=== PATIENT | female | born 1980 | race Caucasian/White ===

== ENCOUNTER 2020-06-21 09:58 | Outpatient (RCR) | payer BC, SELFPAY ==
--- NOTE | 2020-06-21 11:28 | HMH.PTOPEV ---
PT Outpatient Evaluation Rehab PT Outpatient Evaluation Start: 06/21/20 10:42 Freq: Status: Active Protocol: Document 06/21/20 10:42 [email or web address] (Rec: 06/21/20 11:28 [email or web address] [id number]) Electronically Signed By Fabian Wise, PT 06/21/20 10:42 Outpatient Therapy Subjective History Subjective History Pt. is a 40 year old female who presents to Outpatient PT clinic w/ complaints of constant and acute on chronic exacerbation of LB/LLE P! onset 1 wk. ago after lifting and moving pumpkins at work. Pt. reports first having symptoms in LB last year w/ symptoms progressively getting worse in the last month and a half. Pt . 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 Pt. denies having recent diagnostic imaging nor injections for current pathology, but reports some symptom relief w/ prescribed medications. Pt. reports symptoms into LLE( denies RLE) inferior to knee. Current medications include a muscle relaxer, Ibuprofen 800mg, Aspirin, and Propanolol . PMH includes Thrombophilia, migraines, Endometriosis, Ovarian Cysts, and TMJ implants x 2. Pt. denies bowel /bladder incontinencies, cancer, pacemaker, but reports an adhesive tape allergy. Chief Complaint Pain,Paresthesia Symptom Type Sharp,Numbness,Tingling, Shooting Symptoms Relieved By Prescription Meds Symptoms Aggravated By Supine,Sitting,Bending/ Stooping,Twisting,Lifting Prior Functional Limitations None Current Functional Limitations Lifting,Housework,Driving, Sleeping,Sitting,Bending/ Stooping Symptom Description Constant but Variable Level of pain today (0-10) 3 Pain scale - at its best (0-10) 3 Pain scale - at its worst (0-10) 10 Lumbopelvic Eval Posture
== END 2020-07-06 13:00 | disposition home or self-care (01) ==
LOC: PT.CARL 09:58
PROVIDERS: PCP Emergency Medicine; Visit Provider Family Medicine
DX: S39.012A Strain of muscle, fascia and tendon of lower back, initial encounter (principal)
CPT/HCPCS: 97110; 97140; 97163

== ENCOUNTER 2021-05-01 10:00 | Outpatient (RCR) | payer BC, SELFPAY | END 2021-06-14 14:00 | disposition home or self-care (01) | LOC: PT.CARL 10:00 | PROVIDERS: PCP Emergency Medicine; Visit Provider Obstetrics & Gynecology | DX: M54.9 Dorsalgia, unspecified (principal); Z34.90 Encounter for supervision of normal pregnancy, unspecified, unspecified trimester | CPT/HCPCS: 97110; 97140; 97163 ==

== ENCOUNTER 2021-10-21 11:35 | Emergency (ER) | payer BC, SELFPAY ==
[2021-10-21 11:45] VITALS: BP 138/91; PULSE 102; RESP 18; TEMP 36.9; O2SAT 98; BMI 31.9
[2021-10-21 12:13] LABS: UTC Influenza A Antigen Negative (Negative); UTC Influenza B Antigen Negative (Negative)
--- NOTE | 2021-10-21 12:14 | HMH.EDUTC ---
[facility] [place] Dis[place] Clinical Impression: Strep sore throat, COVID-19 virus test result unknown Acute bronchitis Qualifiers: Bronchitis organism: unspecified organism Qualified Code(s): J20.9 - Acute bronchitis, unspecified Disposition: Home, Self-Care Condition on Discharge: Good Instructions: DI for Strep Throat, DI for Acute Bronchitis Additional Instructions: covid swab was sent to lab, call tomorrow for results. self isolate until test results are known to be negative Start antibiotic today. Be sure to complete entire prescription even if feeling better Tylenol and ibuprofen as needed for pain or fever Humidifier/vaporizer/hot steamy shower Follow-up with primary care saturday. Follow-up immediately in the ER of the [facility] for new or worsening symptoms or no noticeable improvement over the next 48-72 hours. Stop smoking Inhaler every 4-6 hours as needed. Should help open airways improved cough, wheezing, shortness of breath Start steroids today. Helps with inflammation therefore coughing and wheezing. Follow directions on package. Start antibiotics today be sure to take it as ordered with the full length of time although you should start feeling better in 24-48 hours. Change toothbrush and toothpaste 24-48 hours after starting antibiotics Tylenol or Motrin as needed for fever or pain Encourage fluids, water, Gatorade, Powerade, try cold fluids, popsicles, ice cream will make it feel better You are contagious for 24 hours. Avoid kissing anyone, no eating or drinking after anyone. You are contagious. Follow-up the ER for new or worsening symptoms or no noticeable improvement over the next 24-48 hours. Follow-up with PCP this week. Prescriptions: predniSONE [Prednisone 20mg Tab] 20 mg PO BID #10 tab Transmission Status: Pending to [facility] Albuterol Sulfate [Proventil-HFA 90mcg/puff Inh] 1 - 2 puffs IH Q6HP PRN 14 Days #1 each PRN Reason: Wheezing Transmission Status: Pending to [facility] Azithromycin [Zithromax 250mg tab] 250 mg PO DIRECTED #6 tab Transmission Status: Pending to [facility] Referrals: Rahul Nava MD [Primary Care Provider] - Medical Decision Making - Ovidio Inquiry Pt receiving controlled substance: No Vital Signs: 02/05/22 11:45 Temperature 98.4 F Temperature Source Oral Pulse Rate [Right Brachial] 102 H Respiratory Rate 18 Blood Pressure [Right Arm] 138/91 H Blood Pressure Mean [Right Arm] 106 Blood Pressure Source [Right Arm] Automatic Cuff Blood Pressure Position [Right Arm] Sitting 02 Sat by Pulse Oximetry 98 Oxygen Delivery Method Room Air - Lab Data Lab Results 10/21/21 11:51: Influenza Type A Ag Negative, Influenza Type B Ag Negative Orders (Tests/Meds): ORDERS Category Date Time Status Covid-19 Nasal PCR ([facility]) Routine Lab 10/21/21 11:51 Ordered Rapid Strep Scrn Group A [Strep Scrn Group A (Rapid)] Lab 10/21/21 11:59 Received Stat [facility] HPI - General Chief complaint: Urgent Treatment Center Stated complaint: covid symptoms Time Seen by Provider: 10/21/21 12:15 Mode of Arrival: Ambulatory Source of Information: Patient Limitations: No Limitations Description of Symptoms (Recalled from Triage Doc. by RN): PATIENT C/O FEVER, CHILLS, FATIGUE, COUGH, BODY ACHES, SORE THROAT, CONGESTION, AND VOMITING/DIARRHEA SINCE SATURDAY HEENT Symptoms (Recalled from RN notes): Yes Resp Symptoms (Recalled from RN notes): Yes Skin Symptoms (Recalled from RN notes): No MS Symptoms (Recalled from RN notes): No Functional Status (Recalled from RN notes): WNL - History of Present Illness Provider Complaint: 41 yr old female presents for fever,chills,fatigue, cough,body aches,sore throat, congestion, and v/d since . Pt states it feels the same it did when she had strep throat in dec - Related Data Previous Rx's Medication Instructions Recorded Albuterol Sulfate [Proventil-HFA 1 - 2 puffs IH Q6HP PRN 14 Da
[2021-10-21 12:18] LABS: Strep Scrn Group A (Rapid) Negative (Negative)
[2021-10-21 12:27] VITALS: BP 138/91; PULSE 102; RESP 18; TEMP 36.9; O2SAT 98
== END 2021-10-21 12:30 | disposition home or self-care (01) ==
PROVIDERS: Emergency Provider Nurse Practitioner Family; PCP Family Medicine
DX: J02.0 Streptococcal pharyngitis (principal); U07.1 COVID-19; J20.9 Acute bronchitis, unspecified
CPT/HCPCS: 87430; 87804; 99203; C9803; G0463; U0003; U0005

== ENCOUNTER 2022-02-15 16:51 | Emergency (ER) | payer BC, SELFPAY ==
[2022-02-15 17:35] VITALS: BP 147/99; PULSE 103; RESP 19; TEMP 36.9; O2SAT 97; BMI 33.3
--- NOTE | 2022-02-15 17:49 | HMH.EDUTC ---
[facility] Clinical Impression: Acute bronchitis Qualifiers: Bronchitis organism: unspecified organism Qualified Code(s): J20.9 - Acute bronchitis, unspecified URI (upper respiratory infection) Qualifiers: URI type: unspecified URI Qualified Code(s): J06.9 - Acute upper respiratory infection, unspecified Disposition: Home, Self-Care Condition on Discharge: Good Instructions: Albuterol Oral Inhalation, DI for COVID-19 (Suspected or Confirmed ), Preventing the Spread of Coronavirus Discharge Instructions Additional Instructions: Hold dose of Amoxicillin tonight and resume prescribed medication tomorrow FOllow up with your Family Doctor if no improvement or any worsening of symptoms *Monitor Temp, Over the counter Motrin or Tylenol as directed/as needed Tylenol every 4 hours and Motrin every 6 hours (as long as your family doctor has told you that you can take it) for fever or pain. and straight to ER if unable to lower temp less than 101.0 after medication given *Warm salt water gargles may help to soothe the throat *Throat Lozenges *Warm fluids like tea with honey may help to soothe the throat *Sleep elevated *Humidifier/Vaporizer Follow up IMMEDIATELY for new or worsening symptoms or no Noticeable improvement over the next 48-72 hours. 911 for difficulty breathing or swallowing You were tested for today for Upper Respiratory Panel with COVID19 your test result should be back in the next 24-48 hours, you results should be available on the [facility] My Health Portal you can view them there Prescriptions: Albuterol Sulfate [Proventil-HFA 90mcg/puff Inh] 1 - 2 puffs IH Q6HP PRN #1 each PRN Reason: Shortness Of Breath Transmission Status: Received by [facility] Benzonatate [Benzonatate 100mg cap] 100 mg PO Q8HP PRN #15 cap PRN Reason: Cough Transmission Status: Received by [facility] Referrals: Rahul Nava MD [Primary Care Provider] - As needed Time of Disposition: 18:05 Medical Decision Making - Ovidio Inquiry Pt receiving controlled substance: No Ovidio was queried for this patient: No Vital Signs: 02/15/22 17:35 02/15/22 18:14 Temperature 98.4 F 98.4 F Temperature Source Oral Pulse Rate 103 H Pulse Rate [Right Brachial] 103 H Respiratory Rate 19 19 Blood Pressure 147/99 H Blood Pressure [Right Arm] 147/99 H Blood Pressure Mean [Right Arm] 115 Blood Pressure Source [Right Arm] Automatic Cuff Blood Pressure Position [Right Arm] Sitting 02 Sat by Pulse Oximetry 97 Oxygen Delivery Method Room Air Orders (Tests/Meds): ED MEDICATIONS Discontinued Medications Generic Name Dose Route Start Last Admin Trade Name Natalya PRN Reason Stop Dose Admin Ceftriaxone Sodium 1 gm 02/15/22 18:01 02/15/22 18:13 Ceftriaxone 1gm Vial IM 02/15/22 18:02 1 gm ONCE ONE Administration Lidocaine HCl 0 ml 02/15/22 18:01 02/15/22 18:13 Lidocaine 1% 5ml Pf Vial IM 02/15/22 18:02 2 ml ONCE ONE Administration Medical Decision Narrative: Discussed with pharmacy will have patient hold dose of Amoxicillin tonight and will give Rocephin injection in the [facility] and have her start back the Amoxicillin tomorrow [facility] [place] - General Stated complaint: URI sORE THROAT,cOUGH,CONGESTION Time Seen by Provider: 02/15/22 17:49 Mode of Arrival: Ambulatory Source of Information: Patient Limitations: No Limitations Description of Symptoms (Recalled from Triage Doc. by RN): PATIENT C/O COUGH, CONGESTION, SOA, AND EAR PAIN. WAS TREATED FOR STREP LAST WEEK HEENT Symptoms (Recalled from RN notes): Yes Resp Symptoms (Recalled from RN notes): Yes Skin Symptoms (Recalled from RN notes): No MS Symptoms (Recalled from RN notes): No Functional Status (Recalled from RN notes): WNL - History of Present Illness Provider Complaint: Patient state that she was seen in [facility] in [place] and was place on Amoxicillin for strep throat, 40mg of prednisone and ear drops States that she
[2022-02-15 18:14] VITALS: BP 147/99; PULSE 103; RESP 19; TEMP 36.9; O2SAT 97
== END 2022-02-15 18:25 | disposition home or self-care (01) ==
PROVIDERS: Emergency Provider Nurse Practitioner; PCP Family Medicine
DX: J20.9 Acute bronchitis, unspecified (principal)
CPT/HCPCS: 96372; 99212; G0463; J0696

== ENCOUNTER 2023-12-01 13:30 | Outpatient (CLI) | payer BC, SELFPAY ==
[2023-12-01 13:40] LABS: Adenovirus F 40/41, stool Not Detected (NotDetected); Astrovirus Not Detected (NotDetected); Campylobacter Not Detected (NotDetected); Clostridium Difficile A/B, PCR Not Detected (NotDetected); Cryptosporidium Not Detected (NotDetected); Cyclospora Cayetanesis Not Detected (NotDetected); Entamoeba histolytica Not Detected (NotDetected); Enteroaggregative E coli Not Detected (NotDetected); Enteropathogenic E coli Not Detected (NotDetected); Enterotoxigenic E coli Not Detected (NotDetected); Giardia lamblia Not Detected (NotDetected); Plesimonas Shigalloides, PCR Not Detected (NotDetected); Rotavirus A Not Detected (NotDetected); Salmonella, PCR Not Detected (NotDetected); Sapovirus Not Detected (NotDetected); Shiga-like toxin E coli Not Detected (NotDetected); Shigella Enterovasive E coli Not Detected (NotDetected); Vibrio Cholerae Not Detected (NotDetected); Vibrio, PCR Not Detected (NotDetected); Yersinia Entercolitica, PCR Not Detected (NotDetected)
[2023-12-03 17:36] LABS: C difficile Toxins AB, EIA Negative (Negative)
[2023-12-04 09:20] LABS: Norovirus Detected (NotDetected)
== END 2023-12-01 23:59 ==
LOC: LAB.DROPOF 13:31
PROVIDERS: PCP Family Medicine; Visit Provider Internal Medicine Gastroenterology
DX: R19.7 Diarrhea, unspecified (principal); R10.84 Generalized abdominal pain; R15.2 Fecal urgency; Z86.19 Personal history of other infectious and parasitic diseases
CPT/HCPCS: 87324; 87507

== ENCOUNTER 2024-09-29 16:01 | Outpatient (CLI) | payer BC, SELFPAY | END 2024-09-29 23:59 | disposition home or self-care (01) | LOC: LAB.DROPOF 16:01 | PROVIDERS: PCP Nurse Practitioner Family; Visit Provider Nurse Practitioner Family | DX: Z02.9 Encounter for administrative examinations, unspecified (principal) ==

== ENCOUNTER 2024-10-09 15:33 | Outpatient (CLI) | payer BC, SELFPAY ==
--- NOTE | 2024-10-09 15:37 | US_ITS ---
FINAL REPORT CLINICAL HISTORY: Goiter COMPARISON: None FINDINGS: THYROID ULTRASOUND: The right lobe of the thyroid gland measures 5.2 x 1.2 x 2.1 cm in size. There are several nodules in the right lobe of the thyroid gland, the largest nodule measuring 1 cm in size, ovoid, solid, hypoechoic, a TI-RADS category 4 nodule. The left lobe of the thyroid gland measures 4.7 x 1.3 x 2 cm in size. There are several nodules as well in the left lobe of the thyroid gland, the largest nodule measuring 1.3 cm in diameter, isoechoic with small calcifications, a TI-RADS category 4 nodule. The isthmus measures 2 mm in thickness. IMPRESSION: Multiple nodules in the thyroid gland, the largest on the right a 1 cm TI-RADS category 4 nodule, the largest on the left a 1.3 cm TI-RADS category 4 nodule. 12-month thyroid ultrasound follow-up exam is suggested for further evaluation. Reviewed, Interpreted and Dictated by Rc Slade MD Transcribed by Lani Oleary Authenticated and [facility]
== END 2024-10-09 23:59 | disposition home or self-care (01) ==
LOC: RAD 15:35
PROVIDERS: PCP Nurse Practitioner Family; Visit Provider Nurse Practitioner Family
DX: E04.1 Nontoxic single thyroid nodule (principal)
CPT/HCPCS: 76536

== ENCOUNTER 2024-10-15 10:00 | Outpatient (RCR) | payer BC, SELFPAY ==
[2024-09-29 14:38] LABS: Basophils # 0.1 K/mm3 (0-0.2); Eosinophils # 0.1 K/mm3 (0.0-0.4); Eosinophils % 1.8 % (0.1-12.0); Hematocrit 38.6 % (37.0-47.0); Hemoglobin 12.7 g/dL (12.2-16.2); Lymphocytes # 2.2 K/mm3 (0.7-4.5); Mean Corpuscular HGB Conc 32.9 g/dL (31.8-35.4); Mean Corpuscular Hemoglobin 29.9 pg (27.0-31.2); Mean Corpuscular Volume 90.8 fl (81-99); Mean Platelet Volume 10.7 fl (7.4-10.4); Monocytes # 0.3 K/mm3 (0.1-1.0); Monocytes % 5.4 % (1.7-9.3); Neutrophils # 3.3 K/mm3 (1.8-7.8); Neutrophils % 54.8 % (37.0-80.0); Platelet Count 320 K/mm3 (142-424); Red Blood Count 4.25 M/mm3 (4.20-5.40); Red Cell Distribution Width 12.6 % (11.5-17.5)
[2024-09-29 15:12] LABS: Alanine Aminotransferase 14 U/L (12-78); Albumin Level 4.9 g/dl (3.5-5.0); Albumin/Globulin Ratio 2.1 (1.1-1.8); Alkaline Phosphatase 46 U/L (38-126); Aspartate Amino Transferase 25 U/L (14-36); Bilirubin,Total 0.3 mg/dl (0.2-1.3); Blood Urea Nitrogen 16 mg/dl (7-17); Calcium 9.3 mg/dl (8.4-10.2); Carbon Dioxide 29 mmol/L (22.0-30.0); Chloride 102 mmol/L (98-107); Estimated Glomerular Filt Rate 91 ml/min (>60); GFR (African American) 110 ML/MIN (>60); Globulin 2.3 g/dL (1.3-3.2); Glucose 66 mg/dl (74-100); Sodium 141 mmol/L (136-145); Total Protein,Serum 7.2 g/dl (6.3-8.2)
[2024-09-29 18:39] LABS: T4 (Thyroxine) 9.6 ug/dl (5.53-11.0)
[2024-09-29 18:53] LABS: Thyroid Stimulating Hormone 0.47 uIU/mL (0.465-4.68)
[2024-09-29 18:54] LABS: Ferritin 30.1 ng/ml (6.24-137)
[2024-09-29 20:04] LABS: Hemoglobin A1C 4.8 % (4.0-6.0)
[2024-09-29 20:09] LABS: Vitamin B12 707 pg/mL (239-931)
[2024-09-30 03:36] LABS: Triiodothyronine (T3) Free 2.5 pg/mL (2.0-4.4)
[2024-09-30 04:31] LABS: Thyroid Peroxidase Antibodies 14 IU/mL (0-34)
[2024-09-30 15:09] LABS: Thyroglobulin Level <1.0 IU/mL (0.0-0.9)
== END 2024-10-15 23:59 | disposition home or self-care (01) ==
LOC: OT 10:00
PROVIDERS: Nurse Practitioner Family; Visit Provider Orthopaedic Surgery
DX: M25.811 Other specified joint disorders, right shoulder (principal)
CPT/HCPCS: 80053; 82607; 82728; 83036; 83735; 84436; 84439; 84443; 84481; 85025; 86376; 86800; 97014; 97035; 97110; 97140; 97166; 97530; G0283

== ENCOUNTER 2024-10-19 16:21 | Outpatient (CLI) | payer BC, SELFPAY ==
[2024-10-19 16:48] LABS: Coronavirus 19, PCR Not Detected (NotDetected); Human Rhinovirus Not Detected (NotDetected); Influenza A, PCR Not Detected (NotDetected); Influenza B, PCR Not Detected (NotDetected); Respiratory Syncytial Virus Not Detected (NotDetected)
== END 2024-10-19 23:59 | disposition home or self-care (01) ==
LOC: LAB.DROPOF 10-21 16:22
PROVIDERS: PCP Nurse Practitioner Family; Visit Provider Nurse Practitioner Family
DX: R53.83 Other fatigue (principal); R50.9 Fever, unspecified
CPT/HCPCS: 87631

== ENCOUNTER 2024-10-28 15:20 | Outpatient (CLI) | payer BC, SELFPAY ==
--- NOTE | 2024-10-28 15:26 | XR_ITS ---
FINAL REPORT CLINICAL HISTORY: shortness of breath FINDINGS: No acute pulmonary density is evident. There is no evidence of effusion or other pleural disease. The mediastinum has a normal appearance. The cardiac silhouette is unremarkable. IMPRESSION: Unremarkable chest exam. Reviewed, Interpreted and Dictated by Arsh Randhawa MD Transcribed by Aliyah Maldonado Authenticated and [facility]
== END 2024-10-28 23:59 | disposition home or self-care (01) ==
LOC: RAD 15:21
PROVIDERS: PCP Nurse Practitioner Family; Visit Provider Nurse Practitioner Family
DX: R06.02 Shortness of breath (principal)
CPT/HCPCS: 71046

== ENCOUNTER 2024-12-15 16:20 | Outpatient (CLI) | payer BC, SELFPAY ==
[2024-12-15 16:00] LABS: Chol/HDL Ratio 2.9 (1-3.5); Cholesterol 175 mg/dl (140-200); HDL Cholesterol 60 mg/dl (40-60); Magnesium 1.9 mg/dl (1.6-2.3); Triglycerides 76 mg/dl (30-150); VLDL Cholesterol 15 mg/dL (0-40)
[2024-12-15 16:13] LABS: Direct LDL Cholesterol 85.08 mg/dL (100-129)
[2024-12-15 16:17] LABS: Free T4 (Free Thyroxine) 1.18 ng/dl (0.78-2.19)
[2024-12-15 16:19] LABS: T4 (Thyroxine) 7.6 ug/dl (5.53-11.0)
[2024-12-15 16:32] LABS: Thyroid Stimulating Hormone 0.67 uIU/mL (0.465-4.68)
[2024-12-16 08:13] LABS: Estradiol 30.1 pg/mL (.); FSH 10.9 mIU/mL (.); LH 6.8 mIU/mL (.); Progesterone 0.1 ng/mL (.); Triiodothyronine (T3) Free 2.4 pg/mL (2.0-4.4)
== END 2024-12-15 23:59 | disposition home or self-care (01) ==
LOC: LAB.DROPOF 16:20
PROVIDERS: PCP Nurse Practitioner Family; Visit Provider Nurse Practitioner Family
DX: R23.2 Flushing (principal); E04.1 Nontoxic single thyroid nodule
CPT/HCPCS: 80061; 82670; 83001; 83002; 83735; 84144; 84436; 84439; 84443; 84481

== ENCOUNTER 2025-02-05 11:09 | Outpatient (CLI) | payer BC, SELFPAY ==
[2025-02-05 13:12] LABS: Basophils % 0.8 % (0.1-2.0); Eosinophils # 0.1 Kmm3 (0.0-0.4); Eosinophils % 1.9 % (0.1-12.0); Hematocrit 38.6 % (37.0-47.0); Hemoglobin 12.7 g/dL (12.2-16.2); Immature Granulocytes # 0 10^3uL; Immature Granulocytes % 0 %; Lymphocytes # 1.7 K/mm3 (0.7-4.5); Lymphocytes % 35.6 % (10-50); Mean Corpuscular HGB Conc 32.9 g/dL (31.8-35.4); Mean Corpuscular Hemoglobin 30.2 pg (27.0-31.2); Mean Corpuscular Volume 91.9 fl (81-99); Mean Platelet Volume 9.7 fl (7.4-10.4); Monocytes # 0.3 K/mm3 (0.1-1.0); Neutrophils # 2.7 K/mm3 (1.8-7.8); Neutrophils % 55.7 % (37.0-80.0); Nucleated Red Blood Cells # 0 10^3/uL; Nucleated Red Blood Cells % 0 %; Platelet Count 311 K/mm3 (142-424); Red Cell Distribution Width 12.1 % (11.5-17.5); Red Cell Distribution Width-SD 40.7 fL; White Blood Count 4.9 K/mm3 (4.8-10.8)
[2025-02-05 13:22] LABS: Alanine Aminotransferase 13 U/L (12-78); Albumin Level 4.8 g/dl (3.5-5.0); Albumin/Globulin Ratio 1.9 (1.1-1.8); Alkaline Phosphatase 46 U/L (38-126); Anion Gap 11.1 mEq/L (5-15); Aspartate Amino Transferase 21 U/L (14-36); Bilirubin,Total 0.5 mg/dl (0.2-1.3); Blood Urea Nitrogen 17 mg/dl (7-17); Calcium 9.3 mg/dl (8.4-10.2); Carbon Dioxide 30 mmol/L (22.0-30.0); Chloride 103 mmol/L (98-107); Estimated Glomerular Filt Rate 91 ml/min (>60); GFR (African American) 110 ML/MIN (>60); Globulin 2.5 g/dL (1.3-3.2); Glucose 65 mg/dl (74-100); Potassium 4.1 mmoL/L (3.5-5.1); Sodium 140 mmol/L (136-145); Total Protein,Serum 7.3 g/dl (6.3-8.2)
[2025-02-05 13:40] LABS: 25-OH Vitamin D, Total 28.6 ng/mL (30-100)
[2025-02-05 13:54] LABS: Thyroid Stimulating Hormone 0.55 uIU/mL (0.465-4.68)
[2025-02-05 13:55] LABS: Hemoglobin A1C 4.7 % (4.0-6.0)
[2025-02-05 14:56] LABS: Ferritin 9.22 ng/ml (6.24-137)
[2025-02-05 15:02] LABS: Vitamin B12 662 pg/mL (239-931)
== END 2025-02-05 23:59 | disposition home or self-care (01) ==
LOC: LAB.DROPOF 02-09 11:11
PROVIDERS: PCP Nurse Practitioner Family; Visit Provider Nurse Practitioner Family
DX: I95.9 Hypotension, unspecified (principal); R53.83 Other fatigue; L65.9 Nonscarring hair loss, unspecified; R23.2 Flushing; R63.4 Abnormal weight loss
CPT/HCPCS: 80053; 82306; 82607; 82728; 83036; 84443; 85025

== ENCOUNTER 2025-02-11 07:07 | Outpatient (CLI) | payer BC, SELFPAY ==
--- NOTE | 2025-02-11 08:00 | CA_ITS ---
FINAL REPORT TECHNIQUE: Martins scale, color and spectral doppler images of the bilateral carotid arteries were obtained. CLINICAL HISTORY: SCREENING FOR JOSE,HX OF HTN COMPARISON: None FINDINGS: Peak systolic velocity in the right internal carotid artery is 76 cm/sec. The internal carotid to common carotid artery ratio is 1.0. There is no significant carotid artery stenosis and no significant plaque formation. The right vertebral artery is normal in direction. Peak systolic velocity in the left internal carotid artery is 89 cm/sec. The internal carotid to common carotid artery ratio is 1.5. There is no significant carotid artery stenosis and no significant plaque formation. The left vertebral artery is normal in direction. IMPRESSION: No ultrasound evidence of hemodynamically significant carotid artery stenosis. Normal peak systolic velocities and normal internal to common carotid artery ratios bilaterally. Reviewed, Interpreted and Dictated by Rc Slade MD Transcribed by Lani Oleary Authenticated and [facility]
--- NOTE | 2025-02-11 08:45 | US_ITS ---
FINAL REPORT CLINICAL HISTORY: family hx of early CAD/aneurysm COMPARISON: None FINDINGS: Sonographic images were obtained of the abdominal aorta. The abdominal aorta measures up to 21 mm in greatest dimensions. The common iliac arteries are within normal limits. IMPRESSION: No evidence of aortic aneurysm. Reviewed, Interpreted and Dictated by Rc Slade MD Transcribed by Lani Oleary Authenticated and [facility]
== END 2025-02-11 23:59 | disposition home or self-care (01) ==
LOC: RT 07:08
PROVIDERS: PCP Nurse Practitioner Family; Visit Provider Nurse Practitioner Family
DX: Z13.6 Encounter for screening for cardiovascular disorders (principal); Z82.49 Family history of ischemic heart disease and other diseases of the circulatory system
CPT/HCPCS: 76706; 93880

== ENCOUNTER 2025-02-11 07:10 | Outpatient (CLI) | payer SELFPAY ==
--- NOTE | 2025-02-11 07:00 | CT_ITS ---
APPROVED REPORT Coating Inspector: CLINICAL INDICATION Coronary risk evaluation and stratification TECHNIQUE Image Acquisition: A 128 slice MDCT scanner ([employer] View) was used for data acquisition. A noncontrast coronary calcium scan was performed. A CT attenuation threshold of 130 Hounsfield units (HU) was used for the detection of calcium in contiguous voxels of 1 sq mm in area to be counted as individual lesions. A tube voltage of 120 KVp was used. The patient received no medications prior to the coronary calcium CT. Image Reconstruction Transaxial images were reconstructed at 0.67 mm slide thickness. Data was reviewed interactively on an advanced workstation capable of 2 and 3-dimensional displays in all conventional reconstruction formats, including multiplanar reformations, maximum intensity projections, curved multiplanar reformations, and volume rendered reconstructions. When applicable, selected routine images describing the relevant coronary anatomy and pathology were saved and sent to PACS. Complications None Technical Quality Overall image quality was good. Total DLP (Dose-Length Product) is 161.9 mGy-cm. The reported value represents the total of one or more individual components during the CT acquisition of this date and at this time, and as such, the same value may appear in more than one CT report depending on the interpreting/reporting physicians. COMPARISON None FINDINGS CT Coronary Calcium Scoring LMA (Left Main Artery) = 0 LAD (Left Anterior Descending) = 0 LCX (Left Coronary Circumflex) = 0 RCA (Right Coronary Artery) = 0 Total Calcium Score = 0 using the AJ-130 method. There is no identifiable calcification in the aortic valve, mitral annulus or mitral valve, pericardium, or myocardium. IMPRESSION -Coronary artery calcification is absent. -Total Calcium Score (Agatston Score) = 0 using the AJ-130 method. The interpretation of the calcium heart score is based on the following continuum*: 0 = no calcified plaque detected (risk of coronary artery disease is very low ??? less than 5%) 1-10 = calcium detected in extremely minimal levels (risk of coronary diseases is still low ??? less than 10%) 11-100 = mild levels of plaque detected with certainty (mild or minimal narrowing of heart arteries is likely) 101-400 = definite,at least moderate levels of plaque detected (relatively high risk of a heart attack within 3-5 years) >401-999 = extensive levels of plaque detected (high risk of heart attack, high levels of vascular disease are present, high likelihood of at least one significant coronary narrowing) *The calcium heart score quantifies the burden of coronary calcification/plaque in the coronary arteries. The calcium heart score does not evaluate the presence or the burden of non-calcified (i.e. soft) plaque. The coronary and cardiac findings of this Coronary Calcium CT were reviewed, reported, and signed by Fabio Oreilly MD (Vat Overhauler). Conclusion Electronically signed by : Shanda Oreilly MD 02/13/2025 21:07:02
== END 2025-02-11 23:59 | disposition home or self-care (01) ==
LOC: RAD 07:11
PROVIDERS: PCP Nurse Practitioner Family; Visit Provider Nurse Practitioner Family
DX: Z82.49 Family history of ischemic heart disease and other diseases of the circulatory system (principal); Z13.6 Encounter for screening for cardiovascular disorders
CPT/HCPCS: 75571

== ENCOUNTER 2025-02-17 07:01 | Outpatient (CLI) | payer BC, SELFPAY ==
--- NOTE | 2025-02-17 07:06 | CT_ITS ---
FINAL REPORT TECHNIQUE: Multiple axial CT sections were performed through the face without IV contrast. Coronal reconstruction images were performed. This study was performed with techniques to keep radiation doses as low as reasonably achievable (ALARA). Individualized dose reduction techniques using automated exposure control or adjustment of mA and/or kV according to the patient's size were employed. CLINICAL HISTORY: ARTHRALGIA OF RT TEMPROMANDIBULAR JOINT FINDINGS: Paranasal sinuses and mastoid air cells are clear. There are postoperative changes from bilateral TMJ replacement. There is no dislocation. On the right, the surgical plate is not flush with the mandibular ramus toward the TMJ. This is asymmetric from the contralateral side. Chronicity is unknown. There is a small, triangular calcific density medial to the artificial mandibular condyle. Small bilateral soft tissue nodules are seen within the parotid glands which could represent intraparotid lymph nodes. Remaining soft tissues are without acute abnormality. IMPRESSION: 1. Postoperative changes from bilateral TMJ replacement. 2. Surgical plate not flush with mandibular ramus on the right. Chronicity unknown. Hardware complication not excluded. 3. Small calcific density medial to the right mandibular condyle component. Loose body not excluded. Reviewed, Interpreted and Dictated by Elba Dickens MD Transcribed by Talia Weathers Authenticated and . [facility]
== END 2025-02-17 23:59 | disposition home or self-care (01) ==
LOC: RAD 07:02
PROVIDERS: PCP Nurse Practitioner Family; Visit Provider Oral & Maxillofacial Surgery
DX: R93.0 Abnormal findings on diagnostic imaging of skull and head, not elsewhere classified (principal); M26.621 Arthralgia of right temporomandibular joint; Z96.698 Presence of other orthopedic joint implants
CPT/HCPCS: 70486

== ENCOUNTER 2025-04-19 15:30 | Outpatient (CLI) | payer BC, SELFPAY ==
--- OUTSIDE RECORDS SUMMARY | 2025-02-24 15:30 | XMS_ITS | Encounter Summary ---
Author Organization [facility] Address [address] [place] [address] Care Team Providers Care Comparison Shopper Name Role Phone Dustin Chuyitagagandeep Allen APRN Primary Care Provider [phone]- [phone] Reason for Visit * Reason Comments Follow-up F/u mtrue Encounter Details Date Type Department Care Team (Late st Contact Info) Description 02/24/2025 3:30 PM EDT Office Visit [facility] nitrogen operator [facility] [address] [place] [address] Merrick Cowan DMD, MD [address] [place] [address] Hardware complicating wound infection, initial encounter (CMS/[facility]) Social History Tobacco Use Types Packs/Day Years Used Date Smoking Tobacco: Never Smokeless Tobacco: Never Alcohol Use Standard Drinks/Week Comments No 0 (1 standard drink = 0.6 oz pur e alcohol) Humiliation, Afraid, Rape, and Kick questionnair e Answer Date Recorded Within the last year, have y ou been afraid of your partner or ex-partner? No 02/09/2025 Within the last year, have y ou been humiliated or emotionally abused in other ways by your partner or ex-partner? No Within the last year, have y ou been kicked, hit, slapped, or otherwise physically hurt by your partner or ex-partner? No 02/09/2025 Within the last year, have y ou been raped or forced to have any kind of sexual activity by your partner or ex-partner? No 02/09/2025 Social Connection and Isolation Panel Answer Date Recorded In a typical week, how many times do you talk on the phone with family, friends, or neighbors? More than three times a week 02/09/2025 How often do you get togethe r with friends or relatives? Three times a week 02/09/2025 How often do you attend [facility] or uatsdin services? More than 4 times per year 02/09/2025 Do you belong to any clubs o r organizations such as restoration groups, unions, fraternal or athletic groups, or school groups? No 02/09/2025 How often do you attend meet ings of the clubs or organizations you belong to? Never 02/09/2025 Are you , , di vorced, , never , or living with a partner? 02/09/2025 AUDIT-C Answer Date Recorded Q1: How often do you have a drink containing alcohol? Never 02/09/2025 Q2: How many drinks containi ng alcohol do you have on a typical day when you are drinking? Patient does not drink Q3: How often do you have si x or more drinks on one occasion? Never 02/09/2025 Overall Financial Resource Strain (CARDIA) Answe r Date Recorded How hard is it for you to pa y for the very basics like food, housing, medical care, and heating? Not hard at all 02/09/2025 PHQ-2 Answer Date Recorded Patient Health Questionnaire-2 Score 0 02/09/2025 [facility] - Occupational Stress Questionnaire Answer Date Recorded Do you feel stress - tense, restless, nervous, or anxious, or unable to sleep at night because your mind is troubled all the time - these days? Very much 02/09/2025 Exercise Vital Sign Answer Date Recorde d On average, how many days pe r week do you engage in moderate to strenuous exercise (like a brisk walk)? 0 days 02/09/2025 On average, how many minutes do you engage in exercise at this level? 0 min 02/09/2025 Hunger Vital Sign Answer Date Recorded Within the past 12 months, y ou worried that your food would run out before you got the money to buy more. Never true 02/10/20 25 Within the past 12 months, t he food you bought just didn't last and you didn't have money to get more. Never true 02/09/2025 PRAPARE - Transportation Answer Date Re corded In the past 12 months, has l ack of transportation kept you from medical appointments or from getting medications? No 01/15 In the past 12 months, has l ack of transportation kept you from meetings, work, or from getting things needed for daily living? No 02/09/2025 Housing Stability Vital Sign Answer Surya e Recorded In the last 12 months, was t here a time when you were not able to pay the mortgage or rent on time? No 02/09/2025 In the past 12 months, how m any times have you moved where you were living? 0 02/09/2025 At any time in the past 12 m [facility], were you homeless or living in a nursing home (including now)? No 02/09/2025 Utilities Answer Date Recorded In the past 12 months has th e [employer], gas, oil, or water company threatened to shut off services in your home? No 02/09/2025 Comments No Sex and Gender Information Value Date Recorded Sex Assigned at Not on file Legal Sex Female 7:29 PM EDT Gender Identity Not on file Sexual Orientation Not on file documented as of this encounter Last Filed Vital Signs Vital Sign Reading Time Taken Comments Blood Pressure 115/86 02/24/2025 3:32 PM EDT Pulse 85 02/24/2025 3:32 PM EDT Temperature - - Respiratory Rate - - Oxygen Saturation 100% 02/24/2025 3:32 PM EDT Inhaled Oxygen Concentration - - Weight 63.5 kg (140 lb) 02/24/2025 3:32 PM EDT Height 165.1 cm (5' 5 ) 02/24/2025 3:32 PM EDT Body Mass Index 23.3 02/24/2025 3:32 PM EDT documented in this encounter Miscellaneous Notes * Progress Notes - Merrick Cowan DMD, MD - 02/24/2025 3:30 PM EDT OMS Follow-Up Appointment Subjective: Swati Limon is a 44 y.o. female who presents for follow-up s/p heterotropic bone removalsurrounding R TMJ prosthesis on 06/25/[address] Cowan. Patient was seen about 2 weeks ago for drainage from the right external auditory canal. Reports that the drainage has decreased with the antibiotics and reports that the pain has decreased. Recently had CT scan performed to evaluate the underlying hardware. No changes to occlusion. Denies f/c/n/v. Objective: Vitals: 02/24/25 1532 BP: 115/86 Pulse: 85 SpO2: 100% Physical Exam General: Well nourished, in no acute distress.? HEENT: Normocephalic, atraumatic. No facial swelling, asymmetry, or lesions. Neck is soft, supple, nontender to palpation. Decreased erythema around Right preauricular region, minimal drainage from Router ear canal Intra-Oral: MARTIN 40 mm. Occlusion stable and reproducible. Oral mucosa moist, intact. No intraoral lesions. No pharyngeal edema. FOM soft/nontender/non-elevated. CT face without contrast: Postoperative changes from bilateral TMJ replacement. Surgical Plate not flush with mandibular ramus on the right with chronicity unknown. Small clacific density medial to the right mandibular condyle component. Right EAC culture: mixed skin juju Assessment: Swati Limon is a 44 y.o. female who presents for follow-up s/p heterotropic bone removalsurrounding R TMJ prosthesis on 06/25/24 with drainage from right EAC region. Continue antibiotics Plan: - Rx: Bactrim documented in this encounter Plan of Treatment Upcoming Encounters Date Type Department Care Team (Late st Contact Info) Description 05/12/2025 2:00 PM EDT Office Visit [facility] nitrogen operator Faculty [facility] [address] [place] [address] Merrick Cowan DMD, MD [address] [place] [id number] 10/20/2025 1:30 PM EST Office Visit [facility] nitrogen operator [facility] [address] [place] [address] Merrick Cowan DMD, MD [address] [place] [address] 02/08/2026 9:00 AM EDT Office Visit [facility] [address], [address] [place] [address] Aramis Santana MD [address] [place] [address] documented as of this encounter Visit Diagnoses Diagnosis Hardware complicating wound infection, initial encounter (CMS/[facility]) documented in this encounter Additional Health Concerns Assessment Noted Time A fall risk assessment has been complete d for the patient 05/27/2023 10:33 AM EDT A Body Mass Index follow-up plan has been documented for the patient 03/04/2025 12:46 PM EDT documented as of this encounter Care Teams Comparison Shopper Relationship Specialty Start Date End Date Chuyita Chan APRN [address] [place] [address] PCP - General 02/09/25 documented as of this encounter
--- NOTE | 2025-04-19 15:30 | US_ITS ---
PROCEDURE: US TRANSVAGINAL CLINICAL INDICATION: abnormal uterine bleeding, pain COMPARISON: No exams were available for comparison FINDINGS: Transvaginal sonographic images of the pelvis were obtained. UTERUS: 7.7 cm x 6.3cmx 4.3cm retroverted with a combined endometrial thickness of 10.3mm. There is a small nabothian cyst within the cervix. LEFT OVARY: 1.9 cmx0.7 cmx0.8cm with a volume of 0.5ml. RIGHT OVARY: 1.8 cmx 1.1cmx1.0cm with a volume of 1.1ml. Both ovaries are seen and appear normal. Doppler flow to both ovaries are seen. There is no fluid in the cul-de-sac. IMPRESSION: 1. Retroverted uterus normal in shape and size. The endometrium appears normal and measures 10.3 mm. 2. Both ovaries are difficult to visualize but appear normal. 3. No fluid in the cul-de-sac. Dictated by: Luis Peralta MD 04/20/2025 09:58 Luis Peralta MD in OV 04/20/2025 09:58
--- OUTSIDE RECORDS SUMMARY | 2025-04-19 15:34 | XMS_ITS | Encounter Summary ---
Author Organization [employer] ([place], [place], [place], [place]) Address [address] [place] [address] Care Team Providers Care Instructor Creeler Name Role Phone Unavailable Primary Care Provider Unavailabl e Encounter Details Date Type Department Care Team (Late st Contact Info) Description 01/11/2019 Transcribed Document [facility] [place] [facility] [address] [place] [address] ProviderCliff MD [address] [place] [id number] Social History Tobacco Use Types Packs/Day Years Used Date Smoking Tobacco: Never Assessed Comments Unknown Sex and Gender Information Value Date Recorded Sex Assigned at Not on file Legal Sex Female 1:20 PM CDT Gender Identity Not on file Sexual Orientation Not on file documented as of this encounter Miscellaneous Notes * Cerner Conversion Note - Historical ProviderMD - 01/11/2019 9:09 AM CDT CR Chest 2 Vws Ordered: 01/11/2019 Auth (Verified) Reason for Exam: chest pain, dysphagia 01/11/2019 08:34 01/11/2019 09:09 (Madelaine Cottrell, Technical Administrator) No further action required documented in this encounter Plan of Treatment Not on file documented as of this encounter Visit Diagnoses Not on filedocumented in this encounter
--- OUTSIDE RECORDS SUMMARY | 2025-04-19 15:34 | XMS_ITS | Encounter Summary ---
Author Organization [employer] ([place], [place], [place], [place]) Address [address] [place] [address] Care Team Providers Care Inspector Firearms Name Role Phone Unavailable Primary Care Provider Unavailabl e Encounter Details Date Type Department Care Team (Late st Contact Info) Description 09/25/2018 Transcribed Document [facility] [place] [facility] [place] [address] ProviderCliff MD [address] [place] [id number] Social History Tobacco Use Types Packs/Day Years Used Date Smoking Tobacco: Never Assessed Comments Unknown Sex and Gender Information Value Date Recorded Sex Assigned at Not on file Legal Sex Female 1:20 PM CDT Gender Identity Not on file Sexual Orientation Not on file documented as of this encounter Miscellaneous Notes * Cerner Conversion Note - Cliff Velazquez MD - 09/25/2018 6:39 AM INTERNATIONAL MARKETING EXECUTIVE DATE OF PROCEDURE: 09/24/2018 PREOPERATIVE DIAGNOSIS(ES): 1. Pelvic pain. 2. Dysmenorrhea. 3. Dyspareunia. 4. Pelvic adhesions. POSTOPERATIVE DIAGNOSIS(ES): 1. Pelvic pain. 2. Dysmenorrhea. 3. Dyspareunia. 4. Pelvic adhesions. 5. Endometriosis. PROCEDURE: 1. Diagnostic laparoscopy with CO2 laser of endometriosis. 2. Lysis of adhesions. 3. Drainage of right ovarian cyst. 4. Chromopertubation. SURGEON: Mara Nunez M.D. SIGNALING DESIGN ENGINEER: Celeste Vela PA-C. ANESTHESIA: General endotracheal anesthesia. FINDINGS: 1. Pelvic adhesions in the left lower quadrant and in the right lower quadrant. The right lower quadrant adhesions were close to the appendix, but the appendix itself was entirely normal. 2. There were also adhesions in the anterior cul-de-sac from the bladder to the lower uterine segment. 3. There was endometriosis which was between stage II and III. Very superficial small implants on the anterior cul-de-sac, right psoas muscle, but there were a lot more broad-spread lesions in each ovarian fossa and in the cul-de-sac region. 4. There were adhesions on the posterior wall of the uterus, pulling the uterus to the right ovarian fossa. 5. Two small ovarian cysts on the right ovary. 6. Tubal patency was demonstrated on the right. The left fallopian tube was absent. 7. The upper abdomen appeared normal. 8. Liver was normal. 9. Gallbladder previously removed. 10. The diaphragmatic surfaces were normal. SPECIMEN: None. ESTIMATED BLOOD LOSS: Minimal. Please see anesthesia record. INTAKES AND OUTPUTS: Please see anesthesia record. COMPLICATIONS: None. INDICATION FOR PROCEDURE: Ms. Swati Limon is a 38-year-old, who has had a very long complicated gynecologic history. She has undergone many laparoscopies in the past for pelvic pain and also including treatment of an ectopic . The patient is a 6, para 1, AB 4, and ectopic 1. At this time, she has been dealing with significant abdominal and pelvic pain. She has pain with her periods and she has pain with intercourse. Recently, she was seen by her primary care, Dr. Robert Gallegos, who has performed an MRI and the results of the MRI reveals abdominal pelvic adhesions. The patient, her primary care, and I have considered a diagnostic laparoscopy as a good first step to evaluate and treat the pelvic adhesions. The patient is aware of the risks and benefits of the surgery. She has already had several laparoscopies in the past. She understands the mode of anesthesia, the need for preop antibiotics, and the- for DVT prophylaxis. She has signed a consent. She has also signed a hospital-one form and a [facility] report has been run and is up-to-date. DESCRIPTION OF PROCEDURE: The patient was taken to the operating room in the dorsal supine position. She was placed on the operating room table. She was then given general endotracheal anesthesia. She was placed in a modified lithotomy position and she had both a vaginal and an abdominal prep in the usual routine fashion. Once she was draped, then a Sam catheter was placed into her bladder to allow continuous urinary drainage. A speculum was placed inside the vagina. A single-tooth tenaculum was placed on the anterior lip of the cervix. The cervix was dilated and then an uterine manipulator was inserted. Then, with the insufflation of the bulb, the bulb blew and so a new uterine manipulator had to be obtained. Once the new uterine manipulator was placed, the single-tooth tenaculum was removed and the speculum was removed. We then turned our attention to the patient's abdomen. There was a marked amount of scarring at the presence of the umbilicus due to the previous laparoscopy. A small incision was made and a Veress needle was introduced. The abdomen was then insufflated to approximately 3.5 L of gas. Once the abdomen was insufflated and the Veress needle was removed, then an Optiview trocar was placed under direct visualization for each layer of the abdomen. With the trocar in place, the patient was put into the Trendelenburg position. The camera was inserted. Then, we visualized the abdominopelvic viscera. At this time, we decided to transilluminate the lower abdomen. We made a 5-mm incision in the left lower quadrant and placed a trocar. We also did one on the right side as well. This was to aid in visualization, traction, countertraction, suction, and irrigation. Still photos were taken of the pelvis, the appendix, the uterine surface, the left ovary, the cul-de-sac, the right tube and ovary. We waited till the end of the surgery to visualize the upper abdomen. We then obtained our laser and with the uterus in a good position we began in the anterior cul-de-sac, taking the adhesions down from the previous surgery. We then elevated an adhesion and removed the adhesion. We lifted the uterus up and then inspected the cul-de-sac. The surface of the uterus had many blebs on it consistent with endometriosis and so my concern was that the patient may have adenomyosis. I did use the laser and lasered all the blebs on the surface of the uterus. We then inspected the left ovary, inspected the left lower quadrant, and took down the adhesions in the left lower quadrant. The ovary itself was normal. There were no adhesions on the left ovary. The left tube was absent. Then by elevating the uterus, we inspected the cul-de-sac and we began taking down the endometriosis in the cul-de-sac. The tissue was somewhat edematous. With the lasering the tissue, a clear fluid or exudate would be noted. There was old eschar noted from previous surgeries. Once we felt that we had lasered the endometriosis, we then performed a chromopertubation demonstrating flow of dye on the right tube. We elevated the ovary and drilled the couple of cysts on that ovary which demonstrated clear fluid. These cysts were most consistent with physiologic ovulation. The appendix appeared normal, but we took down some adhesions close to the appendix and then we irrigated copiously, suctioned out the irrigant fluid, visualized the upper abdomen, took the patient out of the Trendelenburg to visualize the diaphragmatic surfaces which were totally clear. We could visualize the liver edge and the stomach as well. There was no evidence of any fatty liver and no abnormalities in the upper abdomen. At this time, we irrigated copiously, suctioned out the irrigant fluid, removed our instruments from each trocar, removed each trocar. No bleeding was noted internally. We did use a local anesthetic in our incision sites. Then we allowed the gas to escape from the umbilical trocar. As we were letting the gas escape, then, we turned our attention to closing the other incisions and then we removed the umbilical trocar. The fascial edge was reapproximated at the umbilicus and then we did place one deep suture and then the skin was closed in a subcuticular fashion. Local anesthetic was placed in the umbilical incision as well as the accessory trocar sites. Since the patient has a severe ADHESIVE allergy, no dressings were applied. The Sam catheter was removed. The uterine manipulator was removed. A sponge on a stick was used to evaluate bleeding. Minimal bleeding was noted from the vagina. The patient was returned to the dorsal supine position and taken to the recovery room in stable condition. Mara Nunez M.D. Dict: 09/25/2018 06:39:58 Trans: 09/25/2018 07:36:27 CC1: Mara Nunez M.D. documented in this encounter Plan of Treatment Not on file documented as of this encounter Visit Diagnoses Not on filedocumented in this encounter
--- OUTSIDE RECORDS SUMMARY | 2025-04-19 15:34 | XMS_ITS | Encounter Summary ---
Author Organization [employer] ([place], [place], [place], [place]) Address [address] [place] [address] Care Team Providers Care Wheel Braider Name Role Phone Unavailable Primary Care Provider Unavailabl e Encounter Details Date Type Department Care Team (Late st Contact Info) Description 01/11/2019 Transcribed Document [facility] [place] Family Medicine [facility] [place] [address] ProviderCliff MD [address] [place] [id number] Social History Tobacco Use Types Packs/Day Years Used Date Smoking Tobacco: Never Assessed Comments Unknown Sex and Gender Information Value Date Recorded Sex Assigned at Not on file Legal Sex Female 1:20 PM CDT Gender Identity Not on file Sexual Orientation Not on file documented as of this encounter Miscellaneous Notes * Cerner Conversion Note - Cliff Velazquez MD - 01/11/2019 11:42 AM CDT [address] [address] SWATI MARQUEZ :1980 Visit Time:01/11/2019 Your Visit Summary Your Care Team Admitting Physician - NATHALIA LAWS MD-IRAIS Attending Physician - NATHALIA LAWS MD-IRAIS Primary Care Physician - SRINI HERNANDEZ (REF), BOB Referring Physician - SELF, REFERRED (REF), -UNK Your Diagnosis Chest pain Chest pain Esophagitis Patient Portal Reminder: Be sure to sign up for the [employer] patient portal, which gives you 08/04 access to your medical information ??? including these discharge instructions ??? using your computer, smartphone, or tablet. Just go to [email or web address] to get started. Questions? Call . You may also obtain a copy of your Emergency Department visit from Medical Records by calling the hospital phone number listed above and asking to be directed to the Medical Records Department. If you had special tests, such as EKG???s or X-rays, the interpretation of your tests given to you by the Emergency Department Physician is a preliminary report. Some fractures and illnesses fail to show up on preliminary tests. These will be reviewed again and we will call you if there are any new suggestions. If your symptoms continue notify your physician. After you leave, you should follow the instructions provided. What to do next Follow-Up Appointments Follow Up with SRINI HERNANDEZ When Within 2 to 3 days Where: [id number] [facility] Emergency Services [address] [place] [id number] Business (1) Allergies Adhesive Bandage (Blisters) Contrast Dye (anaphylaxis) antihistamines Immunizations This Visit No Immunizations Found Medications What How Much When Instructions Next Dose New Al hydroxide/ Mg hydroxide/ simethicone (Maalox Advanced Regular Strength oral suspension) 10 Milliliter(s) Oral Four times a day (after meals and at bedtime) Can Mix 3 medications, for a GI cocktail Printed Prescription New atropine/ hyoscyamine/ PB/ scopolamine ( oral elixir) 5 Milliliter(s) Oral Four times a day (before meals and at bedtime) Can Mix 3 medications, for a GI cocktail Printed Prescription New lidocaine topical (Lidocaine Viscous 2% mucous membrane solution) 5 Milliliter(s) Topical Four times a day (before meals and at bedtime) as needed for as needed esophageal pain Can Mix 3 medications, for a GI cocktail Printed Prescription Unchanged acetaminophen-diphenhydramine (Tylenol PM) 30 Milliliter(s) Oral At Bedtime Unchanged aspirin 81 Milligram(s) Oral Every Day Unchanged cholecalciferol (Vitamin D3) 50,000 International Units Oral Every 4 Weeks Unchanged metFORMIN (metFORMIN 500 mg oral tablet) 1 Tablet(s) Oral Two Times A Day Unchanged multivitamin, ( Multivitamins oral tablet) 1 Tablet(s) Oral Every Day Unchanged Non Formulary (Non Formulary med) essential oils Topical Every Day Unchanged nortriptyline (nortriptyline 10 mg oral capsule) 1 Capsule(s) Oral At Bedtime Unchanged promethazine (promethazine 25 mg oral tablet) 1 Tablet(s) Oral Every 6 Hours as needed for for nausea/vomiting Duration: 5 Day(s) The home medications listed are only as accurate as the information you provided. Please continue taking all of your medications prescribed by your Primary Care Provider unless specifically told to change or discontinue the medication. Please direct any questions regarding your home medications to your Primary Care Provider. Take your medications faithfully. Do NOT skip medication. Do NOT stop taking medications without the direction of a physician. Carry a list of your medications with you at all times, and take this medication list with you to your first follow up visit. Report any side effects. Avoid herbal remedies unless discussed with your physician. As part of your treatment plan, your physician may have prescribed a limited course of a controlled substance. This medication may be given to help people with moderate or severe pain or for other medical conditions, but there are risks involved with treatment. Common side effects may include nausea, constipation, drowsiness, sweating, itching, dry mouth, and rash. More serious side effects may include cognitive and motor impairment, like problems with thinking, concentrating, alertness, and movement (e.g. slowed reflexes), and driving and operating heavy machinery can be dangerous. It is important for you to talk to your physician if you have these side effects or questions. These controlled substances can produce physical dependence and be habit-forming if taken for an extended period of time, which means that the body has gotten used to them and may experience withdrawal symptoms if they are abruptly stopped. Withdrawal symptoms can include runny nose, sweating, goose bumps, diarrhea, abdominal cramping, rapid heartbeat, difficulty sleeping, and nervousness. Please dispose of unused and medications per pharmacy guidance. Test Results Laboratory or Other Results This Visit (last charted value for your 01/11/2019 visit) Hematology 01/11/19 07:17:00 WBC: 13.2 K/uL -- Normal range between ( 3.9 and 10.0 ) RBC: 4.63 Million/uL -- Normal range between ( 3.93 and 5.22 ) Hct: 40.2 % -- Normal range between ( 34.1 and 44.9 ) Hgb: 13.7 Gram/dL -- Normal range between ( 11.2 and 15.7 ) Platelet Count: 333 K/uL -- Normal range between ( 163 and 369 ) MCH: 29.6 pg -- Normal range between ( 25.6 and 32.2 ) MCHC: 34.1 Gram/dL -- Normal range between ( 32.3 and 36.5 ) MCV: 86.8 fL -- Normal range between ( 79.0 and 94.8 ) Slide Review: No Eos %: 0.8 % -- Normal range between ( 1.0 and 7.0 ) Garrard #: 0.58 K/uL -- Normal range between ( 0.24 and 0.82 ) Eos #: 0.10 K/uL -- Normal range between ( 0.04 and 0.54 ) Garrard %: 4.4 % -- Normal range between ( 4.7 and 12.5 ) Baso %: 0.4 % -- Normal range between ( 0.0 and 1.0 ) Baso #: 0.05 K/uL -- Normal range between ( 0.01 and 0.08 ) RDW: 12.5 % -- Normal range between ( 11.6 and 14.4 ) Neut %: 80.7 % -- Normal range between ( 34.0 and 71.0 ) Neut #: 10.68 K/uL -- Normal range between ( 1.56 and 6.13 ) Lymph %: 13.5 % -- Normal range between ( 19.3 and 53.0 ) Lymph #: 1.79 K/uL -- Normal range between ( 1.18 and 3.74 ) MPV: 9.3 fL -- Normal range between ( 9.4 and 12.4 ) IG#: 0 x10(3)/uL IG%: 0 % -- Normal range between ( 0 and 1 ) General Chemistry 01/11/19 07:17:00 Creatinine Level: 0.67 mg/dL -- Normal range between ( 0.55 and 1.02 ) Sodium Level: 137 mmol/L -- Normal range between ( 136 and 146 ) Potassium Level: 3.5 mmol/L -- Normal range between ( 3.5 and 5.1 ) Chloride Level: 105 mmol/L -- Normal range between ( 102 and 112 ) Carbon Dioxide Level: 24 mmol/L -- Normal range between ( 21 and 32 ) Anion Gap: 12 -- Normal range between ( 9 and 20 ) Bilirubin Total: 0.4 mg/dL -- Normal range between ( 0.2 and 1.3 ) A/G Ratio: 1.1 -- Normal range between ( 1.1 and 2.5 ) ALT: 91 Units/Liter -- Normal range between ( 12 and 78 ) AST: 53 Units/Liter -- Normal range between ( 5 and 37 ) Globulin: 3.9 Gram/dL -- Normal range between ( 1.5 and 4.5 ) Alk Phos: 74 Units/Liter -- Normal range between ( 27 and 136 ) Bun/Creatinine: 22.4 -- Normal range between ( 8.0 and 20.0 ) Calcium Level: 9.5 mg/dL -- Normal range between ( 8.5 and 10.1 ) CRP: 0.5 mg/dL -- Normal range between ( 0.0 and 0.9 ) eGFR : >60 mL/min/1.73m2 eGFR NonAfrican: >60 mL/min/1.73m2 Glucose Level: 93 mg/dL -- Normal range between ( 74 and 106 ) Blood Urea Nitrogen: 15 mg/dL -- Normal range between ( 7 and 22 ) Protein Total: 8.2 Gram/dL -- Normal range between ( 6.4 and 8.2 ) Albumin Level: 4.3 Gram/dL -- Normal range between ( 3.4 and 5.0 ) Lipase Level: 107 Units/Liter -- Normal range between ( 73 and 393 ) Cardiac Specific Markers 01/11/19 07:17:00 Troponin I Ultra: <0.015 ng/mL -- Normal range between ( 0.015 and 0.045 ) Computed Tomography 01/11/19 09:50:27 CT Abdomen Pelvis WO: CT Abdomen Pelvis WO 01/11/19 09:50:10 CT Chest WO: CT Chest WO Diagnostic Radiology 01/11/19 07:37:54 CR Chest 2 Vws: CR Chest 2 Vws Education Materials Esophagitis Introduction Esophagitis is inflammation of the esophagus. The esophagus is the tube that carries food and liquids from your mouth to your stomach. Esophagitis can cause soreness or pain in the esophagus. This condition can make it difficult and painful to swallow. What are the causes? Most causes of esophagitis are not serious. Common causes of this condition include: ??? Gastroesophageal reflux disease (GERD). This is when stomach contents move back up into the esophagus (reflux). ??? Repeated vomiting. ??? An allergic-type reaction, especially caused by food allergies (eosinophilic esophagitis). ??? Injury to the esophagus by swallowing large pills with or without water, or swallowing certain types of medicines. ??? Swallowing (ingesting) harmful chemicals, such as household cleaning products. ??? Heavy alcohol use. ??? An infection of the esophagus. This most often occurs in people who have a weakened immune system. ??? Radiation or chemotherapy treatment for cancer. ??? Certain diseases such as sarcoidosis, Crohn disease, and scleroderma. What are the signs or symptoms? Symptoms of this condition include: ??? Difficult or painful swallowing. ??? Pain with swallowing acidic liquids, such as citrus juices. ??? Pain with burping. ??? Chest pain. ??? Difficulty breathing. ??? Nausea. ??? Vomiting. ??? Pain in the abdomen. ??? Weight loss. ??? Ulcers in the mouth. ??? Patches of white material in the mouth (candidiasis). ??? Fever. ??? Coughing up blood or vomiting blood. ??? Stool that is black, tarry, or bright red. How is this diagnosed? Your health care provider will take a medical history and perform a physical exam. You may also have other tests, including: ??? An endoscopy to examine your stomach and esophagus with a small camera. ??? A test that measures the acidity level in your esophagus. ??? A test that measures how much pressure is on your esophagus. ??? A barium swallow or modified barium swallow to show the shape, size, and functioning of your esophagus. ??? Allergy tests. How is this treated? Treatment for this condition depends on the cause of your esophagitis. In some cases, steroids or other medicines may be given to help relieve your symptoms or to treat the underlying cause of your condition. You may have to make some lifestyle changes, such as:??? Avoiding alcohol. ??? Quitting smoking. ??? Changing your diet. ??? Exercising. ??? Changing your sleep habits and your sleep environment. Follow these instructions at home: Take these actions to decrease your discomfort and to help avoid complications. Diet ??? Follow a diet as recommended by your health care provider. This may involve avoiding foods and drinks such as:? Coffee and tea (with or without caffeine). ? Drinks that contain alcohol. ? Energy drinks and sports drinks. ? Carbonated drinks or sodas. ? Chocolate and cocoa. ? Peppermint and mint flavorings. ? Garlic and onions. ? Horseradish. ? Spicy and acidic foods, including peppers, chili powder, ocasio powder, vinegar, hot sauces, and barbecue sauce. ? [place] fruit juices and citrus fruits, such as oranges, yann, and limes. ? Tomato-based foods, such as red sauce, chili, salsa, and pizza with red sauce. ? Fried and fatty foods, such as donuts, bengali fries, potato chips, and high-fat dressings. ? High-fat meats, such as hot dogs and fatty cuts of red and white meats, such as rib eye steak, sausage, ham, and woo. ? High-fat dairy items, such as whole milk, butter, and cream cheese. ??? Eat small, frequent meals instead of large meals. ??? Avoid drinking large amounts of liquid with your meals. ??? Avoid eating meals during the 2???3 hours before bedtime. ??? Avoid lying down right after you eat. ??? Do notexercise right after you eat. ??? Avoid foods and drinks that seem to make your symptoms worse. General instructions ??? Pay attention to any changes in your symptoms. ??? Take [id number] and prescription medicines only as told by your health care provider. Do not take aspirin, ibuprofen, or other NSAIDs unless your health care provider told you to do so. ??? If you have trouble taking pills, use a pill splitter to decrease the size of the pill. This will decrease the chance of the pill getting stuck or injuring your esophagus on the way down. Also, drink water after you take a pill. ??? Do notuse any tobacco products, including cigarettes, chewing tobacco, and e-cigarettes. If you need help quitting, ask your health care provider. ??? Wear loose-fitting clothing. Do not wear anything tight around your waist that causes pressure on your abdomen. ??? Raise (elevate) the head of your bed about 6 inches (15 cm). ??? Try to reduce your stress, such as with yoga or meditation. If you need help reducing stress, ask your health care provider. ??? If you are overweight, reduce your weight to an amount that is healthy for you. Ask your health care provider for guidance about a safe weight loss goal. ??? Keep all follow-up visits as told by your health care provider. This is important. Contact a health care provider if: ??? You have new symptoms. ??? You have unexplained weight loss. ??? You have difficulty swallowing, or it hurts to swallow. ??? You have wheezing or a persistent cough. ??? Your symptoms do not improve with treatment. ??? You have frequent heartburn for more than two weeks. Get help right away if: ??? You have severe pain in your arms, neck, jaw, teeth, or back. ??? You feel sweaty, dizzy, or light-headed. ??? You have chest pain or shortness of breath. ??? You vomit and your vomit looks like blood or coffee grounds. ??? Your stool is bloody or black. ??? You have a fever. ??? You cannot swallow, drink, or eat. This information is not intended to replace advice given to you by your health care provider. Make sure you discuss any questions you have with your health care provider. Document Released: 10/10/2005 Document Revised: 02/07/2017 Document Reviewed: 12/28/2015 ?? 2017 Elsevier Emergency Awareness and Preventative Care STROKE is an EMERGENCY Every Minute Counts Act FAST and Check for these signs: FACE Does the face look uneven? ARM Does one arm drift down? SPEECH Does their speech sound strange? TIME Call at any sign of stroke Stroke Risk Factors Atrial Fibrillation (irregular heartbeat) Diabetes Family history of stroke Heart Disease Heavy alcohol use High Blood Pressure High Cholesterol Physical inactivity and obesity Smoking Cigarette Smoking The facts are clear, cigarette smoking will shorten your life. Smoking can cause many illnesses along the way. As a healthcare provider, we recommend that you stop smoking. Assistance with quitting is available by contacting 3-219-CTJX-NOW. This is a free resource providing counseling, support, and referral. Or you may contact your personal physician. National Suicide Prevention Lifeline: The National Suicide Prevention Lifeline is a national network of local crisis centers that provides free and confidential emotional support to people in suicidal crisis or emotional distress 24 hours a day, 7 days a week. Don't Wait! Stop a Heart Attack Before it Starts What is a heart attack? A heart attack is damage or to a part of the heart from severely decreased or lack of blood flow to the heart. Over time, arteries can become narrow from the buildup of fat and cholesterol, which is called plaque. The plaque can rupture causing a blood clot to form. When the blood clot forms, the artery can become severely narrowed or completely blocked, causing a heart attack. Heart attack is the leading cause of in the [place]. 85% of muscle damage occurs within the first 2 hours. Delay in the recognition of heart attack symptoms increases the chances of . Know the early symptoms of a heart attack: Nausea Feeling of fullness in chest Jaw Pain Pain that travels down one or both arms Fatigue/being tired Anxiety Back Pain Chest pressure, squeezing, or discomfort Shortness of breath Sweating, or a cold sweat Feeling of impending doom There are unusual signs of a heart attack, too! Women, the elderly, and diabetics may present with atypical symptoms: Fainting/dizziness Weakness Confusion Risk Factors for a Heart Attack Some heart disease risk factors, such as age and family history, cannot be changed. Others, like smoking and lack of exercise, can be changed. Smoking High Cholesterol High Blood Pressure Family History Obesity Age Gender (Males are at higher risk) Lack of Exercise Diabetes Diet Stress Excessive Alcohol Intake If you or someone you know is experiencing the signs and symptoms of a heart attack, DON???T DELAY. Call immediately and seek help. If someone collapses, perform CPR! Do not attempt to drive if you are having symptoms of heart attack. Hands-Only CPR Why Hands-Only CPR? Hands-Only CPR has been shown to be as effective as conventional CPR for cardiac arrests that occur outside of a hospital. Survival depends on immediately receiving CPR from someone nearby. How do you perform Hands-Only CPR? There are two easy steps: Call if you see a teen or adult collapse Push hard and fast in the center of the chest at a beat of 100 beats per minute. Save a life! 4 WAYS TO GET AHEAD OF SEPSIS SEPSIS is a MEDICAL EMERGENCY. Time matters! Infections put you and your family at risk for a life-threatening condition called sepsis. Sepsis is the body's extreme response to an infection. It is life-threatening, and without timely treatment, sepsis can rapidly lead to tissue damage, organ failure, and . Sepsis happens when an infection you already have-in your skin, lungs, urinary tract or somewhere else-triggers a chain reaction throughout your body. 1 PREVENT INFECTIONS Take good care of chronic conditions. Talk to your doctor about getting the recommended vaccines. 2 PRACTICE GOOD HYGIENE Wash your hands frequently. Keep cuts or open sores clean and covered until they are healed. 3 KNOW THE SYMPTOMS Confusion or disorientation Shortness of breath High heart rate Fever, shivering, or feeling very cold Extreme pain or discomfort Clammy or sweaty skin 4 ACT FAST Get medical care IMMEDIATELY if you suspect sepsis or if you have an infection that is not getting better or is getting worse. To learn more about sepsis and how to prevent infections, visit www.cdc.gov/sepsis. The examination and treatment you have received in the Emergency Department has been done to provide an appropriate evaluation and stabilizing treatment on an emergency basis only. Given the limited resources, it is not meant to be a substitute for complete medical care. The follow-up doctor you named will receive a copy of your records and all test reports. IT IS IMPORTANT THAT YOU SCHEDULE A FOLLOW-UP APPOINTMENT AND ARE RE-EVALUATED. You should report any new complaints, symptoms, or remaining problems at that time. IT IS IMPOSSIBLE FOR THE EMERGENCY DEPARTMENT TO RECOGNIZE AND TREAT ALL ELEMENTS OF INJURY OR ILLNESS IN A SINGLE VISIT. If you have been referred to a specialist physician, it means that we believe you may have a condition that requires the expertise of a specialist. These physicians work in partnership with the hospital and have agreed to see referred patients in their office for further evaluation. KEEP IN MIND THAT THE SPECIALIST HAS HIS/HER OWN OFFICE POLICIES WHICH MAY REQUIRE PROPER INSURANCE OR PAYMENT UP FRONT BEFORE THE SPECIALIST WILL SEE YOU. It is your responsibility to call the specialist physician to make an appointment. We do not have the ability to refer patients to specialists/physicians that work with specific insurance companies. Please be advised that all financial charges or billing practices are determined by that practice, not the hospital. If your insurance company requires that you see a specialist from their approved list, it is your responsibility to contact your insurance company to make those arrangements. It is also your responsibility to follow any other requirements of your insurance company necessary to obtain coverage for claims submitted. We will bill your insurance; however, you are responsible today for any co-pay amounts. You will receive a separate bill for any services you may have received including: emergency, radiology, or pathology physicians. Patient Name:MARQUEZGWENDOLYNNATASHA EDWARDS I have received this information and was given the opportunity to ask questions. Patient/Photographer Apprentice Lithographic Name: Patient/Photographer Apprentice Lithographic Signature: Relationship to Patient: Clinician/Hospital Photographer Apprentice Lithographic Signature: Please Provide a Telephone Number Where You Can Be Reached: Is it Permissible To Leave a Message? Date: documented in this encounter Plan of Treatment Not on file documented as of this encounter Visit Diagnoses Not on filedocumented in this encounter
--- OUTSIDE RECORDS SUMMARY | 2025-04-19 15:34 | XMS_ITS | Encounter Summary ---
Author Organization [employer] ([place], [place], [place], [place]) Address [address] [place] [address] Care Team Providers Care Pipeline Operator Name Role Phone Unavailable Primary Care Provider Unavailabl e Encounter Details Date Type Department Care Team (Late st Contact Info) Description 01/11/2019 Transcribed Document [facility] [place] Family Medicine [address] [place] [address] ProviderCliff MD [address] [place] [id number] Social History Tobacco Use Types Packs/Day Years Used Date Smoking Tobacco: Never Assessed Comments Unknown Sex and Gender Information Value Date Recorded Sex Assigned at Not on file Legal Sex Female 1:20 PM CDT Gender Identity Not on file Sexual Orientation Not on file documented as of this encounter Miscellaneous Notes * Cerner Conversion Note - Historical ProviderMD - 01/11/2019 7:16 AM CDT Pain Assessment Entered On: 01/11/2019 10:53 EDT Performed On: 01/11/2019 10:53 EDT by Geraldine Carroll RN Intervention Information: lidocaine topical Performed by Geraldine Carroll RN on 01/11/2019 07:46:00 EDT lidocaine topical,15mL Oral Pain Assessment Pain Assessment : Follow-up assessment Pain Scale Used : 0-10 Scale Geraldine Carroll RN - 01/11/2019 10:53 EDT Pain Scale Intensity : 5 Geraldine Carroll RN - 01/11/2019 10:53 EDT Image 4 - Images currently included in the form version of this document have not been included in the text rendition version of the form. Electronically signed by Interface, Sjh Conversion Dermatology Physician Assistant Cerner at 01/04/2023 1:46 PM CDT documented in this encounter Plan of Treatment Not on file documented as of this encounter Visit Diagnoses Not on filedocumented in this encounter
--- OUTSIDE RECORDS SUMMARY | 2025-04-19 15:34 | XMS_ITS | Encounter Summary ---
Author Organization [employer] ([place], [place], [place], [place]) Address [address] [place] [address] Care Team Providers Care Pharmacy Technician Name Role Phone Unavailable Primary Care Provider Unavailabl e Encounter Details Date Type Department Care Team (Late st Contact Info) Description 01/11/2019 Transcribed Document [facility] [place] [address] [place] [address] ProviderCliff MD [address] [place] [id number] Social History Tobacco Use Types Packs/Day Years Used Date Smoking Tobacco: Never Assessed Comments Unknown Sex and Gender Information Value Date Recorded Sex Assigned at Not on file Legal Sex Female 1:20 PM CDT Gender Identity Not on file Sexual Orientation Not on file documented as of this encounter Miscellaneous Notes * Cerner Conversion Note - Historical ProviderMD - 01/11/2019 7:17 AM CDT Pain Assessment Entered On: 01/11/2019 10:53 EDT Performed On: 01/11/2019 10:53 EDT by Geraldine Carroll RN Intervention Information: HYDROmorphone Performed by Geraldine Carroll RN on 01/11/2019 08:13:00 EDT HYDROmorphone,1mg IV Push,Left Antecubital [place] Pain Assessment Pain Assessment : Follow-up assessment Pain Scale Used : 0-10 Scale Geraldine Carroll RN - 01/11/2019 10:53 EDT Pain Scale Intensity : 0 Geraldine Carroll RN - 01/11/2019 10:53 EDT Image 4 - Images currently included in the form version of this document have not been included in the text rendition version of the form. Electronically signed by Jonathan, [place] Conversion Construction Equipment Mechanic Helper Cerner at 01/04/2023 1:44 PM CDT documented in this encounter Plan of Treatment Not on file documented as of this encounter Visit Diagnoses Not on filedocumented in this encounter
--- OUTSIDE RECORDS SUMMARY | 2025-04-19 15:34 | XMS_ITS | Encounter Summary ---
Author Organization [employer] ([place], [place], [place], [place]) Address [address] [place] [address] Care Team Providers Care Gas Or Petroleum Operator Name Role Phone Unavailable Primary Care Provider Unavailabl e Encounter Details Date Type Department Care Team (Late st Contact Info) Description 01/11/2019 Transcribed Document [facility] [place] Family Medicine [facility] [place] [address] ProviderCliff MD [address] [place] [id number] Social History Tobacco Use Types Packs/Day Years Used Date Smoking Tobacco: Never Assessed Comments Unknown Sex and Gender Information Value Date Recorded Sex Assigned at Not on file Legal Sex Female 1:20 PM CDT Gender Identity Not on file Sexual Orientation Not on file documented as of this encounter Miscellaneous Notes * Cerner Conversion Note - Cliff ProviderMD - 01/11/2019 8:09 AM CDT Rapid Response Team Documentation Entered On: 01/11/2019 8:10 EDT Performed On: 01/11/2019 8:09 EDT by ISRAEL ARVIZU, ANNIE Rapid Response Event Time Rapid Response Team Called : 01/11/2019 7:30 EDT Rapid Response Team Arrival Time : 01/11/2019 7:40 EDT Rapid Response Team Event End Time : 01/11/2019 7:55 EDT Rapid Response Event Intiated By : Hospital Staff Rapid Response Team Initiation Reason : Peripheral IV start Rapid Response Event Location Type : Emergency department Rapid Response Admission Diagnosis : Chest pain Chest pain, unspecified Rapid Response Medical Background : Abdominal pain (Medical) Constipation (Medical) Ectopic (Medical) Endometriosis (Medical) Frequent UTI (Medical) Gallstones (Medical) Genetic clotting disorder (Medical) Goiter (Medical) 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) Ovarian Cyst (Medical) Palpataions (Medical) Pancreatitis (Medical) TMJ (Medical) diarrhea (Medical) frequent UTI (Medical) Rapid Response Allergies : Substance Category Reactions Severity Adhesive Bandage Other Blisters antihistamines Drug Contrast Dye Drug Rapid Response Recent Vital Signs : 01/11/2019 06:40 Systolic Blood Pressure 153 01/11/2019 06:40 Diastolic Blood Pressure 98 01/11/2019 06:40 Respiratory Rate 18 01/11/2019 06:40 Temperature, Fahrenheit 97.7 01/11/2019 06:40 Oxygen Saturation 99 Rapid Response Recent Lab Results : 01/11/2019 07:17 Hgb 13.7 (11.2-15.7) 01/11/2019 07:17 Hct 40.2 (34.1-44.9) 01/11/2019 07:17 RBC 4.63 (3.93-5.22) 01/11/2019 07:17 WBC HI 13.2 (3.9-10.0) 01/11/2019 07:17 Platelet Count 333 (163-369) Weight/BMI : Clinical Weight/BMI CLINICALWEIGHT: 77.73 kg (01/11/19 06:40:00) Body Mass Index: 28.5 kg/m2 High (01/11/19 06:40:00) ISRAEL ARVIZU, ANNIE - 01/11/2019 8:09 EDT Electronically signed by Jonathan [facility] Conversion Roller Structural Mill Cerner at 01/04/2023 1:35 PM CDT documented in this encounter Plan of Treatment Not on file documented as of this encounter Visit Diagnoses Not on filedocumented in this encounter
--- OUTSIDE RECORDS SUMMARY | 2025-04-19 15:34 | XMS_ITS | Encounter Summary ---
Author Organization [employer] ([place], [place], [place], [place]) Address [address] [place] [address] Care Team Providers Care Application Coordinator Name Role Phone Unavailable Primary Care Provider Unavailabl e Encounter Details Date Type Department Care Team (Late st Contact Info) Description 05/23/2021 Transcribed Document [facility] [place] [facility] [place] [address] ProviderCliff MD [address] [place] [address] Social History Tobacco Use Types Packs/Day Years Used Date Smoking Tobacco: Never Assessed Comments Unknown Sex and Gender Information Value Date Recorded Sex Assigned at Not on file Legal Sex Female 1:20 PM CDT Gender Identity Not on file Sexual Orientation Not on file documented as of this encounter Miscellaneous Notes * Cerner Conversion Note - Historical ProviderMD - 05/23/2021 1:05 PM CDT Spiritual Care Assessment Entered On: 05/23/2021 13:23 EDT Performed On: 05/23/2021 12:45 EDT by OG FORRESTER Chaplain General Information Initial Visit : Yes Referred by : Nurse Referral Reason Comment : pre-surgery support Ministry Provided to : Patient, Family/Significant other Spiritual/Emotional Acuity : Low Active in a Baptism/Violet Group : Yes Holiness Preference : Taoist (Disciples of [employer]) OG FORRESTER Chaplain - 05/23/2021 13:19 EDT Spiritual Assessment Patient's Community/Relationship : Strength in patient's life Supportive/Healthy Relationships : Yes Patient's Concept of God/the Sacred : Strength in patient's life Spiritual Assessment Comment/Summary Points : Visited patient and prior to her procedure. 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 Patient was sad, wondered what could be wrong that they have so many miscarriages. They are hoping that genetic testing will reveal the reason. Discussed disposition options with patient and . They are leaning toward family pick up worker but are not yet sure. A follow up call will be made when remains come back from lab. Spirital Assessment Comment/Summary Report : SPIRITUAL ASSESSMENT COMMENT/SUMMARY No qualifying data available. OG FORRESTER Chaplain - 05/23/2021 13:19 EDT Interventions Emotional Support : Empathic/Engaged listening, Established trust, Family/Significant other supported, Feelings expressed, Information provided, Meaning strengths identified, Relationship strengths identified Spiritual and Holiness : Prayer shared Change, Adjustment and Loss : Provided support for current loss/grief OG FORRESTER Chaplain - 05/23/2021 13:19 EDT documented in this encounter Plan of Treatment Not on file documented as of this encounter Visit Diagnoses Not on filedocumented in this encounter
--- OUTSIDE RECORDS SUMMARY | 2025-04-19 15:34 | XMS_ITS | Encounter Summary ---
Author Organization [email or web address] ([place], [place], [place], [place]) Address [address] [place] [address] Care Team Providers Care Transformer Assembly Supervisor Name Role Phone Unavailable Primary Care Provider Unavailabl e Encounter Details Date Type Department Care Team (Late st Contact Info) Description 01/11/2019 Transcribed Document [facility] [place] [facility] [place] [address] ProviderCliff MD [address] [place] [phone] Social History Tobacco Use Types Packs/Day Years Used Date Smoking Tobacco: Never Assessed Comments Unknown Sex and Gender Information Value Date Recorded Sex Assigned at Not on file Legal Sex Female 1:20 PM CDT Gender Identity Not on file Sexual Orientation Not on file documented as of this encounter Miscellaneous Notes * Cerner Conversion Note - Historical ProviderMD - 01/11/2019 12:14 PM CDT ED Event Note Entered On: 01/11/2019 12:16 EDT Performed On: 01/11/2019 12:14 EDT by Enrique Cam Rn ED Event Note ED Event Date/Time : 01/11/2019 12:14 EDT ED Description of Event : GI cocktail and Morphine given prior to discharge. Patient and family verbalizes positive understanding of DC instructions. IV DC'ed without complications and cath intact. Patient left with family at side via ambulation. Enrique Cam Rn - 01/11/2019 12:14 EDT documented in this encounter Plan of Treatment Not on file documented as of this encounter Visit Diagnoses Not on filedocumented in this encounter
--- OUTSIDE RECORDS SUMMARY | 2025-04-19 15:34 | XMS_ITS | Encounter Summary ---
Author Organization [email or web address] ([place], [place], [place], [place]) Address [address] [place] [address] Care Team Providers Care Collections Clerk Name Role Phone Unavailable Primary Care Provider Unavailabl e Encounter Details Date Type Department Care Team (Late st Contact Info) Description 01/11/2019 Transcribed Document [facility] Family Medicine [facility] [place] [address] ProviderCliff MD [address] [place] [id number] Social History Tobacco Use Types Packs/Day Years Used Date Smoking Tobacco: Never Assessed Comments Unknown Sex and Gender Information Value Date Recorded Sex Assigned at Not on file Legal Sex Female 1:20 PM CDT Gender Identity Not on file Sexual Orientation Not on file documented as of this encounter Miscellaneous Notes * Cerner Conversion Note - Historical ProviderMD - 01/11/2019 6:32 AM CDT ED Triage Entered On: 01/11/2019 6:43 EDT Performed On: 01/11/2019 6:40 EDT by Nori Myers RN ED Triage Across the Room Triage Date/Time : 01/11/2019 6:40 EDT Chief Complaint : pt c/o midsternal chest pain that radiates around her right ribcage. Pt states it started last PM. Pt states it feels like pancreatitis. Nori Myers RN - 01/11/2019 6:40 EDT DCP GENERIC CODE Tracking Acuity : 3 - Urgent Tracking Group : [facility] Nori Myers RN - 01/11/2019 6:40 EDT Mode of Arrival : Ambulatory Transported to ED by : Walk in To Room Via : Ambulate Accompanied By : Spouse ED Vital Signs : Document Height & Weight : Document ED Allergies : Document ED Reason for Visit : Document Tetanus Immunization : Less than 5 years Nori Myers RN - 01/11/2019 6:40 EDT Infectious Disease History Infectious Disease History : Chicken pox/Shingles, Influenza Isolation Needed : Standard Fever/Chills Last 48 Hours : No Travel To Regions with Travel Advisories : No Travel Outside [place] Within Last 30 Days : No Contact With Traveler to Advisory Region : No Tuberculosis Symptoms : None Nori Myers RN - 01/11/2019 6:40 EDT Vital Signs ED Temperature Source : Oral Temperature Mode : Fahrenheit Temperature, Fahrenheit : 97.7 Deg F ED Pain : Yes Clinical Temperature, C : 36.5 Deg C Oxygen Therapy Mode : Room air Peripheral Pulse Rate : 82 bpm Respiratory Rate : 18 Breaths/Min Systolic Blood Pressure : 153 mmHg (HI) Diastolic Blood Pressure : 98 mmHg (HI) Oxygen Saturation : 99 % Nori Myers RN - 01/11/2019 6:40 EDT Allergy (As Of: 01/11/2019 06:43:29 EDT) Allergies (Active) Adhesive Bandage Estimated Onset Date: Unspecified ; Reactions: Blisters ; Comments: Comment 1: Replaced free text allergy ; Created By: DARA RODRIGUEZ RPh; Reaction Status: Active ; Category: Other ; Substance: Adhesive Bandage ; Type: Allergy ; Updated By: DARA RODRIGUEZ RPh; Reviewed Date: 07/18/2015 14:09 EST antihistamines Estimated Onset Date: Unspecified ; Created By: TIM EDWARDS RN; Reaction Status: Active ; Category: Drug ; Substance: antihistamines ; Type: Allergy ; Updated By: TIM EDWARDS RN; Reviewed Date: 07/18/2015 14:09 EST Contrast Dye Estimated Onset Date: Unspecified ; Reactions: anaphylaxis ; Created By: Alla Poeples RN; Reaction Status: Active ; Category: Drug ; Substance: Contrast Dye ; Type: Allergy ; Updated By: Alla Peoples RN; Reviewed Date: 09/24/2018 8:17 EST Diagnosis Control ED (As Of: 01/11/2019 06:43:29 EDT) Problems(Active) Abdominal pain (SNOMED CT :47512222 ) Name of Problem: Abdominal pain ; Recorder: Alla Peoples RN; Confirmation: Confirmed ; Classification: Medical ; Code: [id number] ; Contributor System: PowerChart ; Last Updated: 09/24/2018 8:31 EST ; Life Cycle Date: 09/24/2018 ; Life Cycle Status: Active ; Vocabulary: SNOMED CT Constipation (SNOMED CT :23543432 ) Name of Problem: Constipation ; Recorder: Snehal Corea RN; Confirmation: Confirmed ; Classification: Medical ; Code: 68599452 ; Contributor System: PowerChart ; Last Updated: 03/01/2014 14:23 EDT ; Life Cycle Date: 05/20/2013 ; Life Cycle Status: Active ; Vocabulary: SNOMED CT diarrhea (SNOMED CT :582584084 ) Name of Problem: diarrhea ; Recorder: Zoe Bianchi RN; Confirmation: Confirmed ; Classification: Medical ; Code: [id number] ; Contributor System: PowerChart ; Last Updated: 06/06/2017 11:32 EDT ; Life Cycle Date: 05/25/2015 ; Life Cycle Status: Active ; Vocabulary: SNOMED CT Ectopic (SNOMED CT :58497954 ) Name of Problem: Ectopic ; Recorder: Snehal Corea RN; Confirmation: Confirmed ; Classification: Medical ; Code: [id number] ; Contributor System: PowerChart ; Last Updated: 02/25/2014 19:26 EDT ; Life Cycle Date: 05/20/2013 ; Life Cycle Status: Active ; Vocabulary: SNOMED CT Endometriosis (SNOMED CT :9827001431 ) Name of Problem: Endometriosis ; Recorder: PEPPER ASTUDILLO PA; Confirmation: Confirmed ; Classification: Medical ; Code: [id number] ; Contributor System: PowerChart ; Last Updated: 10/20/2014 15:19 EST ; Life Cycle Date: 10/20/2014 ; Life Cycle Status: Active ; Vocabulary: SNOMED CT frequent UTI (SNOMED CT :140070121 ) Name of Problem: frequent UTI ; Recorder: Snehal Corea RN; Confirmation: Confirmed ; Classification: Medical ; Code: 980686851 ; Contributor System: PowerChart ; Last Updated: 03/01/2014 14:38 EDT ; Life Cycle Date: 05/20/2013 ; Life Cycle Status: Active ; Vocabulary: SNOMED CT Frequent UTI (SNOMED CT :569918059 ) Name of Problem: Frequent UTI ; Recorder: PEPPER ASTUDILLO PA; Confirmation: Confirmed ; Classification: Medical ; Code: [id number] ; Contributor System: PowerChart ; Last Updated: 06/07/2017 11:20 EDT ; Life Cycle Date: 10/20/2014 ; Life Cycle Status: Active ; Vocabulary: SNOMED CT Gallstones (SNOMED CT :672055937 ) Name of Problem: Gallstones ; Recorder: TIM EDWARDS RN; Confirmation: Confirmed ; Classification: Medical ; Code: [id number] ; Contributor System: PowerChart ; Last Updated: 02/23/2015 14:21 EDT ; Life Cycle Date: 02/23/2015 ; Life Cycle Status: Active ; Vocabulary: SNOMED CT Genetic clotting disorder ( : ) Name of Problem: Genetic clotting disorder ; Recorder: PEPPER ASTUDILLO PA; Confirmation: Confirmed ; Classification: Medical ; Contributor System: PowerChart ; Last Updated: 10/20/2014 15:03 EST ; Life Cycle Date: 10/20/2014 ; Life Cycle Status: Active Goiter (SNOMED CT :5137390 ) Name of Problem: Goiter ; Recorder: Snehal Corea RN; Confirmation: Confirmed ; Classification: Medical ; Code: [id number] ; Contributor System: VendRxChart ; Last Updated: 03/01/2014 15:32 EDT ; Life Cycle Date: 05/20/2013 ; Life Cycle Status: Active ; Vocabulary: SNOMED CT Methylenetetrahydrofolate reductase (MTHFR) gene mutation (SNOMED CT :940390014 ) Name of Problem: Methylenetetrahydrofolate reductase (MTHFR) gene mutation ; Recorder: BALDEMAR VITAL LPN; Confirmation: Confirmed ; Classification: Patient Stated ; Code: [id number] ; Contributor System: PowerChart ; Last Updated: 10/20/2014 14:41 EST ; Life Cycle Date: 10/20/2014 ; Life Cycle Status: Active ; Vocabulary: SNOMED CT Ovarian Cyst (SNOMED CT :162419004 ) Name of Problem: Ovarian Cyst ; Recorder: Snehal Corea RN; Confirmation: Confirmed ; Classification: Medical ; Code: [id number] ; Contributor System: PowerChart ; Last Updated: 03/01/2014 15:18 EDT ; Life Cycle Date: 05/20/2013 ; Life Cycle Status: Active ; Vocabulary: SNOMED CT Palpataions ( : ) Name of Problem: Palpataions ; Recorder: Snehal Corea RN; Confirmation: Confirmed ; Classification: Medical ; Contributor System: PowerChart ; Last Updated: 05/20/2013 6:50 EDT ; Life Cycle Date: 05/20/2013 ; Life Cycle Status: Active Pancreatitis (SNOMED CT :667207263 ) Name of Problem: Pancreatitis ; Recorder: TIM EDWARDS RN; Confirmation: Confirmed ; Classification: Medical ; Code: [id number] ; Contributor System: PowerChart ; Last Updated: 02/23/2015 14:21 EDT ; Life Cycle Date: 02/23/2015 ; Life Cycle Status: Active ; Vocabulary: SNOMED CT TMJ (SNOMED CT :94544317 ) Name of Problem: TMJ ; Recorder: Snehal Corea RN; Confirmation: Confirmed ; Classification: Medical ; Code: 23410748 ; Contributor System: PowerChart ; Last Updated: 03/02/2014 13:51 EDT ; Life Cycle Date: 05/20/2013 ; Life Cycle Status: Active ; Vocabulary: SNOMED CT Diagnoses(Active) Chest pain Date: 01/11/2019 ; Diagnosis Type: Reason For Visit ; Confirmation: Complaint of ; Clinical Dx: Chest pain ; Classification: Medical ; Clinical Service: Emergency medicine ; Code: PNED ; Probability: 0 ; Diagnosis Code: [id number] ED Height and Weight Height Source : Stated Height Entry Format : [place] Height, Feet : 5 ft(Converted to: 152 cm, 60 Inch) Height, Inches : 5 Inch(Converted to: 0 ft 5 Inch, 12.70 cm) Clinical Height : 165.1 cm Weight Source, ED : Critical estimated dosing weight Weight Entry Format : [place] Weight, Pounds : 171 lb Clinical Dosing Weight : 77.73 kg Body Surface Area (BSA) : 1.85 m2 Body Mass Index : 28.5 kg/m2 (HI) [place] Body Weight (IBW) : 56.59 kg Nori Myers RN - 01/11/2019 6:40 EDT Pain Assessment Pain Assessment : Initial assessment Pain Scale Used : 0-10 Scale Location : Chest, midsternal Nori Myers RN - 01/11/2019 6:40 EDT Pain Scale Intensity : 8 Nori Myers RN - 01/11/2019 6:40 EDT Image 4 - Images currently included in the form version of this document have not been included in the text rendition version of the form. ED Influenza/Pneumoccocal Vaccine Previous Vaccines from Immunization Schedule : No qualifying data available. Nori Myers RN - 01/11/2019 6:40 EDT documented in this encounter Plan of Treatment Not on file documented as of this encounter Visit Diagnoses Not on filedocumented in this encounter
--- OUTSIDE RECORDS SUMMARY | 2025-04-19 15:34 | XMS_ITS | Encounter Summary ---
Author Organization [employer] ([place], [place], [place], [place]) Address [address] [place] [address] Care Team Providers Care Early Childhood Assistant Name Role Phone Unavailable Primary Care Provider Unavailabl e Encounter Details Date Type Department Care Team (Late st Contact Info) Description 01/11/2019 Transcribed Document [facility] Radiology [address] [place] [address] Devon Miller MD [address] [place] [address] Dept. [place] [address] Social History Tobacco Use Types Packs/Day Years Used Date Smoking Tobacco: Never Assessed Comments Unknown Sex and Gender Information Value Date Recorded Sex Assigned at Not on file Legal Sex Female 1:20 PM CDT Gender Identity Not on file Sexual Orientation Not on file documented as of this encounter Miscellaneous Notes * [employer]ner Conversion Note - Devon Miller MD - 01/11/2019 12:32 PM EDT Electronically signed by [facility] Conversion Diamond Die Polisher Cerner at 01/04/2023 1:48 PM CDT documented in this encounter Plan of Treatment Not on file documented as of this encounter Visit Diagnoses Not on filedocumented in this encounter
--- OUTSIDE RECORDS SUMMARY | 2025-04-19 15:34 | XMS_ITS | Encounter Summary ---
Author Organization [employer] ([place], [place], [place], [place]) Address [address] [place] [address] Care Team Providers Care Blending Tank Tender Helper Name Role Phone Unavailable Primary Care Provider Unavailabl e Encounter Details Date Type Department Care Team (Late st Contact Info) Description 01/11/2019 Transcribed Document [facility] Radiology [address] [place] [address] Devon Collier MD [address] [place] [address] Dept. of Emergency Medicine [place] [phone] Social History Tobacco Use Types Packs/Day Years Used Date Smoking Tobacco: Never Assessed Comments Unknown Sex and Gender Information Value Date Recorded Sex Assigned at Not on file Legal Sex Female 1:20 PM CDT Gender Identity Not on file Sexual Orientation Not on file documented as of this encounter Miscellaneous Notes * Cerner Conversion Note - Devon Collier MD - 01/11/2019 8:17 AM EDT Patient: SWATI MARQUEZ Age: 38 years Sex: Female : 1980 Associated Diagnoses: Chest pain; Chest pain; Esophagitis Author: DEVON COLLIER MD-EMR Basic Information Additional information: Chief Complaint from Nursing Triage Note : Chief Complaint 01/11/2019 6:40 EDT Chief Complaint pt c/o midsternal chest pain that radiates around her right ribcage. Pt states it started last PM. Pt states it feels like pancreatitis. . History of Present Illness The patient presents with chest pain, indigestion and pain epigastric area, with radiation to the right, pain with swallowing.. The onset was 24 hours ago. The course/duration of symptoms is constant. Location: Right chest. The character of symptoms is heaviness and tightness. The degree at onset was severe. The degree at maximum was severe. The degree at present is severe. The exacerbating factor is swallowing. The relieving factor is none. Risk factors consist of none. Prior episodes: none. Review of Systems Additional review of systems information: All other systems reviewed and otherwise negative. Health Status Allergies: Allergic Reactions (Selected) Severity Not Documented Adhesive Bandage- Blisters. Antihistamines- No reactions were documented. Contrast Dye- Anaphylaxis.. Medications: (Selected) Inpatient Medications Ordered Dilaudid: 1 mg, IV Push, 1-Time : 5 mL, Oral, 1-Time Lidocaine Viscous 2% mucous membrane solution: 15 mL, Oral, 1-Time Maalox Antacid with Anti-Gas: 30 mL, Oral, 1-Time NaCl 0.9% bolus: 1,000 mL, 1,000 mL/Hr, IV Piggyback, 1-Time Prescriptions Prescribed promethazine 25 mg oral tablet: 1 Tab, Oral, Q6H, for 5 Day(s), PRN: for nausea/vomiting, 20 Tab, 1 Refill(s) Documented Medications Documented Non Formulary med: essential oils, Topical, Daily, 0 Refill(s) Multivitamins oral tablet: 1 Tab, Oral, Daily, 0 Refill(s) Tylenol PM: 30 mL, Oral, At Bedtime, 0 Refill(s) Vitamin D3: 50,000 Int Units, Oral, V3Bdvoe, 0 Refill(s) aspirin: 81 mg, Oral, Daily, 0 Refill(s) metFORMIN 500 mg oral tablet: 1 Tab, Oral, BID, 60 Tab, 0 Refill(s) nortriptyline 10 mg oral capsule: 1 Cap, Oral, At Bedtime, 90 Cap, 0 Refill(s). Past Medical/ Family/ Social History Medical history Reviewed as documented in chart. Surgical history: Jaw surgery x 30. Dx Lap. Etopic . [facility] Teeth. . Pilonidal cyst. gallbladder. jaw joint replacement x2. 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 dx lap with ovarian cyst removed multiple times.. Family history: No family history items have been selected or recorded.. Social history: Social & Psychosocial Habits Alcohol 02/23/2015 Alcohol Use History, Social Habits No Nutrition/Health 02/23/2015 Caffeine intake amount: 1/2 cup a day Substance Abuse 05/25/2015 Recreational Drug Use History No Recreational Drug Use Last 12 Months No Tobacco 02/23/2015 Smoking Status Never smoker , Reviewed as documented in chart. Problem list: Active Problems (15) Abdominal pain Constipation diarrhea Ectopic Endometriosis frequent UTI Frequent UTI Gallstones Genetic clotting disorder Goiter Methylenetetrahydrofolate reductase (MTHFR) gene mutation Ovarian Cyst Palpataions Pancreatitis TMJ , per nurse's notes. Physical Examination Vital Signs Vital Signs/Vital Measures 01/11/2019 6:40 EDT Temperature Source Oral Temperature Mode Fahrenheit Temperature, Fahrenheit 97.7 Deg F Clinical Temperature, C 36.5 Deg C Peripheral Pulse Rate 82 bpm Respiratory Rate 18 Breaths/Min Systolic Blood Pressure 153 mmHg HI Diastolic Blood Pressure 98 mmHg HI Oxygen Saturation 99 % Oxygen Therapy Mode Room air . Oxygen Saturation 01/11/2019 6:40 EDT Oxygen Saturation 99 % . General: Alert, no acute distress. Skin: Warm, dry, pink. Head: Atraumatic. Neck: Trachea midline. Eye: Normal conjunctiva. Ears, nose, mouth and throat: Oral mucosa moist. Cardiovascular: Regular rate and rhythm, No murmur. Respiratory: Respirations are non-labored. Chest wall: No tenderness. Back: Nontender. Musculoskeletal: Normal ROM. Gastrointestinal: Soft, Nontender. Genitourinary: No tenderness. Neurological: Alert and oriented to person, place, time, and situation, No focal neurological deficit observed. Medical Decision Making Rationale: The patient's presentation is consistent with right-sided chest pain from esophagitis, her pain is relieved with GI cocktail, she also has some right upper quadrant pain associated with a rub, Herdber by her primary care physician, she specifically requested I call her primary care physician Dr. Gallegos twice a day , Saturday, and I did. He has informed me the patient has a long history of pain and painful conditions, and has been seen by GI before, I discussed with him I did not find any emergent findings in the emergency room today, with laboratory clinical evaluation, and CT scans after a chest x-ray, he says he is going to refer her to a GI workup in [place] with a specialist there, later this week.. Documents reviewed: Emergency department nurses' notes, emergency department records. schedule supervisor: Normal sinus rhythm. Results review: Lab results : Lab Results 01/11/2019 7:17 EDT Sodium Level 137 mmol/L Potassium Level 3.5 mmol/L Chloride Level 105 mmol/L Carbon Dioxide Level 24 mmol/L Anion Gap 12 Glucose Level 93 mg/dL Blood Urea Nitrogen 15 mg/dL Creatinine Level 0.67 mg/dL eGFR >60 mL/min/1.73m2 eGFR NonAfrican >60 mL/min/1.73m2 Bun/Creatinine 22.4 HI Calcium Level 9.5 mg/dL Protein Total 8.2 Gram/dL Albumin Level 4.3 Gram/dL Globulin 3.9 Gram/dL A/G Ratio 1.1 Bilirubin Total 0.4 mg/dL Alk Phos 74 Units/Liter AST 53 Units/Liter HI ALT 91 Units/Liter HI Lipase Level 107 Units/Liter CRP 0.5 mg/dL Troponin I Ultra <0.015 ng/mL WBC 13.2 K/uL HI RBC 4.63 Million/uL Hgb 13.7 Gram/dL Hct 40.2 % MCV 86.8 fL MCH 29.6 pg MCHC 34.1 Gram/dL Platelet Count 333 K/uL MPV 9.3 fL LOW RDW 12.5 % Neut % 80.7 % HI Neut # 10.68 K/uL HI Lymph % 13.5 % LOW Lymph # 1.79 K/uL Montgomery % 4.4 % LOW Montgomery # 0.58 K/uL Eos % 0.8 % LOW Eos # 0.10 K/uL Baso % 0.4 % Baso # 0.05 K/uL Slide Review No IG# 0 x10(3)/uL IG% 0 % . Radiology results: Radiology Results (Last 48 hours) [id number] -- 01/11/2019 06:32 CR Chest 2 Vws (01/11/2019 07:37) Result: TWO-VIEW CHEST 01/11/2019 7:16 AMHISTORY: Midsternal chest pain radiating to the right sideCOMPARISON: NoneFINDINGS: The cardiac silhouette is Normal in size. The aorticcontours are normal. The mediastinal and hilar structures areunremarkable. The lungs are clear. There is no pneumothorax. Thevisualized osseous structures demonstrate no acute abnormalities.IMPRESSION: No acute cardiopulmonary process. Images reviewed, interpreted, and dictated by Dr. Susan Talbot.Transcribed by Gio Brand.I have personally viewed, interpreted and dictated the examination. Ihave read and agree with the above final transcribed report. CT Chest WO (01/11/2019 09:50) Result: CT SCAN OF THE CHEST 01/11/2019 9:07 AM HISTORY: Right pleuritic chest pain.COMPARISON: None.PROCEDURE: Axial images were obtained from the lung apex to the midabdomen by computed tomography. This study was performed with techniquesto keep radiation doses as low as reasonably achievable, (ALARA).Individualized dose reduction techniques using automated exposurecontrol or adjustment of mA and/or kV according to the patient size wereemployed.FINDINGS: CHEST: There is no suspicious axillary adenopathy. There is nosuspicious hilar or mediastinal adenopathy. There is evidence of oldcalcified granulomatous disease. The heart is proper size. There is nopericardial or pleural effusion. No suspicious infiltrate or noduleidentified. 3 mm noncalcified nodule identified laterally in the leftlower lobe. Limited images of the upper abdomen demonstrate surgicalclips from prior cholecystectomy. No pneumothorax identified. No ribfracture identified. No bony destructive lesion seen.IMPRESSION: No acute cardiopulmonary process. CT SCAN OF THE ABDOMEN AND PELVIS WITHOUT CONTRAST 01/11/2019 9:07 AMHISTORY: Right lower quadrant pain.COMPARISON: June 30, 2015.PROCEDURE: Axial images were obtained from the lung bases to the pubicsymphysis by computed tomography. This study was performed withtechniques to keep radiation doses as low as reasonably achievable,(ALARA). Individualized dose reduction techniques using automatedexposure control or adjustment of mA and/or kV according to the patientsize were employed.FINDINGS: ABDOMEN: The lung bases are clear. The heart is proper size. The limitednon-contrast images of the liver are unremarkable. There are multipleright upper quadrant surgical clips consistent with cholecystectomy. Thespleen is unremarkable. No adrenal masses are seen. The aorta is normalin caliber. There is no significant free fluid or adenopathy. There isno nephrolithiasis. There is no hydronephrosis. Tiny umbilical herniacontaining fat noted.PELVIS: The GI tract demonstrate no obstruction. The appendix isidentified and appears normal. The urinary bladder is unremarkable.There is no fluid or adenopathy. Uterus is midline. Fecal materialpresent throughout the colon.IMPRESSION: Normal appendix.Fecal material throughout the colon, consider constipation. CT Abdomen Pelvis WO (01/11/2019 09:50) Result: CT SCAN OF THE CHEST 01/11/2019 9:07 AM HISTORY: Right pleuritic chest pain.COMPARISON: None.PROCEDURE: Axial images were obtained from the lung apex to the midabdomen by computed tomography. This study was performed with techniquesto keep radiation doses as low as reasonably achievable, (ALARA).Individualized dose reduction techniques using automated exposurecontrol or adjustment of mA and/or kV according to the patient size wereemployed.FINDINGS: CHEST: There is no suspicious axillary adenopathy. There is nosuspicious hilar or mediastinal adenopathy. There is evidence of oldcalcified granulomatous disease. The heart is proper size. There is nopericardial or pleural effusion. No suspicious infiltrate or noduleidentified. 3 mm noncalcified nodule identified laterally in the leftlower lobe. Limited images of the upper abdomen demonstrate surgicalclips from prior cholecystectomy. No pneumothorax identified. No ribfracture identified. No bony destructive lesion seen.IMPRESSION: No acute cardiopulmonary process. CT SCAN OF THE ABDOMEN AND PELVIS WITHOUT CONTRAST 01/11/2019 9:07 AMHISTORY: Right lower quadrant pain.COMPARISON: June 30, 2015.PROCEDURE: Axial images were obtained from the lung bases to the pubicsymphysis by computed tomography. This study was performed withtechniques to keep radiation doses as low as reasonably achievable,(ALARA). Individualized dose reduction techniques using automatedexposure control or adjustment of mA and/or kV according to the patientsize were employed.FINDINGS: ABDOMEN: The lung bases are clear. The heart is proper size. The limitednon-contrast images of the liver are unremarkable. There are multipleright upper quadrant surgical clips consistent with cholecystectomy. Thespleen is unremarkable. No adrenal masses are seen. The aorta is normalin caliber. There is no significant free fluid or adenopathy. There isno nephrolithiasis. There is no hydronephrosis. Tiny umbilical herniacontaining fat noted.PELVIS: The GI tract demonstrate no obstruction. The appendix isidentified and appears normal. The urinary bladder is unremarkable.There is no fluid or adenopathy. Uterus is midline. Fecal materialpresent throughout the colon.IMPRESSION: Normal appendix.Fecal material throughout the colon, consider constipation. . Impression and Plan Diagnosis Chest pain - Discharge, Emergency medicine, Medical Complaint of Chest pain - Reason For Visit, Emergency medicine, Medical Chest pain - Discharge, Emergency medicine, Medical Esophagitis - Discharge, Emergency medicine, Medical Plan Condition: Stable. Disposition: Discharged Pharmacy: oral elixir (Prescribe): 5 mL, Oral, QIDACHS, Can Mix 3 medications, for a GI cocktail, 50 mL, 0 Refill(s) Lidocaine Viscous 2% mucous membrane solution (Prescribe): 5 mL, Topical, QIDACHS, Can Mix 3 medications, for a GI cocktail, PRN: as needed esophageal pain, 60 mL, 0 Refill(s) Maalox Advanced Regular Strength oral suspension (Prescribe): 10 mL, Oral, QIDPCHS, Can Mix 3 medications, for a GI cocktail, 360 mL, 0 Refill(s). Patient was given the following educational materials: Esophagitis. Follow up with: SRINI GALLEGOS Within 2 to 3 days. documented in this encounter Plan of Treatment Not on file documented as of this encounter Visit Diagnoses Not on filedocumented in this encounter
--- OUTSIDE RECORDS SUMMARY | 2025-04-19 15:34 | XMS_ITS | Encounter Summary ---
Author Organization [employer] ([place], [place], [place], [place]) Address [address] [place] [address] Care Team Providers Care Microsoft Exchange Architect Name Role Phone Unavailable Primary Care Provider Unavailabl e Encounter Details Date Type Department Care Team (Late st Contact Info) Description 05/23/2021 Transcribed Document [facility] [place] [facility] [place] [address] ProviderCliff MD [address] [place] [id number] Social History Tobacco Use Types Packs/Day Years Used Date Smoking Tobacco: Never Assessed Comments Unknown Sex and Gender Information Value Date Recorded Sex Assigned at Not on file Legal Sex Female 1:20 PM CDT Gender Identity Not on file Sexual Orientation Not on file documented as of this encounter Miscellaneous Notes * Cerner Conversion Note - Historical ProviderMD - 05/23/2021 2:40 PM CDT [facility] PACU Summary Primary Physician: JAJA MONTANO DO Finalized Date/Time: 05/23/21 16:43:26 Pt. Name: SWATI MARQUEZ/Sex: 1980 Female Med Rec #: [id number] Physician: JAJA MONTANO DO Financial #: [id number] Pt. Type: O Room/Bed: Admit/Disch: 05/23/21 11:12:00 - Institution: [facility] [place] Case Times Entry 1 In PACU I 05/23/21 15:32:00 Ready for PACU 05/23/21 16:43:00 Discharge Discharge from PACU 05/23/21 16:43:00 I Last Modified By: GILMA GUADALUPE 05/23/21 16:43:13 [facility] OR PACU Case Times Audit 05/23/21 16:43:13 Breast Puller: [id number] Modifier: KARLIMAM <+> 1 Ready for PACU Discharge <+> 1 Discharge from PACU I Finalized By: GILMA GUADALUPE Document Signatures Signed By: GILMA GUADALUPE 05/23/21 16:43 documented in this encounter Plan of Treatment Not on file documented as of this encounter Visit Diagnoses Not on filedocumented in this encounter
--- OUTSIDE RECORDS SUMMARY | 2025-04-19 15:35 | XMS_ITS | Encounter Summary ---
Author Organization Healthcare Address [address] [place] [address] Care Team Providers Care Director Of Maintenance Name Role Phone Chan Chuiytagagandeep Allen APRN Primary Care Provider [phone] Encounter Details Date Type Department Care Team (Latest Contact Info) Description 02/24/2025 Travel Social History Tobacco Use Types Packs/Day Years [...] week 02/09/2025 How often do you attend [facility] or [facility] services? More than 4 times per year 02/09/2025 Do you belong to any clubs o r organizations such as cheondoism groups, unions, fraternal or athletic groups, or [...] Recorded Patient Health Questionnaire-2 Score 0 02/09/2025 [facility] - Occupational Stress [...] any time in the past 12 m [facility], were you homeless or living in a fpc (including now)? No 02/09/2025 Utilities Answer Date Recorded In the past 12 months has th e [employer] gas, oil, or water [employer] threatened to shut off services in your home? No 02/09/2025 Comments No Sex and Gender Information Value Date Recorded Sex Assigned at Not on file Legal Sex Female 7:29 PM EDT Gender Identity Not on file Sexual Orientation Not on file documented as of this encounter Plan of Treatment Upcoming Encounters Date Type Department Care Team (Late st Contact Info) Description 05/12/2025 2:00 PM EDT Office Visit [facility] [address] [place] [address] [address] [place] [phone] Merrick Cowan DMD, MD [address] [place] [address] [address] [place] [address] 10/20/2025 1:30 PM EST Office Visit [facility] veneer manufacturer Faculty [address] [place] [address] Merrick Cowan DMD, MD [address] [place] [address] [address] [place] [address] 02/08/2026 9:00 AM EDT Office Visit Medical Office [facility] [address] [facility], [address] [place] [address] Aramis Santana MD [address] [facility] [address] [place] [address] documented as of this encounter Visit Diagnoses Not on filedocumented in this encounter Additional Health Concerns Assessment Noted Time A fall risk assessment has been complete d for the patient 05/27/2023 10:33 AM EDT A Body Mass Index follow-up plan has been documented for the patient 03/04/2025 12:46 PM EDT documented as of this encounter Care Teams Director Of Maintenance Relationship Specialty Start Date End Date Chuyita Chan APRN [address] [place] [address] PCP - General 02/09/25 documented as of this encounter
--- OUTSIDE RECORDS SUMMARY | 2025-04-19 15:35 | XMS_ITS | Encounter Summary ---
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 Phone Unavailable Primary Care Provider Unavailabl e Encounter Details Date Type Department Care Team (Late st Contact Info) Description 05/23/2021 Transcribed Document [facility] [place] [facility] [place] [facility] [place] [address] ProviderCliff MD [address] [place] [id number] Social History Tobacco Use Types Packs/Day Years Used Date Smoking Tobacco: Never Assessed Comments Unknown Sex and Gender Information Value Date Recorded Sex Assigned at Not on file Legal Sex Female 1:20 PM CDT Gender Identity Not on file Sexual Orientation Not on file documented as of this encounter Miscellaneous Notes * Cerner Conversion Note - Cliff Velazquez MD - 05/23/2021 3:59 PM CDT Patient Education Materials Follows:and Gynecology Dilation and Curettage or Vacuum Curettage, Care After These instructions give you information about caring for yourself after your procedure. Your doctor may also give you more specific instructions. Call your doctor if you have any problems or questions after your procedure. Follow these instructions at home: Activity ??? Do not drive or use heavy machinery while taking prescription pain medicine. ??? For 24 hours after your procedure, avoid driving. ??? Take short walks often, followed by rest periods. Ask your doctor what activities are safe for you. After one or two days, you may be able to return to your normal activities. ??? Do not lift anything that is heavier than 10 lb (4.5 kg) until your doctor approves. ??? For at least 2 weeks, or as long as told by your doctor: ? Do not douche. ? Do not use tampons. ? Do not have sex. General instructions ??? Take ulup-gvr-gpqbego and prescription medicines only as told by your doctor. This is very important if you take blood thinning medicine. ??? Do not take baths, swim, or use a hot tub until your doctor approves. Take showers instead of baths. ??? Wear compression stockings as told by your doctor. ??? It is up to you to get the results of your procedure. Ask your doctor when your results will be ready. ??? Keep all follow-up visits as told by your doctor. This is important. Contact a doctor if: ??? You have very bad cramps that get worse or do not get better with medicine. ??? You have very bad pain in your belly (abdomen). ??? You cannot drink fluids without throwing up (vomiting). ??? You get pain in a different part of the area between your belly and thighs (pelvis). ??? You have bad-smelling discharge from your vagina. ??? You have a rash. Get help right away if: ??? You are bleeding a lot from your vagina. A lot of bleeding means soaking more than one sanitary pad in an hour, for 2 hours in a row. ??? You have clumps of blood (blood clots) coming from your vagina. ??? You have a fever or chills. ??? Your belly feels very tender or hard. ??? You have chest pain. ??? You have trouble breathing. ??? You cough up blood. ??? You feel dizzy. ??? You feel light-headed. ??? You pass out (faint). ??? You have pain in your neck or shoulder area. Summary ??? Take short walks often, followed by rest periods. Ask your doctor what activities are safe for you. After one or two days, you may be able to return to your normal activities. ??? Do not lift anything that is heavier than 10 lb (4.5 kg) until your doctor approves. ??? Do not take baths, swim, or use a hot tub until your doctor approves. Take showers instead of baths. ??? Contact your doctor if you have any symptoms of infection, like bad-smelling discharge from your vagina. This information is not intended to replace advice given to you by your health care provider. Make sure you discuss any questions you have with your health care provider. Document Revised: 08/15/2018 Document Reviewed: 05/20/2017 [employer] Patient Education ? 2020 [employer] Diagnostic Laparoscopy, Care After This sheet gives you information about how to care for yourself after your procedure. Your health care provider may also give you more specific instructions. If you have problems or questions, contact your health care provider. What can I expect after the procedure? After the procedure, it is common to have: ??? Mild discomfort in the abdomen. ??? Sore throat. Women who have laparoscopy with pelvic examination may have mild cramping and fluid coming from the vagina for a few days after the procedure. Follow these instructions at home: Medicines ??? Take xgbb-pnr-rtomalo and prescription medicines only as told by your health care provider. ??? If you were prescribed an antibiotic medicine, take it as told by your health care provider. Do not stop taking the antibiotic even if you start to feel better. Driving ??? Do not drive for 24 hours if you were given a medicine to help you relax (sedative) during your procedure. ??? Do not drive or use heavy machinery while taking prescription pain medicine. Bathing ??? Do not take baths, swim, or use a hot tub until your health care provider approves. You may take showers. Incision care ??? Follow instructions from your health care provider about how to take care of your incisions. Make sure you: ? Wash your hands with soap and water before you change your bandage (dressing). If soap and water are not available, use hand location manager. ? Change your dressing as told by your health care provider. ? Leave stitches (sutures), skin glue, or adhesive strips in place. These skin closures may need to stay in place for 2 weeks or longer. If adhesive strip edges start to loosen and curl up, you may trim the loose edges. Do not remove adhesive strips completely unless your health care provider tells you to do that. ??? Check your incision areas every day for signs of infection. Check for: ? Redness, swelling, or pain. ? Fluid or blood. ? Warmth. ? Pus or a bad smell. Activity ??? Return to your normal activities as told by your health care provider. Ask your health care provider what activities are safe for you. ??? Do not lift anything that is heavier than 10 lb (4.5 kg), or the limit that you are told, until your health care provider says that it is safe. General instructions ??? To prevent or treat constipation while you are taking prescription pain medicine, your health care provider may recommend that you: ? Drink enough fluid to keep your urine pale yellow. ? Take ubug-dgr-ueguidr or prescription medicines. ? Eat foods that are high in fiber, such as fresh fruits and vegetables, whole grains, and beans. ? Limit foods that are high in fat and processed sugars, such as fried and sweet foods. ??? Do not use any products that contain nicotine or tobacco, such as cigarettes and e-cigarettes. If you need help quitting, ask your health care provider. ??? Keep all follow-up visits as told by your health care provider. This is important. Contact a health care provider if: ??? You develop shoulder pain. ??? You feel lightheaded or faint. ??? You are unable to pass gas or have a bowel movement. ??? You feel nauseous or you vomit. ??? You develop a rash. ??? You have redness, swelling, or pain around any incision. ??? You have fluid or blood coming from any incision. ??? Any incision feels warm to the touch. ??? You have pus or a bad smell coming from any incision. ??? You have a fever or chills. Get help right away if: ??? You have severe pain. ??? You have vomiting that does not go away. ??? You have heavy bleeding from the vagina. ??? Any incision opens. ??? You have trouble breathing. ??? You have chest pain. Summary ??? After the procedure, it is common to have mild discomfort in the abdomen and a sore throat. ??? Check your incision areas every day for signs of infection. ??? Return to your normal activities as told by your health care provider. Ask your health care provider what activities are safe for you. This information is not intended to replace advice given to you by your health care provider. Make sure you discuss any questions you have with your health care provider. Document Revised: 08/15/2018 Document Reviewed: 02/26/2018 [employer] Patient Education ? 2020 [employer]. Pharmacology General Anesthesia, Adult, Care After This sheet gives you information about how to care for yourself after your procedure. Your health care provider may also give you more specific instructions. If you have problems or questions, contact your health care provider. What can I expect after the procedure? After the procedure, the following side effects are common: ??? Pain or discomfort at the IV site. ??? Nausea. ??? Vomiting. ??? Sore throat. ??? Trouble concentrating. ??? Feeling cold or chills. ??? Weak or tired. ??? Sleepiness and fatigue. ??? Soreness and body aches. These side effects can affect parts of the body that were not involved in surgery. Follow these instructions at home: For at least 24 hours after the procedure: ??? Have a responsible adult stay with you. It is important to have someone help care for you until you are awake and alert. ??? Rest as needed. ??? Do not: ? Participate in activities in which you could fall or become injured. ? Drive. ? Use heavy machinery. ? Drink alcohol. ? Take sleeping pills or medicines that cause drowsiness. ? Make important decisions or sign legal documents. ? Take care of children on your own. Eating and drinking ??? Follow any instructions from your health care provider about eating or drinking restrictions. ??? When you feel hungry, start by eating small amounts of foods that are soft and easy to digest (bland), such as toast. Gradually return to your regular diet. ??? Drink enough fluid to keep your urine pale yellow. ??? If you vomit, rehydrate by drinking water, juice, or clear broth. General instructions ??? If you have sleep apnea, surgery and certain medicines can increase your risk for breathing problems. Follow instructions from your health care provider about wearing your sleep device: ? Anytime you are sleeping, including during daytime naps. ? While taking prescription pain medicines, sleeping medicines, or medicines that make you drowsy. ??? Return to your normal activities as told by your health care provider. Ask your health care provider what activities are safe for you. ??? Take oxju-xjt-worelfk and prescription medicines only as told by your health care provider. ??? If you smoke, do not smoke without supervision. ??? Keep all follow-up visits as told by your health care provider. This is important. Contact a health care provider if: ??? You have nausea or vomiting that does not get better with medicine. ??? You cannot eat or drink without vomiting. ??? You have pain that does not get better with medicine. ??? You are unable to pass urine. ??? You develop a skin rash. ??? You have a fever. ??? You have redness around your IV site that gets worse. Get help right away if: ??? You have difficulty breathing. ??? You have chest pain. ??? You have blood in your urine or stool, or you vomit blood. Summary ??? After the procedure, it is common to have a sore throat or nausea. It is also common to feel tired. ??? Have a responsible adult stay with you for the first 24 hours after general anesthesia. It is important to have someone help care for you until you are awake and alert. ??? When you feel hungry, start by eating small amounts of foods that are soft and easy to digest (bland), such as toast. Gradually return to your regular diet. ??? Drink enough fluid to keep your urine pale yellow. ??? Return to your normal activities as told by your health care provider. Ask your health care provider what activities are safe for you. This information is not intended to replace advice given to you by your health care provider. Make sure you discuss any questions you have with your health care provider. Document Revised: 09/05/2018 Document Reviewed: 04/18/2018 [employer] Patient Education ? 2020 [employer] documented in this encounter Plan of Treatment Not on file documented as of this encounter Visit Diagnoses Not on filedocumented in this encounter
--- OUTSIDE RECORDS SUMMARY | 2025-04-19 15:35 | XMS_ITS | Encounter Summary ---
Author Organization [employer] ([place], [place], [place], [place]) Address [address] [place] [address] Care Team Providers Care Magazine Grinder Loader Name Role Phone Unavailable Primary Care Provider Unavailabl e Encounter Details Date Type Department Care Team (Late st Contact Info) Description 05/23/2021 Transcribed Document [facility] [place] [address] ProviderCliff MD [address] [place] [address] [id number] Social History Tobacco Use Types Packs/Day Years Used Date Smoking Tobacco: Never Assessed Comments Unknown Sex and Gender Information Value Date Recorded Sex Assigned at Not on file Legal Sex Female 1:20 PM CDT Gender Identity Not on file Sexual Orientation Not on file documented as of this encounter Miscellaneous Notes * Cerner Conversion Note - Historical ProviderMD - 05/23/2021 12:42 PM CDT Pre Procedure Adult Entered On: 05/23/2021 12:42 EDT Performed On: 05/23/2021 12:42 EDT by Treva Paniagua Rn Height and Weight, Clinical Dosing Height Source : Stated Height Entry Format : [place] Height, Feet : 5 ft(Converted to: 152 cm, 60 Inch) Height, Inches : 5 Inch(Converted to: 0 ft 5 Inch, 12.70 cm) Clinical Height : 165.1 cm Weight Source : Sling Scale Weight Entry Format : [place] Clinical Dosing Weight : 92.73 kg Weight, Pounds : 204 lb Body Surface Area (BSA) : 2 m2 Body Mass Index : 34 kg/m2 (HI) Ernest Body Weight : 57 kg Treva Paniagua Rn - 05/23/2021 12:42 EDT Health Histories Smoking Status : Never (less than 100 in lifetime; none in last 30 days) Smokeless Tobacco Status : Never Treva Paniagua Rn - 05/23/2021 13:00 EDT Social History (As Of: 05/23/2021 13:37:53 EDT) Tobacco: Smoking Status Never smoker. (Last Updated: 02/23/2015 14:25:20 EDT by TIM EDWARDS RN) Alcohol: Alcohol Use History No. (Last Updated: 02/23/2015 14:25:54 EDT by TIM EDWARDS RN) Substance Abuse: Drug Use Hx: No. Use in Last 12 Months: No. (Last Updated: 05/25/2015 14:57:21 EDT by Zoe Bianchi RN) Nutrition/Health: Caffeine intake amount: 1/2 cup a day. (Last Updated: 02/23/2015 14:25:47 EDT by TIM EDWARDS RN) Infectious Disease History Does patient have symptoms of COVID-19? : No Has the Patient Been Tested for COVID-19 in the last 14 days? : Yes, Patient stated results Negative Does the Patient state known exposure to a COVID-19 positive case in the last 14 days? : No Patient Vaccinated for COVID-19 : Not vaccinated Does Patient want a COVID-19 Vaccine? : No Treva Paniagua Rn - 05/23/2021 13:00 EDT Infectious Disease Risk Screening Grid Cough < 2 wks of unknown origin : NO Cough > 2 weeks : NO Blood in Sputum : NO Fever or self-reported Fever : NO Rash of unknown origin : NO Headache : NO Stiff neck : NO Night Sweats : NO Unexplained Weight Loss : NO Diarrhea (3 episode per day) : NO Treva Paniagua Rn - 05/23/2021 13:00 EDT Physical contact outside [place] in the last 30 days : No Hospitalized in Foreign Country : No Infectious Disease History : Chicken pox/Shingles, Influenza INF Disease TB Screening Calc : 0 INF Disease Recent Travel Calc : 0 Treva Paniagua Rn - 05/23/2021 13:00 EDT COVID19 PreProcedure Screening Is this an Emergent or Add on Procedure? : No Date PreProcedure COVID-19 test known? : Yes Treva Paniagua Rn - 05/23/2021 13:00 EDT Date of PreProcedure COVID-19 : 05/21/2021 EDT Treva Paniagua Rn - 05/23/2021 13:36 EDT Has patient been isolated since the test : Yes Exposed to COVID19 symptoms since test? : No Treva Paniagua Rn - 05/23/2021 13:00 EDT Anesthesia/Transfusion History Family History of Anesthesia Reaction : No prior transfusion(s) Blood Transfusion Acceptable to Patient : Yes Transfusion History : Prior anesthesia reaction Type of Anesthesia Reaction : Excessive nausea/vomiting Family History of Anesthesia Reaction : None Treva Paniagua Rn - 05/23/2021 13:00 EDT Functional Assessment Living Situation : Home Patient Lives With : Spouse DIANE Purcell Immediate/Within 3 Months : No Current Home Treatments : None Treva Paniagua Rn - 05/23/2021 13:00 EDT [place] Suicide Severity Rating Scale (C-SSRS) CSSRS Past Month Wish to be : No CSSRS Past Month Suicidal Thoughts : No CSSRS Lifetime Suicide Behavior : No Suicide Severity Rating Score : 0 Suicide Severity Rating : No Additional Care Required at this time Treva Paniagua Rn - 05/23/2021 13:00 EDT Psychosocial History Currently in Unsafe Situation : No Treva Paniagua Rn - 05/23/2021 13:00 EDT Advance Directive Patient has Advance Directive *Q : No, patient refuses Advance Directive information Treva Paniagua Rn - 05/23/2021 13:00 EDT Spiritual/Cultural Needs Any Spiritual/Cultural Needs or Requests : Yes Treva Paniagua Rn - 05/23/2021 13:00 EDT Teaching/Learning Assessment Barriers To Learning : None evident Individuals Taught : Patient Readiness to Learn : Cooperative Readiness to Learn : Explanation Learning Style Preferences Patient : Printed materials, Verbal explanation Learning Style Preferences Family : Verbal explanation Treva Paniagua Rn - 05/23/2021 13:00 EDT Education Topics, Periop Preadmission Perioperative Education Grid Arrival Time/Place : Verbalizes understanding CAUTI : Verbalizes understanding Central Lines : Verbalizes understanding CHG Preoperative Bathing/Cloths : Verbalizes understanding Falls : Verbalizes understanding Incentive Spirometry : Verbalizes understanding Infection Control : Verbalizes understanding IV's : Verbalizes understanding NPO Status/Directions : Verbalizes understanding Pain Management : Verbalizes understanding Postoperative Care Preparations : Verbalizes understanding Preprocedure Preparations : Verbalizes understanding Preprocedure Tests/Labs : Verbalizes understanding Remove Body Piercings : Verbalizes understanding Responsible Adult : Verbalizes understanding SNE's : Verbalizes understanding Take/Hold Medications Pre-Procedure : Verbalizes understanding Other : Verbalizes understanding Treva Paniagua Rn - 05/23/2021 13:00 EDT General Info Arrived From : Home Mode of Arrival on Unit : Ambulatory Patient Arrival Date/Time : 05/23/2021 11:25 EDT Support Person/Patient Enrobing Machine Operator : Yes Support Person/Pt Rep Name : Valdemar Braxton Support Person/Pt Rep Contact Information : [phone] Want Family/Rep/Phys Notified of Admit : Treva Perez Rn - 05/23/2021 13:00 EDT Emergency Contact #1 : Treva Craig Rn - 05/23/2021 13:36 EDT Emergency Contact #1 Emergency Contact #1 Relationship : spouse Emergency Contact #2 : . Emergency Contact #2 Phone Number : . Emergency Contact #2 Relationship : . Information Obtained From : Patient Primary Language : [place] Preferred Communication Mode : Verbal Communication Barrier : None Janitorial Tech Needed : Treva Perez Rn - 05/23/2021 13:00 EDT Vital Measurements Temperature Source : Temporal artery scanning Temperature, Fahrenheit : 97.1 Deg F Clinical Temperature, C : 36.2 Deg C Peripheral Pulse Rate : 70 bpm Respiratory Rate : 18 Breaths/Min Systolic Blood Pressure : 116 mmHg Diastolic Blood Pressure : 84 mmHg Oxygen Saturation : 99 % Oxygen Therapy Mode : Room air Treva Paniagua Rn - 05/23/2021 13:00 EDT Sleep Apnea Risk Assmt Hx of Obstructive Sleep Apnea Diagnosis : No Snore Loudly : No Tired, Fatigued, or Sleepy During Day : No Observed Stopping Breathing During Sleep : No Have/Are Being Treated for Hypertension : No BMI Greater Than 35 kg/m2 : No Age over 50 Years Old : No Neck Circumference Greater Than 40 cm : No Gender Male : No STOP-BANG Sleep Apnea Risk Level Score : 0 Treva Paniagua Rn - 05/23/2021 13:00 EDT Brent Scale Brent Sensory Perception : No impairment Brent Moisture : Rarely moist Brent Activity : Walks frequently Brent Mobility : No limitation Brent Nutrition : Excellent Brent Friction and Shear : No apparent problem Brent Score : 23 Treva Paniagua Rn - 05/23/2021 13:00 EDT Oxygen Therapy Oxygen Therapy Mode : Room air Treva Paniagua Rn - 05/23/2021 13:00 EDT Pain Assessment Pain Assessment : Initial assessment Pain Scale Used : 0-10 Scale Pain Radiation : No Treva Paniagua Rn - 05/23/2021 13:00 EDT Fall Risk Scales ABCs Fall Injury Risk Identification : None CONTRERAS Hx Falls Immediate/Within 3 Months : No Contreras Secondary Diagnosis : Yes CONTRERAS Use of Ambulatory Aid : None CONTRERAS IV Therapy or IV Access : Yes Contreras Gait/Transferring : Normal, bedrest, immobile Contreras Mental Status : Oriented to own ability Contreras Fall Risk Score : 35 CONTRERAS Fall Scale Risk Level : 25-45 Medium Risk [place] Fall Interventions : Adequate lighting, Assistive devices within reach, Bed in low position, Call device within reach, Fall prevention handout/education per facility policy, Frequent orientation to call device, Frequent orientation to surroundings, Hourly comfort/safety rounds, Non-slip footwear, Personal items within reach, Reinforced to call for assistance before getting out of bed, Room free of clutter/spills, Upper side-rails up, Wheels locked, Wires/Cords secured Fall Moderate to High Risk Interventions : Transport methods appropriate to patient Treva Paniagua Rn - 05/23/2021 13:00 EDT Fall Risk Education Grid Alarms : Verbalizes understanding Assistive Equipment Use : Verbalizes understanding Bed Height/Stabilization : Verbalizes understanding Call light use : Verbalizes understanding Door Open : Verbalizes understanding Environmental Management : Verbalizes understanding Eyeglasses Use : Verbalizes understanding Fall Community Resources : Verbalizes understanding Fall Contract/Letter : Verbalizes understanding Fall Prevention in the Home : Verbalizes understanding Fall Prevention Protocol : Verbalizes understanding Hearing Aid Use : Verbalizes understanding Home Risk Assessment : Verbalizes understanding Need Constant Observation : Verbalizes understanding Night Light Use : Verbalizes understanding Nonskid Footwear Use : Verbalizes understanding Notification of Staff When Leaving : Verbalizes understanding Orthostatic Hypotension Precautions : Verbalizes understanding Personal Article Availability : Verbalizes understanding Prevention Responsibility Family : Verbalizes understanding Prevention Responsibility Patient : Verbalizes understanding Risk Alert Methods : Verbalizes understanding Risk Factors : Verbalizes understanding Safety Aids : Verbalizes understanding Siderails use/risks : Verbalizes understanding Special Assistive Devices : Verbalizes understanding Staff Responsiveness : Verbalizes understanding Symptom Identification & Action Plan *Q : Verbalizes understanding Symptom Reporting : Verbalizes understanding Toileting Schedule : Verbalizes understanding Transfer/Mobility Techniques : Verbalizes understanding Urinal/Bedpan Availability : Verbalizes understanding Wait for Assistance : Verbalizes understanding Wheelchair Safety : Verbalizes understanding Terva Paniagua Rn - 05/23/2021 13:00 EDT Barriers to Learning : None evident Individuals Taught : Patient Readiness to Learn : Cooperative Baseline Knowledge of Topic : Good Teaching Method : Explanation Learning Style Preferences Patient : Printed materials, Verbal explanation Teaching Evaluation : Verbalizes understanding Fall Risk Scale Calc Temp : 0 Treva Paniagua Rn - 05/23/2021 13:00 EDT Education Topics, Day of Surgery DayofSurgery Education Grid Anesthesia/Sedation : Verbalizes understanding CAUTI : Verbalizes understanding Central Lines : Verbalizes understanding CHG Preoperative Bathing/Cloths : Verbalizes understanding Fall Risks : Verbalizes understanding Family Instructions : Verbalizes understanding Incentive Spirometry : Verbalizes understanding Infection Control : Verbalizes understanding Infection Risks : Verbalizes understanding IV's : Verbalizes understanding Medication Instructions : Verbalizes understanding Pain Management : Verbalizes understanding Plan of Care : Verbalizes understanding Respiratory Care : Verbalizes understanding Responsible Adult : Verbalizes understanding SNE's : Verbalizes understanding Tubes/Drains : Verbalizes understanding Other : Verbalizes understanding Treva Paniagua Rn - 05/23/2021 13:00 EDT Valuables and Belongings Valuables and Belongings : Clothing Clothing : Common streetwear Clothing Disposition : With family Treva Paniagua Rn - 05/23/2021 13:00 EDT Pain Scale Intensity : 0 Treva Paniagua Rn - 05/23/2021 13:00 EDT Image 4 - Images currently included in the form version of this document have not been included in the text rendition version of the form. Shola Coma Shola Best Motor Response : Obey commands [place] Best Verbal Response : Oriented [place] Eye Opening Response : Spontaneous Shola Coma Score : 15 Treva Paniagua Rn - 05/23/2021 13:00 EDT Electronically signed by [facility] Conversion Digital Advertising Specialist Cerner at 01/04/2023 1:51 PM CDT documented in this encounter Plan of Treatment Not on file documented as of this encounter Visit Diagnoses Not on filedocumented in this encounter
--- OUTSIDE RECORDS SUMMARY | 2025-04-19 15:35 | XMS_ITS | Encounter Summary ---
Author Organization [employer] ([place], [place], [place], [place]) Address [address] [place] [address] Care Team Providers Care Retail Analyst Name Role Phone Unavailable Primary Care Provider Unavailabl e Encounter Details Date Type Department Care Team (Late st Contact Info) Description 09/24/2018 Transcribed Document [facility] [place] [facility] [place] [address] ProviderCliff MD [address] [place] [id number] Social History Tobacco Use Types Packs/Day Years Used Date Smoking Tobacco: Never Assessed Comments Unknown Sex and Gender Information Value Date Recorded Sex Assigned at Not on file Legal Sex Female 1:20 PM CDT Gender Identity Not on file Sexual Orientation Not on file documented as of this encounter Miscellaneous Notes * Cerner Conversion Note - Historical ProviderMD - 09/24/2018 8:18 AM BEER MAKER Pre Procedure Adult Entered On: 09/24/2018 8:19 EST Performed On: 09/24/2018 8:18 EST by Alla Peoples RN Height and Weight, Clinical Dosing Height Source : Stated Height Entry Format : [place] Height, Feet : 5 ft(Converted to: 152 cm, 60 Inch) Height, Inches : 5 Inch(Converted to: 0 ft 5 Inch, 12.70 cm) Clinical Height : 165.1 cm Weight Source : Standing scale Weight Entry Format : [place] Clinical Dosing Weight : 82.05 kg Weight, Pounds : 180 lb Weight, Ounces : 8 oz Body Surface Area (BSA) : 1.9 m2 Body Mass Index : 30.1 kg/m2 (HI) [place] Body Weight : 57 kg Alla Peoples RN - 09/24/2018 8:18 EST Health Histories Smoking Status : Never (less than 100 in lifetime; none in last 30 days) Smokeless Tobacco Status : Never Alla Peoples RN - 09/24/2018 8:32 EST Social History (As Of: 09/24/2018 08:42:00 EST) Tobacco: Smoking Status Never smoker. (Last Updated: 02/23/2015 14:25:20 EDT by TIM EDWARDS, ANNIE) Alcohol: Alcohol Use History No. (Last Updated: 02/23/2015 14:25:54 EDT by TIM EDWARDS, RN) Substance Abuse: Drug Use Hx: No. Use in Last 12 Months: No. (Last Updated: 05/25/2015 14:57:21 EDT by Zoe Bianchi RN) Nutrition/Health: Caffeine intake amount: 1/2 cup a day. (Last Updated: 02/23/2015 14:25:47 EDT by TIM EDWARDS, RN) Infectious Disease History Infectious Disease History : Chicken pox/Shingles, Influenza Isolation Needed : Standard Fever/Chills Last 48 Hours : No Travel To Regions with Travel Advisories : No Travel Outside [place] Within Last 30 Days : No Contact With Traveler to Advisory Region : No Tuberculosis Symptoms : Fatigue, Weight Loss Alla Peoples RN - 09/24/2018 8:32 EST Anesthesia/Transfusion History Family History of Anesthesia Reaction : No prior transfusion(s) Transfusion History : Prior anesthesia reaction Type of Anesthesia Reaction : Excessive nausea/vomiting Family History of Anesthesia Reaction : None Alla Peoples RN - 09/24/2018 8:32 EST Functional Assessment Living Situation : Home Patient Lives With : Child/Children, Spouse Persons Assisting Patient at Home : Spouse Current Daily Living Assistance : None Sensory Deficits : None Mobility Assistance Prior to Admission : Independent Current Home Treatments : None Home Equipment : None Professional Skilled Services : None Special Services and Community Resources : None Alla Peoples RN - 09/24/2018 8:32 EST Psychosocial History Currently in Unsafe Situation : No Tried to Harm Yourself in the Past? : No Thoughts of Harming/Killing Yourself : No Alla Peoples RN - 09/24/2018 8:32 EST Advance Directive Patient has Advance Directive *Q : No, patient refuses Advance Directive information Alla Peoples RN - 09/24/2018 8:32 EST Spiritual/Cultural Needs Any Spiritual/Cultural Needs or Requests : No Alla Peoples RN - 09/24/2018 8:32 EST General Info Arrived From : Home Mode of Arrival on Unit : Ambulatory Patient Arrival Date/Time : 09/24/2018 7:45 EST Support Person/Patient Can Marker : Yes Support Person/Pt Rep Name : Valdemar Limon Support Person/Pt Rep Contact Information : [phone] Want Family/Rep/Phys Notified of Admit : No Emergency Contact #1 : . Emergency Contact #1 Phone Number : . Emergency Contact #1 Relationship : . Emergency Contact #2 : . Emergency Contact #2 Phone Number : . Emergency Contact #2 Relationship : . Information Obtained From : Patient Primary Language : Belgian Preferred Communication Mode : Verbal Communication Barrier : None Status : Patient denies Alla Peoples RN - 09/24/2018 8:32 EST Vital Measurements Temperature Source : Temporal artery scanning Temperature Mode : Fahrenheit Temperature, Fahrenheit : 98.1 Deg F Clinical Temperature, C : 36.7 Deg C Peripheral Pulse Rate : 94 bpm Respiratory Rate : 18 Breaths/Min Systolic Blood Pressure : 131 mmHg Diastolic Blood Pressure : 87 mmHg Oxygen Saturation : 99 % Oxygen Therapy Mode : Room air Alla Peoples RN - 09/24/2018 8:18 EST Sleep Apnea Risk Assmt Hx of Obstructive Sleep Apnea Diagnosis : No Snore Loudly : No Tired, Fatigued, or Sleepy During Day : No Observed Stopping Breathing During Sleep : No Have/Are Being Treated for Hypertension : No STOP Sleep Apnea Risk Level Score : 0 Alla Peoples RN - 09/24/2018 8:32 EST Brent Scale Brent Sensory Perception : No impairment Brent Moisture : Rarely moist Brent Activity : Walks frequently Brent Mobility : No limitation Brent Nutrition : Adequate Brent Friction and Shear : No apparent problem Brent Score : 22 Alla Peoples RN - 09/24/2018 8:18 EST Oxygen Therapy Oxygen Therapy Mode : Room air Alla Peoples RN - 09/24/2018 8:18 EST Pain Assessment Pain Assessment : Initial assessment Pain Scale Used : 0-10 Scale Location : Abdominal Alla Peoples RN - 09/24/2018 8:32 EST Fall Risk Scales ABCs Fall Injury Risk Identification : None CONTRERAS Hx Falls Immediate/Within 3 Months : No Contreras Secondary Diagnosis : Yes CONTREARS Use of Ambulatory Aid : None CONTRERAS IV Therapy or IV Access : Yes [place] Gait/Transferring : Normal, bedrest, immobile Contreras Mental Status : Oriented to own ability [place]re[place] Fall Risk Score : 35 CONTRERAS Fall Scale Risk Level : 25-45 Medium Risk [place] Fall Interventions : Adequate lighting, Bed in low position, Call device within reach, Hourly comfort/safety rounds, Non-slip footwear, Personal items within reach, Reinforced to call for assistance before getting out of bed, Room free of clutter/spills, Upper side-rails up, Wheels locked, Wires/Cords secured Alla Peoples RN - 09/24/2018 8:32 EST Fall Risk Education Grid Call light use : Verbalizes understanding Fall Prevention Protocol : Verbalizes understanding Nonskid Footwear Use : Verbalizes understanding Prevention Responsibility Patient : Verbalizes understanding Alla Peoples RN - 09/24/2018 8:32 EST Barriers to Learning : None evident Individuals Taught : Patient Readiness to Learn : Cooperative Teaching Method : Explanation Learning Style Preferences Patient : Verbal explanation Teaching Evaluation : Verbalizes understanding Alla Peoples RN - 09/24/2018 8:32 EST Education Topics, Day of Surgery DayofSurgery Education Grid IV's : Verbalizes understanding Medication Instructions : Verbalizes understanding Plan of Care : Verbalizes understanding Alla Peoples RN - 09/24/2018 8:18 EST Valuables and Belongings Valuables and Belongings : Clothing Clothing : Common streetwear Clothing Disposition : With family Alla Peoples RN - 09/24/2018 8:32 EST Pain Scale Intensity : 7 Alla Peoples RN - 09/24/2018 8:32 EST Image 4 - Images currently included in the form version of this document have not been included in the text rendition version of the form. Marion Coma Marion Best Motor Response : Obey commands Shola Best Verbal Response : Oriented Shola Eye Opening Response : Spontaneous [place] Coma Score : 15 Alla Peoples RN - 09/24/2018 8:18 EST documented in this encounter Plan of Treatment Not on file documented as of this encounter Visit Diagnoses Not on filedocumented in this encounter
--- OUTSIDE RECORDS SUMMARY | 2025-04-19 15:35 | XMS_ITS | Encounter Summary ---
Author Organization Healthcare Address [address] [place] [address] Care Team Providers Care Prison Psychiatrist Name Role Phone ChanChuyita Alejandro MOLINA Primary Care Provider [phone] Encounter Details Date Type Department Care Team ([facility] Contact Info) Description 02/19/2025 Telephone Medical Office Building Surgical Specialties [address], [address] [place] [address] Dipti Livingston RN [facility] Social History Tobacco Use Types Packs/Day Years [...] week 02/09/2025 How often do you attend chur or mu-ism services? More than 4 times per year 02/09/2025 Do you belong to any clubs o r organizations such as anglican groups, unions, fraternal or athletic groups, or [...] Recorded Patient Health Questionnaire-2 Score 0 02/09/2025 [facility] - Occup[facility] Stress [...] any time in the past 12 m [facility], were you homeless or living in a correction (including now)? No 02/09/2025 Utilities Answer Date Recorded In the past 12 months has th e electric, gas, oil, or water company threatened to shut off services in your home? No 02/09/2025 Comments No Sex and Gender Information Value Date Recorded Sex Assigned at Not on file Legal Sex Female 7:29 PM EDT Gender Identity Not on file Sexual Orientation Not on file documented as of this encounter Miscellaneous Notes * Telephone Encounter - Dipti Livingston, RN - 02/19/2025 2:38 PM EDT Patient was informed of benign Thyroid FNA results from her visit with Dr. Santana on 02/09/25. documented in this encounter Plan of Treatment Upcoming Encounters Date Type Department Care Team (Late st Contact Info) Description 05/12/2025 2:00 PM EDT Office Visit [facility] resistor coater [facility] [address] [place], [place] [address] [place] [phone] Merrick Cowan DMD, MD [address] [place] [address] [address] [place] [phone] 10/20/2025 1:30 PM EST Office Visit [facility] resistor coater Faculty [address] [place] [phone] Merrick Cowan DMD, MD [address] [place] [address] 02/08/2026 9:00 AM EDT Office Visit Medical Office Building Surgical Specialties [address], [address] [place] [address] Aramis Santana MD [address] [facility] [address] [place] [address] documented as of this encounter Visit Diagnoses Not on filedocumented in this encounter Additional Health Concerns Assessment Noted Time A fall risk assessment has been complete d for the patient 05/27/2023 10:33 AM EDT A Body Mass Index follow-up plan has been documented for the patient 02/17/2025 8:41 AM EDT documented as of this encounter Care Teams Prison Psychiatrist Relationship Specialty Start Date End Date Chuyita Chan APRN [address] [place] [address] PCP - General 02/09/25 documented as of this encounter
--- OUTSIDE RECORDS SUMMARY | 2025-04-19 15:35 | XMS_ITS | Encounter Summary ---
Author Organization [employer] ([place], [place], [place], [place]) Address [address] [place] [address] Care Team Providers Care Dinkey Driver Name Role Phone Unavailable Primary Care Provider Unavailabl e Encounter Details Date Type Department Care Team (Late st Contact Info) Description 09/24/2018 Transcribed Document [facility] Family Medicine [address] [place] [address] ProviderCliff MD [address] [place] [address] Social History Tobacco Use Types Packs/Day Years Used Date Smoking Tobacco: Never Assessed Comments Unknown Sex and Gender Information Value Date Recorded Sex Assigned at Not on file Legal Sex Female 1:20 PM CDT Gender Identity Not on file Sexual Orientation Not on file documented as of this encounter Miscellaneous Notes * Cerner Conversion Note - Cliff ProviderMD - 09/24/2018 8:54 AM ACCOUNTS MANAGER RAH Entered On: 09/24/2018 8:54 EST Performed On: 09/24/2018 8:54 EST by ZABRINA HORNER MD-OBG RAH Indication of use for OOCS : Acute Injury OOCS Misuse Suspected : No Was RAH queried : Yes Patient Advised to seek OOCS Treatment : No Treatment to Include Limited Supply of OOCS : Yes RAH Result : Report Reviewed Patient cancelled on OOCS : Yes RAH : . ZABRINA HORNER MD-OBG - 09/24/2018 8:54 EST Electronically signed by [facility] Conversion Senior Financial Accountant Cerner at 01/04/2023 2:02 PM CDT documented in this encounter Plan of Treatment Not on file documented as of this encounter Visit Diagnoses Not on filedocumented in this encounter
--- OUTSIDE RECORDS SUMMARY | 2025-04-19 15:35 | XMS_ITS | Encounter Summary ---
Author Organization [employer] ([place], [place]) Address [address] [place] [address] Care Team Providers Care Jazz Musician Name Role Phone Unavailable Primary Care Provider Unavailabl e Encounter Details Date Type Department Care Team (Late st Contact Info) Description 09/24/2018 Transcribed Document [facility] [place] [facility] [place] [address] ProviderCliff MD [address] [place] [address] Social History Tobacco Use Types Packs/Day Years Used Date Smoking Tobacco: Never Assessed Comments Unknown Sex and Gender Information Value Date Recorded Sex Assigned at Not on file Legal Sex Female 1:20 PM CDT Gender Identity Not on file Sexual Orientation Not on file documented as of this encounter Miscellaneous Notes * Cerner Conversion Note - Cliff ProviderMD - 09/24/2018 10:37 AM GROUNDING ENGINEER Patient: SWATI MARQUEZ Age: 38 years Sex: Female : 1980 Associated Diagnoses: Chronic female pelvic pain; Dysmenorrhea; Dyspareunia in female; Pelvic peritoneal adhesions, female Author: ZABRINA HORNER MD-OBG Postoperative Information Date/ Time: 09/24/2018 10:37:00 Preoperative Diagnosis: Chronic female pelvic pain - Discharge, Medical, Dysmenorrhea - Discharge, Medical, Dyspareunia in female - Discharge, Medical, Pelvic peritoneal adhesions, female - Discharge, Medical. Postoperative Diagnosis: same as pre-op; and endometriosis. Performed by: ZABRINA HORNER MD-OBG. Social Studies Teacher: ABI RAYA PA-C. Findings: pelvic adhesions LLQ; ant cul de sac- JEROD; endomtriosis stage 2-3; normal right ovary and tube- patency demonstrated; small ovarian cuyst x 2 on right- appendix normal - liver normal and diaphragms normal. Specimens Removed: none. Estimated Blood Loss: Minimal see- anes record. Intake and Output: see anes record. Complications: None. Notes: Diag Lap with co 2 laser of endo and TRAVIS; drainage of right cyst; chromopertubation. documented in this encounter Plan of Treatment Not on file documented as of this encounter Visit Diagnoses Not on filedocumented in this encounter
--- OUTSIDE RECORDS SUMMARY | 2025-04-19 15:35 | XMS_ITS | Referral Summary ---
Author Organization [employer] ([place], [place], [place], [place]) Address [address] [place] [address] Care Team Providers Care Corrosion Technician Name Role Phone Unavailable Primary Care Provider Unavailabl e Social History Tobacco Use Types Packs/Day Years Used Date Smoking Tobacco: Never Assessed Comments Unknown Sex and Gender Information Value Date Recorded Sex Assigned at Not on file Legal Sex Female 1:20 PM CDT Gender Identity Not on file Sexual Orientation Not on file Plan of Treatment Not on file
--- OUTSIDE RECORDS SUMMARY | 2025-04-19 15:35 | XMS_ITS | Clinical Summary ---
Author Organization [employer] ([place], [place]) Address [address] [place] [address] Care Team Providers Care Hvac Residential Service Technician Name Role Phone Unavailable Primary Care [...]
--- OUTSIDE RECORDS SUMMARY | 2025-04-19 15:35 | XMS_ITS | Encounter Summary ---
Author Organization [facility] Address [address] [place] [address] Care Team Providers Care Collar Closer Lockstitch Name Role Phone Suzette Guthrie APRN Primary Care Provider [phone] Mook Klein MD Primary Care Provider [phone] Chuyita Chan APRN Primary Care Provider [phone] Encounter Details Date Type Department Care Team (Late st Contact Info) Description 09/12/2022 Orders Only [facility] @ [facility] [address] [place], [place] [phone] Reese Diego MD [address] [place] [address] Social History Tobacco Use Types Packs/Day Years Used Date Smoking Tobacco: Never Alcohol Use Standard Drinks/Week Comments No 0 (1 standard drink = 0.6 oz pur e alcohol) Comments Unknown Sex and Gender Information Value Date Recorded Sex Assigned at Not on file Legal Sex Female 7:29 PM EDT Gender Identity Not on file Sexual Orientation Not on file documented as of this encounter Plan of Treatment Upcoming Encounters Date Type Department Care Team (Late st Contact Info) Description 05/12/2025 2:00 PM EDT Office Visit [facility] concrete stone fabricating supervisor [facility] [address] [facility] [address] [place] [phone] Merrick Cowan DMD, MD [address] [facility] [address] [place] [address] 10/20/2025 1:30 PM EST Office Visit [facility] concrete stone fabricating supervisor [facility] [address] [place] [phone] Merrick Cowan DMD, MD [address] [place] [address] 02/08/2026 9:00 AM EDT Office Visit Medical Office Building [facility]ties [address] [facility] [place] [address] Aramis Santana MD [address] [facility] [address] [place] [address] documented as of this encounter Procedures Procedure Name Priority Date/Time Associated Diagnosis Comments HEMOGLOBIN A1C Routine 09/12/2022 11:06 AM EST documented in this encounter Results * Hemoglobin A1c (09/12/2022 11:06 AM EST) External Glycosylated Hemoglobin (Hgb A1C) 5.3 0.0 - 5.6 % [facility] External Estimated Average Glucose 105 mg/dl (calc) [facility] Comment: A1c values between 5.7% to 6.4% indicate prediabetes. Results 6.5% or greater is diagnostic of diabetes. [employer] (diabetes.org) 09/12/2022 11:0 6 AM EST 09/12/2022 11:16 AM EST us Reese Diego MD LAB BLOOD ORDERABLES Final R esult [facility] [address] [place] [address], documented in this encounter Visit Diagnoses Not on filedocumented in this encounter Care Teams Collar Closer Lockstitch Relationship Specialty Start Date End Date Suzette Guthrie, LOOM STOP CHECKER [address] [place] [address] PCP - General 01/27/21 04/10/23 Mook Klein MD [address] [place] [address] PCP - General 04/11/23 02/08/25 Chuyita Chan APRN [address] [place] [address] PCP - General 02/09/25 documented as of this encounter
--- OUTSIDE RECORDS SUMMARY | 2025-04-19 15:35 | XMS_ITS | Encounter Summary ---
Author Organization [facility] Address [address] [place] [address] Care Team Providers Care Commercial Relief Driver Name Role Phone Suzette Guthrie APRN Primary Care Provider [phone] Mook Klein MD Primary Care Provider [phone] Chuyita Chan APRN Primary Care Provider [phone] Encounter Details Date Type Department Care Team (Late st Contact Info) Description 09/12/2022 Orders Only [facility] @ [facility] [address] [place], [place] [phone] Reese Diego MD [address] [place] [address] Social History Tobacco Use Types Packs/Day Years [...] Description 05/12/2025 2:00 PM EDT Office Visit [facility] job hand Faculty Clinic [address] [facility] [address] [place] [phone] Merrick Cowan DMD, MD [address] [facility] [address] [place] [address] 10/20/2025 1:30 PM EST Office Visit [facility] job hand [facility] [address] [place] [address] Merrick Cowan DMD, MD [address] [place] [address] 02/08/2026 9:00 AM EDT Office Visit Medical Office Building Surgical Specialties [address] [facility] [place] [address] Aramis Santana MD [address] [facility] [address] [place] [address] documented as of this encounter Procedures Procedure Name Priority Date/Time Associated Diagnosis Comments COMPREHENSIVE METABOLIC PANEL, PLASMA Routine 09/12/2022 11:06 AM EST documented in this encounter Results * (ABNORMAL) Comprehensive Metabolic Panel, Plasma (09/12/2022 11:06 AM EST) External Glucose 99 74 - 100 mg/dL [facility] External BUN 15 6 - 20 mg/dL [facility] External Creatinine Blood 0.68 0.50 - 0.95 mg/dL [facility] External BUN/Creat Ratio 22(H) 10 - 20 (calc) [facility] External Sodium 139 136 - 145 mmol/L [facility] External Potassium 3.5 3.4 - 5.0 mmol/L [facility] External Chloride 100 98 - 107 mmol/L [facility] External Carbon Dioxide 26 22 - 31 mmol/L [facility] External Anion Gap (AG) 13 7 - 25 (calc) [facility] External Calcium 10.1 8.6 - 10.2 mg/dL [facility] External Total Protein 7.9 6.4 - 8.3 g/dL [facility] External Albumin 4.9 3.5 - 5.2 g/dL [facility] External Globulin 3.0 1.5 - 4.5 g/dL (calc) [facility] External Albumin/Globulin Ratio 1.6 1.1 - 2.5 (calc) [facility] External Bilirubin Total 0.3 0.1 - 1.2 mg/dL [facility] External Alkaline Phosphatase 90 30 - 121 U/L [facility] External AST (SGOT) 25 0 - 32 U/L [facility] External ALT (SGPT) 28 0 - 33 U/L [facility] External Estimated GFR 111 >=60 [facility] Comment: NOTE New calculation for GFR (CKD-EPI 2020) is formulated without race adjustment factors at the recommendation of the National Kidney Foundation and [place] [employer]ph[employer]. This calculation has not been validated in women. For pediatric patients refer to https://www.kidney.org/professionals/KDOQI/gfr_calculatorPed 09/12/2022 11:0 6 AM EST 09/12/2022 11:30 AM EST us Reese Diego MD LAB BLOOD ORDERABLES Final R esult [facility] [address] [place] [address], documented in this encounter Visit Diagnoses Not on filedocumented in this encounter Care Teams Commercial Relief Driver Relationship Specialty Start Date End Date Suzette Guthrie APRN [address] [place] [address] PCP - General 01/27/21 04/10/23 Mook Klein MD [address] [place] [address] PCP - General 04/11/23 02/08/25 Chuyita Chan APRN [address] [place] [address] PCP - General 02/09/25 documented as of this encounter
--- OUTSIDE RECORDS SUMMARY | 2025-04-19 15:35 | XMS_ITS | Encounter Summary ---
Author Organization [employer] ([place], [place], [place], [place]) Address [address] [place] [address] Care Team Providers Care Automated Logistics Specialist Name Role Phone Unavailable Primary Care Provider Unavailabl e Encounter Details Date Type Department Care Team (Late st Contact Info) Description 09/24/2018 Transcribed Document [facility] Family Medicine [facility] [place] [address] ProviderCliff MD [address] [place] [address] Social History Tobacco Use Types Packs/Day Years Used Date Smoking Tobacco: Never Assessed Comments Unknown Sex and Gender Information Value Date Recorded Sex Assigned at Not on file Legal Sex Female 1:20 PM CDT Gender Identity Not on file Sexual Orientation Not on file documented as of this encounter Miscellaneous Notes * Cerner Conversion Note - Cliff ProviderMD - 09/24/2018 9:59 AM ALGOLOGY TEACHER [facility] Main OR PACU Summary Primary Physician: ZABRINA HORNER MD-OBG Finalized Date/Time: 09/24/18 11:43:28 Pt. Name: SWATI MARQUEZ/Sex: 1980 Female Med Rec #: [id number] Physician: ZABRINA HORNER MD-OBG Financial #: [id number] Pt. Type: O Room/Bed: Admit/Disch: 09/24/18 07:39:00 - Institution: [facility] Main OR PACU Case Times Entry 1 In PACU I 09/24/18 10:48:00 Ready for PACU 09/24/18 11:42:00 Discharge Discharge from PACU 09/24/18 11:42:00 I Last Modified By: Jennifer Guerin Rn 09/24/18 11:42:53 Finalized By: Jennifer Guerin, Rn Document Signatures Signed By: Jennifer Guerin Rn 09/24/18 11:43 Electronically signed by [facility] Conversion Guard Driver Cerner at 01/04/2023 1:46 PM CDT documented in this encounter Plan of Treatment Not on file documented as of this encounter Visit Diagnoses Not on filedocumented in this encounter
--- OUTSIDE RECORDS SUMMARY | 2025-04-19 15:35 | XMS_ITS | Encounter Summary ---
Author Organization [employer] ([place], [place], [place]) Address [address] [place] [address] Care Team Providers Care Medical Superintendent Name Role Phone Unavailable Primary Care Provider Unavailabl e Encounter Details Date Type Department Care Team (Late st Contact Info) Description 05/23/2021 Transcribed Document [facility] Family Medicine [facility] [place] [address] ProviderCliff MD [address] [place] [id number] Social History Tobacco Use Types Packs/Day Years Used Date Smoking Tobacco: Never Assessed Comments Unknown Sex and Gender Information Value Date Recorded Sex Assigned at Not on file Legal Sex Female 1:20 PM CDT Gender Identity Not on file Sexual Orientation Not on file documented as of this encounter Miscellaneous Notes * Cerner Conversion Note - Historical ProviderMD - 05/23/2021 2:40 PM CDT [facility] Main OR PostOp Summary Primary Physician: JAJA MONTANO DO Finalized Date/Time: 05/23/21 17:48:32 Pt. Name: SWATI MARQUEZ/Sex: 1980 Female Med Rec #: [id number] Physician: JAJA MONTANO DO Financial #: [id number] Pt. Type: O Room/Bed: Admit/Disch: 05/23/21 11:12:00 - Institution: [facility] Main OR PostOp Case Times Entry 1 In PACU II 05/23/21 16:45:00 Ready for PACU II 05/23/21 17:48:00 Discharge Discharge from PACU 05/23/21 17:48:00 II Last Modified By: Doris Boykin RN 05/23/21 17:48:29 Finalized By: Doris Boykin, RN Document Signatures Signed By: Doris Boykin RN 05/23/21 17:48 Electronically signed by [facility] Conversion Keyseater Operator Cerner at 01/04/2023 1:52 PM CDT documented in this encounter Plan of Treatment Not on file documented as of this encounter Visit Diagnoses Not on filedocumented in this encounter
--- OUTSIDE RECORDS SUMMARY | 2025-04-19 15:35 | XMS_ITS | Encounter Summary ---
Author Organization [email or web address] ([place], [place], [place], [place]) Address [address] [place] [address] Care Team Providers Care Director Content Marketing Name Role Phone Unavailable Primary Care Provider Unavailabl e Encounter Details Date Type Department Care Team (Late st Contact Info) Description 05/23/2021 Transcribed Document [facility] [place] [facility] [address] ProviderCliff MD [address] [place] [address] [id number] Social History Tobacco Use Types Packs/Day Years [...] 05/23/2021 2:40 PM CDT [facility] Main OR IntraOp Summary Primary Physician: JAJA MONTANO DO Finalized Date/Time: 05/23/21 15:39:14 Pt. Name: JIMMY GWENDOLYNNATASHA Read/Sex: 1980 Female Med Rec #: [id number] Physician: JAJA MONTANO DO Financial #: [id number] Pt. Type: O Room/Bed: Admit/Disch: 05/23/21 11:12:00 - [place] [facility] [place] Attendance Entry 1 Entry 2 Entry 3 Case Attendee JAJA MONTANO DO SKEENS, STEPHEN J, CRNA BOOKER, P CRAIG, MD-ANS Role Performed Surgeon/Proceduralist, MANAGER OPERATIONS RESEARCH/Nurse Bench Assembler Operator Anesthesiologist First Time In 05/23/21 14:08:00 05/23/21 14:08:00 05/23/21 14:15:00 Time Out 05/23/21 15:30:00 05/23/21 15:30:00 05/23/21 14:37:00 Procedure Laparoscopy Diagnostic, Laparoscopy Diagnostic, Laparoscopy Diagnostic, Uterine Dilatation Uterine Dilatation Uterine Dilatation Curettage w Suction Curettage w Suction Curettage w Suction Other Attendee Superficial Wound Closed By: Last Modified By: Meek Kumar Shaffer, Andrea L, Meek Kumar, Rn-Traveler 05/23/21 Rn-Traveler 05/23/21 Rn-Traveler 05/23/21 15:30:15 15:30:15 15:30:15 Entry 4 Entry 5 Entry 6 Case Attendee Rahul Klein, Tabitha Sanders REP - Marimar Parker, Railroad Firer/Fireman Role Performed CRANBERRY BOG SUPERVISOR Staff - Other Scrub, First Time In 05/23/21 14:08:00 05/23/21 14:08:00 05/23/21 14:08:00 Time Out 05/23/21 15:30:00 05/23/21 15:30:00 05/23/21 15:30:00 Procedure Laparoscopy Diagnostic, Laparoscopy Diagnostic, Laparoscopy Diagnostic, Uterine Dilatation Uterine Dilatation Uterine Dilatation Curettage w Suction Curettage w Suction Curettage w Suction Other Attendee Superficial Wound Closed By: Last Modified By: Meek Kumar Shaffer, Andrea L, Meek Kumar, Rn-Traveler 05/23/21 Rn-Traveler 05/23/21 Rn-Traveler 05/23/21 15:30:27 15:30:15 15:30:15 Entry 7 Case Attendee Meek Kumar Rn-Traveler Role Performed Lasting Room Supervisor, First Time In 05/23/21 14:08:00 Time Out 05/23/21 15:30:00 Procedure Laparoscopy Diagnostic, Uterine Dilatation Curettage w Suction Other Attendee Superficial Wound Closed By: Last Modified By: Meek Kumar Rn-Traveler 05/23/21 15:30:15 [facility] IntraOp Case Attendance Audit 05/23/21 15:30:27 Shoveler: [id number] Modifier: [id number] <+> 4 Procedure 05/23/21 15:30:15 Shoveler: [id number] Modifier: [id number] <+> Time In 1 <+> Time Out 1 <*> Procedure Laparoscopy Diagnostic, Uterine Dilatation Curettage w Suction 2 <+> Time In 2 <+> Time Out 2 <*> Procedure Laparoscopy Diagnostic, Uterine Dilatation Curettage w Suction 3 <*> Procedure Laparoscopy Diagnostic, Uterine Dilatation Curettage w Suction <+> 4 Time In <+> 4 Time Out 5 <+> Time In 5 <+> Time Out 5 <*> Procedure Laparoscopy Diagnostic, Uterine Dilatation Curettage w Suction 6 <+> Time In 6 <+> Time Out 6 <*> Procedure Laparoscopy Diagnostic, Uterine Dilatation Curettage w Suction 7 <+> Time In 7 <+> Time Out 7 <*> Procedure Laparoscopy Diagnostic, Uterine Dilatation Curettage w Suction 05/23/21 14:42:03 Shoveler: [id number] Modifier: [id number] <*> Procedure Laparoscopy Diagnostic, Uterine Dilatation Curettage w Suction <+> 2 Case Attendee <+> 2 Role Performed <+> 2 Procedure <+> 3 Case Attendee <+> 3 Role Performed <+> 3 Time In <+> 3 Time Out <+> 3 Procedure <+> 4 Case Attendee <+> 4 Role Performed <+> 5 Case Attendee <+> 5 Role Performed <+> 5 Procedure <+> 6 Case Attendee <+> 6 Role Performed <+> 6 Procedure <+> 7 Case Attendee <+> 7 Role Performed <+> 7 Procedure [facility] IntraOp Case Times Entry 1 Patient In Room Time 05/23/21 14:08:00 Out Room Time 05/23/21 15:30:00 Anesthesia Start Time 05/23/21 14:08:00 Stop Time 05/23/21 15:30:00 Anesthesia Ready 05/23/21 14:08:00 Surgery / Procedure Times Start Time 05/23/21 14:40:00 Stop Time 05/23/21 15:23:00 Last Modified By: Meek Kumar Rn-Traveler 05/23/21 15:30:15 [facility] IntraOp Case Times Audit 05/23/21 15:30:15 Shoveler: [id number] Modifier: [id number] <+> 1 Out Room Time <+> 1 Stop Time 05/23/21 15:26:36 Shoveler: [id number] Modifier: [id number] <+> 1 Stop Time [facility] IntraOp Cautery Entry 1 ESU Identification Cautery Type Monopolar ESU ID Number OR [id number] TOWER ID Type Hospital Number Cautery Settings Cut Setting 0 Coag Setting 30 ESU Grounding Pad Ground Pad Type Adult Grounding Pad Site Right Flank Grounding Pad Meek Kumar, Applied By Rn-Traveler Grounding Pad Site Intact Skin Condition Before Cautery Grounding Pad Site Intact Skin Condition After Cautery Last Modified By: Meek Kumar Rn-Traveler 05/23/21 14:45:20 [facility] IntraOp Communication Entry 1 Communication To Family/Significant other Comment START Communication By Meek Kumar Rn-Traveler Date and Time 05/23/21 14:45:00 Last Modified By: Meek Kumar Rn-Traveler 05/23/21 14:46:03 [facility] IntraOp Counts Verification Entry 1 Procedure Laparoscopy Diagnostic, Uterine Dilatation Curettage w Suction Count Info Count Type Sponge, Sharps, Instrument, Miscellaneous Counts Verification Before wound closure Sequence Count Results Waived Counts Performed By Count Performed By Marimar Flowers (Scrub) Railroad Firer/Fireman Count Performed By Meek Kumar (RN) Rn-Traveler Last Modified By: Meek Kumar Rn-Traveler 05/23/21 14:46:53 [facility] IntraOp Counts Final Entry 1 Procedure Laparoscopy Diagnostic, Uterine Dilatation Curettage w Suction Final Count Info Count Type Sponge, Sharps, Miscellaneous Counts Verification Skin Closure/end of Sequence procedure Count Results Correct, surgeon notified Counts Performed By Count Performed By Marimar Flowers (Scrub) Railroad Firer/Fireman Count Performed By Tabitha Gannon REP - [facility]SI (RN) Last Modified By: Meek Kumar Rn-Traveler 05/23/21 14:47:10 [facility] IntraOp Cultures and Spec Summary Entry 1 Cultrures and Specimens Specimen Ordered: Yes Test(s) Routine/Path-Lab Requested/Final Disposition Last Modified By: Meek Kumar Rn-Traveler 05/23/21 14:47:17 [facility] IntraOp Departure from OR Entry 1 Integumentary Assessment Integumentary WDL Assessment WDL Transfer/Handoff Transfer to PACU Phase I Handoff Method Bedside/Face to face Post-op Transport Stretcher/Gurney Via Patient Transport Meek Kumar, Accompanied by Rn-TravelJESSI martinez STEPHEN J, CRNA Transfer/Handoff PATIENT IS EXTREMELY Comments ALLERGIC TO ADHESIVES. SHE INFORMED Annika KUMAR RN THAT SHE COULD USE ABD PADS, COBAN AND AN ABDOMINAL BINDER FOR DRESSINGS. Last Modified By: Meek Kumar Rn-Traveler 05/23/21 14:59:00 [facility] IntraOp Departure from OR Audit 05/23/21 14:59:00 Shoveler: [id number] Modifier: [id number] <+> 1 Transfer/Handoff Comments [facility] IntraOp Dressing and Packing Entry 1 Type Dressing Location ABDOMEN Wound Dressing Item 4x4's, Abdominal binder, Coban, ABD dressing pad Applied By JAJA MONTANO DO Other Comments PATIENT AND HER APPROVED THE DRESSINGS PRIOR TO BEING TAKEN TO THE OPERATING ROOM. Last Modified By: Meek Kumar Rn-Traveler 05/23/21 15:01:46 [facility] IntraOp Dressing and Packing Audit 05/23/21 15:01:46 Shoveler: [id number] Modifier: [id number] <+> 1 Other Comments [facility] IntraOp Fire Risk Assessment Entry 1 Fire Info Surgical Site or 0- No Incision Above the Xyphoid Open O2 Source 0- No (Mask or Cannula) Available Ignition 0- No (ESU, Laser, Light Source) Fire Risk 1 Assessment Score Fire Score Fire Risk Yes Assessment Complete Fire Risk Meek Kumar, Assessment Verified Rn-Traveler By Fire Risk 05/23/21 14:39:00 Assessment Verified Date/Time Fire Risk Standard Fire Yes Safety Precautions Followed Last Modified By: Meek Kumar Rn-Traveler 05/23/21 14:48:55 [facility] IntraOp General Case Hand Braille Transcriber 1 Case Information OR OR 04 [facility] Case Level 1 Room Verified Yes Wound Class II - Clean-Contaminated Specialty Gynecology Anesthesia Type General ASA Class 3 Diagnosis Preop Diagnosis LEFT ADENEXAL CYST, HISTORY OF PRIOR ECTOPIC Postop Same As Preop No Postop Diagnosis SEE SURGEON'S OPERATIVE NOTE Last Modified By: Meek Kumar Rn-Traveler 05/23/21 14:51:31 [facility] IntraOp Intraoperative Assessment Entry 1 Handoff Method Bedside/Face to face Valid History / Yes Physical in Chart Preoperative Yes Checklist Reviewed/Evaluated Allergies Reviewed Yes Patient is Latex No Sensitive Isolation Not applicable Precautions Noted Level of WDL Consciousness (WDL = Alert, Oriented to Person, Place, and Time) Skin Assessment Yes Verified Present Upon IVs Arrival to OR Intraoperative MINIMAL POSITIONING WAS Assessment Comment 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 MODIFIED EKG PADS, NO BOVIE Last Modified By: Meek Kumar Rn-Traveler 05/23/21 15:04:43 [facility] IntraOp Intraoperative Assessment Audit 05/23/21 15:04:43 Shoveler: [id number] Modifier: [id number] 1 <*> Intraoperative Assessment Comment PATIENT AND HER APPROVED THE DRESSINGS PRIOR TO GOING TO OPERATING ROOM. MINIMAL POSITIO 05/23/21 15:01:10 Shoveler: [id number] Modifier: [id number] <+> 1 Intraoperative Assessment Comment [facility] IntraOp Intraoperative Equipment Entry 1 Type Monitoring Equipment Intraop Monitoring Electrocardiogram Three lead placement (ECG) Electrode Placement Blood Pressure Non-Invasive BP Device Source Blood Pressure Arm, left upper Location Pulse Oximeter Hand, right Probe Site Antiembolic Devices Antiembolic Devices Sequential compression device, knee high Antiembolic Device Bilateral Location Scopes Photo/Video Documentation Photo No Video No Last Modified By: Meek Kumar Rn-Traveler 05/23/21 14:52:22 [facility] IntraOp Medication Admin Entry 1 Entry 2 Medication/Irrigant Marcaine 0.5% 30ml vial Methergine Maleate - [id number] 0.2mg 1ml - [id number] Combo Med List Time Administered 05/23/21 14:52:00 05/23/21 15:18:00 Route of INJECTION IV Administration Dose Dose Unit of Measure ml ml Volume 10 1 Administered By JAJA MONTANO DO SKEENS, STEPHEN J, JARVIS Procedure Irrigation Irrigant Volume In Irrigant Volume Out Last Modified By: Meek Kumar, Meek Kumar Rn-Traveler 05/23/21 Rn-Traveler 05/23/21 14:53:02 15:28:13 [facility] IntraOp Medication Admin Audit 05/23/21 15:28:13 Shoveler: [id number] Modifier: [id number] <+> 2 Medication/Irrigant <+> 2 Route of Administration <+> 2 Volume <+> 2 Administered By <+> 2 Time Administered <+> 2 Unit of Measure [facility] IntraOp Patient Positioning Entry 1 Procedure Laparoscopy Diagnostic, Uterine Dilatation Curettage w Suction Body Position Lithotomy Left Arm Position Tucked and padded at side Right Arm Position Tucked and padded at side Left Leg Position Secured in Leg Doll Right Leg Position Secured in Leg Doll Feet Uncrossed Yes Pressure Points Yes Checked Positioning Devices Stirrups/Leg Doll, Boot, Arm Board, Safety Strap, Arm(s), Safety Strap, Chest Device Position PATIENT WAS POSITIONED TO HER COMFORT PRIOR TO ADMINISTRATION OF ANESTHESIA. NO TAPE OR ADHESIVE WAS USED ON HER BODY FACE OR EYES Positioned By Meek Kumar Rn-Traveljuan, RAHUL BOWEN, DUSTY CONLEY AMY, DO, Davis, Stephen J, CRANBERRY BOG SUPERVISOR Position Verified Positioning Yes Verified by Anesthesia Positioning Yes Verified by Surgeon Last Modified By: Meek Kumar Rn-Traveler 05/23/21 14:57:05 [facility] IntraOp Patient Positioning Audit 05/23/21 14:57:05 Shoveler: [id number] Modifier: [id number] <*> Procedure Laparoscopy Diagnostic, Uterine Dilatation Curettage w Suction 1 <+> Device Position [facility] IntraOp Sign In Entry 1 Patient, Site, Yes Procedure Identified Surgical Consent Yes Confirmed Relevant Surgical Yes Documents Available Surgical Site N/A Marked by person performing procedure Anesthesia Machine Yes Check Completed Medication Checks Yes Completed Airway Difficult No Airway/Aspiration Risk Difficult Yes Airway/Aspiration Intervention Equipment Available Blood Loss Risk Yes Blood Loss Yes Intervention Equipment Prepared and Ready Hypothermia Risk Yes Warming Measures Yes Taken Last Modified By: Meek Kumar Rn-Traveler 05/23/21 14:53:58 [facility] Intra Op Sign Out Entry 1 RN Confirmation Surgical Yes Procedure(s) Identified Instrument, Sponge Yes and Sharps Counts Correct/Documented Equipment Problems N/A Documented Specimen Labeled Yes Correctly Urinary Catheter Yes Documented in [facility] 100 mL Urine Output Choi Patient Yes Recovery Concerns Reviewed with Anesthesia Provider, Surgeon and RN Choi Patient Yes Management Concerns Reviewed with Anesthesia Provider, Surgeon and RN Safety Checklist Yes Elements Complete? Sign Out Comment PATIENT SHOWED NO SIGNS OF SKIN IRRITATION. BETADINE WAS CLEANED FROM SKIN. RN Sign Out Meek Kumar, Signature Rn-Traveler RN Sign Out 05/23/21 15:30:00 Signature Date/Time Plan of Care Outcome - Fire Risk OUTCOME STATEMENT: Goal met Patient is free from injury related to surgical fire Plan of Care Outcome - Pt Positioning OUTCOME STATEMENT: Goal met Absence of signs and symptoms of positioning injury. Plan of Care Outcome - Skin Prep OUTCOME STATEMENT: Goal met Intraoperative care is consistent with measures to prevent infection Plan of Care Outcome - Xray/Images OUTCOME STATEMENT: Goal met Absence of observable signs or symptoms of radiation injury Plan of Care Outcome - Counts OUTCOME STATEMENT: Goal met Absence of signs and symptoms of injury related to extraneous objects Last Modified By: Meek Kumar Rn-Traveler 05/23/21 15:39:13 [facility] Intra Op Sign Out Audit 05/23/21 15:39:13 Shoveler: [id number] Modifier: [id number] <+> 1 Urinary Catheter Documented in [employer] 05/23/21 15:30:11 Shoveler: [id number] Modifier: [id number] <+> 1 RN Sign Out Signature Date/Time 05/23/21 15:30:08 Shoveler: [id number] Modifier: [id number] <+> 1 Sign Out Comment [facility] IntraOp Skin Prep Entry 1 Procedure Laparoscopy Diagnostic, Uterine Dilatation Curettage w Suction Prescribed Yes Pre-Surgical Prep Completed Prep Area ABDOMEN, VAGINA Intraop Prep Integumentary WDL Assessment WDL Prep Agents Chloraprep, Betadine solution Prep by Meek Kumar Rn-Traveler Hair Removal Last Modified By: Meek Kumar Rn-Traveler 05/23/21 14:57:48 [facility] IntraOp Surgical Procedures Entry 1 Entry 2 Procedure Laparoscopy Diagnostic Uterine Dilatation Curettage w Suction Modifiers Additional DIAGNOSTIC LAPAROSCOPY Procedure , SUCTION DILATATION Description AND CURETTAGE Primary Procedure Yes No Primary Surgeon JAJA MONTANO DO CARRILLO, AMY, DO Start 05/23/21 14:40:00 05/23/21 14:40:00 Stop 05/23/21 15:23:00 05/23/21 15:23:00 Physician States Cecum Reached Anesthesia Type General General Specialty Gynecology Gynecology Wound Class I - Clean II - Clean-Contaminated Last Modified By: Meek Kumar Shaffer, Andrea L, Rn-Traveler 05/23/21 Rn-Traveler 05/23/21 15:26:51 15:27:09 [facility] IntraOp Surgical Procedures Audit 05/23/21 15:27:09 Shoveler: [id number] Modifier: [id number] <*> Procedure Uterine Dilatation Curettage w Suction 2 <+> Specialty 05/23/21 15:26:51 Shoveler: [id number] Modifier: [id number] 1 <*> Procedure Laparoscopy Diagnostic 1 <+> Specialty 05/23/21 15:26:41 Shoveler: [id number] Modifier: [id number] <+> 1 Stop 2 <*> Procedure Uterine Dilatation Curettage w Suction 2 <+> Stop 05/23/21 15:09:18 Shoveler: [id number] Modifier: [id number] <+> 1 Start <+> 2 Start [facility] IntraOp Time Out Entry 1 Procedure to be Laparoscopy Diagnostic, Performed Uterine Dilatation Curettage w Suction Time Out Time Out Pause Time 05/23/21 14:39:00 All activity Yes suspended (unless life threatening emergency) Team Verbally Correct patient Confirms Information identity, Correct side and site are marked, Consent form is present and accurate, Agreement on the procedure to be done, Correct patient position, Relevant images/results properly labeled/appropriately displayed, Confirm antibiotics have been administered, Confirm the skin prep has dried, Performed in location of procedure after prepped/draped Time Out Comment CEFOXITIN 2GM Antibiotic Yes Prophylaxis Administered Or In Progress Within the Last 60 Minutes Beta Carina Yes Administered Venous Yes Thromboembolism Prophylaxis Required Anticipated Critical Events Surgeon None expected Anesthesia Provider None expected Essential Imaging Yes Labeled and Displayed Last Modified By: Meek Kumar Rn-Traveler 05/23/21 14:50:25 Case Comments <None> Finalized By: Meek Kumar Rn-Traveler Document Signatures Signed By: Meek Kumar Rn-Traveler 05/23/21 15:39 Electronically signed by Fariba Castillo Conversion [employer] Mail Processor Cerner at 01/04/2023 1:38 PM CDT documented in this encounter Plan of Treatment Not on file documented as of this encounter Visit Diagnoses Not on filedocumented in this encounter
--- OUTSIDE RECORDS SUMMARY | 2025-04-19 15:35 | XMS_ITS | Clinical Summary ---
Author Organization [facility] Address [address] [place] [address] Care Team Providers Care Machine Maintenance Supervisor Name Role Phone Chan, Chuyita Allen APRN Primary Care Provider [phone] Allergies Active Allergy Reactions Criticality Noted Date Comments Antihistamines, Chlorpheniramine-Type Hives Medium 05/27/2023 Only in high doses (has tolerated intermittent doses of Benadryl previously) Iodinated Contrast Media Rash Low 05/27/2023 Latex Rash Medium 05/27/2023 Tape/Bandaid Adhesive Rash Medium 06/23/2024 Medications escitalopram (Lexapro) 10 MG tablet Take 1 tablet (10 mg) by mouth 1 (one) time each day. 05/12/20 23 Active Tirzepatide-Weig ht Management (Zepbound) 15 MG/0.5ML solution auto-injector Inject 15 mg under the skin 1 (one) time per week. Takes on Saturday Active pantoprazole (Protonix) 40 MG EC tablet Take 1 tablet (40 mg) by mouth 1 (one) time each day before breakfast. Do not crush, chew, or split. Active spironolactone (Aldactone) 100 MG tablet Take 1 tablet (100 mg) by mouth 1 (one) time each day. Active busPIRone (Buspar) 10 MG tablet Take 1 tablet (10 mg) by mouth 1 (one) time each day. Active NON FORMULARY THC/ CBD gummies daily for pain Active ibuprofen 600 MG tablet Take 1 tablet (600 mg) by mouth every 6 (six) hours if needed for mild pain. 30 tablet 10/10/20 24 Active Additional Information Patient not taking.Reported on 02/09/2025 HYDROcodone-acet aminophen ([place]) 5-325 MG tablet Take 1 tablet (5 mg of hydrocodone) by mouth every 6 (six) hours if needed for severe pain. 20 tablet 06/25/20 Active Additional Information Patient not taking.Reported on 02/09/2025 methylPREDNISolo ne (Medrol Dospak) 4 MG tablets Follow schedule on package instructions 21 tablet 06/28/20 Active Additional Information Patient not taking.Reported on 02/09/2025 diphenhydrAMINE (Benadryl) 50 MG tablet Take 1 tablet (50 mg) by mouth at night if needed for itching. 30 tablet 06/28/20 Active Additional Information Patient not taking.Reported on 02/09/2025 cetirizine (ZyrTEC) 10 MG tabletIndication s:Allergic reaction, sequela Take 1 tablet (10 mg) by mouth 1 (one) time each day. 30 tablet 07/01/20 Active Additional Information Patient not taking.Reported on 02/09/2025 omeprazole (PriLOSEC) [address] capsuleIndicatio ns:Allergic reaction, sequela Take 1 capsule (40 mg) by mouth 1 (one) time each day. Do not crush or chew. 30 capsule 07/01/20 Active Additional Information Patient not taking.Reported on 02/09/2025 tretinoin (Retin-A) 0.025 % cream Apply topically nightly. Active spironolactone (Aldactone) 50 MG tablet Take 1 tablet by mouth daily. 02/06/20 25 Active ibuprofen 800 MG tablet Take 1 tablet by mouth every 6 hours as needed for mild pain. 28 tablet 02/11/20 25 Active sulfamethoxazole -trimethoprim (Bactrim DS) 800-160 MG tabletIndication s:Hardware complicating wound infection, initial encounter ([facility]) Take 1 tablet by mouth 2 times a day for 28 days. 28 tablet 1 02/25/20 25 025 Active Problems Problem Noted Date Diagnosed Date Acute bronchitis 02/04/2025 COVID-19 virus test result unknown 02/04/2025 Polycystic ovary syndrome 02/04/2025 Dysfunction of sphincter of Oddi 02/04/2025 Strep sore throat 02/04/2025 URI (upper respiratory infection) 02/04/2025 GERD (gastroesophageal reflux disease) HTN (hypertension) 06/23/2024 Overview (06/23/2024): off medication following weight loss PONV (postoperative nausea and vomiting) 024 TMJ arthralgia 06/23/2024 Arthralgia of right temporomandibular joint 05/17 Acute right otitis media 03/09/2024 Nausea 03/09/2024 Anxiety disorder 09/12/2022 Goiter 09/12/2022 Migraine 09/12/2022 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 Obesity with body mass index 30 or greater 08/14 Overview (02/04/2025): Problem Code: Z68.30; Problem Code Type: ICD-10; Acute pharyngitis 08/11/2019 Pneumonia due to organism 03/18/2017 Abdominal pain 06/22/2015 Exposure keratoconjunctivitis of right eye 06/22 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 Diarrhea 05/16/2015 Overview (02/04/2025): From Automated Load;Provider: Jesse Herrera;Status: Active Epigastric pain 05/16/2015 Overview (02/04/2025): From Automated Load;Provider: Jesse Herrera;Status: Active Right upper quadrant pain 05/16/2015 Overview (02/04/2025): From Automated Load;Provider: Jesse Herrera;Status: Active Dysarthria 03/25/2015 Abscess of face 01/16/2015 Overview (02/04/2025): Abscess of face 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) 02/24/2025 Travel 02/19/2025 Telephone Medical Office Building Surgical Specialties [address], [address] [place] [address] Dipti Livingston RN 02/17/2025 Orders Only External Location [address] [place] [address] Provider, External 02/10/2025 1:30 PM EDT Office Visit [facility] optical effects layout person Faculty Clinic [address] [place] [address] [address] [place] [address] Merrick Cowan DMD, MD Arthralgia of right temporomandibular joint (Primary Dx); Hardware complicating wound infection, initial encounter ([facility]) 02/10/2025 Travel 02/09/2025 8:00 AM EDT Consult Medical Office Building Surgical Specialties [address], [address] [place] [address] Aramis Santana MD Thyroid nodule (Primary Dx); Multinodular goiter; History of blood clotting disorder 02/09/2025 Telephone [facility] optical effects layout person Faculty Clinic [address] [place] [address] [address] [place] [address] Dental, Surgeon, 02/09/2025 Orders Only External Location [address] [place] [address] Provider, External 02/09/2025 Travel 02/04/2025 Abstract Medical Office Building Surgical Specialties [address], [address] [place] [address] Benjamin Landry from Last 3 Months Immunizations Immunization Administration Dates Next Due Influenza, Unspecified 07/07/2014 Influenza, injectable, quadrivalent 07/17/2020 PPD Skin Test (TB Skin Test) 02/26/2014 Family History Medical History Relation Name Comments Aortic aneurysm Father Cardiac disorder Father Heart disease Father Hypertension Father Prostate cancer Father Thyroid disease Mother Anesthesia problems Neg Hx Malig Hyperthermia Neg Hx Relation Name Status Comments Father Mother Social History Tobacco Use Types Packs/Day Years Used Date Smoking Tobacco: Never Smokeless Tobacco: Never Tobacco Cessation:Counseling Given: Not Answered Alcohol Use Standard Drinks/Week Comments No 0 [...] week 02/09/2025 How often do you attend [facility] or moravian services? More than 4 times per year 02/09/2025 Do you belong to any clubs o r organizations such as yarsanism groups, unions, fraternal or athletic groups, or [...] Recorded Patient Health Questionnaire-2 Score 0 02/09/2025 [facility] of Occupat ional Health - Occupational Stress [...] any time in the past 12 [facility], were you homeless or living in a penitentiary (including now)? No 02/09/2025 Utilities Answer Date Recorded In the past 12 months has th e electric, gas, oil, or water company threatened to shut off services in your home? No 02/09/2025 Comments No Sex and Gender Information Value Date Recorded Sex Assigned at Not on file Legal Sex Female 7:29 PM EDT Gender Identity Not on file Sexual Orientation Not on file Last Filed Vital Signs Vital Sign Reading Time Taken Comments Blood Pressure 115/86 02/24/2025 3:32 PM EDT Pulse 85 02/24/2025 3:32 PM EDT Temperature 36.8 C (98.2 F) 02/09/2025 8:29 AM EDT Respiratory Rate 18 02/09/2025 8:29 AM EDT Oxygen Saturation 100% 02/24/2025 3:32 PM EDT Inhaled Oxygen Concentration - - Weight 63.5 kg (140 lb) 02/24/2025 3:32 PM EDT Height 165.1 cm (5' 5 ) 02/24/2025 3:32 PM EDT Body Mass Index 23.3 02/24/2025 3:32 PM EDT Plan of Treatment Upcoming Encounters Date Type Department Care Team ([facility] st Contact Info) Description 05/12/2025 2:00 PM EDT Office Visit [facility] optical effects layout person Faculty [address] [place] [phone] Merrick Cowan DMD, MD [address] [facility] [address] [place] [phone] 10/20/2025 1:30 PM EST Office Visit [facility] optical effects layout person [facility] [address] [place] [address] [address] [place] [address] Merrick Cowan DMD, MD [address] [place] [address] [address] [place] [phone] 02/08/2026 9:00 AM EDT Office Visit Medical Office Building Surgical Specialties [address], [address] [place] [address] Aramis Santana MD [address] [facility] [address] [place] [address] Health Maintenance Due Date Last Done Comments Dental Oral Exam 1980 Dental Prophylaxis 1980 Dental X-Ray: Bitewings 1980 Dental X-Ray: Full Mouth 1980 [facility]-HIV Screening 1980 [facility]-Hepatitis C Screening 1980 [facility]-Infant/Child/Adol SDOH Screenings 1980 [id number] Vaccine (#1) 1985 [facility]-Varicella Vaccines (1 of 2 - 13+ 2-dose series) 1993 HPV Vaccines (1 - 3-dose series) 1995 [facility]-DTaP,Tdap,and Td Vaccines (1 - Tdap) 1999 [facility]-Hepatitis B Vaccines (1 of 3 - 19+ 3-dose series) 1999 [facility]-Pneumococcal Vaccine: Pediatrics (0 to 5 Years) and At-Risk Patients (6 to 49 Years) (1 of 2 - PCV) 1999 [facility]-HPV/Cotest 2010 [facility]-Influenza Vaccine (#1) 05/17/202507/17, 07/07/2014 [facility]- SDOH Screenings 08/12/2025 [facility]-Adult SDOH Screenings 08/12/2025 02/09/2025 [facility]-Depression Screening 02/09/2026 02/09/2025 [facility]-Cervical Cancer Screening 11/06/2027 [facility]-Pap Smear 11/06/2027 11/06/2024 [facility]-Zoster Vaccines (1 of 2) 2030 [facility]-HIB Vaccines Aged Out No longer e ligible based on patient's age to complete this topic [facility]-Hepatitis A Vaccines Aged Out No longer eligible based on patient's age to complete this topic [facility]-IPV Vaccines Aged Out No longer e ligible based on patient's age to complete this topic [facility]-Rotavirus Vaccines Aged Out No lo nger eligible based on patient's age to complete this topic Procedures Procedure Name Priority Date/Time Associated Diagnosis Comments CT OUTSIDE IMAGES 02/17/2025 7:1 2 AM EDT ABSCESS CULTURE AND GRAM STAIN Routine 02/10/2025 3:13 PM EDT Hardware complicating wound infection, initial encounter (CMS/HCC) FINE NEEDLE ASPIRATION - CYTOLOGY Routine 02/09/2025 9:19 AM EDT Thyroid nodule POC ULTRASOUND 02/09/2025 from Last 3 Months Results * CT OUTSIDE IMAGES (02/17/2025 7:12 AM EDT) Anatomical Region Laterality Modality Computed Tomogra phy 02/17/2025 7:12 AM EDT us External Provider IMG CT PROCEDURES Final Result * (ABNORMAL) Abscess Culture and Gram Stain (02/10/2025 3:13 PM EDT) Culture Light Growth 02/12/2025 12:46 PM EDT [facility] Culture Mixed skin juju(A) 02/12 12:46 PM EDT [facility] Comment: The organism value for this result has been updated. These results have been appended to the previously preliminary verified report. This is a corrected result. Previous organism was Staphylococcus species on 02/11/2025 at 1729 EDT. Gram Stain Result Rare Polymorphonuclear leukocytes 02/12/2025 12:46 PM EDT [facility] Gram Stain Result No organisms seen 02/12/2025 12:46 PM EDT [facility] Abscess Topography unknown / Unknown 02/10/2025 3:13 PM EDT 02/10/2025 3:13 PM EDT us Merrick Cowan DMD, MD LAB MICROBIOLOGY - GENERA L ORDERABLES Final Result [facility] [address] [place] [address] * Fine needle aspiration (02/09/2025 9:19 AM EDT) Case Report Cytology Case: [id number] Authorizing Provider: Aramis Santana MD Collected: 02/09/2025 0919 Ordering Location: Medical Office Building Received: 02/09/2025 0919 Surgical Specialties Pathologist: Tosha Samuel MD Specimen: Thyroid, Left, Fine Needle Aspiration, 1.4 cm left mid thyroid nodule 02/10/2025 9:57 AM EDT [facility] Final Diagnosis A. THYROID, LEFT LOBE (MID), ULTRASOUND-BEULAH DED FNA: - BENIGN, CONSISTENT WITH FOLLICULAR NODULAR DISEASE (BETHESDA CATEGORY II). 02/10/2025 9:57 AM EDT [facility] at 0957 EDT Immediate Evaluation FNA performed by: Dr Santana Number of sticks: 3 Immediate evaluation performed by: Dr Samuel Evaluation episode # [id number]: adequate 02/10/2025 9:57 AM EDT [facility] Clinical History thyroid nodules 02/10/2025 9:57 AM EDT [facility] Procedure Type US 02/10/2025 9:57 AM EDT [facility] Size/Descripti on of Lesion 1.4 cm left mid thyroid nodule 02/10/2025 9:57 AM EDT [facility] Cancer History No 02/10/2025 9:57 AM EDT [facility] Gross Description A. 1.4 CM LEFT MID THYROID NODULE 15 milliliters bloody needle rinse fluid processed as Thinprep for complete evaluation of sample. Received 3 diff quick slides and 3 pap slides. 02/10/2025 9:57 AM EDT [facility] Clinical Information E04.1 - Thyroid nodule [ICD-10-CM] 02/10/2025 9:57 AM EDT [facility] Fine Needle Aspirate Thyroid structure / Unknown 02/09/2025 9:19 AM EDT 02/09/2025 9:19 AM EDT us Aramis Santana MD LAB CYTOLOGY ORDERABLES Final R esult [facility] [address] [place] [address] * POC Imaging (02/09/2025) Anatomical Region Laterality Modality Pelvis Other 02/09/2025 us External Provider IMG POINT OF CARE ULTRASOUND F inal Result from Last 3 Months Insurance [address] [place] [id number] ANTHEM Care Teams Machine Maintenance Supervisor Relationship Specialty Start Date End Date Chuyita Chan APRN [address] [place] [address] [place] [address] PCP - General 02/09/25
--- OUTSIDE RECORDS SUMMARY | 2025-04-19 15:35 | XMS_ITS | Encounter Summary ---
Author Organization [employer] ([place], [place], [place], [place]) Address [address] [place] [address] Care Team Providers Care Neurology Teacher Name Role Phone Unavailable Primary Care Provider Unavailabl e Encounter Details Date Type Department Care Team (Late st Contact Info) Description 09/24/2018 Transcribed Document [facility] Family Medicine [facility] [place] [address] ProviderCliff MD [address] [place] [id number] Social History Tobacco Use Types Packs/Day Years Used Date Smoking Tobacco: Never Assessed Comments Unknown Sex and Gender Information Value Date Recorded Sex Assigned at Not on file Legal Sex Female 1:20 PM CDT Gender Identity Not on file Sexual Orientation Not on file documented as of this encounter Miscellaneous Notes * Cerner Conversion Note - Cliff ProviderMD - 09/24/2018 9:59 AM [facility] [facility] [facility] Main OR PostOp Summary Primary Physician: ZABRINA HORNER MD-OBG Finalized Date/Time: 09/24/18 12:44:40 Pt. Name: SWATI MARQUEZ/Sex: 1980 Female Med Rec #: [id number] Physician: ZABRINA HORNER MD-OBG Financial #: [id number] Pt. Type: O Room/Bed: Admit/Disch: 09/24/18 07:39:00 - Institution: [facility] Main OR PostOp Case Times Entry 1 In PACU II 09/24/18 11:45:00 Ready for PACU II 09/24/18 12:35:00 Discharge Discharge from PACU 09/24/18 12:35:00 II Last Modified By: TRENT OSBORN RN 09/24/18 12:44:24 Finalized By: TRENT OSBORN RN Document Signatures Signed By: TRENT OSBORN RN 09/24/18 12:44 Electronically signed by Jonathan [facility] Conversion Chemistry Technician Cerner at 01/04/2023 1:49 PM CDT documented in this encounter Plan of Treatment Not on file documented as of this encounter Visit Diagnoses Not on filedocumented in this encounter
--- OUTSIDE RECORDS SUMMARY | 2025-04-19 15:35 | XMS_ITS | Encounter Summary ---
Author Organization [employer] ([place], [place], [place], [place]) Address [address] [place] [address] Care Team Providers Care Ham Passer Name Role Phone Unavailable Primary Care Provider Unavailabl e Encounter Details Date Type Department Care Team (Late st Contact Info) Description 05/23/2021 Transcribed Document [facility] [place] [facility] [place] [address] ProviderCliff MD [address] [place] [id number] Social History Tobacco Use Types Packs/Day Years Used Date Smoking Tobacco: Never Assessed Comments Unknown Sex and Gender Information Value Date Recorded Sex Assigned at Not on file Legal Sex Female 1:20 PM CDT Gender Identity Not on file Sexual Orientation Not on file documented as of this encounter Miscellaneous Notes * Cerner Conversion Note - Historical ProviderMD - 05/23/2021 3:37 PM CDT Patient: SWATI MARQUEZ Age: 40 Years Sex: Female : 1980 Admit Date 05/23/2021 11:12 PREOPERATIVE DIAGNOSIS(ES): 40yo with failed intrauterine , left ovarian cyst POSTOPERATIVE DIAGNOSIS(ES): Same PROCEDURE: Laparoscopy with drainage of left ovarian cyst, dilation and curettage with suction. SURGEON: Melba Humphrey Assist: Ziggy Klein ANESTHESIA: General COMPLICATIONS: None apparent. ESTIMATED BLOOD LOSS: 50cc INTRAVENOUS FLUIDS: 1000 mL crystalloid. URINE OUTPUT: 100 at the completion of the procedure. SPECIMENS: Products of conception to Pathology. INDICATIONS: Failed intrauterine with left ovarian cyst, prior ectopic DESCRIPTION OF PROCEDURE: The patient was taken to the operating room suite where general anesthesia was initiated. She was prepped and draped in the dorsal lithotomy position using Orestes stirrups. A double sponge stick was placed in the vagina for uterine manipulation and a astorga catheter was placed. An exam of the pelvis revealed a small left ovarian cyst and evidence of prior left salpingectomy. The cyst was drained with a needle revealing minimal clear fluid. The liver and appendix were visualized. The pelvis was irrigated. Abdomen was released of CO2 gas and the skin incisions were closed with 4-0 monocryl. A bivalve speculum was placed into the vagina and the anterior lip of the cervix was grasped with a single-tooth tenaculum. The cervix was serially dilated to accompany an 7 curved suction curette tip. Uterine contents were then removed with suction. A gentle curette was done at the completion of the procedure to ensure no remaining products. Suction was introduced one additional time revealing no additional products of conception. Tenaculum was removed from the anterior cervix. All instruments were removed from the vagina. Counts were correct. Anesthesia was reversed and the patient went to recovery room in stable condition. Of note, the patient reports a severe adhesive allergy and none was used during this case. EKG leads were cut and placed prior to anesthesia to ensure no issues. Her incisions were dressed per her instructions preoperatively. documented in this encounter Plan of Treatment Not on file documented as of this encounter Visit Diagnoses Not on filedocumented in this encounter
--- OUTSIDE RECORDS SUMMARY | 2025-04-19 15:35 | XMS_ITS | Encounter Summary ---
Author Organization Healthcare Address [address] [place] [address] Care Team Providers Care Bow Rehairer Name Role Phone Chuyita Chan APRN Primary Care Provider [phone]- [phone] Encounter Details Date Type Department Care Team ([facility] st Contact Info) Description 02/17/2025 Orders Only External Location [address] [place] [address] Provider, External Social History Tobacco Use Types Packs/Day Years [...] 02/09/2025 How often do you attend chur ch or jew services? More than 4 times per year 02/09/2025 Do you belong to any clubs o r organizations such as taoist groups, unions, fraternal or athletic groups, or [...] Recorded Patient Health Questionnaire-2 Score 0 02/09/2025 [facility] Occupat ional Health - [...] any time in the past 12 m [facility], were you homeless or living in a half-way (including now)? No 02/09/2025 Utilities Answer Date [...] Description 05/12/2025 2:00 PM EDT Office Visit [facility] human relations professor Faculty Clinic [address] [place] [address] [address] [place] [phone] Merrick Cowan DMD, MD [address] [place] [address] [address] [place] [address] 10/20/2025 1:30 PM EST Office Visit [facility] human relations professor Faculty Clinic [address] [place] [address] [address] [place] [address] Merrick Cowan DMD, MD [address] [place] [address] [address] [place] [address] 02/08/2026 9:00 AM EDT Office Visit Medical Office Building Surgical Specialties [address] [facility] [place] [address] Aramis Santana MD [address] [facility] [address] [place] [address] documented as of this encounter Procedures Procedure Name Priority Date/Time Associated Diagnosis Comments CT OUTSIDE IMAGES 02/17/2025 7:12 AM EDT documented in this encounter Results * CT OUTSIDE IMAGES (02/17/2025 7:12 AM EDT) Anatomical Region Laterality Modality Computed Tomogra phy 02/17/2025 7:12 AM EDT us External Provider IMG CT PROCEDURES Final Result documented in this encounter Visit Diagnoses Not on filedocumented in this encounter Additional Health Concerns Assessment Noted Time A fall risk assessment has been complete d for the patient 05/27/2023 10:33 AM EDT A Body Mass Index follow-up plan has been documented for the patient 02/17/2025 8:41 AM EDT documented as of this encounter Care Teams Bow Rehairer Relationship Specialty Start Date End Date Chuyita Chan APRN [address] [place] [address] PCP - General 02/09/25 documented as of this encounter
--- OUTSIDE RECORDS SUMMARY | 2025-04-19 15:35 | XMS_ITS | Encounter Summary ---
Author Organization [employer] ([place], [place], [place], [place]) Address [address] [place] [address] Care Team Providers Care Ship'S Surveyor Name Role Phone Unavailable Primary Care Provider Unavailabl e Encounter Details Date Type Department Care Team (Late st Contact Info) Description 05/23/2021 Transcribed Document [facility] [place] [address] ProviderCliff MD [address] [place] [id number] Social History Tobacco Use Types Packs/Day Years Used Date Smoking Tobacco: Never Assessed Comments Unknown Sex and Gender Information Value Date Recorded Sex Assigned at Not on file Legal Sex Female 1:20 PM CDT Gender Identity Not on file Sexual Orientation Not on file documented as of this encounter Miscellaneous Notes * Cerner Conversion Note - Historical ProviderMD - 05/23/2021 4:54 PM CDT [place] [id number] SWATI MARQUEZ :1980 Visit Time:05/23/2021 What to do next Your Diagnosis Pelvic and perineal pain, Pelvic and perineal pain Instructions From Your Care Team nothing in the vagina til follow up appointment. may shower, no tub baths after dressings removed remove dressings in 24 hours. pain medication was escribed to your preferred pharmacy Discharge Follow Up Instructions: Follow up with Kam in 2 weeks as scheduled. Pelvic rest until follow up. May shower, no tub baths. Remove dressings 24 hours post operative. Follow-Up Appointments Follow Up with JAJA MONTANO DO When Comments follow up as previously instructed. Where: [address] [facility] [address] [place] [address]- Medications What How Much When Instructions Next Dose HYDROmorphone (Dilaudid 2 mg oral tablet) 1 Tablet(s) Oral Every 4 Hours as needed for as needed for pain Pickup at [place] [id number] promethazine (promethazine 25 mg oral tablet) 1 Tablet(s) Oral Every 6 Hours Pickup at [facility] 493 aspirin 81 Milligram(s) Oral Every Day cholecalciferol (Vitamin D3) 50,000 International Units Oral Every 4 Weeks metFORMIN (metFORMIN 500 mg oral tablet) 1 Tablet(s) Oral Two Times A Day nortriptyline (nortriptyline 10 mg oral capsule) 1 Capsule(s) Oral At Bedtime propranolol (propranolol 120 mg oral capsule, extended release) Oral Every Day Pharmacy Information [facility] 493: [address] [place] [phone] Take your medications faithfully. Do NOT skip [...] of unused and medications per pharmacy guidance. Education Materials General Anesthesia, Adult, Care After This sheet [...] activities are safe for you. ??? Take tzzf-nma-fjvrqcn and prescription medicines only as told by [...] provider. Document Revised: 09/05/2018 Document Reviewed: 04/18/2018 [employer] Patient Education ?? 2020 [employer] Dilation and Curettage or Vacuum Curettage, Care [...] not have sex. General instructions ??? Take splc-oly-fwazfic and prescription medicines only as told by [...] provider. Document Revised: 08/15/2018 Document Reviewed: 05/20/2017 [employer] Patient Education ?? 2020 [employer]. Diagnostic Laparoscopy, Care After This sheet gives [...] these instructions at home: Medicines ??? Take chuw-glo-mpcjrla and prescription medicines only as told by [...] and water are not available, use hand multi sensor operator. ? Change your dressing as told by [...] keep your urine pale yellow. ? Take iycn-ubr-fkhdohn or prescription medicines. ? Eat foods that [...] provider. Document Revised: 08/15/2018 Document Reviewed: 02/26/2018 [employer] Patient Education ?? 2020 [employer]. hydromorphone (oral) (THOR droe SAMUEL fongagandeep) Dilaudid, Exalgo What is the most important information I should know about hydromorphone? MISUSE OF OPIOID MEDICINE CAN CAUSE ADDICTION, OVERDOSE, OR . Keep the medication in a place where others cannot get to it. Taking opioid medicine during may cause life-threatening withdrawal symptoms in the . Fatal side effects can occur if you use opioid medicine with alcohol, or with other drugs that cause drowsiness or slow your breathing. What is hydromorphone? Hydromorphone is an opioid medication used to treat moderate to severe pain. The extended-release form of this medicine is for voseut-xue-amntm treatment of moderate to severe pain, not for use on an as-needed basis for pain. Hydromorphone may also be used for purposes not listed in this medication guide. What should I discuss with my healthcare provider before using hydromorphone? You should not take this medicine if you have ever had an allergic reaction to hydromorphone or other narcotic medicines, or if you have: ?? severe asthma or breathing problems; ?? a blockage in your stomach or intestines; or ?? a bowel obstruction called paralytic ileus. Do not use hydromorphone if you have used an MAO inhibitor in the past 14 days. A dangerous drug interaction could occur. MAO inhibitors include isocarboxazid, linezolid, methylene blue injection, phenelzine, rasagiline, selegiline, tranylcypromine, and others. Tell your doctor if you have ever had: ?? a head injury, brain tumor, or seizures; ?? breathing problems, sleep apnea; ?? alcoholism, drug addiction, or mental illness; ?? urination problems; ?? liver or kidney disease; ?? a sulfite allergy; or ?? problems with your gallbladder, pancreas, or thyroid. If you use opioid medicine while you are , your baby could become dependent on the drug. This can cause life-threatening withdrawal symptoms in the baby after it is born. Babies born dependent on opioids may need medical treatment for several weeks. Do not breast-feed. Hydromorphone can pass into breast milk and may cause drowsiness or breathing problems in a nursing baby. How should I use hydromorphone? Follow the directions on your prescription label and read all medication guides. Never use hydromorphone in larger amounts, or for longer than prescribed. Tell your doctor if you feel an increased urge to take more of this medicine. Never share opioid medicine with another person, especially someone with a history of drug abuse or addiction. MISUSE CAN CAUSE ADDICTION, OVERDOSE, OR . Keep the medication in a place where others cannot get to it. Selling or giving away opioid medicine is against the law. Stop taking all other wzjaft-dyw-ahgkx narcotic pain medications when you start taking hydromorphone. Swallow the capsule or tablet whole to avoid exposure to a potentially fatal overdose. Do not crush, chew, break, open, or dissolve. Measure liquid medicine carefully. Use the dosing syringe provided, or use a medicine dose-measuring device (not a kitchen spoon). Do not stop using hydromorphone suddenly, or you could have unpleasant withdrawal symptoms. Ask your doctor how to safely stop using hydromorphone. Never crush or break a hydromorphone pill to inhale the powder or mix it into a liquid to inject the drug into your vein. This can cause in . Store at room temperature away from moisture, heat, and light. Throw away any unused liquid after 90 days. Keep track of your medicine. You should be aware if anyone is using it improperly or without a prescription. Do not keep leftover opioid medication. Just one dose can cause in someone using this medicine accidentally or improperly. Ask your pharmacist where to locate a drug take-back disposal program. If there is no take-back program, flush the unused medicine down the toilet. What happens if I miss a dose? Since hydromorphone is used for pain, you are not likely to miss a dose. Skip any missed dose if it is almost time for your next dose. Do not use two doses at one time. What happens if I overdose? Seek emergency medical attention or call the Poison Help line at . A hydromorphone overdose can be fatal, especially in a child or other person using the medicine without a prescription. Overdose symptoms may include slow heart rate, severe drowsiness, muscle weakness, cold and clammy skin, pinpoint pupils, very slow breathing, or coma. What should I avoid while using hydromorphone? Do not drink alcohol. Dangerous side effects or could occur. Avoid driving or hazardous activity until you know how this medicine will affect you. Dizziness or drowsiness can cause falls, accidents, or severe injuries. What are the possible side effects of hydromorphone? Get emergency medical help if you have signs of an allergic reaction: hives; difficulty breathing; swelling of your face, lips, tongue, or throat. Opioid medicine can slow or stop your breathing, and may occur. A person caring for you should seek emergency medical attention if you have slow breathing with long pauses, blue colored lips, or if you are hard to wake up. Call your doctor at once if you have: ?? noisy breathing, sighing, shallow breathing, breathing that stops during sleep; ?? a slow heart rate or weak pulse; ?? confusion, feelings of extreme happiness or sadness; ?? severe weakness or drowsiness; ?? a light-headed feeling, like you might pass out; ?? low cortisol levels--nausea, vomiting, loss of appetite, dizziness, worsening tiredness or weakness. Seek medical attention right away if you have symptoms of serotonin syndrome, such as: agitation, hallucinations, fever, sweating, shivering, fast heart rate, muscle stiffness, twitching, loss of coordination, nausea, vomiting, or diarrhea. Serious side effects may be more likely in older adults and those who are malnourished or debilitated. Long-term use of opioid medication may affect fertility (ability to have children) in men or women. It is not known whether opioid effects on fertility are permanent. Common side effects may include: ?? drowsiness, tiredness; ?? dizziness; ?? headache; or ?? constipation, nausea, vomiting, stomach pain. This is not a complete list of side effects and others may occur. Call your doctor for medical advice about side effects. You may report side effects to FDA at 1-502-DDQ-2627. What other drugs will affect hydromorphone? Opioid medication can interact with many other drugs and cause dangerous side effects or . Be sure your doctor knows if you also use: ?? other narcotic medications--opioid pain medicine or prescription cough medicine; ?? a sedative like Valium--diazepam, alprazolam, lorazepam, Xanax, Klonopin, Versed, and others; ?? drugs that make you sleepy or slow your breathing--a sleeping pill, muscle relaxer, medicine to treat mood disorders or mental illness; or ?? drugs that affect serotonin levels in your body--a stimulant, or medicine for depression, Parkinson's disease, migraine headaches, serious infections, or nausea and vomiting. This list is not complete. Other drugs may affect hydromorphone, including prescription and vegi-xnt-jgnmhqh medicines, vitamins, and herbal products. Not all possible interactions are listed here. Where can I get more information? Your doctor or pharmacist can provide more information about hydromorphone. Remember, keep this and all other medicines out of the reach of children, never share your medicines with others, and use this medication only for the indication prescribed. Every effort has been made to ensure that the information provided by [employer] ('[employer]') is accurate, up-to-date, and complete, but no guarantee is made to that effect. Drug information contained herein may be time sensitive. [employer] information has been compiled for use by healthcare practitioners and consumers in the [place] and therefore [employer] does not warrant that uses outside of the [place] are appropriate, unless specifically indicated otherwise. [employer] drug information does not endorse drugs, diagnose patients or recommend therapy. [employer] drug information is an informational resource designed to assist licensed healthcare practitioners in caring for their patients and/or to serve consumers viewing this service as a supplement to, and not a substitute for, the expertise, skill, knowledge and judgment of healthcare practitioners. The absence of a warning for a given drug or drug combination in no way should be construed to indicate that the drug or drug combination is safe, effective or appropriate for any given patient. [employer] does not assume any responsibility for any aspect of healthcare administered with the aid of information [employer] provides. The information contained herein is not intended to cover all possible uses, directions, precautions, warnings, drug interactions, allergic reactions, or adverse effects. If you have questions about the drugs you are taking, check with your doctor, nurse or pharmacist. Copyright 8461-4058 [employer]. Version: 9.03. Revision Date: 07/02/2019. promethazine (oral) (pro METH a zeen) Phenergan What is the most important information I should know about promethazine? Promethazine should not be given to a child younger than 2 years old. Promethazine can cause severe breathing problems or in very young children. What is promethazine? Promethazine is in a group of drugs called phenothiazines (EOKH-hb-IQLA-a-zeens). It works by changing the actions of chemicals in your brain. Promethazine also acts as an antihistamine. It blocks the effects of the naturally occurring chemical histamine in your body. Promethazine is used to treat allergy symptoms such as itching, runny nose, sneezing, itchy or watery eyes, hives, and itchy skin rashes. Promethazine also prevents motion sickness, and treats nausea and vomiting or pain after surgery. It is also used as a sedative or sleep aid. Promethazine is not for use in treating symptoms of asthma, pneumonia, or other lower respiratory tract infections. Promethazine may also be used for purposes not listed in this medication guide. What should I discuss with my healthcare provider before taking promethazine? Promethazine should not be given to a child younger than 2 years old. Promethazine can cause severe breathing problems or in very young children. Carefully follow your doctor's instructions when giving this medicine to a child of any age. You should not take this medicine if you are allergic to promethazine or to similar medicines such as chlorpromazine, fluphenazine, mesoridazine, perphenazine, prochlorperazine, thioridazine, or trifluperazine. To make sure promethazine is safe for you, tell your doctor if you have: ?? asthma, chronic obstructive pulmonary disease (COPD), sleep apnea, or other breathing disorder; ?? a sulfite allergy; ?? a history of seizures; ?? a weak immune system (bone marrow depression); ?? glaucoma; ?? enlarged prostate or problems with urination; ?? stomach ulcer or obstruction; ?? heart disease or high blood pressure; ?? liver disease; ?? adrenal gland tumor (pheochromocytoma); ?? low levels of calcium in your blood (hypocalcemia); or ?? if you have ever had a serious side effect while using promethazine or any other phenothiazine. It is not known whether promethazine will harm an unborn baby. Tell your doctor if you are or plan to become while using this medicine. It is not known whether promethazine passes into breast milk or if it could harm a nursing baby. You should not breast-feed while using this medicine. How should I take promethazine? Follow all directions on your prescription label. Your doctor may occasionally change your dose to make sure you get the best results. Do not take this medicine in larger or smaller amounts or for longer than recommended. Promethazine is often taken at bedtime or before meals. For motion sickness, promethazine is usually started within 1 hour before traveling. When used for surgery, promethazine is usually taken the night before the surgery. How often you take this medicine and the timing of your dose will depend on the condition being treated. Measure liquid medicine with the dosing syringe provided, or with a special dose-measuring spoon or medicine cup. If you do not have a dose-measuring device, ask your pharmacist for one. If a child is using this medicine, tell your doctor if the child has any changes in weight. Promethazine doses are based on weight in children, and any changes may affect your child's dose. Call your doctor if your symptoms do not improve, or if they get worse while using promethazine. This medicine can cause unusual results with certain medical tests. Tell any doctor who treats you that you are using promethazine. Store at room temperature away from moisture, heat, and light. What happens if I miss a dose? Take the missed dose as soon as you remember. Skip the missed dose if it is almost time for your next scheduled dose. Do not take extra medicine to make up the missed dose. What happens if I overdose? Seek emergency medical attention or call the Poison Help line at . Overdose symptoms may include overactive reflexes, loss of coordination, severe drowsiness or weakness, fainting, dilated pupils, weak or shallow breathing, or seizure (convulsions). What should I avoid while taking promethazine? This medicine may impair your thinking or reactions. Be careful if you drive or do anything that requires you to be alert. Avoid getting up too fast from a sitting or lying position, or you may feel dizzy. Get up slowly and steady yourself to prevent a fall. Drinking alcohol can increase certain side effects of promethazine. Avoid exposure to sunlight or tanning beds. Promethazine can make you sunburn more easily. Wear protective clothing and use sunscreen (SPF 30 or higher) when you are outdoors. What are the possible side effects of promethazine? Get emergency medical help if you have signs of an allergic reaction: hives; difficult breathing; swelling of your face, lips, tongue, or throat. Stop using promethazine and call your doctor at once if you have: ?? severe drowsiness, weak or shallow breathing; ?? a light-headed feeling, like you might pass out; ?? confusion, agitation, hallucinations, nightmares; ?? seizure (convulsions); ?? fast or slow heartbeats; ?? jaundice (yellowing of the skin or eyes); ?? uncontrolled muscle movements in your face (chewing, lip smacking, frowning, tongue movement, blinking or eye movement); ?? easy bruising or bleeding (nosebleeds, bleeding gums); ?? sudden weakness or ill feeling, fever, chills, sore throat, mouth sores, red or swollen gums, trouble swallowing; or ?? severe nervous system reaction--very stiff (rigid) muscles, high fever, sweating, confusion, fast or uneven heartbeats, tremors, feeling like you might pass out. Side effects such as confusion and severe drowsiness may be more likely in older adults. Common side effects may include: ?? drowsiness, dizziness; ?? ringing in your ears; ?? double vision; ?? feeling nervous; ?? dry mouth; or ?? tired feeling, sleep problems (insomnia). This is not a complete list of side effects and others may occur. Call your doctor for medical advice about side effects. You may report side effects to FDA at 3-987-MCU-5751. What other drugs will affect promethazine? Using this medicine with other drugs that make you sleepy or slow your breathing can cause dangerous or life-threatening side effects. Ask your doctor before taking promethazine with a sleeping pill, narcotic pain medicine, muscle relaxer, or medicine for anxiety, depression, or seizures. Other drugs may interact with promethazine, including prescription and wesf-dzz-gtmtopr medicines, vitamins, and herbal products. Tell each of your health care providers about all medicines you use now and any medicine you start or stop using. Where can I get more information? Your pharmacist can provide more information about promethazine. Remember, keep this and all other medicines out of the reach of children, never share your medicines with others, and use this medication only for the indication prescribed. Every effort has been made to ensure that the information provided by [employer]') is accurate, up-to-date, and complete, but no guarantee is made to that effect. Drug information contained herein may be time sensitive. [employer] information has been compiled for use by healthcare practitioners and consumers in the [place] and therefore [employer] does not warrant that uses outside of the [place] are appropriate, unless specifically indicated otherwise. [employer] drug information does not endorse drugs, diagnose patients or recommend therapy. [employer] drug information is an informational resource designed to assist licensed healthcare practitioners in caring for their patients and/or to serve consumers viewing this service as a supplement to, and not a substitute for, the expertise, skill, knowledge and judgment of healthcare practitioners. The absence of a warning for a given drug or drug combination in no way should be construed to indicate that the drug or drug combination is safe, effective or appropriate for any given patient. [employer] does not assume any responsibility for any aspect of healthcare administered with the aid of information [employer] provides. The information contained herein is not intended to cover all possible uses, directions, precautions, warnings, drug interactions, allergic reactions, or adverse effects. If you have questions about the drugs you are taking, check with your doctor, nurse or pharmacist. Copyright 7917-0768 [employer]. Version: 6.02. Revision Date: 06/30/2015. Emergency Awareness and Preventative Care STROKE is [...] Assistance with quitting is available by contacting 7-735-ULVA-NOW. This is a free resource providing counseling, support, and referral. Or you may contact your personal physician. [employer] Suicide Prevention Lifeline: The National Suicide Prevention [...] CPR? There are two easy steps: Call 9-1-1 if you see a teen or adult [...] and how to prevent infections, visit www.cdc.gov/sepsis. Test Results Laboratory or Other Results This Visit (last charted value for your 05/23/2021 visit) Hematology 05/23/2021 1:32 PM WBC: 9.3 K/uL -- Normal range between ( 3.9 and 10.0 ) RBC: 4.49 Million/uL -- Normal range between ( 3.93 and 5.22 ) Hct: 39.4 % -- Normal range between ( 34.1 and 44.9 ) Hgb: 13.2 Gram/dL -- Normal range between ( 11.2 and 15.7 ) Platelet Count: 349 K/uL -- Normal range between ( 163 and 369 ) MCH: 29.4 pg -- Normal range between ( 25.6 and 32.2 ) MCHC: 33.5 Gram/dL -- Normal range between ( 32.3 and 36.5 ) MCV: 87.8 fL -- Normal range between ( 79.0 and 94.8 ) Slide Review: No Eos %: 2.4 % -- Normal range between ( 1.0 and 7.0 ) [place] #: 0.51 K/uL -- Normal range between ( 0.24 and 0.82 ) Eos #: 0.22 K/uL -- Normal range between ( 0.04 and 0.54 ) [place] %: 5.5 % -- Normal range between ( 4.7 and 12.5 ) Baso %: 0.5 % -- Normal range between ( 0.0 and 1.0 ) Baso #: 0.05 K/uL -- Normal range between ( 0.01 and 0.08 ) RDW: 13.4 % -- Normal range between ( 11.6 and 14.4 ) Neut %: 68.2 % -- Normal range between ( 34.0 and 71.0 ) Neut #: 6.32 K/uL -- Normal range between ( 1.56 and 6.13 ) Lymph %: 23.1 % -- Normal range between ( 19.3 and 53.0 ) Lymph #: 2.14 K/uL -- Normal range between ( 1.18 and 3.74 ) MPV: 9.3 fL -- Normal range between ( 9.4 and 12.4 ) IG#: 0 x10(3)/uL IG%: 0 % -- Normal range between ( 0 and 1 ) Patient Name:SWATI MARQUEZ I have received this information and was given the opportunity to ask questions. Patient/Building Components Designer Name: Patient/Building Components Designer Signature: Relationship to Patient: Clinician/Hospital Building Components Designer Signature: Date: Electronically signed by Interface, [facility] Conversion Beer Cooler Guy at 01/04/2023 1:55 PM CDT documented in this encounter Plan of Treatment Not on file documented as of this encounter Visit Diagnoses Not on filedocumented in this encounter
--- OUTSIDE RECORDS SUMMARY | 2025-04-19 15:35 | XMS_ITS | Encounter Summary ---
Author Organization [employer] ([place], [place], [place], [place]) Address [address] [place] [address] Care Team Providers Care Child Adolescent Care Name Role Phone Unavailable Primary Care Provider Unavailabl e Encounter Details Date Type Department Care Team (Late st Contact Info) Description 05/23/2021 Transcribed Document [facility] [place] [address] ProviderCliff MD [address] [place] [address] [id number] Social History Tobacco Use Types Packs/Day Years [...] 05/23/2021 2:40 PM CDT [facility] Main OR PreOp Summary Primary Physician: JAJA MONTANO DO Finalized Date/Time: 05/23/21 14:50:05 Pt. Name: SWATI MARQUEZ/Sex: 1980 Female Med Rec #: [id number] Physician: JAJA MONTANO DO Financial #: [id number] Pt. Type: O Room/Bed: Admit/Disch: 05/23/21 11:12:00 - Institution: [facility] [place] PreOp Case Times Entry 1 In Preop 05/23/21 11:25:00 Ready for Holding n/a Room Patient Ready for 05/23/21 12:15:00 Surgery Patient Out of Preop 05/23/21 14:00:00 Patient Out of n/a Holding Room Last Modified By: Derick Paniagua Rn 05/23/21 14:50:00 SJMisael PreOp Case Times Audit 05/23/21 14:50:00 Customer Counter Representative: DERICKCALVINMARGUERITE Modifier: DERICKSHORT <+> 1 Patient Out of Preop Finalized By: Derick Paniagua, Rn Document Signatures Signed By: Derick Paniagua Rn 05/23/21 14:50 documented in this encounter Plan of Treatment Not on file documented as of this encounter Visit Diagnoses Not on filedocumented in this encounter
--- OUTSIDE RECORDS SUMMARY | 2025-04-19 15:35 | XMS_ITS | Encounter Summary ---
Author Organization [employer] ([place], [place], [place], [place]) Address [address] [place] [address] Care Team Providers Care Education And Training Coordinator Name Role Phone Unavailable Primary Care Provider Unavailabl e Encounter Details Date Type Department Care Team (Late st Contact Info) Description 01/11/2019 Transcribed Document [facility] [place] [facility] [place] [address] ProviderCliff MD [address] [place] [id number] Social History Tobacco Use Types Packs/Day Years Used Date Smoking Tobacco: Never Assessed Comments Unknown Sex and Gender Information Value Date Recorded Sex Assigned at Not on file Legal Sex Female 1:20 PM CDT Gender Identity Not on file Sexual Orientation Not on file documented as of this encounter Miscellaneous Notes * Cerner Conversion Note - Cliff ProviderMD - 01/11/2019 6:32 AM CDT ED Assessment Entered On: 01/11/2019 7:25 EDT Performed On: 01/11/2019 7:24 EDT by Geraldine Carroll RN ED Quick Look Assessment Level of Consciousness : Alert, Awake Affect/Behavior : Appropriate, Calm, Cooperative Orientation : Oriented x 4 Skin Temperature : Warm Geraldine Carroll RN - 01/11/2019 7:24 EDT ED General-Functional Assess Information Obtained From : Patient Preferred Communication Mode : Verbal Communication Barrier : None Primary Language : Uzbek Any Spiritual/Cultural Needs or Requests : No Currently in Unsafe Situation : No Geraldine Carroll RN - 01/11/2019 7:24 EDT Social Habits Smoking Status : Never (less than 100 in lifetime; none in last 30 days) Smokeless Tobacco Status : Never Desires Tobacco Cessation Calc : 0 Geraldine Carroll RN - 01/11/2019 7:24 EDT Social History (As Of: 01/11/2019 07:25:28 EDT) Tobacco: Smoking Status Never smoker. (Last Updated: 02/23/2015 14:25:20 EDT by TIM EDWARDS, RN) Alcohol: Alcohol Use History No. (Last Updated: 02/23/2015 14:25:54 EDT by TIM EDWRADS, ANNIE) Substance Abuse: Drug Use Hx: No. Use in Last 12 Months: No. (Last Updated: 05/25/2015 14:57:21 EDT by Zoe Bianchi RN) Nutrition/Health: Caffeine intake amount: 1/2 cup a day. (Last Updated: 02/23/2015 14:25:47 EDT by TIM EDWARDS, ANNIE) Gastrointestinal ED Gastrointestinal Assessment WDL : WDL with exceptions Gastrointestinal Symptoms : Abdominal pain, Nausea Geraldine Carroll RN - 01/11/2019 7:24 EDT documented in this encounter Plan of Treatment Not on file documented as of this encounter Visit Diagnoses Not on filedocumented in this encounter
--- OUTSIDE RECORDS SUMMARY | 2025-04-19 15:35 | XMS_ITS | Encounter Summary ---
Author Organization [employer] ([place], [place], [place], [place]) Address [address] [place] [address] Care Team Providers Care Preschool Paraprofessional Name Role Phone Unavailable Primary Care Provider Unavailabl e Encounter Details Date Type Department Care Team (Late st Contact Info) Description 09/24/2018 Transcribed Document [facility] [place] Family Medicine [facility] [address] ProviderCliff MD [address] [place] [id number] Social History Tobacco Use Types Packs/Day Years Used Date Smoking Tobacco: Never Assessed Comments Unknown Sex and Gender Information Value Date Recorded Sex Assigned at Not on file Legal Sex Female 1:20 PM CDT Gender Identity Not on file Sexual Orientation Not on file documented as of this encounter Miscellaneous Notes * Cerner Conversion Note - Historical ProviderMD - 09/24/2018 8:55 AM COAGULATOR Patient Education Materials Follows: documented in this encounter Plan of Treatment Not on file documented as of this encounter Visit Diagnoses Not on filedocumented in this encounter
--- OUTSIDE RECORDS SUMMARY | 2025-04-19 15:35 | XMS_ITS | Encounter Summary ---
Author Organization [employer] ([place], [place], [place], [place]) Address [address] [place] [address] Care Team Providers Care Medical Collections Name Role Phone Unavailable Primary Care Provider Unavailabl e Encounter Details Date Type Department Care Team (Late st Contact Info) Description 09/24/2018 Transcribed Document [facility] [place] [facility] [place] [address] ProviderCliff MD [address] [place] [address] [id number] Social History Tobacco Use Types Packs/Day Years Used Date Smoking Tobacco: Never Assessed Comments Unknown Sex and Gender Information Value Date Recorded Sex Assigned at Not on file Legal Sex Female 1:20 PM CDT Gender Identity Not on file Sexual Orientation Not on file documented as of this encounter Miscellaneous Notes * Cerner Conversion Note - Cliff ProviderMD - 09/24/2018 9:59 AM MANAGER PERSONAL [facility] Main OR IntraOp Summary Primary Physician: ZABRINA HORNER MD-OBG Finalized Date/Time: 09/24/18 10:52:16 Pt. Name: MARQUEZ SIMA JERRY Read/Sex: 1980 Female Med Rec #: [id number] Physician: ZABRINA HORNER MD-OBG Financial #: [id number] Pt. Type: O Room/Bed: Admit/Disch: 09/24/18 07:39:00 - Institution: [facility] [place] IntraOp Case Attendance Entry 1 Entry 2 Entry 3 Case Attendee ZABRINA HORNER MD-OBG TIM SABA, ABI ROSA PA-C Role Performed Surgeon/Proceduralist, DIAGNOSTIC CARDIAC SONOGRAPHER/Nurse Insurance Account Executive Physician senior underwriting assistant First Time In 09/24/18 09:34:00 09/24/18 09:34:00 09/24/18 09:34:00 Time Out 09/24/18 10:37:00 09/24/18 10:50:00 09/24/18 10:50:00 Procedure Laparoscopy Operative w Laparoscopy Operative w Laparoscopy Operative w Laser, Lysis Adhesions, Laser, Lysis Adhesions, Laser, Lysis Adhesions, Chromotubation Chromotubation Chromotubation Laparoscopic Laparoscopic Laparoscopic Other Attendee Superficial Wound Closed By: Last Modified By: Kellie Gallardo, Kellie Gallardo, Kellie Gallardo, RN 09/24/18 10:42:11 RN 09/24/18 10:51:49 RN 09/24/18 10:51:49 Entry 4 Entry 5 Entry 6 Case Attendee Kellie Gallardo Smith, Kayla R., Scrub Fabian Hope RN Tech Role Performed Welder Helper, First Scrub, First Steam Bone Press Tender, Ancillary Time In 09/24/18 09:34:00 09/24/18 09:34:00 09/24/18 09:34:00 Time Out 09/24/18 10:50:00 09/24/18 10:50:00 09/24/18 10:50:00 Procedure Laparoscopy Operative w Laparoscopy Operative w Laparoscopy Operative w Laser, Lysis Adhesions, Laser, Lysis Adhesions, Laser, Lysis Adhesions, Chromotubation Chromotubation Chromotubation Laparoscopic Laparoscopic Laparoscopic Other Attendee Superficial Wound Closed By: Last Modified By: Kellie Gallardo Gillenwater, Cheryl B, Kellie Gallardo, RN 09/24/18 10:51:49 RN 09/24/18 10:51:49 RN 09/24/18 10:51:49 Entry 7 Case Attendee Marimar Flowers Role Performed Laser Credit And Collections Analyst Time In 09/24/18 09:34:00 Time Out 09/24/18 10:50:00 Procedure Laparoscopy Operative w Laser, Lysis Adhesions, Chromotubation Laparoscopic Other Attendee Superficial Wound Closed By: Last Modified By: Kellie Gallardo RN 09/24/18 10:51:49 [facility] IntraOp Case Attendance Audit 09/24/18 10:51:49 Manpower Development Manager: FRANNIEECB Modifier: GILLECB 1 <*> Procedure Laparoscopy Operative w Laser, Lysis Adhesions, Chromotubation Laparoscopic 2 <+> Time Out 2 <*> Procedure Laparoscopy Operative w Laser, Lysis Adhesions, Chromotubation Laparoscopic 3 <+> Time Out 3 <*> Procedure Laparoscopy Operative w Laser, Lysis Adhesions, Chromotubation Laparoscopic 4 <+> Time Out 4 <*> Procedure Laparoscopy Operative w Laser, Lysis Adhesions, Chromotubation Laparoscopic 5 <+> Time Out 5 <*> Procedure Laparoscopy Operative w Laser, Lysis Adhesions, Chromotubation Laparoscopic 6 <+> Time Out 6 <*> Procedure Laparoscopy Operative w Laser, Lysis Adhesions, Chromotubation Laparoscopic 7 <+> Time In 7 <+> Time Out 7 <*> Procedure Laparoscopy Operative w Laser, Lysis Adhesions, Chromotubation Laparoscopic 09/24/18 10:51:26 Manpower Development Manager: FRANNIEECB Modifier: GILLECB <+> 7 Case Attendee <+> 7 Role Performed <+> 7 Procedure 09/24/18 10:42:11 Manpower Development Manager: FRANNIEECB Modifier: GILLECB 1 <+> Time Out 1 <*> Procedure Laparoscopy Operative w Laser, Lysis Adhesions, Chromotubation Laparoscopic 09/24/18 10:15:46 Manpower Development Manager: FRANNIEECB Modifier: GILLECB 1 <*> Procedure Laparoscopy Operative w Laser 2 <*> Procedure Laparoscopy Operative w Laser 3 <*> Procedure Laparoscopy Operative w Laser 4 <*> Procedure Laparoscopy Operative w Laser 5 <*> Procedure Laparoscopy Operative w Laser 6 <*> Procedure Laparoscopy Operative w Laser 09/24/18 10:08:09 Manpower Development Manager: FRANNIEECB Modifier: GILLECB <+> 1 Procedure 2 <+> Time In 2 <*> Procedure Laparoscopy Operative w Laser 3 <+> Time In 3 <*> Procedure Laparoscopy Operative w Laser 4 <+> Time In 4 <*> Procedure Laparoscopy Operative w Laser 5 <+> Time In 5 <*> Procedure Laparoscopy Operative w Laser 6 <+> Time In 6 <*> Procedure Laparoscopy Operative w Laser [facility] IntraOp Case Times Entry 1 Patient In Room Time 09/24/18 09:34:00 Out Room Time 09/24/18 10:50:00 Anesthesia Start Time 09/24/18 09:34:00 Stop Time 09/24/18 10:50:00 Anesthesia Ready 09/24/18 09:34:00 Surgery / Procedure Times Start Time 09/24/18 09:59:00 Stop Time 09/24/18 10:38:00 Last Modified By: Kellie Gallardo RN 09/24/18 09:34:31 [facility] IntraOp Case Times Audit 09/24/18 10:51:47 Manpower Development Manager: GILLECB Modifier: GILLECB <+> 1 Out Room Time <+> 1 Stop Time 09/24/18 10:41:57 Manpower Development Manager: GILLECB Modifier: GILLECB <+> 1 Stop Time 09/24/18 10:11:08 Manpower Development Manager: GILLECB Modifier: GILLECB <+> 1 Start Time [facility] IntraOp Cautery Entry 1 ESU Identification Cautery Type Monopolar ESU ID Number [id number] ID Type Hospital Number Cautery Settings Cut Setting 0 Coag Setting 30 Blend Setting pure ESU Grounding Pad Ground Pad Type Adult Grounding Pad Site Left thigh Grounding Pad Kellie Gallardo, Applied By RN Grounding Pad Site Warm, dry and intact Skin Condition Before Cautery Grounding Pad Site Warm, dry and intact, Skin Condition Unchanged After Cautery Last Modified By: Kellie Gallardo RN 09/24/18 10:08:44 [facility] IntraOp Communication Entry 1 Communication To Family/Significant other Comment family notified of start of procedure via waitng room attendee Communication By Kellie Gallardo RN Date and Time 09/24/18 10:08:00 Last Modified By: Kellie Gallardo RN 09/24/18 10:09:18 [facility] IntraOp Counts Verification Entry 1 Procedure Laparoscopy Operative w Laser, Lysis Adhesions, Chromotubation Laparoscopic Count Info Count Type Sponge, Sharps, Instrument, Miscellaneous Counts Verification Baseline/pre-procedure Sequence Count Results Not Applicable Counts Performed By Count Performed By Marie Byers, Scrub (Scrub) Tech Count Performed By Kellie Gallardo, (RN) RN Last Modified By: Kellie Gallardo RN 09/24/18 10:10:30 [facility] IntraOp Counts Verification Audit 09/24/18 10:15:47 Manpower Development Manager: GILLNIRB Modifier: GILLECB 1 <*> Procedure Laparoscopy Operative w Laser [facility] IntraOp Counts Final Entry 1 Procedure Laparoscopy Operative w Laser, Lysis Adhesions, Chromotubation Laparoscopic Final Count Info Count Type Sponge, Sharps, Miscellaneous Counts Verification Skin Closure/end of Sequence procedure Count Results Correct, surgeon notified Counts Performed By Count Performed By Marie Byers, Scrub (Scrub) Tech Count Performed By Kellie Gallardo, (RN) RN Last Modified By: Kellie Gallardo RN 09/24/18 10:33:04 [facility] IntraOp Counts Final Audit 09/24/18 10:33:04 Manpower Development Manager: JESSEB Modifier: GILLECB 1 <*> Procedure Laparoscopy Operative w Laser, Lysis Adhesions, Chromotubation Laparoscopic 1 <+> Counts Verification Sequence 09/24/18 10:15:48 Manpower Development Manager: JESSEB Modifier: FRANNIEECB 1 <*> Procedure Laparoscopy Operative w Laser [facility] IntraOp Departure from OR Entry 1 Integumentary Assessment Integumentary WDL Assessment WDL Transfer/Handoff Transfer to PACU Phase I Handoff Method Bedside/Face to face Post-op Transport Stretcher/Gurney Via Patient Transport Kellie Gallardo, Accompanied by RN, TIM SABA, DIAGNOSTIC CARDIAC SONOGRAPHER Last Modified By: Kellie Gallardo RN 09/24/18 10:11:22 [facility] IntraOp Dressing and Packing Entry 1 Type Dressing Location abdomen Other Comments due to patient severity to adhesive no dressings applied per dr. horner Last Modified By: Kellie Gallardo RN 09/24/18 10:12:19 [facility] IntraOp Fire Risk Assessment Entry 1 Fire Info Surgical Site or 0- No Incision Above the Xyphoid Open O2 Source 0- No (Mask or Cannula) Available Ignition 1- Yes (ESU, Laser, Light Source) Fire Risk 1 Assessment Score Fire Score Fire Risk Yes Assessment Complete Fire Risk Kellie Gallardo, Assessment Verified RN By Fire Risk 09/24/18 09:34:00 Assessment Verified Date/Time Fire Risk High Risk Protocol Yes Implemented Standard Fire Yes Safety Precautions Followed Last Modified By: Kellie Gallardo RN 09/24/18 10:16:02 [facility] IntraOp Fire Risk Assessment Audit 09/24/18 10:16:16 Manpower Development Manager: MARTHA Modifier: GILLECB 1 <*> Fire Risk Assessment Verified 09/24/18 10:15:00 Date/Time [facility] IntraOp General Case Extrusion Die Corrector 1 Case Information OR OR 03 [facility] Case Level 1 Room Verified Yes Wound Class II - Clean-Contaminated Specialty SN Gynecology Anesthesia Type General ASA Class 2 Diagnosis Preop Diagnosis pelvic pain, dysmennorhea , dyspaurenia, hx of adhesions Postop Diagnosis as dictated - see md notes Last Modified By: Kellie Gallardo RN 09/24/18 10:06:56 [facility] IntraOp Intraoperative Assessment Entry 1 Valid History / Yes Physical in Chart Preoperative Yes Checklist Reviewed/Evaluated Allergies Reviewed Yes Patient is Latex Yes, protocol initiated Sensitive Isolation Not applicable Precautions Noted Level of WDL Consciousness (WDL = Alert, Oriented to Person, Place, and Time) Skin Assessment Yes Verified Present Upon IVs Arrival to OR Last Modified By: Kellie Gallardo RN 09/24/18 10:16:42 [facility] IntraOp Intraoperative Equipment Entry 1 Type Monitoring Equipment Intraop Monitoring Electrocardiogram Three lead placement (ECG) Electrode Placement Blood Pressure Non-Invasive BP Device Source Blood Pressure Arm, left upper Location Pulse Oximeter Hand, right Probe Site Antiembolic Devices Antiembolic Devices Sequential compression device, knee high Antiembolic Device Bilateral Location Scopes Photo/Video Documentation Photo Yes Video No Intraop Equipment SCDS ON AND INFLATED Comment PRIOR TO INDUCTION Last Modified By: Kellie Gallardo RN 09/24/18 10:18:16 [facility] IntraOp Laser Data/Safety Entry 1 Procedure Laparoscopy Operative w Laser, Lysis Adhesions, Chromotubation Laparoscopic Laser Data Laser Type CO2 Laser Mode Continuous Laser Mode Set By ZABRINA HORNER MD-OBG Microscope Used? No Hand Piece/Contact Yes Tip Used Laser Fiber Used No Laser Safety Procedure personnel Measures Included received laser safety information, [place] of water/Saline immediately available, Fire extinguisher location noted, Laser Caution placards placed on all doors, Laser safe instrumentation utilized, Specific laser safety precautions implemented, Rinse prep thoroughly from surgical site, Wet towels and sponges used to protect patient and drapes, Windows covered, Laser tested/calibrated, Appropriate eye protection for patient, Appropriate eye protection for staff, Appropriate eye protection for surgeon, Laser safe ET tube as applicable, High-filtration mask available, No flammable liquid around surgical area, Secure laser operation choi, Implement fire protection measures Last Modified By: Kellie Gallardo RN 09/24/18 10:19:04 [facility] IntraOp Medication Admin Entry 1 Medication/Irrigant Indigo [place] 0.8% 5ml - [id number] Route of CERVIX - CHECK Administration FALLOPIAN TUBES DILUTED IN NS Dose Dose 10 Unit of Measure ml Volume QS Administered By ZABRINA HORNER MD-OBG Procedure Irrigation Last Modified By: Kellie Gallardo RN 09/24/18 10:20:32 [facility] IntraOp Patient Positioning Entry 1 Procedure Laparoscopy Operative w Laser, Lysis Adhesions, Chromotubation Laparoscopic Body Position Modified lithotomy Left Arm Position Tucked and padded at side Right Arm Position Tucked and padded at side Left Leg Position Secured in Leg Doll Right Leg Position Secured in Leg Doll Feet Uncrossed Yes Pressure Points Yes Checked Positioning Devices Stirrups/Leg Doll, Boot, Other, Pillows Device Position PATIENT POSITIONED ON HUG-U-VAC Positioned By Kellie Gallardo, ANNIE, TIM SABA, JARVIS, ZABRINA HORNER MD-OBG Position Verified Positioning Yes Verified by Anesthesia Positioning Yes Verified by Surgeon Last Modified By: Kellie Gallardo RN 09/24/18 10:21:25 [facility] IntraOp Sign In Entry 1 Patient, Site, Yes Procedure Identified Surgical Consent Yes Confirmed Relevant Surgical Yes Documents Available Surgical Site N/A Marked by person performing procedure Anesthesia Machine Yes Check Completed Medication Checks Yes Completed Allergies Yes Airway Difficult No Airway/Aspiration Risk Difficult Yes Airway/Aspiration Intervention Equipment Available Blood Loss Risk No Blood Loss Yes Intervention Equipment Prepared and Ready Blood Identifiers Not applicable Verified Per Policy Hypothermia Risk Yes Warming Measures Yes Taken Last Modified By: Kellie Gallardo RN 09/24/18 10:21:57 [facility] Intra Op Sign Out Entry 1 RN Confirmation Surgical Yes Procedure(s) Identified Instrument, Sponge Yes and Sharps Counts Correct/Documented Equipment Problems N/A Documented Urinary Catheter Yes Documented in IView Choi Patient Yes Recovery Concerns Reviewed with Anesthesia Provider, Surgeon and RN Choi Patient Yes Management Concerns Reviewed with Anesthesia Provider, Surgeon and RN Safety Checklist Yes Elements Complete? RN Sign Out Kellie Gallardo, Signature RN RN Sign Out 09/24/18 10:50:00 Signature Date/Time Plan of Care Outcome - [...] related to extraneous objects Last Modified By: Kellie Gallardo RN 09/24/18 10:22:14 [facility] Intra Op Sign Out Audit 09/24/18 10:51:36 Manpower Development Manager: MARTHA Modifier: MARTHA <+> 1 RN Sign Out Signature Date/Time [facility] IntraOp Skin Prep Entry 1 Procedure Laparoscopy Operative w Laser, Lysis Adhesions, Chromotubation Laparoscopic Prescribed Yes Pre-Surgical Prep Completed Prep Area ABDOMEN, VAGINA Intraop Prep Integumentary WDL Assessment WDL Prep Agents Chloraprep, Betadine solution, Betadine scrub Prep by Kellie Gallardo RN Hair Removal Methods No hair removal performed Last Modified By: Kellie Gallardo RN 09/24/18 10:22:40 [facility] IntraOp Surgical Procedures Entry 1 Entry 2 Entry 3 Procedure Laparoscopy Operative w Lysis Adhesions Chromotubation Laser Laparoscopic Modifiers Additional DIAGNOSTIC LAPAROSCOPY DIAGNOSTIC LAPAROSCOPY CHROMOPERTUBATION Procedure WITH CO2 LASER, RIGHT WITH CO2 LASER OF Description OVARIAN CYSTOTOMY ENDOMETRIOSIS, Primary Procedure Yes No No Primary Surgeon ZABRINA HORNER MD-OBG ZABRINA HORNER MD-OBG ZABRINA HORNER MD-OBG Start 09/24/18 09:59:00 09/24/18 09:59:00 09/24/18 09:59:00 Stop 09/24/18 10:38:00 09/24/18 10:38:00 09/24/18 10:38:00 Physician States Cecum Reached Anesthesia Type General General General Specialty SN Gynecology SN Gynecology SN Gynecology Wound Class II - Clean-Contaminated II - Clean-Contaminated III - Contaminated Last Modified By: Kellie Gallardo, Kellie Gallardo, Kellie Gallardo RN 09/24/18 10:15:39 RN 09/24/18 10:15:39 RN 09/24/18 10:15:39 [facility] IntraOp Surgical Procedures Audit 09/24/18 10:52:12 Manpower Development Manager: GILLECB Modifier: GILLECB 1 <*> Procedure Laparoscopy Operative w Laser 09/24/18 10:43:34 Manpower Development Manager: GILLECB Modifier: GILLECB 1 <*> Procedure Laparoscopy Operative w Laser 2 <*> Procedure Lysis Adhesions 2 <*> Primary Procedure No 09/24/18 10:42:25 Manpower Development Manager: GILLECB Modifier: GILLECB 1 <*> Procedure Laparoscopy Operative w Laser 1 <+> Stop 2 <*> Procedure Lysis Adhesions 2 <+> Stop 3 <*> Procedure Chromotubation Laparoscopic 3 <+> Stop 09/24/18 10:22:44 Manpower Development Manager: GILLECB Modifier: GILLECB <+> 3 Start 09/24/18 10:15:39 Manpower Development Manager: GILLECB Modifier: GILLECB 1 <*> Procedure Laparoscopy Operative w Laser 1 <+> Start 1 <*> Additional Procedure Description DIAGNOSTIC LAPAROSCOPY WITH CO2 LASER, RIGHT OVARIAN CYSTOTOMY <+> 2 Procedure <+> 2 Primary Procedure <+> 2 Primary Surgeon <+> 2 Specialty <+> 2 Start <+> 2 Wound Class <+> 2 Anesthesia Type <+> 2 Additional Procedure Description <+> 3 Procedure <+> 3 Primary Procedure <+> 3 Primary Surgeon <+> 3 Specialty <+> 3 Wound Class <+> 3 Anesthesia Type <+> 3 Additional Procedure Description [facility] IntraOp Time Out Entry 1 Procedure to be Laparoscopy Operative w Performed Laser, Lysis Adhesions, Chromotubation Laparoscopic Time Out Time Out Pause Time 09/24/18 09:59:00 All activity Yes suspended (unless life threatening emergency) Team Verbally Correct patient Confirms Information identity, Correct side and site are marked, Consent form is present and accurate, Agreement on the procedure to be done, Correct patient position, Relevant images/results properly labeled/appropriately displayed, Confirm antibiotics have been administered, Confirm the skin prep has dried, Confirm prosthesis/implant/devic e is present, Performed in location of procedure after prepped/draped, Performed before each procedure if multiple procedures, Reconcile problems if responses among team members differ Antibiotic Yes Prophylaxis Administered Or In Progress Within the Last 60 Minutes Beta Carina N/A Administered Venous Yes Thromboembolism Prophylaxis Required Anticipated Critical Events Surgeon None expected Anesthesia Provider Patient specific concerns Nursing Assures Sterility of instruments, Equipment concerns or issues, Implant Availability Essential Imaging N/A Labeled and Displayed Last Modified By: Kellie Gallardo RN 09/24/18 10:33:35 [facility] IntraOp Time Out Audit 09/24/18 10:33:35 Manpower Development Manager: MARTHA Modifier: MARTHA 1 <+> Antibiotic Prophylaxis Administered Or In Progress Within the Last 60 Minutes 1 <*> Procedure to be Performed Laparoscopy Operative w Laser, Lysis Adhesions, Chromotubation Laparoscopic Case Comments <None> Finalized By: Kellie Gallardo RN Document Signatures Signed By: Kellie Gallardo RN 09/24/18 10:52 documented in this encounter Plan of Treatment Not on file documented as of this encounter Visit Diagnoses Not on filedocumented in this encounter
--- OUTSIDE RECORDS SUMMARY | 2025-04-19 15:35 | XMS_ITS | Encounter Summary ---
Author Organization [facility] Address [address] [place] [address] Care Team Providers Care System Operator Name Role Phone Suzette Guthrie APRN Primary Care Provider [phone] Mook Klein MD Primary Care Provider [phone] Chuyita Chan APRN Primary Care Provider [phone] Encounter Details Date Type Department Care Team (Late st Contact Info) Description 09/12/2022 Orders Only [facility] @ [facility] [address] [place], [place] [phone] Reese Diego MD [address] [place] [address] Social History Tobacco Use Types Packs/Day Years [...] Description 05/12/2025 2:00 PM EDT Office Visit [facility] space studies faculty member Faculty Clinic [address] [facility] [address] [place] [phone] Merrick Cowan DMD, MD [address] [facility] [address] [place] [address] 10/20/2025 1:30 PM EST Office Visit [facility] space studies faculty member Faculty Clinic [address] [place] [address] Merrick Cowan DMD, MD [address] [place] [address] 02/08/2026 9:00 AM EDT Office Visit Medical Office Building Surgical Specialties [address] [facility], [address] [place] [address] Aramis Santana MD [address] [facility] [address] [place] [address] documented as of this encounter Procedures Procedure Name Priority Date/Time Associated Diagnosis Comments TSH Routine 09/12/2022 11:06 AM EST documented in this encounter Results * Thyroid Stimulating Hormone, Plasma (09/12/2022 11:06 AM EST) External Thyroid Stimulating Hormone (TSH) 1.260 0.270 - 4.200 uIU/mL [facility] 09/12/2022 11:0 6 AM EST 09/12/2022 11:30 AM EST us Reese Diego MD LAB BLOOD ORDERABLES Final R esult [facility] [address] [place] [address], documented in this encounter Visit Diagnoses Not on filedocumented in this encounter Care Teams System Operator Relationship Specialty Start Date End Date Suzette Guthrie APRN [address] [place] [address] PCP - General 01/27/21 04/10/23 Mook Klein MD [address] [place] [address] PCP - General 04/11/23 02/08/25 Chuyita Chan APRN [address] [place] [address] PCP - General 02/09/25 documented as of this encounter
--- OUTSIDE RECORDS SUMMARY | 2025-04-19 15:35 | XMS_ITS | Encounter Summary ---
Author Organization [employer] ([place], [place], [place], [place]) Address [address] [place] [address] Care Team Providers Care Operating Systems Specialist Name Role Phone Unavailable Primary Care Provider Unavailabl e Encounter Details Date Type Department Care Team (Late st Contact Info) Description 09/24/[address] [facility] Family Medicine [address] [place] [address] ProviderCliff MD [address] [place] [address] Social History Tobacco Use Types Packs/Day Years Used Date Smoking Tobacco: Never Assessed Comments Unknown Sex and Gender Information Value Date Recorded Sex Assigned at Not on file Legal Sex Female 1:20 PM CDT Gender Identity Not on file Sexual Orientation Not on file documented as of this encounter Miscellaneous Notes * Cerner Conversion Note - Historical ProviderMD - 09/24/2018 9:22 AM PARCEL POST CARRIER Event Note Entered On: 09/24/2018 9:26 EST Performed On: 09/24/2018 9:22 EST by Alla Peoples RN Event Note Description of Event : Unable to obtain labs per Dr. Nunez cancel orders for lab work. Notified Dr. Nunez that pt takes ASA 81mg and she last had it last night. She's ok to proceed with the sx. Alla Peoples RN - 09/24/2018 9:22 EST Electronically signed by Jonathan [facility] Conversion Shipping Technician Cerner at 01/04/2023 1:48 PM CDT documented in this encounter Plan of Treatment Not on file documented as of this encounter Visit Diagnoses Not on filedocumented in this encounter
--- OUTSIDE RECORDS SUMMARY | 2025-04-19 15:35 | XMS_ITS | Encounter Summary ---
Author Organization [employer] ([place], [place], [place], [place]) Address [address] [place] [address] Care Team Providers Care Registered Midwife Name Role Phone Unavailable Primary Care Provider Unavailabl e Encounter Details Date Type Department Care Team (Late st Contact Info) Description 09/24/2018 Transcribed Document [facility] [place] [address] ProviderCliff MD [address] [place] [address] Social History Tobacco Use Types Packs/Day Years Used Date Smoking Tobacco: Never Assessed Comments Unknown Sex and Gender Information Value Date Recorded Sex Assigned at Not on file Legal Sex Female 1:20 PM CDT Gender Identity Not on file Sexual Orientation Not on file documented as of this encounter Miscellaneous Notes * Cerner Conversion Note - Cliff ProviderMD - 09/24/2018 9:30 AM MANUFACTURING TEST TECHNICIAN BERNARDO Main OR PreOp Summary Primary Physician: ZABRINA HORNER MD-OBG Finalized Date/Time: 09/24/18 09:44:26 Pt. Name: SWATI MARQUEZ/Sex: 1980 Female Med Rec #: [id number] Physician: ZABRINA HORNER MD-OBG Financial #: [id number] Pt. Type: O Room/Bed: Admit/Disch: 09/24/18 07:39:00 - Institution: [facility] PreOp Case Times Entry 1 In Preop 09/24/18 07:45:00 Ready for Holding 09/24/18 09:06:00 Room Patient Ready for 09/24/18 09:06:00 Surgery Patient Out of Preop 09/24/18 09:22:00 Patient Out of n/a Holding Room Last Modified By: CASTRO CHAVEZ 09/24/18 09:44:25 [facility] PreOp Case Times Audit 09/24/18 09:44:25 Magnetic Doctor: ROSEMARIE Modifier: [id number] <+> 1 Patient Out of Preop Finalized By: CASTRO CHAVEZ Document Signatures Signed By: CASTRO CHAVEZ 09/24/18 09:44 Electronically signed by Jonathan [facility] Conversion Adjunct Faculty Cerner at 01/04/2023 1:46 PM CDT documented in this encounter Plan of Treatment Not on file documented as of this encounter Visit Diagnoses Not on filedocumented in this encounter
--- OUTSIDE RECORDS SUMMARY | 2025-04-19 15:36 | XMS_ITS | Encounter Summary ---
Author Organization [facility] Address [address] [place] [id number] Care Team Providers Care Room Attendants Name Role Phone Chuytia Chan APRN Primary Care Provider [phone] Reason for Visit * Reason Onset Date Comments TRACY BRADFORD- CONCERNS 04/19/2025 Encounter Details Date Type Department Care Team (Late st Contact Info) Description 04/19/2025 Telephone [facility] OBGYN [address] [place] [phone] Mary Bradford APRN [address] [place] [address] TRACY BRADFORD- CONCERNS Social History Tobacco Use Types Packs/Day Years Used Date Smoking Tobacco: Never Smokeless Tobacco: Never Alcohol Use Standard Drinks/Week Comments Not Currently 0 (1 standard drink = 0.6 oz pur e alcohol) SOCIALLY- FEW TIMES A YEAR Comments No Sex and Gender Information Value Date Recorded Sex Assigned at Not on file Legal Sex Female 10:48 AM EDT Gender Identity Not on file Sexual Orientation Not on file Occupation Industry Job Start Date Job End Date 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 f ile Not on file Not on file documented as of this encounter Miscellaneous Notes * Telephone Encounter - Elizabeth Renae RegSched Rep - 04/19/2025 10:45 AM EDT PROVIDER: TRACY BRADFORD PATIENTS NAME: SWATI MARQUEZ PHONE #: [phone] REASON FOR CALL: PATIENT IS CALLING TO SEE IF THERE IS ANYWAY TO BE SEEN SOONER BECAUSE OF THE PAIN//SHE IS WILLING TO SEE ANY MD//PLEASE FOLLOW UP documented in this encounter Plan of Treatment Upcoming Encounters Date Type Department Care Team (Late st Contact Info) Description 05/06/2025 10:30 AM EDT Ancillary Procedure [facility] OBGYN [address] [facility] [address] [place] [phone] 05/06/2025 11:20 AM EDT Office Visit [facility] OBGYN [address] [facility] [address] [place] [phone] Judi Angelo MD [address] [address] 11/12/2025 1:45 PM EST Office Visit [facility] OBGYN [address] [address] Mary Bradford, TRACY [address] [address] documented as of this encounter Visit Diagnoses Not on filedocumented in this encounter Care Teams Room Attendants Relationship Specialty Start Date End Date Chuyita Chan APRN [address] [facility] [address] [place] [address] PCP - General Internal Medicine 10/13/24 documented as of this encounter
--- OUTSIDE RECORDS SUMMARY | 2025-04-19 15:36 | XMS_ITS | Clinical Summary ---
Author Organization [facility] Address [address] [place] [address] Care Team Providers Care Radio Board Operator Announcer Name Role Phone Chuyita Chan APRN Primary Care Provider [phone] Allergies Active Allergy Reactions Criticality Noted Date Comments Adhesive Tape 11/20/2016 Contrast Dye (Echo Or Unknown Ct/Mr) 03/12/2017 Medications pantoprazole (PROTONIX) 40 MG EC tablet Take 1 tablet by mouth once daily 90 tablet 3 Active Tirzepatide-Parish ght Management (Zepbound) 5 MG/0.5ML solution auto-injector Inject 0.5 mL under the skin into the appropriate area as directed 1 (One) Time Per Week. Active escitalopram (LEXAPRO) 10 MG tablet Take 1 tablet by mouth Daily. Active busPIRone (BUSPAR) 10 MG tablet Take 1 tablet by mouth 3 (Three) Times a Day. Active spironolactone (ALDACTONE) 25 MG tablet Take 1 tablet by mouth Daily. Active Active Problems Problem Noted Date Diagnosed Date Pelvic pain 11/13/2024 Overview (11/13/2024): 11/06/2024- Reports hx of endometriosis. Was scheduled to have a hysterectomy with Danielle Diego but got . Discussed treatment options. She has a history of migraines w/ aura. Estrogen containing options not recommended. Plan: Repeat US in 6 months to f/u fibroid and echogenic area. Schedule appt w/ MD to discuss surgical options. Begin IBU 600mg Q6H during menstrual cycle only. Call if she desires rx for Orilissa. Pneumonia due to organism 03/18/2017 Encounters Date Type Department Care Team Description 04/19/2025 Telephone [facility] OBGYN [address] [place] [address] Elisha Bradford, SPRING ASSEMBLER SUPERVISOR SPRING ASSEMBLER SUPERVISOR ELISHA BRADFORD- CONCERNS from Last 3 Months Family History Medical History Relation Name Comments Heart disease Father Prostate cancer Father Hyperlipidemia Mother Hypertension Mother Osteoporosis Mother Relation Name Status Comments Father Alive Mother Alive Social History Tobacco Use Types Packs/Day Years Used Date Smoking Tobacco: Never Smokeless Tobacco: Never Tobacco Cessation:Counseling Given: Not Answered Alcohol Use Standard Drinks/Week Comments Not Currently [...] Date Job End Date 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 Not on file Not on file Last Filed Vital Signs Vital Sign Reading Time Taken Comments Blood Pressure 88/46 11/06/2024 3:24 PM EST Pulse 97 03/28/2017 1:50 PM EDT Temperature 36.8 C (98.3 F) 03/28/2017 1:50 PM EDT Respiratory Rate 20 03/28/2017 1:50 PM EDT Oxygen Saturation 94% 03/28/2017 1:50 PM EDT Inhaled Oxygen Concentration - - Weight 59.1 kg (130 lb 3.2 oz) 11/06/2024 3:24 P M EST Height 165.1 cm (5' 5 ) 11/06/2024 3:24 PM EST Body Mass Index 21.67 11/06/2024 3:24 PM EST Plan of Treatment Upcoming Encounters Date Type Department Care Team (Late st Contact Info) Description 05/06/2025 10:30 AM EDT Ancillary Procedure [facility] OBGYN [address] [place] [address] 05/06/2025 11:20 AM EDT Office Visit [facility] OBGYN [address] [place], [place] [phone] Judi Angelo MD [address] [place] [address] 11/12/2025 1:45 PM EST Office Visit [facility] OBGYN [address] [place] [phone] Elisha Bradford, SPRING ASSEMBLER SUPERVISOR [address] [place] [phone] Health Maintenance Due Date Last Done Comments TDAP/TD VACCINES (1 - Tdap) 1999 ANNUAL PHYSICAL 03/14/2017 HEPATITIS C SCREENING 03/14/2017 MAMMOGRAM 2020 COVID-19 Vaccine (2023-2 5 season) 2024 INFLUENZA VACCINE 06/16/2025 07/17/2020, 07/07/2014 Annual Gynecologic Pelvic an d Breast Exam 11/07/2025 11/06/2024 PAP SMEAR 11/06/2027 11/06/2024 Pneumococcal Vaccine 0-49 Aged Out No longer eligible based on patient's age to complete this topic Procedures Procedure Name Priority Date/Time Associated Diagnosis Comments LIQUID-BASED PAP SMEAR WITH HPV GENOTYPING REGARDLESS OF INTERPRETATION, [facility] ([facility]) Routine 11/06/2024 4:50 PM EST Women's annual routine gynecological examination from Last 3 Months or Most Recently Relevant to Health Maintenance Results * LIQUID-BASED PAP SMEAR WITH HPV GENOTYPING REGARDLESS OF INTERPRETATION ([facility]AD) (11/06/2024 4:50 PM EST) Reference Lab Report [facility] [address] [place] [address] or [phone] Benito Huffman M.D., Bdc Manager PATIENT NAME [facility] [id number] AGE SEX SSN CLIENT REF # [facility] [address] 1980 F [id number] [id number] REQUESTING David. [place]ENDING [place] [address] ELISHA BRADFORD DATE COLLECTED DATE RECEIVED DATE REPORTED 11/06/2024 11/06/2024 11/09/2024 ThinPrep Pap with Cytyc Imaging DIAGNOSIS: Negative for intraepithelial lesion or malignancy Multiple factors can influence accuracy of Pap tests; therefore, screening at regular intervals is necessary for early cancer detection. SPECIMEN ADEQUACY: SATISFACTORY FOR EVALUATION Transformation zone is absent or insufficient. SOURCE OF SPECIMEN: CERVICAL/ENDOCERV ICAL SLIDES: 1 CLINICAL HISTORY: Women's annual routine gynecological examination HPV HR-HPV POOL: Negative The Aptima HPV assay is an in vitro nucleic acid amplification test for the qualitative detection of E6/E7 viral messenger RNA from 14 high risk types of HPV in cervical specimens. The high risk HPV types detected include: 16, 18, 31, 33, 35, 39, 45, 51, 52, 56, 58, 59, 66, 68 IS SUPPORT ANALYST: IVÁN DE LA ROSA (ASCP) CPT CODES: 16150, 92952 11/09/2024 11:23 AM EST [facility] ThinPrep Vial Collection / Unknown 11/06/2024 4:50 PM EST 11/06/2024 4:50 PM EST Elisha Bradford SPRING ASSEMBLER SUPERVISOR PATHOLOGY/CYTOLOGY ORDERAB LES Final Result [facility]
[address] [place] [address], [place] [phone] from Last 3 Months or Most Recently Relevant to Health Maintenance Insurance [facility] PPO Member Subscriber Plan / Payer (Ef fective 2015-Present) Name:Sima Marquez Relation to Subscriber:Spouse Name:VALDEMAR MARQUEZ Date of :1981 Address: [address] [place] [address] Payer ID:[id number] (NAIC) Type:Not on file Address: [facility] [id number] [place] [phone] Care Teams Radio Board Operator Announcer Relationship Specialty Start Date End Date Chuyita Chan APRN [address] [place] [address] PCP - General Internal Medicine 10/13/24
== END 2025-04-19 23:59 | disposition home or self-care (01) ==
LOC: RAD 15:31
PROVIDERS: PCP Nurse Practitioner Family; Visit Provider Nurse Practitioner Family
DX: N88.8 Other specified noninflammatory disorders of cervix uteri (principal); R93.89 Abnormal findings on diagnostic imaging of other specified body structures
CPT/HCPCS: 76830

== ENCOUNTER 2025-05-06 08:20 | Outpatient (CLI) | payer BC, SELFPAY ==
--- NOTE | 2025-05-06 08:45 | CT_ITS ---
FINAL REPORT TECHNIQUE: Axial images through the abdomen and pelvis were performed without contrast.This study was performed with techniques to keep radiation doses as low as reasonably achievable, (ALARA). Individualized dose reduction techniques using automated exposure control or adjustment of mA and/or kV according to the patient's size were employed. CLINICAL HISTORY: lower abdominal pain, left side radiates to right FINDINGS: ABDOMEN: The lung bases are clear. The heart size is normal. Limited images of the liver are unremarkable. Gallbladder is absent. Calcified granulomas are seen in the spleen. No adrenal mass is identified. The aorta is normal in caliber. There is no significant free fluid or adenopathy. There is no nephrolithiasis. There is no hydronephrosis. There is a large amount of stool throughout the colon. PELVIS: The appendix is not identified. Uterus is present. There is a small, complex structure in the right ovary measuring 11 mm which contains fat and calcification. 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 The urinary bladder is incompletely distended. There is no significant free fluid or adenopathy. IMPRESSION: Constipation. Reviewed, Interpreted and Dictated by Rc Slade MD Transcribed by Talia Weathers Authenticated and [facility]
== END 2025-05-06 23:59 | disposition home or self-care (01) ==
LOC: RAD 08:22
PROVIDERS: PCP Nurse Practitioner Family; Visit Provider Internal Medicine Gastroenterology
DX: K59.00 Constipation, unspecified (principal); N93.9 Abnormal uterine and vaginal bleeding, unspecified
CPT/HCPCS: 74176

== ENCOUNTER 2025-06-16 16:15 | Outpatient (CLI) | payer BC, SELFPAY ==
--- OUTSIDE RECORDS SUMMARY | 2025-05-03 08:30 | XMS_ITS | Encounter Summary ---
Author Organization [facility] Address [address] [place] [address] Care Team Providers Care Research Physiologist Name Role Phone Chuyita Chan APRN Primary Care Provider + [phone] Reason for Visit * Diagnostic Imaging (Routine) - Closed Specialty Diagnoses / Procedures Referred By Contact Referred To Contact Obstetrics and Gynecology Diagnoses Pelvic pain Procedures US Non-ob Transvaginal Ysabel Torres MD [address] [address] Phone: tel: fax: [facility] O[facility]YN [address] [address] Phone: tel: fax: Referral ID Status Reason Start Date Expiration Date Visits Re quested Visits Authorized Closed 04/21/2025 07/21/2026 1 1 Encounter Details Date Type Department Care Team (Late st Contact Info) Description 05/03/2025 8:30 AM EDT Ancillary Procedure [facility] OBGYN [address] [place] [address] Pelvic pain Social History Tobacco Use Types Packs/Day Years [...] Care Team (Late st Contact Info) Description 06/21/2025 9:20 AM EDT Office Visit [facility] OBGYN [address] [place] [address] Ysabel Torres MD [address] [address] 07/05/2025 9:40 AM EDT Office Visit [facility] OBGYN [address] [place] [address] Ysabel Torres MD [address] [address] 11/12/2025 1:45 PM EST Office Visit [facility] OBGYN [address] [address] Mary Rowley APRN [address] [phone] documented as of this encounter Procedures Procedure Name Priority Date/Time Associated Diagnosis Comments US NON-OB TRANSVAGINAL Routine 05/03/2025 9:01 AM EDT Pelvic pain documented in this encounter Results * US Non-ob Transvaginal (05/03/2025 9:01 AM EDT) Anatomical Region Laterality Modality Body Ultrasound 05/03/2025 8:34 AM EDT Narrative 05/03/2025 4:07 PM EDT PAT NAME: SWATI MARQUEZ [facility] REC#: [id number] DA: [id number] PAT GEND: F PAT TYPE: O EXAM CHEIKH: [id number] REF PHYS YSABEL TORRES Indication ======== Pelvic Pain. Endometriosis. Comparison Studies The findings of this study are compared to the prior ultrasound study dated 11/06/24 Method ======= Voluson E6, Transvaginal ultrasound examination, 3D ultrasound examination. View: Adequate view Uterus ====== Uterus: Visualized Uterus position: Retroverted Description of uterine malformations: none Myometrium: Heterogeneous Endometrium: Uniform Cervix details: Nabothian cyst noted Uterus long 78 mm Uterus ap 47 mm Uterus tr 64 mm Uterus Vol 121.6 cm Endometrial thickness, total 7.7 mm Uterine fibroid D1 16.0 mm Uterine fibroid D2 11.7 mm Uterine fibroid D3 13.7 mm Uterine fibroid vol 1.346 cm Uterine fibroids findings: Left lateral wall. Heterogeneous appearance Right Ovary Rt ovary: Visualized Rt ovary details: limited visualization Rt ovary D1 16.8 mm Rt ovary D2 10.6 mm Rt ovary D3 12.3 mm Rt ovary Vol 1.1 cm Left Ovary ========= Lt ovary: Visualized Lt ovary D1 26.7 mm Lt ovary D2 21.3 mm Lt ovary D3 15.30 mm Lt ovary Vol 4.6 cm Lt ovarian cyst D1 15.7 mm Lt ovarian cyst D2 14.1 mm Lt ovarian cyst D3 19.3 mm Lt ovarian cyst mean 16.4 mm Lt ovarian cyst vol 2.237 cm Lt ovarian cyst findings: complex, peripheral blood flow, irregular borders Cul de Sac Visualized. Free fluid visualized: mild Impression Uterus is normal in size and shape with small intramural fibroid present, stable from prior exam. Once again the uterus is in the retroflexed position. The ovaries appear sonographically normal in size, shape and morphology, with a resolving benign appearing small cyst arising from the left ovary. Recommendation Recommend correlation with clinical presentation Calker: Luba Del Castillo RT(R), [facility] Physician: Ysabel Torres MD, FACOG Electronically signed by: Ysabel Torres MD, FACOG at: 16:07 Procedure Note Ysabel Torres MD - 05/03/2025 PAT NAME: SWATI MARQUEZ [facility] REC#: [id number] DA: [id number] PAT GEND: F PAT TYPE: O EXAM CHEIKH: [id number] REF PHYS ZACHARIAH TORRESY Indication ======== Pelvic Pain. Endometriosis. Comparison Studies The findings of this study are compared to the prior ultrasound studydated 11/06/24 Method ======= Voluson E6, Transvaginal ultrasound examination, 3D ultrasoundexamination. View: Adequate view Uterus ====== Uterus:Visualized Uterus position:Retroverted Description of uterine malformations:none Myometrium:Heterogeneous Endometrium:Uniform Cervix details:Nabothian cyst noted Uterus long78 mm Uterus ap47 mm Uterus tr64 mm Uterus Aoq153.6 cm Endometrial thickness, total7.7 mm Uterine fibroid D116.0 mm Uterine fibroid D211.7 mm Uterine fibroid D313.7 mm Uterine fibroid vol1.346 cm Uterine fibroids findings:Left lateral wall. Heterogeneous appearance Right Ovary Rt ovary:Visualized Rt ovary details:limited visualization Rt ovary D116.8 mm Rt ovary D210.6 mm Rt ovary D312.3 mm Rt ovary Vol1.1 cm Left Ovary ========= Lt ovary:Visualized Lt ovary D126.7 mm Lt ovary D221.3 mm Lt ovary D315.30 mm Lt ovary Vol4.6 cm Lt ovarian cyst D115.7 mm Lt ovarian cyst D214.1 mm Lt ovarian cyst D319.3 mm Lt ovarian cyst mean16.4 mm Lt ovarian cyst vol2.237 cm Lt ovarian cyst findings:complex, peripheral blood flow, irregularborders Cul de Sac Visualized. Free fluid visualized: mild Impression Uterus is normal in size and shape with small intramural fibroid present,stable from prior exam. Once again the uterus is in the retroflexedposition. The ovaries appear sonographically normal in size, shape and morphology, with a resolvingbenign appearing small cyst arising from the left ovary. Recommendation Recommend correlation with clinical presentation Calker: Luba Del Castillo RT(R), [facility] Physician: Ysabel Torres MD, FACOG Electronically signed by: Ysabel Torres MD, FACOG at: 16:07 us Ysabel Torres MD IMG US ORDERABLES Final Result documented in this encounter Visit Diagnoses Diagnosis Pelvic pain documented in this encounter Care Teams Research Physiologist Relationship Specialty Start Date End Date Chuyita Chan APRN [address] [place], [place] [id number] PCP - General Internal Medicine 10/13/24 documented as of this encounter
--- OUTSIDE RECORDS SUMMARY | 2025-05-03 09:30 | XMS_ITS | Encounter Summary ---
[facility] Address [address] [place] [address] Care Team Providers Care Log Getter Name Role Phone Chuyita Chan APRN Primary Care Provider + [phone] Reason for Visit * Reason Comments Pelvic Pain Encounter Details Date Type Department Care Team (Late st Contact Info) Description 05/03/2025 9:30 AM EDT Office Visit [facility] O[facility]YN [address] [place] [address] Alex Yoo MD [address] [place] [address] Pelvic pain (Primary Dx); Endometriosis determined by laparoscopy; Perimenopause Social History Tobacco Use Types Packs/Day Years [...] 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 * Uterine Tissue Growing Outside the Uterus (Endometriosis): What to Know (Mexican) * Diagnostic Laparoscopy (Mexican) * Elagolix Tablets (Mexican) * Perimenopause: What to Know (Mexican) documented in this encounter Progress Notes * Alex Yoo MD - 05/03/2025 9:30 AM EDT Images from the original note were not included. Chief Complaint Patient presents with Pelvic Pain Subjective HPI Swati Limon is a 44 y.o. female, . Her last LMP was No LMP recorded.. who presents for follow up on fibroids, and possible surgery consult. Patient has seen gastro and has CT scan scheduled for this week Patient states had severe pain for 3 days in left side that radiated thru out lower abdomin area Patient states has also had some bright red bleeding At her last visit she was treated with none. Since then she reports her symptoms/issue has worsened. The patient reports additional symptoms as none. She has history of pelvic pain with diagnosed endometriosis by laparoscopy performed by Dr. Quintana 2020. Since that time, she denies medical management. Reviewed US which is stable from prior US in Oct. Of this year. We discussed future treatment options and I recommend starting on Orilissa and proceeding with Dx laparoscopy to evaluate for stage of endometriosis as it may be advanced. In that case, hysterectomy could be a dangerous procedure risking damage to bowel, bladder, ureters, etc. Additional ASSISTANT NEWS DIRECTOR History Last Pap : Last Completed Pap Smear Upcoming PAP SMEAR (Every 3 Years) Next due on 11/06/2027 11/06/2024 LIQUID-BASED PAP SMEAR WITH HPV GENOTYPING REGARDLESS OF INTERPRETATION (KAYDEN,COR,MAD) Last mammogram: Last Completed Mammogram This patient has no relevant Health Maintenance data. Tobacco Usage?: no OB History 8 Para 1 Term 1 AB 7 Living 1 SAB IAB Ectopic Molar Multiple Live Births 1 Current Outpatient Medications: busPIRone (BUSPAR) 10 MG tablet, Take 1 tablet by mouth 3 (Three) Times a Day., Disp: , Rfl: escitalopram (LEXAPRO) 10 MG tablet, Take 1 tablet by mouth Daily., Disp: , Rfl: pantoprazole (PROTONIX) 40 MG EC tablet, Take 1 tablet by mouth once daily, Disp: 90 tablet, Rfl: 0 spironolactone (ALDACTONE) 25 MG tablet, Take 1 tablet by mouth Daily., Disp: , Rfl: Tirzepatide-Weight Management (Zepbound) 5 MG/0.5ML solution auto-injector, Inject 0.5 mL under theskin into the appropriate area as directed 1 (One) Time Per Week., Disp: , Rfl: Past Medical History: Diagnosis Date Cyst of ovary Endometriosis Gallbladder abscess Goiter Lung infiltrate Migraines MTHFR mutation MTHFR C67 PT FACTOR CLOTTING DISORDER Pancreatitis due to common bile duct stone 2014 Pneumonia Thyroid nodule UTI (urinary tract infection) Whooping cough Past Surgical History: Procedure Laterality Date BRONCHOSCOPY N/A 03/28/2017 Procedure: BRONCHOSCOPY; Surgeon: Mario Mae MD; Location: [facility]; Service: DILATION AND CURETTAGE, DIAGNOSTIC / THERAPEUTIC multiple ENDOSCOPY AND COLONOSCOPY MANDIBLE SURGERY 2023 Multiple Jaw Surgeries including 2 joint replacements OVARIAN CYST REMOVAL SALPINGECTOMY Left 2008 due to ectopic URETHRAL DILATION x 3 The additional following portions of the patient's history were reviewed and updated as appropriate: allergies and current medications. Review of Systems I have reviewed and agree with the HPI, ROS, and historical information as entered above. Alex Yoo MD Objective BP 118/78 Ht 165.1 cm (65 ) Wt 75.8 kg (167 lb) BMI 27.79 kg/m?? Physical Exam Assessment & Plan Assessment Problem List Items Addressed This Visit Pelvic pain - Primary Overview 11/06/2024- Reports hx of endometriosis. Was scheduled [...] Call if she desires rx for Orilissa. Relevant Medications spironolactone (ALDACTONE) 25 MG tablet Endometriosis determined by laparoscopy Relevant Medications spironolactone (ALDACTONE) 25 MG tablet Perimenopause Relevant Medications spironolactone (ALDACTONE) 25 MG tablet Other Relevant Orders Follicle Stimulating Hormone Estradiol Progesterone Pelvic pain Perimenopause Endometriosis Plan Will start on Orilissa for treatment of laparoscopically diagnosed endometriosis. Risks of surgery discussed and information provided. Recommend proceeding with dx laparoscopy prior to attempting TLH due to signs of advanced disease. Risks of surgery explained including bleeding, infection, damage to internal organs, need for additional surgery, and non-resolution of symptoms. Return in about 7 weeks (around 06/21/2025) for preoperative visit. Alex Yoo MD 05/03/2025 documented in this encounter Plan of Treatment Upcoming Encounters Date Type Department Care Team (Late st Contact Info) Description 06/21/2025 9:20 AM EDT Office Visit [facility] [place] [address] Alex Yoo MD [address] [address] 07/05/2025 9:40 AM EDT Office Visit [facility] [place] [address] Alex Yoo MD [address] [address] 11/12/2025 1:45 PM EST Office Visit [facility] [address] [address] Mary Rowley APRN [address] [facility] [address] [place] [address] documented as of this encounter Procedures Procedure Name Priority Date/Time Associated Diagnosis Comments PROGESTERONE Routine 05/03/2025 10:28 AM EDT Perimenopause ESTRADIOL Routine 05/03/2025 10:28 AM EDT Perimenopause FOLLICLE STIMULATING HORMONE Routine 05/03/2025 10:28 AM EDT Perimenopause documented in this encounter Results * Progesterone (05/03/2025 10:28 AM EDT) Progesterone 8.4 ng/mL [facility] Comment: Follicular phase 0.1 - 0.9 Luteal phase 1.8 - 23.9 Ovulation phase 0.1 - 12.0 First trimester 11.0 - 44.3 Second trimester 25.4 - 83.3 Third trimester 58.7 - 214.0 Postmenopausal 0.0 - 0.1 Blood 05/03/2025 10:2 8 AM EDT 05/03/2025 Narrative [facility] (AMBULATORY) - 05/04/2025 8:11 AM EDT Performed at: 01 - [facility] [id number] Wheel Truing Machine Tender: Oc Crawley PhD, Phone: [phone] Patient Fasting: N us Alex Yoo MD LAB BLOOD ORDERABLES Fin al Result [facility] (AMBULATORY) [address] [place] [address], [facility] [address] [place] [address], * Estradiol (05/03/2025 10:28 AM EDT) Estradiol 88.4 pg/mL [facility] Comment: Adult Female Range Follicular phase 12.5 - 166.0 Ovulation phase 85.8 - 498.0 Luteal phase 43.8 - 211.0 Postmenopausal <6.0 - 54.7 1st trimester 215.0 - >4300.0 Nikhil ECLIA methodology Blood 05/03/2025 10:2 8 AM EDT 05/03/2025 Narrative [facility] (AMBULATORY) - 05/04/2025 8:11 AM EDT Performed at: - [address] [id number] Wheel Truing Machine Tender: Oc Crawley PhD, Phone: [phone] Patient Fasting: N Alex Yoo MD LAB BLOOD ORDERABLES Fin al Result Performing Organization Address City/[facility]/ZIP Co de Phone Number [facility] (AMBULATORY) [address] [place] [address], [facility] [address] [place] [address], * Follicle Stimulating Hormone (05/03/2025 10:28 AM EDT) [facility] FSH 2.9 mIU/mL [facility] Comment: Adult Female Range Follicular phase 3.5 - 12.5 Ovulation phase 4.7 - 21.5 Luteal phase 1.7 - 7.7 Postmenopausal 25.8 - 134.8 Blood 05/03/2025 10:2 8 AM EDT 05/03/2025 Narrative [facility] (AMBULATORY) - 05/04/2025 8:11 AM EDT Performed at: [address] [place] [id number] Wheel Truing Machine Tender: Oc Crawley PhD, Phone: [phone] Patient Fasting: N Alex Yoo MD LAB BLOOD ORDERABLES Fin al Result [facility] (AMBULATORY) [address] [place] [address], [facility] [address] [place] [address], documented in this encounter Visit Diagnoses Diagnosis Pelvic pain- Primary Endometriosis determined by laparoscopy Perimenopause Symptomatic menopausal or female climacteric states documented in this encounter Care Teams Log Getter Relationship Specialty Start Date End Date Chuyita Chan APRN [address] [place] [address], [place] [address] PCP - General Internal Medicine 10/13/24 documented as of this encounter
[2025-06-16 17:16] LABS: Hematocrit 39.5 % (37.0-47.0); Hemoglobin 13.0 g/dL (12.2-16.2); Immature Granulocytes % 0.2 %; Mean Corpuscular HGB Conc 32.9 g/dL (31.8-35.4); Mean Corpuscular Hemoglobin 30.0 pg (27.0-31.2); Mean Corpuscular Volume 91.0 fl (81-99); Nucleated Red Blood Cells % 0 %; Platelet Count 309 K/mm3 (142-424); Red Blood Count 4.34 M/mm3 (4.20-5.40); Red Cell Distribution Width-SD 42.2 fL; White Blood Count 6.3 K/mm3 (4.8-10.8)
[2025-06-16 18:12] LABS: Thyroid Stimulating Hormone 0.96 uIU/mL (0.465-4.68)
[2025-06-16 19:21] LABS: Ferritin 6.86 ng/ml (6.24-137)
--- OUTSIDE RECORDS SUMMARY | 2025-06-17 10:46 | XMS_ITS | Clinical Summary ---
Author Organization [facility] Address [address] [facility] [address] [place] [address] Phone Care Team Providers Care Shipping And Receiving Assistant Name Role Phone Preston Todd Unavailable Unavailable Conditions or Problems Problem Name Problem Code Onset Date Status Entry Date Provider Comment Standard Description Annotate Diarrhea 12966349 (SNOMED CT) 04/01 Active 04/01 Emily Jeffrey RN Diarrhea Elevated liver enzymes 402430097 (SNOMED CT) 03/29 Active 03/31 Whit Lopez MD Liver enzymes outside reference range Pertussis 31209428 (SNOMED CT) 03/29 Active 03/31 Whit Lopez MD Pertussis Hoarseness, chronic 2065408625701 (SNOMED CT) 03/29 Active 03/29 Whit Lopez MD Chronic hoarseness Fuo 6958726 (SNOMED CT) 03/29 Active 03/29 Whit Lopez MD Pyrexia of unknown origin Whooping cough, unspecified organism 80493227 (SNOMED CT) 03/28 Active 03/28 Samia Zachary Bordetellosis Pulmonary infiltrates 722557729 (SNOMED CT) 03/28 Active 03/28 Samia Zachary Asthmatic pulmonary eosinophilia Pulmonary atelectasis 20906349 (SNOMED CT) 03/28 Active 03/28 Samia Zachary Atelectasis Pneumonia 529333051 (SNOMED CT) 03/28 Active 03/28 Samia Zachary Pneumonia Medications Medication Instructions Start Date Stop Date Generic Name [facility] Provider DOXYCYCLINE HYCLATE 100 MG CAPS 1 bid DOXYCYCLINE HYCLATE 73752336554 Whit COLON (IV) several different plant and tree derivatives DARLENE (IV) Renato Muñoz VITAMIN D (CHOLECALCIFER OL) CAPS take 1 cap po daily CHOLECALCIFEROL CAPS 33693151745 Renato Muñoz CALTRATE 600+D 600-800 MG-UNIT ORAL TABLET take 1 tablet daily CALCIUM CARB-CHOLECALCIFER OL 36959974280 Renato Muñoz CLONAZEPAM 1 MG TABS take 1 tablet daily CLONAZEPAM 26493852373 Renato Muñoz PROPRANOLOL HCL 10 MG TABS take 1 tablet daily PROPRANOLOL HCL 88238248610 Renato Muñoz VITAMIN D (ERGOCALCIFERO L) 1.25 MG (88784 UT) CAPS take 1 capsule every 30 days ERGOCALCIFEROL 50939793075 Renato Muñoz IBUPROFEN 800 MG TABS take 1 tablet every 8 hours as needed IBUPROFEN 55462490275 Renato Muñoz HYDROCOD POLST-CPM POLST ER 10-8 MG/5ML ORAL SUSPENSION EXTENDED RELEASE take 5 mL every 12 hours as needed HYDROCOD POLST-CHLORPHEN POLST 56160418124 Renato Muñoz BENZONATATE 200 MG CAPS take 1 capsule t.i.d. BENZONATATE 82768893261 Renato Muñoz PROPRANOLOL HCL 10 MG TABS take 1 tablet daily PROPRANOLOL HCL 39021984470 Maxim Gasca VITAMIN D (ERGOCALCIFERO L) 1.25 MG (59279 UT) CAPS take 1 capsule every 30 days ERGOCALCIFEROL 87714044351 Maxim Gasca IBUPROFEN 800 MG TABS take 1 tablet every 8 hours as needed IBUPROFEN 06658438504 Maxim Gasca HYDROCOD POLST-CPM POLST ER 10-8 MG/5ML ORAL SUSPENSION EXTENDED RELEASE take 5 mL every 12 hours as needed HYDROCOD POLST-CHLORPHEN POLST 02283993488 Maxim Gasca TYLENOL PM EXTRA STRENGTH 500-25 MG TABS take 1 tablet at night DIPHENHYDRAMINE-AP AP (SLEEP) 92972467187 Maxim Gasca CLONAZEPAM 1 MG TABS take 1 tablet daily CLONAZEPAM 75001521117 Maxim Gasca CALTRATE 600+D 600-800 MG-UNIT ORAL TABLET take 1 tablet daily CALCIUM CARB-CHOLECALCIFER OL 73108473156 Maxim Gasca BENZONATATE 200 MG CAPS take 1 capsule t.i.d. BENZONATATE 99267475555 Maxim Gasca ASPIRIN 81 81 MG TBEC take 1 tablet daily ASPIRIN 59959359160 Maxim Gasca Medications Administered No information available. Allergies, Adverse Reactions, Alerts Allergy Name Reaction Description Start Date Severity Statu s Provider ADHESIVE TAPE Critical Active Maxim Gasca CONTRAST DYE Critical Active Maxim Gasca Results Date Name Value Unit Range Flag Description Office Visit: 11 MEDS REVIEW Done Documenta tion of current medications (procedure) ORALTOBACUSE Never Tobacco smoking status SMOK STATUS Never smoker Toba project accountant smoking status Plan of Care Type Date Detail Pending order C-Diff PCR Pending order Q Fever serology Procedures Code Procedure Name Date Entry Date CPT-10684 Q Fever serology Vital Signs Date Name Value Unit Description BMI (Body Mass Index) 29.88 kg/m2 Bod y Mass Index (Ratio) Body Temperature 98.1 [degF] temperat ure E&M BP Diastolic 84 mm[Hg] blood pressu re, diastolic BP Systolic 126 mm[Hg] blood pressur e, systolic Heart Rate 92 /min pulse rate Respiratory Rate 14 /min respirat ory rate E&M Weight Measured 179.6 [lb_av] weight E& M Weight Measured 179.6 [lb_av] weight E& M Height 65 [in_us] height E&M Immunizations No information available. Advance Directives Directive Description Start Date NO ADVANCED DIRECTIVES
--- OUTSIDE RECORDS SUMMARY | 2025-06-17 10:47 | XMS_ITS | Encounter Summary ---
[facility] Address [address] [place] [address] Care Team Providers Care Older Worker Specialist Name Role Phone Chuyita Chan APRN Primary Care Provider + [phone] Encounter Details Date Type Department Care Team (Latest Contact Info) Description 05/03/2025 Travel Social History Tobacco Use Types Packs/Day [...] Description 06/21/2025 9:20 AM EDT Office Visit [facility] OBGYN [address] [place] [address] Alex Yoo MD [address] [address] 07/05/2025 9:40 AM EDT Office Visit [facility] [place] [address] Alex Yoo MD [address] [place] [id number] 11/12/2025 1:45 PM EST Office Visit [facility] OBGYN [address] [address] Mary Rowley, INSTRUCTIONAL MATERIALS DIRECTOR [address] [place] [id number] documented as of this encounter Visit Diagnoses Not on filedocumented in this encounter Care Teams Older Worker Specialist Relationship Specialty Start Date End Date Chuyita Chan APRN [facility] [address] [address] PCP - General Internal Medicine 10/13/24 documented as of this encounter
--- OUTSIDE RECORDS SUMMARY | 2025-06-17 10:47 | XMS_ITS | Encounter Summary ---
Author Organization [facility] Address [address] [place] [address] Care Team Providers Care Pediatric Medical Assistant Name Role Phone Suzette Guthrie APRN Primary Care Provider [phone] Mook Klein MD Primary Care Provider [phone] Chuyita Chan APRN Primary Care Provider [phone] Encounter Details Date Type Department Care Team (Late st Contact Info) Description 09/12/2022 Orders Only [facility] @ [facility] [address] [place], [place] [address] Reese Diego MD [address] [place] [address] Social History Tobacco Use Types Packs/Day Years [...] Care Team (Late st Contact Info) Description 10/20/2025 1:30 PM EST Office [facility] supervisor [facility] [address] [place] [address] [address] [place] [phone] Merrick Cowan DMD, MD [address] [facility] [address] [place] [address] 02/08/2026 9:00 AM EDT Office Visit Medical Office Building Surgical Specialties [address], [address] [place] [address] Aramis Santana MD [address] [facility] [address] [place] [address] documented as of this encounter Procedures Procedure Name Priority Date/Time Associated Diagnosis Comments HEMOGLOBIN A1C Routine 09/12/2022 11:06 AM EST documented in this encounter Results * Hemoglobin A1c (09/12/2022 11:06 AM EST) External Glycosylated Hemoglobin (Hgb A1C) 5.3 0.0 - 5.6 % [facility] External Estimated Average Glucose 105 mg/dl (calc) [facility] Comment: A1c values between 5.7% to 6.4% indicate prediabetes. Results 6.5% or greater is diagnostic of diabetes. [place] [employer] (diabetes.org) 09/12/2022 11:0 6 AM EST 09/12/2022 11:16 AM EST us Reese Diego MD LAB BLOOD ORDERABLES Final R esult [facility] [address] [place] [address], documented in this encounter Visit Diagnoses Not on filedocumented in this encounter Care Teams Pediatric Medical Assistant Relationship Specialty Start Date End Date Suzette Guthrie, DEBONE PROCESSING SUPERVISOR [address] [place] [address] PCP - General 01/27/21 04/10/23 Mook Klein MD [address] [place] [address] PCP - General 04/11/23 02/08/25 Chuyita Chan APRN [address] [place] [address] PCP - General 02/09/25 documented as of this encounter
--- OUTSIDE RECORDS SUMMARY | 2025-06-17 10:47 | XMS_ITS | Encounter Summary ---
Author Organization [facility] Address [address] [place] [address] Care Team Providers Care Diet Therapist Name Role Phone Suzette Guthrie APRN Primary Care Provider [phone] Mook Klein MD Primary Care Provider [phone] Chuyita Chan APRN Primary Care Provider [phone] Encounter Details Date Type Department Care Team (Late st Contact Info) Description 09/12/2022 Orders Only [facility] @ [facility] [address] [place], [place] [address] Reese Diego MD [address] [place] [address] Social History Tobacco Use Types Packs/Day Years [...] 1:30 PM EST Office Visit [facility] saturation diver [facility] [address] [place] [address] [address] [place] [phone] Merrick Cowan DMD, MD [address] [facility] [address] [place] [address] 02/08/2026 9:00 AM EDT Office Visit Medical Office Building Surgical Specialties [address] [place] [address] Aramis Santana MD [address] [facility] [address] [place] [address] documented as of this encounter Procedures Procedure Name Priority Date/Time Associated Diagnosis Comments COMPREHENSIVE METABOLIC PANEL, PLASMA Routine 09/12/2022 11:06 AM EST documented in this encounter Results * (ABNORMAL) Comprehensive Metabolic Panel, Plasma (09/12/2022 11:06 AM EST) External Glucose 99 74 - 100 mg/dL [facility] External BUN 15 6 - 20 mg/dL [facility] External Creatinine Blood 0.68 0.50 - 0.95 mg/dL [facility] External BUN/Creat Ratio 22(H) 10 - 20 (calc) [facility] External Sodium 139 136 - 145 mmol/L [facility] External Potassium 3.5 3.4 - 5.0 mmol/L [facility] External Chloride 100 98 - 107 mmol/L [facility] External Carbon Dioxide 26 22 - 31 mmol/L [facility] External Anion Gap (AG) 13 7 - 25 (calc) [facility] External Calcium 10.1 8.6 - 10.2 mg/dL [facility] External Total Protein 7.9 6.4 - 8.3 g/dL [facility] External Albumin 4.9 3.5 - 5.2 g/dL [facility] External Globulin 3.0 1.5 - 4.5 g/dL (calc) [facility] External Albumin/Globulin Ratio 1.6 1.1 - 2.5 (calc) [facility] External Bilirubin Total 0.3 0.1 - 1.2 mg/dL [facility] External Alkaline Phosphatase 90 30 - 121 U/L [facility] External AST (SGOT) 25 0 - 32 U/L [facility] External ALT (SGPT) 28 0 - 33 U/L [facility] External Estimated GFR 111 >=60 [facility] Comment: NOTE New calculation for GFR (CKD-EPI 2020) is formulated without race adjustment factors at the recommendation of the National Kidney Foundation and [place] [employer]ph[employer]. This calculation has not been validated in women. For pediatric patients refer to https://www.kidney.org/professionals/KDOQI/gfr_calculatorPed 09/12/2022 11:0 6 AM EST 09/12/2022 11:30 AM EST us Reese Diego MD LAB BLOOD ORDERABLES Final R esult [facility] [address] [place] [address], documented in this encounter Visit Diagnoses Not on filedocumented in this encounter Care Teams Diet Therapist Relationship Specialty Start Date End Date Suzette Guthrie APRN [address] [place] [address] PCP - General 01/27/21 04/10/23 Mook Klein MD [address] [place] [address] PCP - General 04/11/23 02/08/25 Chuyita Chan APRN [address] [place] [address] PCP - General 02/09/25 documented as of this encounter
--- OUTSIDE RECORDS SUMMARY | 2025-06-17 10:47 | XMS_ITS | Encounter Summary ---
Author Organization Healthcare Address [address] [place] [address] Care Team Providers Care Picture Hanger Name Role Phone Chuyita Chan APRN Primary Care Provider [phone] Encounter Details Date Type Department Care Team (Late st Contact Info) Description 05/12/[address] [facility] monument setter Faculty Clinic [address] [place] [address] [address] [place] [address] Janak Surgeon, [address] [place] [address] Social History Tobacco Use Types Packs/Day Years [...] often do you attend chur ch or baptism services? More than 4 times per year 02/09/2025 Do you belong to any clubs o r organizations such as mu-ism groups, unions, fraternal or athletic groups, or [...] Recorded Patient Health Questionnaire-2 Score 0 02/09/2025 [facility] - Occupational [...] any time in the past 12 m [facility], were you homeless or living in a [place] health [place] facility (including now)? No 02/09/2025 Utilities Answer Date [...] encounter Miscellaneous Notes * Telephone Encounter - Prasanth Pratt - 05/12/2025 2:54 PM EDT Called patient regarding missed follow up scheduled 05/12/25 she forgot and said she would call back on 05/13/25 to reschedule documented in this encounter Plan of Treatment Upcoming Encounters Date Type Department Care Team (Late st Contact Info) Description 10/20/2025 1:30 PM EST Office Visit [facility] monument setter Faculty Clinic [address] [place] [address] Merrick Cowan DMD, MD [address] [place] [address] 02/08/2026 9:00 AM EDT Office Visit Medical Office Building Surgical Specialties [address] [facility], [address] [place] [address] Aramis Santana MD [address] [facility] [address] [place] [address] documented as of this encounter Visit Diagnoses Not on filedocumented in this encounter Additional Health Concerns Assessment Noted Time A fall risk assessment has been complete d for the patient 05/27/2023 10:33 AM EDT A Body Mass Index follow-up plan has been documented for the patient 03/04/2025 12:46 PM EDT documented as of this encounter Care Teams Picture Hanger Relationship Specialty Start Date End Date Chuyita Chan APRN [address] [place] [address] PCP - General 02/09/25 documented as of this encounter
--- OUTSIDE RECORDS SUMMARY | 2025-06-17 10:47 | XMS_ITS | Encounter Summary ---
Author Organization [facility] Address [address] [place] [address] Care Team Providers Care Tentering Machine Off Bearer Name Role Phone Suzette Guthrie APRN Primary Care Provider [phone] Mook Klein MD Primary Care Provider [phone] Chuyita Chan APRN Primary Care Provider [phone]- [phone] Encounter Details Date Type Department Care Team (Late st Contact Info) Description 09/12/2022 Orders Only [facility] @ [facility] [address] [place], [place] [phone] Reese Diego MD [address] [place] [address] Social History Tobacco Use Types Packs/Day Years [...] 1:30 PM EST Office Visit [facility] wire coater Faculty Clinic [address] [place] [address] [address] [place] [phone] Merrick Cowan DMD, MD [address] [facility] [address] [place] [address] 02/08/2026 9:00 AM EDT Office Visit Medical Office Building Surgical Specialties [address], [address] [place] [address] Aramis Santana MD [address] [facility] [address] [place] [address] documented as of this encounter Procedures Procedure Name Priority Date/Time Associated Diagnosis Comments TSH Routine 09/12/2022 11:06 AM EST documented in this encounter Results * Thyroid Stimulating Hormone, Plasma (09/12/2022 11:06 AM EST) External Thyroid Stimulating Hormone (TSH) 1.260 0.270 - 4.200 uIU/mL [facility] 09/12/2022 11:0 6 AM EST 09/12/2022 11:30 AM EST us Reese Diego MD LAB BLOOD ORDERABLES Final R esult [facility] [address] [place] [address], documented in this encounter Visit Diagnoses Not on filedocumented in this encounter Care Teams Tentering Machine Off Bearer Relationship Specialty Start Date End Date Suzette Guthrie APRN [address] [place] [address] PCP - General 01/27/21 04/10/23 Mook Klein MD [address] [place] [address] PCP - General 04/11/23 02/08/25 Chuyita Chan APRN [address] [place] [address] PCP - General 02/09/25 documented as of this encounter
--- OUTSIDE RECORDS SUMMARY | 2025-06-17 10:47 | XMS_ITS | Clinical Summary ---
Author Organization [facility] Address [address] [place] [address] Care Team Providers Care Design Leader Name Role Phone Chan Chuyita Allen APRN Primary Care Provider [phone] Allergies Active Allergy Reactions Criticality Noted Date Comments Antihistamines, Chlorpheniramine-Type Hives Medium 05/27/2023 Only in high doses (has tolerated intermittent doses of Benadryl previously) Iodinated Contrast Media Rash Low 05/27/2023 Latex Rash Medium 05/27/2023 Tape/Bandaid Adhesive Rash Medium 06/23/2024 Medications escitalopram (Lexapro) 10 MG tablet Take 1 tablet (10 mg) by mouth 1 (one) time each day. Active Tirzepatide-Parish ght Management (Zepbound) 15 MG/0.5ML solution auto-injector Inject [...] if needed for mild pain. 30 tablet 10/10/202 4 Active Additional Information Patient not taking.Reported on 02/09/2025 HYDROcodone-tamera taminophen ([place]) 5-325 MG tablet Take 1 tablet (5 mg of hydrocodone) by mouth every 6 (six) hours if needed for severe pain. 20 tablet 4 Active Additional Information Patient not taking.Reported on 02/09/2025 methylPREDNISol one (Medrol Dospak) 4 MG tablets Follow schedule on package instructions 21 tablet 4 Active Additional Information Patient not taking.Reported on 02/09/2025 diphenhydrAMINE (Benadryl) 50 MG tablet Take 1 tablet (50 mg) by mouth at night if needed for itching. 30 tablet 4 Active Additional Information Patient not taking.Reported on 02/09/2025 cetirizine (ZyrTEC) 10 MG tabletIndicatio ns:Allergic reaction, sequela Take 1 tablet (10 mg) by mouth 1 (one) time each day. 30 tablet 4 Active Additional Information Patient not taking.Reported on 02/09/2025 omeprazole (PriLOSEC) [address] capsuleIndicati ons:Allergic reaction, sequela Take 1 capsule (40 mg) by mouth 1 (one) time each day. Do not crush or chew. 30 capsule 4 Active Additional Information Patient not taking.Reported on 02/09/2025 tretinoin (Retin-A) 0.025 % cream Apply topically nightly. Active spironolactone (Aldactone) 50 MG tablet Take 1 tablet by mouth daily. Active ibuprofen 800 MG tablet Take 1 tablet by mouth every 6 hours as needed for mild pain. 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 Obesity with body mass index 30 or greater 08/14 Overview (02/04/2025): Problem Code: Z68.30; Problem Code Type: ICD-10; Pneumonia due to organism 03/18/2017 Abdominal pain 06/22/2015 Exposure keratoconjunctivitis of right eye 06/22 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 Epigastric pain 05/16/2015 Overview (02/04/2025): From Automated Load;Provider: Jesse Herrera;Status: Active Right upper quadrant pain 05/16/2015 Overview (02/04/2025): From Automated Load;Provider: Jesse Herrera;Status: Active Dysarthria 03/25/2015 Abscess of face 01/16/2015 Overview (02/04/2025): Abscess of face 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 Overview (02/04/2025): Prosthetic joint mechanical failure Resolved Problems Problem Noted Date Diagnosed Date Resolved Date Acute bronchitis 02/04/2025 06/06/2025 COVID-19 virus test result unknown 02/04/2025 06/06/2025 URI (upper respiratory infection) 02/04/2025 06/06/2025 PONV (postoperative nausea and vomiting) 06/23/2024 06/06/2025 Acute right otitis media 03/09/2024 Acute pharyngitis 08/11/2019 06/06/2025 Diarrhea 05/16/2015 06/06/2025 Overview (02/04/2025): From Automated Load;Provider: Jesse Herrera;Status: Active Encounters Date Type Department Care Team Description 05/12/2025 Telephone [facility] toys and games hand finisher Faculty Clinic [address] [place] [address] [address] [place] [address] Surgeon Briceno MD from Last 3 Months Immunizations Immunization Administration [...] How often do you attend chur or scientologist services? More than 4 times per year 02/09/2025 Do you belong to any clubs o r organizations such as anabaptism groups, unions, fraternal or athletic groups, or [...] Recorded Patient Health Questionnaire-2 Score 0 02/09/2025 [facility] - Occupational Stress Questionnaire Answer Date Recorded [...] any time in the past 12 m [facility], were you homeless or living in a correction (including now)? No 02/09/2025 Utilities Answer Date Recorded In the past 12 months has [employer], gas, oil, or water company threatened [...] Description 10/20/2025 1:30 PM EST Office Visit [facility] toys and games hand finisher Faculty Clinic [address] [facility] [address] [place] [address] Merrick Cowan DMD, MD [address] [place] [address] 02/08/2026 9:00 AM EDT Office Visit Medical Office Building Surgical Specialties [address] [facility], [address] [place] [address] Aramis Santana MD [address] [place] [address] Health Maintenance Due Date Last Done Comments Dental Oral Exam 1980 Dental Prophylaxis 1980 Dental X-Ray: Bitewings 1980 Dental X-Ray: Full Mouth 1980 [facility]-HIV Screening 1980 [facility]-Hepatitis C Screening 1980 [facility]-/Child/Adol SDOH Screenings 1980 [id number] Vaccine (#1) 1985 [facility]-Varicella Vaccines (1 of 2 - 13+ 2-dose series) 1993 [facility]-DTaP,Tdap,and Td Vaccine s (1 - Tdap) 1999 [facility]-Hepatitis B Vaccines (1 of 3 - 19+ 3-dose series) 1999 [facility]-Pneumococcal Vaccine: Pediatrics (0 to 5 Years) and At-Risk Patients (6 to 49 Years) (1 of 2 - PCV) 1999 HPV Vaccines (1 - 3-dose SCD M series) 2007 [facility]-HPV/Cotest 2010 [facility]-Influenza Vaccine (#1) 05/17/202507/17, 07/07/2014 CT Colonography 2025 Colonoscopy 2025 FIT-DNA 2025 FIT 2025 FOBT 2025 Sigmoidoscopy 2025 [facility]-Colorectal Cancer Screening 2025 [facility]- SDOH Screenings 08/12/2025 [facility]-Adult SDOH Screenings [...] on patient's age to complete this topic Insurance [address] [place] [id number] ANTHEM Care Teams Design Leader Relationship Specialty Start Date End Date Chuyita Chan APRN [address] [place] [address] PCP - General 02/09/25
--- OUTSIDE RECORDS SUMMARY | 2025-06-17 10:47 | XMS_ITS | Encounter Summary ---
[facility] Address [address] [place] [address] Care Team Providers Care Parts Counter Salesperson Name Role Phone ChanChuyita pelayo CARTOGRAPHIC AIDE Primary Care Provider [phone] Encounter Details Date Type Department Care Team (Late st Contact Info) Description 05/03/2025 Telephone [facility] [address] [address] Alex Yoo MD [address] [place] [address] Social History Tobacco Use Types Packs/Day Years [...] encounter Miscellaneous Notes * Telephone Encounter - Cory Pimentel RN - 05/03/2025 2:01 PM EDT (Choi: [id number]) PA Rx #: [id number] Drug Orilissa 150MG tablets [employer] Electronic PA Form Outcome Approved today by [employer] 2017 CaseId:[id number];Status:Approved;Review Type:Prior Auth;Coverage Start Date:04/03/2025;Coverage EndDate:10/30/2025; Effective Date: 04/03/2025 Authorization Expiration Date: 10/30/2025 Tiffany notified. Cost 5.01. Pt does not have mychart documented in this encounter Plan of Treatment Upcoming Encounters Date Type Department Care Team (Late st Contact Info) Description 06/21/2025 9:20 AM EDT Office Visit [facility] [place] [address] Alex Yoo MD [address] [address] 07/05/2025 9:40 AM EDT Office Visit [facility] [address] [place] [address] Alex Yoo MD [address] [address] 11/12/2025 1:45 PM EST Office Visit [facility] [address] [address] Mary Rowley APRN [address] [address] documented as of this encounter Visit Diagnoses Not on filedocumented in this encounter Care Teams Parts Counter Salesperson Relationship Specialty Start Date End Date Chuiyta Chan APRN [address] [place] [address] PCP - General Internal Medicine 10/13/24 documented as of this encounter
--- OUTSIDE RECORDS SUMMARY | 2025-06-17 10:47 | XMS_ITS | Encounter Summary ---
[facility] Address [address] [place] [address] Care Team Providers Care Set Designer Name Role Phone Chuyita Chan APRN Primary Care Provider Reason for Referral * Diagnostic Imaging (Routine) - Closed Specialty Diagnoses / Procedures Referred By Contact Referred To Contact Obstetrics and Gynecology Diagnoses Pelvic pain Procedures US Non-ob Transvaginal Ysabel Torres MD [address] [address] Phone: tel: fax: [facility] [address] [place] [address] Phone: tel: fax: Referral ID Status Reason Start Date Expiration Date Visits Re quested Visits Authorized Closed 04/21/2025 07/21/2026 1 1 Reason for Visit * Reason Onset Date Comments TRACY BRADFORD- CONCERNS 04/19/2025 Encounter Details Date Type Department Care Team (Late st Contact Info) Description 04/19/2025 Telephone [facility] [address] [address] Elisha Bradford APRN [address] [facility] [address] [place] [phone] SENIOR GRADUATE ADVISOR ELISHA MCHUGHESTEFANY- CONCERNS Social History Tobacco Use Types Packs/Day [...] encounter Miscellaneous Notes * Telephone Encounter - Kylie Garcia RN - 04/21/2025 2:11 PM EDT Returned patient's call. States she saw a PA in [place] 04/19/25; ultrasound showed a cyst in the uterus. She also had a follow up appointment with her geoscience professor; he ordered CT of abdomen and pelvis (not scheduled yet). States he told her she might have endometriosis on her bowel and advised herto try to see CASE REVIEWER sooner. Soonest availability with physician is 05/03/[address] Torres; appointment rescheduled to then at patient's request. * Telephone Encounter - Kylie Garcia RN - 04/19/2025 3:54 PM EDT Patient saw Sage Bradford APRN 11/06/24 as New CASE REVIEWER patient. Reported pelvic pain and hx of endometriosis; previously scheduled for hysterectomy but became . She is scheduled for 6 month followup with physician to discuss surgical options. Attempted to return patient's call. Left voice message to call us back. * Telephone Encounter - Elizabeth Renae RegSched Rep - 04/19/2025 10:45 AM EDT PROVIDER: TRACY BRADFORD PATIENTS NAME: SWATI MARQUEZ PHONE #: [phone] REASON FOR CALL: PATIENT IS CALLING TO SEE IF THERE IS ANYWAY TO BE SEEN SOONER BECAUSE OF THE PAIN//SHE IS WILLING TO SEE ANY MD//PLEASE FOLLOW UP documented in this encounter Plan of Treatment Upcoming Encounters Date Type Department Care Team (Late st Contact Info) Description 06/21/2025 9:20 AM EDT Office Visit [facility] [address] [place] [address] Ysabel Torres MD [address] [id number] 07/05/2025 9:40 AM EDT Office Visit [facility] [address] [place] [address] Ysabel Torres MD [address] [id number] 11/12/2025 1:45 PM EST Office Visit [facility] [address] [address] Elisha Bradford APRN [address] [id number] documented as of this encounter Results * US Non-ob Transvaginal (05/03/2025 9:01 AM EDT) Anatomical Region Laterality Modality Body Ultrasound 05/03/2025 8:34 AM EDT Narrative 05/03/2025 4:07 PM EDT PAT NAME: SWATI MARQUEZ MED REC#: [id number] DA: [id number] PAT GEND: F PAT TYPE: O EXAM CHEIKH: [id number] REF PHYS YSABEL TORRES Indication ======== Pelvic [...] ovary. Recommendation Recommend correlation with clinical presentation Card Tender: Luba Del Castillo, RT(R), RDMS Physician: Ysabel Torres MD, FACOG Electronically signed by: Ysabel Torres MD, FACOG at: 16:07 Procedure Note Ysabel Torres MD - 05/03/2025 PAT NAME: SWATI MARQUEZ MED REC#: [id number] DA: [id number] PAT GEND: F PAT TYPE: O EXAM CHEIKH: [id number] REF PHYS YSABEL TORRES Indication ======== Pelvic Pain. Endometriosis. Comparison Studies The findings of this study are compared to the prior ultrasound studydated 11/06/24 Method ======= Voluson E6, Transvaginal ultrasound examination, 3D ultrasoundexamination. View: Adequate view Uterus ====== Uterus:Visualized Uterus position:Retroverted Description of uterine malformations:none Myometrium:Heterogeneous Endometrium:Uniform Cervix details:Nabothian cyst noted Uterus long78 mm Uterus ap47 mm Uterus tr64 mm Uterus Ijc506.6 cm Endometrial thickness, total7.7 mm Uterine fibroid [...] ovary. Recommendation Recommend correlation with clinical presentation Card Tender: Luba Del Castillo RT(R), MS Physician: Ysabel Torres MD, FACOG Electronically signed by: Ysabel Torres MD, FACOG at: 16:07 us Ysabel Torres MD IMG US ORDERABLES Final Result documented in this encounter Visit Diagnoses Diagnosis Pelvic pain- Primary Pelvic pain documented in this encounter Care Teams Set Designer Relationship Specialty Start Date End Date Chuyita Chan APRN [address] [place] [address] PCP - General Internal Medicine 10/13/24 documented as of this encounter
--- OUTSIDE RECORDS SUMMARY | 2025-06-17 10:47 | XMS_ITS | Encounter Summary ---
Author [facility] Address [address] [place] [address] Care Team Providers Care Meat Supervisor Name Role Phone Chuyita Chan APRN Primary Care Provider [phone] Encounter Details Date Type Department Care Team (Late Contact Info) Description 05/04/2025 Results Follow-Up [facility] [address] [place] [address] Alex Yoo MD [address] [place] [address] Social History Tobacco Use Types Packs/Day Years [...] Encounters Date Type Department Care Team (Late Contact Info) Description 06/21/2025 9:20 AM EDT Office Visit [facility] [address] [place] [address] Alex Yoo MD [address] [facility] [address] [place] [address] 07/05/2025 9:40 AM EDT Office Visit [facility] [address] [place] [address] Alex Yoo MD [address] [facility] [address] [place] [id number] 11/12/2025 1:45 PM EST Office Visit [facility] O[facility] [address] [facility] [address] [place] [phone] Mary Rowley, DATABASE DEVELOPMENT PROJECT MANAGER [address] [facility] [address] [place] [address] documented as of this encounter Visit Diagnoses Not on filedocumented in this encounter Care Teams Meat Supervisor Relationship Specialty Start Date End Date Chuyita Chan, TRACY [address] [address] PCP - General Internal Medicine 10/13/24 documented as of this encounter
--- OUTSIDE RECORDS SUMMARY | 2025-06-17 10:47 | XMS_ITS | Clinical Summary ---
Author Organization [facility] Address [address] [place] [address] Care Team Providers Care Insurance Agency Owner Name Role Phone DustinChuyita TRACY Primary Care Provider + [phone] Allergies Active Allergy Reactions Criticality Noted Date [...] Take 1 tablet by mouth Daily. Active Elagolix Sodium (Orilissa) 150 MG tablet Take 1 tablet by mouth Daily. 30 tablet 10 5 Active Active Problems Problem Noted Date Diagnosed Date Endometriosis determined by laparoscopy 05/03/20 25 Perimenopause 05/03/2025 Pelvic pain 11/13/2024 Overview (11/13/2024): 11/06/2024- Reports hx of endometriosis. Was scheduled to have a hysterectomy with Danielle Beiting but got . Discussed treatment options. She [...] Encounters Date Type Department Care Team Description 05/04/2025 Results Follow-Up [facility] [place] [address] Ysabel Torres MD 05/03/2025 9:30 AM EDT Office Visit [facility] [place] [address] Ysabel Torres MD Pelvic pain (Primary Dx); Endometriosis determined by laparoscopy; Perimenopause 05/03/2025 8:30 AM EDT Ancillary Procedure [facility] [place] [address] Pelvic pain 05/03/2025 Telephone [facility] OBGYN [address] [address] Ysabel Torres MD 05/03/2025 Travel 04/19/2025 Telephone [facility]YN [address] [address] Elisha Bradford, RESEARCH GEOLOGIST TRACY BRADFORD- CONCERNS from Last 3 Months Family [...] Pressure 118/78 05/03/2025 9:36 AM EDT Pulse 97 03/28/2017 1:50 PM EDT Temperature 36.8 C (98.3 F) 03/28/2017 1:50 PM EDT Respiratory Rate 20 03/28/2017 1:50 PM EDT Oxygen Saturation 94% 03/28/2017 1:50 PM EDT Inhaled Oxygen Concentration - - Weight 75.8 kg (167 lb) 05/03/2025 9:36 AM EDT Height 165.1 cm (5' 5 ) 05/03/2025 9:36 AM EDT Body Mass Index 27.79 05/03/2025 9:36 AM EDT Plan of Treatment Upcoming Encounters Date Type Department Care Team (Late st Contact Info) Description 06/21/2025 9:20 AM EDT Office [facility] [address] [place] [address] Ysabel Torres MD [address] [place] [address] 07/05/2025 9:40 AM EDT Office Visit [facility] [address] [place] [address] Ysabel Torres MD [address] [address] 11/12/2025 1:45 PM EST Office Visit [facility] [address] [phone] Elisha Bradford APRN [address] [address] Health Maintenance Due Date Last Done Comments TDAP/TD VACCINES (1 - Tdap) 1999 ANNUAL PHYSICAL 03/14/2017 HEPATITIS C SCREENING 03/14/2017 MAMMOGRAM 2020 INFLUENZA VACCINE 04/16/2025 07/17/2020, 07/07/2014 COLOGUARD 2025 COLON CANCER SCREENING 5 YEA R SIGMOIDOSCOPY 2025 COLONOSCOPY 2025 COLORECTAL CANCER SCREENING 2025 CT COLONOGRAPHY 2025 FECAL OCCULT BLOOD TEST 2025 FIT Testing (1 year) 2025 Annual Gynecologic Pelvic an d Breast Exam 11/07/2025 11/06/2024 PAP SMEAR 11/06/2027 11/06/2024 Pneumococcal Vaccine 0-49 Aged Out No longer eligible based on patient's age to complete this topic Procedures Procedure Name Priority Date/Time Associated Diagnosis Comments PROGESTERONE Routine 05/03/2025 10:28 AM EDT Perimenopause ESTRADIOL Routine 05/03/2025 10:28 AM EDT Perimenopause FOLLICLE STIMULATING HORMONE Routine 05/03/2025 10:28 AM EDT Perimenopause US NON-OB TRANSVAGINAL Routine 05/03/2025 9:01 AM EDT Pelvic pain LIQUID-BASED PAP SMEAR WITH HPV GENOTYPING REGARDLESS OF INTERPRETATION, [facility] ([facility]) Routine 11/06/2024 4:50 PM EST Women's annual routine gynecological examination from Last 3 Months or Most Recently Relevant to Health Maintenance Results * Progesterone (05/03/2025 10:28 AM EDT) Progesterone 8.4 ng/mL [facility] Comment: Follicular phase 0.1 - 0.9 Luteal phase 1.8 - 23.9 Ovulation phase 0.1 - 12.0 First trimester 11.0 - 44.3 Second trimester 25.4 - 83.3 Third trimester 58.7 - 214.0 Postmenopausal 0.0 - 0.1 Blood 05/03/2025 10:2 8 AM EDT 05/03/2025 Narrative [facility] (AMBULATORY) - 05/04/2025 8:11 AM EDT Performed at: - [address] [id number] Horticultural Specialty Grower Inside: Oc Crawley PhD, Phone: [phone] Patient Fasting: N Ysabel Torres MD LAB BLOOD ORDERABLES Fin al Result Performing Organization Address City/[facility]/ZIP Co de Phone Number [facility] (AMBULATORY) [address] [place] [address], [place] [phone] [facility] [address] [place] [address], * Estradiol (05/03/2025 10:28 AM EDT) Estradiol 88.4 pg/mL [facility] Comment: Adult Female Range Follicular phase 12.5 - 166.0 Ovulation phase 85.8 - 498.0 Luteal phase 43.8 - 211.0 Postmenopausal <6.0 - 54.7 1st trimester 215.0 - >4300.0 Nikhil ECLIA methodology Blood 05/03/2025 10:2 8 AM EDT 05/03/2025 [facility] (AMBULATORY) - 05/04/2025 8:11 AM EDT Performed at: [address] [place] [id number] Horticultural Specialty Grower Inside: Oc Crawley PhD, Phone: [phone] Patient Fasting: N Ysabel Torres MD LAB BLOOD ORDERABLES Fin al Result Performing Organization Address City/[facility]/ZIP Co de Phone Number [facility] [address] [place] [address], [place] [phone] [facility] [address] [place] [address], [place] [phone] * Follicle Stimulating Hormone (05/03/2025 10:28 AM EDT) FSH 2.9 mIU/mL [facility] Comment: Adult Female Range Follicular phase 3.5 - 12.5 Ovulation phase 4.7 - 21.5 Luteal phase 1.7 - 7.7 Postmenopausal 25.8 - 134.8 Blood 05/03/2025 10:2 8 AM EDT 05/03/2025 Narrative [facility] - 05/04/2025 8:11 AM EDT Performed at: - [facility] [address] [place] [id number] Horticultural Specialty Grower Inside: Oc Crawley PhD, Phone: [phone] Patient Fasting: N us Ysabel Torres MD LAB BLOOD ORDERABLES Fin al Result [facility] ([facility] [address] [place] [address], [place] [phone] [facility] [address] [place] [address], * US Non-ob Transvaginal (05/03/2025 9:01 AM EDT) Anatomical Region Laterality Modality Body Ultrasound 05/03/2025 8:34 AM EDT Narrative 05/03/2025 4:07 PM EDT PAT NAME: SIMA MARQUEZ MED REC#: [id number] DA: [id number] PAT GEND: F PAT TYPE: O EXAM CHEIKH: [id number] REF PHYS YSABEL TORRES Indication ======== Pelvic [...] ovary. Recommendation Recommend correlation with clinical presentation National Park Ranger: Luba Del Castillo RT(R), [facility] Physician: Ysabel Torres MD, FACOG Electronically signed by: Ysabel Torres MD, FACOG at: 16:07 Procedure Note Ysabel Torres MD - 05/03/2025 PAT NAME: SIMA MARQUEZ [facility] REC#: [id number] DA: [id number] PAT GEND: F PAT TYPE: O EXAM CHEIKH: [id number] REF PHYS YSABEL TORRES Indication ======== Pelvic Pain. Endometriosis. Comparison Studies The findings of this study are compared to the prior ultrasound studydated 11/06/24 Method ======= Voluson E6, Transvaginal ultrasound examination, 3D ultrasoundexamination. View: Adequate view Uterus ====== Uterus:Visualized Uterus position:Retroverted Description of uterine malformations:none Myometrium:Heterogeneous Endometrium:Uniform Cervix details:Nabothian cyst noted Uterus long78 mm Uterus ap47 mm Uterus tr64 mm Uterus Ynd499.6 cm Endometrial thickness, total7.7 mm Uterine fibroid [...] ovary. Recommendation Recommend correlation with clinical presentation National Park Ranger: Luba Del Castillo RT(R), [facility] Physician: Ysabel Torres MD, FACOG Electronically signed by: Ysabel Torres MD, FACOG at: 16:07 Ysabel Torres MD [facility] US ORDERABLES Final Result * LIQUID-BASED PAP SMEAR WITH HPV GENOTYPING REGARDLESS OF INTERPRETATION ([facility],COR,MAD) (11/06/2024 4:50 PM EST) Reference Lab Report [facility] [address] [place] [address] or [phone] Benito Huffman M.D., Cheese Maker PATIENT NAME LABORATORY NO. SIMA TAY [id number] AGE SEX SSN CLIENT REF # [facility] 44 1980 F [id number] [address] [facility] [id number] REQUESTING M.Sj. [place] [address] ELISHA BRADFORD DATE COLLECTED DATE RECEIVED DATE [...] 51, 52, 56, 58, 59, 66, 68 LAYAWAY CLERK: IVÁN DE LA ROSA (ASCP) CPT CODES: 02892, [id number] 11/09/2024 11:23 AM EST [facility] ThinPrep Vial Collection / Unknown 11/06/2024 4:50 PM EST 11/06/2024 4:50 PM EST Elisha Bradford RESEARCH GEOLOGIST PATHOLOGY/CYTOLOGY ORDERAB LES Final Result [facility]
[address] [place] [address], [place] [phone] from Last 3 Months or Most Recently Relevant to Health Maintenance Insurance [facility] PPO Care Teams Insurance Agency Owner Relationship Specialty Start Date End Date Chuyita Chan APRN [address] [place] [address] [place]IM [place] [id number] PCP - General Internal Medicine 10/13/24
== END 2025-06-16 23:59 ==
LOC: LAB.DROPOF 06-17 10:39
PROVIDERS: PCP Nurse Practitioner Family; Visit Provider Nurse Practitioner Family
DX: N93.9 Abnormal uterine and vaginal bleeding, unspecified (principal); R63.5 Abnormal weight gain
CPT/HCPCS: 82728; 84443; 85025

== ENCOUNTER 2025-08-10 16:46 | Outpatient (CLI) | payer BC, SELFPAY ==
--- OUTSIDE RECORDS SUMMARY | 2025-06-21 08:20 | XMS_ITS | Encounter Summary ---
Author Organization [facility] Address [address] [place] [address] Care Team Providers Care Milk Receiver Tank Truck Name Role Phone Chuyita Chan APRN Primary Care Provider + [phone] Reason for Visit * Reason Comments Pre-op Exam Encounter Details Date Type Department Care Team (Late st Contact Info) Description 06/21/2025 9:20 AM EDT Office Visit [facility] OBGYN [address] [place] [address] Alex Yoo MD 1700 [facility] [address] [place] [address] Pre-op exam (Primary Dx); Endometriosis Social History Tobacco Use Types Packs/Day Years [...] Job End Date 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 * Diagnostic Laparoscopy (Danish) documented in this encounter Progress Notes * Alex Yoo MD - 06/21/2025 9:20 AM EDT Gynecologic Preoperative Exam Note Subjective Swati Limon is a 45 y.o. year old who is scheduled for [facility]25 at 1015. Pre Admission testing has been scheduled for 06/21/2025 at [facility]. Her pre operative diagnosis is endometriosis. She does not need to see her PCP for preop clearance for this surgery. No LMP recorded.. Her control method is no method at present time. HerBMI is Body mass index is 29.12 kg/m??.. She has reviewed the information pertaining to diagnostic laparoscopy She understands the risks of bleeding, infection, possible damage to other organ systems, includingbut not limited to the gastrointestinal tract and genitourinary tract. She also understands the specific risks listed in the preop information (video, pamphlets, etc.). She has reviewed and signed the preop consent form. Her code status is: FULL She has been instructed to have a light dinner the night before surgery, then nothing to eat or drink after midnight. The day of surgery do not chew gum or smoke. Remove all jewelry, nail georgian, contact lenses prior to coming to the hospital. Do not bring valuables or large sums of money with you.Patient was instructed on what time to arrive and where to check in, maps were given. She was instructed that she will meet an Anesthesiologist and that an IV will be started to provide fluids and sedation. The total time of procedure was discussed. She was instructed that she will need a bung driver. Allergies Allergen Reactions Adhesive Tape Contrast Dye (Echo Or Unknown Ct/Mr) She has confirmed that she is not allergic to Latex. She is on the following medications. These were reviewed with the patient today and instructed on which medications are ok to take with a sip of water prior to the surgery. Current Outpatient Medications: busPIRone (BUSPAR) 10 MG tablet, Take 1 tablet by mouth 3 (Three) Times a Day., Disp: , Rfl: Elagolix Sodium (Orilissa) 150 MG tablet, Take 1 tablet by mouth Daily., Disp: 30 tablet, Rfl: 10 escitalopram (LEXAPRO) 10 MG tablet, Take 1 [...] , Rfl: Past Medical History: Diagnosis Date Pancreatitis due to common bile duct stone 2014 Cyst of ovary Endometriosis Gallbladder abscess Goiter Lung infiltrate Migraines MTHFR mutation MTHFR C67 PT FACTOR CLOTTING DISORDER Pneumonia Thyroid nodule UTI (urinary tract infection) Whooping cough Past Surgical History: Procedure Laterality Date SALPINGECTOMY Left 2008 due to ectopic BRONCHOSCOPY N/A 03/28/2017 Procedure: BRONCHOSCOPY; Surgeon: Mario Mae MD; Location: [facility] ENDOSCOPY; Service: MANDIBLE SURGERY 2023 Multiple Jaw Surgeries including 2 joint replacements DILATION AND CURETTAGE, DIAGNOSTIC / THERAPEUTIC multiple ENDOSCOPY AND COLONOSCOPY OVARIAN CYST REMOVAL URETHRAL DILATION x 3 OB History Para Term AB Living 8 1 0 1 7 1 SAB IAB Ectopic Molar Multiple Live Births 0 0 0 0 0 1 # Outcome Date GA Lbr Dank/2nd Weight Sex Type Anes PTL Lv 8 11/21/12 M CS-LTranv Spinal TRIPP 7 AB ECTOPIC 6 AB 5 AB 4 AB 3 AB 2 AB 1 AB Social History Tobacco Use Smoking Status Never Smokeless Tobacco Never Social History Substance and Sexual Activity Alcohol Use Not Currently Comment: SOCIALLY- FEW TIMES A YEAR Social History Substance and Sexual Activity Drug Use No Review of Systems Constitutional: Negative. Respiratory: Negative. Cardiovascular: Negative. Gastrointestinal: Positive for constipation. Negative for blood in stool, nausea and vomiting. Genitourinary: Positive for pelvic pain. Neurological: Negative. Psychiatric/Behavioral: Negative. All other systems reviewed and negative. Objective Vitals: 06/21/25 0918 BP: 110/70 Physical Exam Vitals reviewed. Constitutional: Appearance: Normal appearance. HENT: Head: Normocephalic and atraumatic. Cardiovascular: Rate and Rhythm: Normal rate and regular rhythm. Pulmonary: Effort: Pulmonary effort is normal. Breath sounds: Normal breath sounds. Abdominal: General: Abdomen is flat. Palpations: Abdomen is soft. Skin: General: Skin is warm and dry. Neurological: Mental Status: She is alert and oriented to person, place, and time. Psychiatric: Mood and Affect: Mood normal. Behavior: Behavior normal. Assessment Problem List Items Addressed This Visit None Visit Diagnoses Pre-op exam - Primary Relevant Orders CBC & Differential Comprehensive Metabolic Panel HCG, B-subunit, Quantitative Endometriosis Plan Will proceed with Dx laparoscopy for further evaluation of pelvic pain at [facility]. Risks of surgery were reviewed with the patient including risks of bleeding, infection, damage to other organ systems including, but not limited to GI and tracts (bowel, bladder, blood vessels, nerves) risks of Anesthesia, as well as the risk the surgery will not produce the desired results, possible need for additional surgery, , risk of uterine perforation. PAT Scheduled Ovidio has been obtained and reviewed Pain Medication Consent Form has been signed. A review regarding proper medication administration, impact on driving and working while medicated, the safety of use in , the potential for overdose and the proper disposal and storage of controlled medications has been done with the patient. Alex Yoo MD Visit Date: 06/21/2025 documented in this encounter Plan of Treatment Upcoming Encounters Date Type Department Care Team (Late st Contact Info) Description 11/12/2025 1:45 PM EST Office Visit [facility] OBGYN [address] [facility] [address] [place] [address] Mary Rowley, TOLL BRIDGE ATTENDANT [facility] [facility] [address] [place] [address] 01/24/2026 10:20 AM EDT Office Visit [facility] OBGYN [address] [place] [address] Alex Yoo MD 1700 [facility] [address] [place], [place] [id number] documented as of this encounter Procedures Procedure Name Priority Date/Time Associated Diagnosis Comments HCG, B-SUBUNIT, QUANTITATIVE Routine 06/21/2025 9:47 AM EDT Pre-op exam CBC AND DIFFERENTIAL Routine 06/21/2025 9:47 AM EDT Pre-op exam COMPREHENSIVE METABOLIC PANEL Routine 06/21/2025 9:47 AM EDT Pre-op exam documented in this encounter Results * HCG, B-subunit, Quantitative (06/21/2025 9:47 AM EDT) HCG Quantitative <1.00 mIU/mL [facility] Comment: HCG Ranges by Gestational Age Females - non- premenopausal </= 1mIU/mL HCG Females - postmenopausal </= 7mIU/mL HCG 3 Weeks 5.4 - 72 mIU/mL 4 Weeks 10.2 - 708 mIU/mL 5 Weeks 217 - 8,245 mIU/mL 6 Weeks 152 - 32,177 mIU/mL 7 Weeks 4,059 - 153,767 mIU/mL 8 Weeks 31,366 - 149,094 mIU/mL 9 Weeks 59,109 - 135,901 mIU/mL 10 Weeks 44,186 - 170,409 mIU/mL 12 Weeks 27,107 - 201,615 mIU/mL 14 Weeks 24,302 - 93,646 mIU/mL 15 Weeks 12,540 - 69,747 mIU/mL 16 Weeks 8,904 - 55,332 mIU/mL 17 Weeks 8,240 - 51,793 mIU/mL 18 Weeks 9,649 - 55,271 mIU/mL Blood 06/21/2025 9:47 AM EDT 06/21/2025 Narrative [facility] (AMBULATORY) - 06/22/2025 6:09 AM EDT Performed at: [address] [address] [place] [id number] Institute Scientist: Robert Farrell MD, Phone: [phone] Patient Fasting: N us Alex Yoo MD LAB BLOOD ORDERABLES Fin al Result [facility] ([facility]BULATORY) [address] [place] [address], [facility] [address] [place] [address], * (ABNORMAL) Comprehensive Metabolic Panel (06/21/2025 9:47 AM EDT) [facility] Glucose 97 65 - 99 mg/dL [facility] BUN 18.0 6.0 - 20.0 mg/dL [facility] Creatinine 0.71 0.57 - 1.00 mg/dL [facility] EGFR Result 107.0 >60.0 mL/min/1.7 3 [facility] Comment: GFR Categories in Chronic Kidney Disease (CKD) GFR Category GFR (mL/min/1.73) Interpretation G1 90 or greater Normal or high (1) G2 60-89 Mild decrease (1) G3a 45-59 Mild to moderate decrease G3b 30-44 Moderate to severe decrease G4 15-29 Severe decrease G5 14 or less Kidney failure (1)In the absence of evidence of kidney disease, neither GFR category G1 or G2 fulfill the criteria for CKD. eGFR calculation 2020 CKD-EPI creatinine equation, which does not include race as a factor BUN/Creatinine Ratio 25.4(H) 7.0 - 25.0 [facility] Sodium 142 136 - 145 mmol/L [facility] Potassium 3.9 3.5 - 5.2 mmol/L [facility] Chloride 102 98 - 107 mmol/L [facility] Total CO2 24.4 22.0 - 29.0 mmol/L [facility] Calcium 10.0 8.6 - 10.5 mg/dL [facility] Total Protein 7.5 6.0 - 8.5 g/dL [facility] Albumin 4.5 3.5 - 5.2 g/dL [facility] Globulin 3.0 gm/dL [facility] A/G Ratio 1.5 g/dL [facility] Total Bilirubin 0.4 0.0 - 1.2 mg/dL [facility] Alkaline Phosphatase 66 39 - 117 U/L [facility] AST (SGOT) 23 1 - 32 U/L [facility] ALT (SGPT) 18 1 - 33 U/L [facility] Blood 06/21/2025 9:47 AM EDT 06/21/2025 Narrative [facility] ([facility]) - 06/22/2025 6:09 AM EDT Performed at: [address] [place] [id number] Institute Scientist: Robert Farrell MD, Phone: [phone] Patient Fasting: N Alex Yoo MD LAB BLOOD ORDERABLES Fin al Result [facility] ([facility]UL[facility]) [address] [place] [address], [facility] [address] [place] [address], * (ABNORMAL) CBC & Differential (06/21/2025 9:47 AM EDT) [facility] WBC 5.15 3.40 - 10.80 10*3/mm3 [facility] RBC 4.58 3.77 - 5.28 10*6/mm3 [facility] Hemoglobin 13.2 12.0 - 15.9 g/dL [facility] Hematocrit 41.2 34.0 - 46.6 % [facility] MCV 90.0 79.0 - 97.0 fL [facility] MCH 28.8 26.6 - 33.0 pg [facility] MCHC 32.0 31.5 - 35.7 g/dL [facility] RDW 12.2(L) 12.3 - 15.4 % [facility] Platelets 341 140 - 450 10*3/mm3 [facility] Neutrophil Rel % 60.0 42.7 - 76.0 % [facility] Lymphocyte Rel % 30.3 19.6 - 45.3 % [facility] Monocyte Rel % 6.0 5.0 - 12.0 % [facility] Eosinophil Rel % 2.5 0.3 - 6.2 % [facility] Basophil Rel % 1.0 0.0 - 1.5 % [facility] Neutrophils Absolute 3.09 1.70 - 7.00 10*3/mm3 [facility] Lymphocytes Absolute 1.56 0.70 - 3.10 10*3/mm3 [facility] Monocytes Absolute 0.31 0.10 - 0.90 10*3/mm3 [facility] Eosinophils Absolute 0.13 0.00 - 0.40 10*3/mm3 [facility] Basophils Absolute 0.05 0.00 - 0.20 10*3/mm3 [facility] Immature Granulocyte Rel % 0.2 0.0 - 0.5 % [facility] Immature Grans Absolute 0.01 0.00 - 0.05 10*3/mm3 [facility] nRBC 0.0 0.0 - 0.2 /100 WBC [facility] Blood 06/21/2025 9:47 AM EDT 06/21/2025 Narrative [facility] ([facility]) - 06/22/2025 6:09 AM EDT Performed at: [address] [id number] Institute Scientist: Robert Farrell MD, Phone: [phone] Patient Fasting: N us Alex Yoo MD LAB BLOOD ORDERABLES Fin al Result Performing Organization Address City/State/[facility] Co de Phone Number [facility] ([facility]BULATORY) [address] [place] [address], [facility] [address] [place] [address], documented in this encounter Visit Diagnoses Diagnosis Pre-op exam- Primary Endometriosis Endometriosis, site unspecified documented in this encounter Care Teams Milk Receiver Tank Truck Relationship Specialty Start Date End Date Chuyita Chan APRN [address] [place] [address] PCP - General Internal Medicine 10/13/24 documented as of this encounter
--- OUTSIDE RECORDS SUMMARY | 2025-07-08 08:45 | XMS_ITS | Encounter Summary ---
Author Organization [facility] Address [address] [place] [address] Care Team Providers Care Agriculture Laborer Name Role Phone Chuyita Chan APRN Primary Care Provider + [phone] Reason for Visit * Surgical (Routine) - Closed Specialty Diagnoses / Procedures Referred By Contac t Referred To Contact Diagnoses Pelvic and perineal pain Procedures RI LAPS FULG/EXC OVARY VISCERA/PERITONEAL SURFACE Alex Yoo MD 1700 [facility] [address] [place] [address] Phone: tel: fax: [facility] [address] [place] [address] Phone: tel: fax: Referral ID Status Reason Start Date Expiration Date Visits Re quested Visits Authorized [id number] Closed 06/24/2025 06/24/2025 1 1 Encounter Details Date Type Department Care Team (Late st Contact Info) Description 07/08/2025 9:45 AM EDT Outside Facility Service [facility] OBGYN 17[address] [facility] [address] [place] [address] Alex Yoo MD 1700 [facility] [address] [place] [address] Status post laparoscopy (Primary Dx) Social History Tobacco Use Types Packs/Day Years [...] Description 11/12/2025 1:45 PM EST Office Visit [facility] OBGYN [address] [address] Mary Rowley APRN [address] [address] 01/24/2026 10:20 AM EDT Office Visit [facility] OBGYN [address] [place] [address] Alex Yoo MD [address] [address] documented as of this encounter Visit Diagnoses Diagnosis Status post laparoscopy- Primary Other postprocedural status documented in this encounter Care Teams Agriculture Laborer Relationship Specialty Start Date End Date Chuyita Chan APRN [address] [place] [address] [address] PCP - General Internal Medicine 10/13/24 documented as of this encounter
--- OUTSIDE RECORDS SUMMARY | 2025-07-26 11:20 | XMS_ITS | Encounter Summary ---
Author Organization [facility] yste Address [address] [place] [address] Care Team Providers Care Clinical Leader Name Role Phone Chuyita Chan APRN Primary Care Provider + [phone] Reason for Visit * Reason Comments Post-op Follow-up Encounter Details Date Type Department Care Team (Late st Contact Info) Description 07/26/2025 11:20 AM EST Office Visit [facility] [address] [place] [address] [place] [address] [place] [address] Postoperative examination (Primary Dx); Endometriosis determined by laparoscopy; History of abnormal mammogram Social History Tobacco Use Types Packs/Day Years [...] 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 * Uterine Tissue Growing Outside the Uterus (Endometriosis): What to Know (Guinean) * Diagnostic Laparoscopy Care After (Guinean) documented in this encounter Progress Notes * Lisa Guevara RegSched Rep - 07/26/2025 11:20 AM ESTAddended by: LISA GUEVARA on: 07/27/2025 09:49 AM Modules accepted: Orders * Alex Yoo MD - 07/26/2025 11:20 AM EST Images from the original note were not included. OBGYN Postoperative Exam Note Subjective Chief Complaint Patient presents with Post-op Follow-up Swati Limon is a 45 y.o. year old presenting to be seen for her post-operative visit. She is S/P Diagnostic Laparoscopy on 07/08/2025 at [facility] for pelvic pain, endometriosis and Post Diagnosis was: stage II endometriosis. Currently she reports no problems with eating, voiding, or wound drainage and pain is well controlled. There was no pathology result associated with Swati's recent procedure. OTHER THINGS SHE WANTS TO DISCUSS TODAY: Patient states she has still been having the constipation and cramping since the procedure and before the procedure. Current Outpatient Medications: busPIRone (BUSPAR) 10 MG tablet, Take 1 tablet by mouth 3 (Three) Times a Day., Disp: , Rfl: Elagolix Sodium (Orilissa) 150 MG tablet, Take 1 tablet by mouth Daily., Disp: 30 tablet, Rfl: 10 escitalopram (LEXAPRO) 10 MG tablet, Take 1 tablet by mouth Daily., Disp: , Rfl: ibuprofen (ADVIL,MOTRIN) 600 MG tablet, Take 1 tablet by mouth Every 6 (Six) Hours As Needed for Mild Pain., Disp: 30 tablet, Rfl: 3 pantoprazole (PROTONIX) 40 MG EC tablet, Take 1 tablet by mouth once daily, Disp: 90 tablet, Rfl: 0 promethazine (PHENERGAN) 12.5 MG tablet, Take 1 tablet by mouth Every 6 (Six) Hours As Needed for Nausea., Disp: 12 tablet, Rfl: 1 spironolactone (ALDACTONE) 25 MG tablet, Take 1 tablet by mouth Daily., Disp: , Rfl: Tirzepatide-Weight Management (Zepbound) 5 MG/0.5ML solution auto-injector, Inject 0.5 mL under theskin into the appropriate area as directed 1 (One) Time Per Week., Disp: , Rfl: traMADol (Ultram) 50 MG tablet, Take 1 tablet by mouth Every 8 (Eight) Hours As Needed for ModeratePain., Disp: 12 tablet, Rfl: 0 Past Medical History: Diagnosis Date Cyst of ovary Endometriosis Gallbladder abscess Goiter Lung infiltrate Migraines MTHFR mutation MTHFR C67 PT FACTOR CLOTTING DISORDER Pancreatitis due to common bile duct stone 2014 Pneumonia Thyroid nodule UTI (urinary tract infection) Whooping cough Past Surgical History: Procedure Laterality Date BRONCHOSCOPY N/A 03/28/2017 Procedure: BRONCHOSCOPY; Surgeon: Mario Mae MD; Location: [facility]; Service: DIAGNOSTIC LAPAROSCOPY 07/08/2025 for pelvic pain, endometriosis DILATION AND CURETTAGE, DIAGNOSTIC / THERAPEUTIC multiple ENDOSCOPY AND COLONOSCOPY MANDIBLE SURGERY 2023 Multiple Jaw Surgeries including 2 joint replacements OVARIAN CYST REMOVAL SALPINGECTOMY Left 2008 due to ectopic URETHRAL DILATION x 3 The following portions of the patient's history were reviewed and updated as appropriate:current medications and allergies Review of Systems Constitutional: Negative. Respiratory: Negative. Cardiovascular: Negative. Gastrointestinal: Negative. Genitourinary: Negative. Musculoskeletal: Negative. Neurological: Negative. Psychiatric/Behavioral: Negative. Objective BP 116/74 Ht 165.1 cm (65 ) Wt 79.3 kg (174 lb 12.8 oz) LMP (LMP Unknown) BMI 29.09 kg/m?? Physical Exam Vitals reviewed. Constitutional: Appearance: Normal appearance. HENT: Head: Normocephalic and atraumatic. Abdominal: General: Abdomen is flat. Palpations: Abdomen is soft. Skin: General: Skin is warm and dry. Neurological: Mental Status: She is alert and oriented to person, place, and time. Psychiatric: Mood and Affect: Mood normal. Behavior: Behavior normal. Assessment S/P Diagnostic laparoscopy Stage II endometriosis Plan May return to full activity with no restrictions Operative photos reviewed and Any significant events that occurred during surgery reviewed Will continue Orilissa and reevaluate in 6 months The importance of keeping all planned follow-up and taking all medications as prescribed was emphasized. Return in about 6 months (around 01/23/2026) for ORACLE APPLICATIONS DEVELOPER visit. Alex Yoo MD 07/26/2025 documented in this encounter Plan of Treatment Upcoming Encounters Date Type Department Care Team (Late st Contact Info) Description 11/12/2025 1:45 PM EST Office Visit [facility] [address] [address] Mary Rowley APRN [address] [address] 01/24/2026 10:20 AM EDT Office Visit [facility] [address] [place] [address] Alex Yoo MD [address] [address] documented as of this encounter Visit Diagnoses Diagnosis Postoperative examination- Primary Follow-up examination, following unspecified surgery Endometriosis determined by laparoscopy History of abnormal mammogram documented in this encounter Care Teams Clinical Leader Relationship Specialty Start Date End Date Chuyita Chan APRN [address] [place] [address] PCP - General Internal Medicine 10/13/24 documented as of this encounter
[2025-08-10 16:40] LABS: Coronavirus 19, PCR Not Detected (NotDetected); Influenza A, PCR Not Detected (NotDetected); Influenza B, PCR Not Detected (NotDetected)
--- OUTSIDE RECORDS SUMMARY | 2025-08-10 16:48 | XMS_ITS | Encounter Summary ---
Author Organization [employer] ([place], [place], [place], [place], [place]) Address [address] [place] [address] Care Team Providers Care Body Man Name Role Phone Unavailable Primary Care Provider Unavailabl e Encounter Details Date Type Department Care Team (Late st Contact Info) Description 09/25/2018 Transcribed Document [facility] Family Medicine [facility] [place] [address] ProviderCliff MD [address] [place] [id number] Social History Tobacco Use Types Packs/Day Years Used Date Smoking Tobacco: Never Assessed Comments Unknown Sex and Gender Information Value Date Recorded Sex Assigned at Not on file Legal Sex Female 1:20 PM CDT Gender Identity Not on file Sexual Orientation Not on file documented as of this encounter Miscellaneous Notes * Cerner Conversion Note - Cliff Velazquez MD - 09/25/2018 6:39 AM JACQUARD LOOM CARPET WEAVER DATE OF PROCEDURE: 09/24/2018 PREOPERATIVE DIAGNOSIS(ES): 1. Pelvic pain. 2. Dysmenorrhea. 3. Dyspareunia. 4. Pelvic adhesions. POSTOPERATIVE DIAGNOSIS(ES): 1. Pelvic pain. 2. Dysmenorrhea. 3. Dyspareunia. 4. Pelvic adhesions. 5. Endometriosis. PROCEDURE: 1. Diagnostic laparoscopy with CO2 laser of endometriosis. 2. Lysis of adhesions. 3. Drainage of right ovarian cyst. 4. Chromopertubation. SURGEON: Mara Nunez M.D. RECRUITMENT SPECIALIST: Celeste Vela PA-C. ANESTHESIA: General endotracheal anesthesia. [...]
--- OUTSIDE RECORDS SUMMARY | 2025-08-10 16:48 | XMS_ITS | Encounter Summary ---
[facility] Address [address] [place] [address] Care Team Providers Care Processing Manager Name Role Phone Chuyita Chan TRACY Primary Care Provider [phone] Encounter Details Date Type Department Care Team (Latest Contact Info) Description 06/21/2025 Travel Social History Tobacco Use Types Packs/Day [...] Description 11/12/2025 1:45 PM EST Office Visit [facility] OBGYN [address] [phone] Mary Rowley APRN [facility] [facility] [address] [place] [address] 01/24/2026 10:20 AM EDT Office Visit [facility] O[facility]YN [address] [place] [address] Alex Yoo MD [address] [facility] [address] [place] [address] documented as of this encounter Visit Diagnoses Not on filedocumented in this encounter Care Teams Processing Manager Relationship Specialty Start Date End Date Chuyita Chan APRN [address] [place] [address] PCP - General Internal Medicine 10/13/24 documented as of this encounter
--- OUTSIDE RECORDS SUMMARY | 2025-08-10 16:49 | XMS_ITS | Encounter Summary ---
Author Organization [employer] ([place], [place], [place], [place]) Address [address] [place] [address] Care Team Providers Care Hide Examiner Name Role Phone Unavailable Primary Care Provider Unavailabl e Encounter Details Date Type Department Care Team (Late st Contact Info) Description 01/11/2019 Transcribed Document [facility] Radiology [address] [place] [address] Devon Collier MD [address] [place] [address] Dept. of Emergency Medicine [place] [id number] Social History Tobacco Use Types Packs/Day Years [...] Refill(s) Vitamin D3: 50,000 Int Units, Oral, E4Udwlk, 0 Refill(s) aspirin: 81 mg, Oral, Daily, 0 Refill(s) metFORMIN 500 mg oral tablet: 1 Tab, Oral, BID, 60 Tab, 0 Refill(s) nortriptyline 10 mg oral capsule: 1 Cap, Oral, At Bedtime, 90 Cap, 0 Refill(s). Past Medical/ Family/ Social History Medical history Reviewed as documented in chart. Surgical history: Jaw surgery x 30. Dx Lap. Etopic . Pandora Teeth. . Pilonidal cyst. gallbladder. jaw joint [...] refer her to a GI workup in [place] with a specialist there, later this week.. Documents reviewed: Emergency department nurses' notes, emergency department records. playground monitor: Normal sinus rhythm. Results review: Lab results [...] 13.5 % LOW Lymph # 1.79 K/uL [place] % 4.4 % LOW [place] # 0.58 K/uL Eos % 0.8 % LOW Eos # 0.10 K/uL Baso % 0.4 % Baso # 0.05 K/uL Slide Review No IG# 0 x10(3)/uL IG% 0 % . Radiology results: Radiology Results (Last 48 hours) [id number] -- 01/11/2019 06:32 CR Chest 2 Vws [...]
--- OUTSIDE RECORDS SUMMARY | 2025-08-10 16:49 | XMS_ITS | Encounter Summary ---
Author Organization [employer] ([place], [place], [place]) Address [address] [place] [address] Care Team Providers Care Station Mechanic Apprentice Name Role Phone Unavailable Primary Care Provider Unavailabl e Encounter Details Date Type Department Care Team (Late st Contact Info) Description 09/24/2018 Transcribed Document [facility] [place] [facility] [place] [address] ProviderCliff MD [address] [place] [address] Social History Tobacco Use Types Packs/Day Years Used Date Smoking Tobacco: Never Assessed Comments Unknown Sex and Gender Information Value Date Recorded Sex Assigned at Not on file Legal Sex Female 1:20 PM CDT Gender Identity Not on file Sexual Orientation Not on file documented as of this encounter Miscellaneous Notes * Cerner Conversion Note - Historical ProviderMD - 09/24/2018 8:55 AM HEAVY CLEANER Patient Education Materials Follows: documented in this encounter Plan of Treatment Not on file documented as of this encounter Visit Diagnoses Not on filedocumented in this encounter
--- OUTSIDE RECORDS SUMMARY | 2025-08-10 16:49 | XMS_ITS | Encounter Summary ---
Author Organization [employer] ([place], [place], [place], [place]) Address [address] [place] [address] Care Team Providers Care Forge Hand Name Role Phone Unavailable Primary Care Provider Unavailabl e Encounter Details Date Type Department Care Team (Late st Contact Info) Description 05/23/2021 Transcribed Document [facility] [place] [facility] [place] [address] ProviderCliff MD [address] [place] [address] Social History Tobacco Use Types Packs/Day Years [...]
--- OUTSIDE RECORDS SUMMARY | 2025-08-10 16:49 | XMS_ITS | Encounter Summary ---
Author Organization Healthcare Address [address] [place] [address] Care Team Providers Care Water Attendant Name Role Phone Suzette Guthrie APRN Primary Care Provider [phone] Mook Klein MD Primary Care Provider [phone] Chuyita Chan APRN Primary Care Provider [phone] Alex Yoo MD Unavailable [phone] Encounter Details Date Type Department Care Team (Late st Contact Info) Description 09/12/2022 Orders Only [facility] [address] [place] [address] Reese Diego MD [address] [place] [id number] [place] [id number] Social History Tobacco Use Types Packs/Day Years [...] Description 10/20/2025 1:30 PM EST Office Visit [facility] digital sales planner Faculty [facility] [address] [place] [address] [address] [place] [address] Merrick Cowan DMD, MD [address] [facility] [address] [place] [address] 02/08/2026 9:00 AM EDT Office Visit Medical Office Building Surgical Specialties [address] [facility], [address] [place] [address] Aramis Santana MD [address] [facility] [address] [place] [address] documented as of this encounter Procedures Procedure Name Priority Date/Time Associated Diagnosis Comments TSH Routine 09/12/2022 11:06 AM EST documented in this encounter Results * Thyroid Stimulating Hormone, Plasma (09/12/2022 11:06 AM EST) External Thyroid Stimulating Hormone (TSH) 1.260 0.270 - 4.200 uIU/mL [facility] 09/12/2022 11:0 6 AM EST 09/12/2022 11:30 AM EST us Reese Diego MD LAB BLOOD ORDERABLES Final R esult [facility] [address] [place] [address], documented in this encounter Visit Diagnoses Not on filedocumented in this encounter Care Teams Water Attendant Relationship Specialty Start Date End Date Suzette Guthrie APRN [address] [place] [address] PCP - General 01/27/21 04/10/23 Mook Klein MD [address] [place] [address] PCP - General 04/11/23 02/08/25 Chuyita Chan APRN [address] [place] [address] PCP - General 02/09/25 Alex Yoo MD [address] [facility] [address] [place] [address] Referring Physician Gynecology 06/17/25 documented as of this encounter
--- OUTSIDE RECORDS SUMMARY | 2025-08-10 16:49 | XMS_ITS | Encounter Summary ---
Author Organization [employer] ([place], [place], [place], [place]) Address [address] [place] [address] Care Team Providers Care Rotary Cutter Name Role Phone Unavailable Primary Care Provider Unavailabl e Encounter Details Date Type Department Care Team (Late st Contact Info) Description 01/11/2019 Transcribed Document [facility] Radiology [address] [place] [address] Devon Miller MD [address] [place] [address] Dept[place] [address] Social History Tobacco Use Types Packs/Day Years [...] 01/11/2019 12:32 PM EDT Electronically signed by [facility] Conversion Medical Staff Coordinator Cerner at 01/04/2023 1:48 PM CDT documented in this encounter Plan of Treatment Not on file documented as of this encounter Visit Diagnoses Not on filedocumented in this encounter
--- OUTSIDE RECORDS SUMMARY | 2025-08-10 16:49 | XMS_ITS | Encounter Summary ---
[facility] [address] [place] [address] Care Team Providers Care Sales Expert Home Theater Name Role Phone Chuyita Chan TRACY Primary Care Provider [phone] Encounter Details Date Type Department Care Team (Latest Contact Info) Description 07/26/2025 Travel Social History Tobacco Use Types Packs/Day [...] Description 11/12/2025 1:45 PM EST Office Visit [facility] [address] [phone] Mary Rowley APRN [address] [facility] [address] [place] [address] 01/24/2026 10:20 AM EDT Office Visit [facility] [address] [place] [address] Alex Yoo MD [address] [facility] [address] [place] [address] documented as of this encounter Visit Diagnoses Not on filedocumented in this encounter Care Teams Sales Expert Home Theater Relationship Specialty Start Date End Date Chuyita Chan APRN [address] [place] [address] PCP - General Internal Medicine 10/13/24 documented as of this encounter
--- OUTSIDE RECORDS SUMMARY | 2025-08-10 16:49 | XMS_ITS | Encounter Summary ---
Author Organization [employer] ([place], [place], [place], [place]) Address [address] [place] [address] Care Team Providers Care Assistant Kitchen Manager Name Role Phone Unavailable Primary Care Provider Unavailabl e Encounter Details Date Type Department Care Team (Late st Contact Info) Description 01/11/2019 Transcribed Document [facility] Family Medicine [address] [place] [address] ProviderCliff MD [address] [place] [address] Social History Tobacco Use Types Packs/Day Years Used Date Smoking Tobacco: Never Assessed Comments Unknown Sex and Gender Information Value Date Recorded Sex Assigned at Not on file Legal Sex Female 1:20 PM CDT Gender Identity Not on file Sexual Orientation Not on file documented as of this encounter Miscellaneous Notes * Cerner Conversion Note - Cliff ProviderMD - 01/11/2019 7:17 AM CDT Pain Assessment Entered On: 01/11/2019 10:53 EDT Performed On: 01/11/2019 10:53 EDT by Geraldine Carroll RN Intervention Information: HYDROmorphone Performed by Geraldine Carroll RN on 01/11/2019 08:13:00 EDT HYDROmorphone,1mg IV Push,Left Antecubital Cynthia Pain Assessment Pain Assessment : Follow-up assessment Pain Scale Used : 0-10 Scale Geraldine Carroll RN - 01/11/2019 10:53 EDT Pain Scale Intensity : 0 Geraldine Carroll RN - 01/11/2019 10:53 EDT Image 4 - Images currently included in the form version of this document have not been included in the text rendition version of the form. Electronically signed by Jonathan, [facility] Conversion Machine Lacer Cerner at 01/04/2023 1:44 PM CDT documented in this encounter Plan of Treatment Not on file documented as of this encounter Visit Diagnoses Not on filedocumented in this encounter
--- OUTSIDE RECORDS SUMMARY | 2025-08-10 16:49 | XMS_ITS | Encounter Summary ---
Author Organization [employer] ([place], [place], [place], [place], [place]) Address [address] [place] [address] Care Team Providers Care Cream Tester Name Role Phone Unavailable Primary Care Provider Unavailabl e Encounter Details Date Type Department Care Team (Late st Contact Info) Description 09/24/2018 Transcribed Document [facility] [place] [facility] [place] [address] ProviderCliff MD [address] [place] [address] Social History Tobacco Use Types Packs/Day Years Used Date Smoking Tobacco: Never Assessed Comments Unknown Sex and Gender Information Value Date Recorded Sex Assigned at Not on file Legal Sex Female 1:20 PM CDT Gender Identity Not on file Sexual Orientation Not on file documented as of this encounter Miscellaneous Notes * Cerner Conversion Note - Cliff ProviderMD - 09/24/2018 8:54 AM RECOVERY RN RAH Entered On: 09/24/2018 8:54 EST Performed [...] 09/24/2018 8:54 EST Electronically signed by Jonathan [facility] Conversion Food Sanitarian Cerner at 01/04/2023 2:02 PM CDT documented in this encounter Plan of Treatment Not on file documented as of this encounter Visit Diagnoses Not on filedocumented in this encounter
--- OUTSIDE RECORDS SUMMARY | 2025-08-10 16:49 | XMS_ITS | Encounter Summary ---
Author Organization [employer] ([place], [place], [place], [place], [place]) Address [address] [place] [address] Care Team Providers Care Cashiers Bussers Food Runners Name Role Phone Unavailable Primary Care Provider Unavailabl e Encounter Details Date Type Department Care Team (Late st Contact Info) Description 01/11/2019 Transcribed Document [facility] [place] [address] ProviderCliff MD [address] [place] [address] Social History Tobacco Use Types Packs/Day Years [...] On: 01/11/2019 7:24 EDT by Geraldine Carroll COUNSELOR MARRIAGE AND FAMILY Quick Look Assessment Level of Consciousness : Alert, Awake Affect/Behavior : Appropriate, Calm, Cooperative Orientation : Oriented x 4 Skin Temperature : Warm Geraldine Carroll RN - 01/11/2019 7:24 EDT ED General-Functional Assess Information Obtained From : Patient Preferred Communication Mode : Verbal Communication Barrier : None Primary Language : Kazakh Any Spiritual/Cultural Needs or Requests : No [...] 02/23/2015 14:25:47 EDT by TIM EDWARDS, RN) Gastrointestinal ED Gastrointestinal Assessment WDL : WDL with exceptions Gastrointestinal Symptoms : Abdominal pain, Nausea Geraldine Carroll RN - 01/11/2019 7:24 EDT documented in this encounter Plan of Treatment Not on file documented as of this encounter Visit Diagnoses Not on filedocumented in this encounter
--- OUTSIDE RECORDS SUMMARY | 2025-08-10 16:49 | XMS_ITS | Encounter Summary ---
Author Organization [employer] ([place], [place], [place], [place], [place]) Address [address] [place] [address] Care Team Providers Care Partition Making Machine Operator Name Role Phone Unavailable Primary Care Provider Unavailabl e Encounter Details Date Type Department Care Team (Late st Contact Info) Description 05/23/2021 Transcribed Document [facility] [place] [facility] [place] [address] ProviderCliff MD [address] [place] [phone] Social History Tobacco Use Types Packs/Day Years [...] not have sex. General instructions ??? Take uxds-jdu-isklqix and prescription medicines only as told by [...] provider. Document Revised: 08/15/2018 Document Reviewed: 05/20/2017 [employer] Patient Education ? 2020 [employer]. Diagnostic Laparoscopy, Care After This sheet gives [...] these instructions at home: Medicines ??? Take ewwo-xfw-mfdqlua and prescription medicines only as told by [...] and water are not available, use hand nuclear operations specialist. ? Change your dressing as told by [...] keep your urine pale yellow. ? Take ramk-juw-zdmlidv or prescription medicines. ? Eat foods that [...] provider. Document Revised: 08/15/2018 Document Reviewed: 02/26/2018 [employer] Patient Education ? 2020 [employer]. Pharmacology General Anesthesia, Adult, Care After This [...] activities are safe for you. ??? Take qlhv-wem-mjcjriy and prescription medicines only as told by [...] provider. Document Revised: 09/05/2018 Document Reviewed: 04/18/2018 [employer] Patient Education ? 2020 [employer] documented in this encounter Plan of Treatment Not on file documented as of this encounter Visit Diagnoses Not on filedocumented in this encounter
--- OUTSIDE RECORDS SUMMARY | 2025-08-10 16:49 | XMS_ITS | Encounter Summary ---
Author Organization [employer] ([place], [place], [place], [place], [place]) Address [address] [place] [address] Care Team Providers Care Entry Level Finance Name Role Phone Unavailable Primary Care Provider Unavailabl e Encounter Details Date Type Department Care Team (Late st Contact Info) Description 05/23/2021 Transcribed Document [facility] [place] Family [place] [facility] [place] [address] ProviderCliff MD [address] [place] [address] [id number] Social History Tobacco Use Types Packs/Day Years [...] Finalized Date/Time: 05/23/21 17:48:32 Pt. Name: SWATI MARQUEZ D.O.B./Sex: 1980 Female Med Rec #: [id number] Physician: JAJA MONTANO DO Financial #: [id number] Pt. Type: O Room/Bed: Admit/Disch: 05/23/21 11:12:00 - Institution: [facility] OR PostOp Case Times Entry 1 In PACU II 05/23/21 16:45:00 Ready for PACU II 05/23/21 17:48:00 Discharge Discharge from PACU 05/23/21 17:48:00 II Last Modified By: Doirs Boykin RN 05/23/21 17:48:29 Finalized By: Doris Boykin, RN Document Signatures Signed By: Doris Boykin RN 05/23/21 17:48 Electronically signed by [facility] Conversion Food Technologist Cerner at 01/04/2023 1:52 PM CDT documented in this encounter Plan of Treatment Not on file documented as of this encounter Visit Diagnoses Not on filedocumented in this encounter
--- OUTSIDE RECORDS SUMMARY | 2025-08-10 16:49 | XMS_ITS | Clinical Summary ---
Author Organization [facility] Address [address] [facility] [address] [place] [address] Phone Care Team Providers Care Case Management Social Worker Name Role Phone Preston Todd Unavailable Unavailable Conditions or Problems Problem Name Problem Code Onset Date Status Entry Date Provider Comment Standard Description Annotate Diarrhea 35135225 (SNOMED CT) 04/01 Active 04/01 Emily Jeffrey RN Diarrhea Elevated liver enzymes 556534237 (SNOMED CT) 03/29 Active 03/31 Whit Lopez MD Liver enzymes outside reference range Pertussis 48063360 (SNOMED CT) 03/29 Active 03/31 Whit Lopez MD Pertussis Hoarseness, chronic 6082397408554 (SNOMED CT) 03/29 Active 03/29 Whit Lopez MD Chronic hoarseness Fuo 3288765 (SNOMED CT) 03/29 Active 03/29 Whit Lopez MD Pyrexia of unknown origin Whooping cough, unspecified organism 44292834 (SNOMED CT) 03/28 Active 03/28 Samia Zachary Bordetellosis Pulmonary infiltrates 348227695 (SNOMED CT) 03/28 Active 03/28 Samia Zachary Asthmatic pulmonary eosinophilia Pulmonary atelectasis 27213963 (SNOMED CT) 03/28 Active 03/28 Samia Zachary Atelectasis Pneumonia 309401612 (SNOMED CT) 03/28 Active 03/28 Samia Zachary Pneumonia Medications Medication Instructions Start Date Stop Date Generic Name [facility] Provider DOXYCYCLINE HYCLATE 100 MG CAPS 1 bid DOXYCYCLINE HYCLATE 38598839244 Whit COLON (IV) several different plant and tree derivatives DARLENE (IV) Renato Muñoz VITAMIN D (CHOLECALCIFER OL) CAPS take 1 cap po daily CHOLECALCIFEROL CAPS 37560173383 Renato Muñoz CALTRATE 600+D 600-800 MG-UNIT ORAL TABLET take 1 tablet daily CALCIUM CARB-CHOLECALCIFER OL 22111649022 Renato Muñoz CLONAZEPAM 1 MG TABS take 1 tablet daily CLONAZEPAM 50248079936 Renato Muñoz PROPRANOLOL HCL 10 MG TABS take 1 tablet daily PROPRANOLOL HCL 51042098402 Renato Muñoz VITAMIN D (ERGOCALCIFERO L) 1.25 MG (22065 UT) CAPS take 1 capsule every 30 days ERGOCALCIFEROL 07684352868 Renato Muñoz IBUPROFEN 800 MG TABS take 1 tablet every 8 hours as needed IBUPROFEN 52804538555 Renato Muñoz HYDROCOD POLST-CPM POLST ER 10-8 MG/5ML ORAL SUSPENSION EXTENDED RELEASE take 5 mL every 12 hours as needed HYDROCOD POLST-CHLORPHEN POLST 46322281571 Renato Muñoz BENZONATATE 200 MG CAPS take 1 capsule t.i.d. BENZONATATE 34900738813 Renato Muñoz PROPRANOLOL HCL 10 MG TABS take 1 tablet daily PROPRANOLOL HCL 56138556197 Maxim Gasca VITAMIN D (ERGOCALCIFERO L) 1.25 MG (01799 UT) CAPS take 1 capsule every 30 days ERGOCALCIFEROL 81371640530 Maxim Gasca IBUPROFEN 800 MG TABS take 1 tablet every 8 hours as needed IBUPROFEN 03130372641 Maxim Gasca HYDROCOD POLST-CPM POLST ER 10-8 MG/5ML ORAL SUSPENSION EXTENDED RELEASE take 5 mL every 12 hours as needed HYDROCOD POLST-CHLORPHEN POLST 29957323196 Maxim Gasca TYLENOL PM EXTRA STRENGTH 500-25 MG TABS take 1 tablet at night DIPHENHYDRAMINE-AP AP (SLEEP) 33599792024 Maxim Gasca CLONAZEPAM 1 MG TABS take 1 tablet daily CLONAZEPAM 07750730357 Maxim Gasca CALTRATE 600+D 600-800 MG-UNIT ORAL TABLET take 1 tablet daily CALCIUM CARB-CHOLECALCIFER OL 46795765545 Maxim Gasca BENZONATATE 200 MG CAPS take 1 capsule t.i.d. BENZONATATE 00445007591 Maxim Gasca ASPIRIN 81 81 MG TBEC take 1 tablet daily ASPIRIN 28713434571 Maxim Gasca Medications Administered No information available. Allergies, Adverse Reactions, Alerts Allergy Name Reaction Description Start Date Severity Statu s Provider ADHESIVE TAPE Critical Active Maxim Gasca CONTRAST DYE Critical Active Maxim Gasca Results Date Name Value Unit Range Flag Description Office Visit: 11 MEDS REVIEW Done Documenta tion of current medications (procedure) ORALTOBACUSE Never Tobacco smoking status SMOK STATUS Never smoker Toba technical account manager smoking status Plan of Care Type Date Detail Pending order C-Diff PCR Pending order Q Fever serology Procedures Code Procedure Name Date Entry Date CPT-61972 Q Fever serology Vital Signs Date Name [...]
--- OUTSIDE RECORDS SUMMARY | 2025-08-10 16:49 | XMS_ITS | Encounter Summary ---
Author Organization [employer] ([place], [place], [place], [place], [place]) Address [address] [place] [address] Care Team Providers Care Insole Rounder Name Role Phone Unavailable Primary Care Provider Unavailabl e Encounter Details Date Type Department Care Team (Late st Contact Info) Description 09/24/2018 Transcribed Document [facility] [place] [facility] [place] [address] ProviderCliff MD [address] [place] [address] [id number] Social History Tobacco Use Types Packs/Day Years Used Date Smoking Tobacco: Never Assessed Comments Unknown Sex and Gender Information Value Date Recorded Sex Assigned at Not on file Legal Sex Female 1:20 PM CDT Gender Identity Not on file Sexual Orientation Not on file documented as of this encounter Miscellaneous Notes * Cerner Conversion Note - Cliff ProviderMD - 09/24/2018 9:59 AM INSOLE AND OUTSOLE SPLITTER [facility] Main OR IntraOp Summary Primary Physician: ZABRINA HORNER MD-OBG Finalized Date/Time: 09/24/18 10:52:16 Pt. Name: JIMMY GWENDOLYNNATASHA Read/Sex: 1980 Female Med Rec #: [id number] Physician: ZABRINA HORNER MD-OBG Financial #: [id number] Pt. Type: O Room/Bed: Admit/Disch: 09/24/18 07:39:00 - Institution: [facility] IntraOp Case Attendance Entry 1 Entry 2 Entry 3 Case Attendee ZABRINA HORNER MD-OBG TIM SABA, PLASTICS FITTER ABI RAYA PA-C Role Performed Surgeon/Proceduralist, PLASTICS FITTER/Nurse Dive Superintendent Physician nursing home assistant administrator First Time In 09/24/18 09:34:00 09/24/18 09:34:00 09/24/18 09:34:00 Time Out 09/24/18 10:37:00 09/24/18 10:50:00 09/24/18 10:50:00 Procedure Laparoscopy Operative w Laparoscopy Operative w Laparoscopy Operative w Laser, Lysis Adhesions, Laser, Lysis Adhesions, Laser, Lysis Adhesions, Chromotubation Chromotubation Chromotubation Laparoscopic Laparoscopic Laparoscopic Other Attendee Superficial Wound Closed By: Last Modified By: Kellie Gallardo Gillenwater, Cheryl B, Kellie Gallardo, RN 09/24/18 10:42:11 RN 09/24/18 10:51:49 RN 09/24/18 10:51:49 Entry 4 Entry 5 Entry 6 Case Attendee Kellie Gallardo Smith, Kayla R., Scrub Fabian Hope RN Tech Role Performed Choral Director, First Scrub, First Electric Motor Repair Supervisor, Ancillary Time In 09/24/18 09:34:00 09/24/18 09:34:00 [...] Case Attendee Marimar Flowers Role Performed Laser Career Professional Time In 09/24/18 09:34:00 Time Out 09/24/18 10:50:00 Procedure Laparoscopy Operative w Laser, Lysis Adhesions, Chromotubation Laparoscopic Other Attendee Superficial Wound Closed By: Last Modified By: Kellie Gallardo RN 09/24/18 10:51:49 [facility] IntraOp Case Attendance Audit 09/24/18 10:51:49 Public Safety Officer: FRANNIEECB Modifier: GILLECB 1 <*> Procedure Laparoscopy [...] Laser, Lysis Adhesions, Chromotubation Laparoscopic 09/24/18 10:51:26 Public Safety Officer: FRANNIEECB Modifier: GILLECB <+> 7 Case Attendee <+> 7 Role Performed <+> 7 Procedure 09/24/18 10:42:11 Public Safety Officer: FRANNIEECB Modifier: GILLECB 1 <+> Time Out 1 <*> Procedure Laparoscopy Operative w Laser, Lysis Adhesions, Chromotubation Laparoscopic 09/24/18 10:15:46 Public Safety Officer: FRANNIEECB Modifier: GILLECB 1 <*> Procedure Laparoscopy Operative w Laser 2 <*> Procedure Laparoscopy Operative w Laser 3 <*> Procedure Laparoscopy Operative w Laser 4 <*> Procedure Laparoscopy Operative w Laser 5 <*> Procedure Laparoscopy Operative w Laser 6 <*> Procedure Laparoscopy Operative w Laser 09/24/18 10:08:09 Public Safety Officer: FRANNIEECB Modifier: GILLECB <+> 1 Procedure 2 [...] [facility] Intra[facility] Case Times Audit 09/24/18 10:51:47 Public Safety Officer: GILLECB Modifier: GILLECB <+> 1 Out Room Time <+> 1 Stop Time 09/24/18 10:41:57 Public Safety Officer: GILLECB Modifier: GILLECB <+> 1 Stop Time 09/24/18 10:11:08 Public Safety Officer: GILLECB Modifier: GILLECB <+> 1 Start Time [facility] IntraOp Cautery Entry 1 ESU Identification Cautery Type Monopolar ESU ID Number [id number] ID Type Hospital Number Cautery Settings Cut [...] [facility] Intra[facility] Counts Verification Audit 09/24/18 10:15:47 Public Safety Officer: GILLECB Modifier: GILLECB 1 <*> Procedure Laparoscopy Operative w Laser [facility] Intra[facility] Counts Final Entry 1 Procedure Laparoscopy Operative w Laser, Lysis Adhesions, Chromotubation Laparoscopic Final Count Info Count Type Sponge, Sharps, Miscellaneous Counts Verification Skin Closure/end of Sequence procedure Count Results Correct, surgeon notified Counts Performed By Count Performed By Marie Byers, Scrub (Scrub) Tech Count Performed By Kellie Gallardo, (RN) ANNIE Last Modified By: Kellie Gallardo RN 09/24/18 10:33:04 [facility] IntraOp Counts Final Audit 09/24/18 10:33:04 Public Safety Officer: JESSEB Modifier: GILLECB 1 <*> Procedure Laparoscopy Operative w Laser, Lysis Adhesions, Chromotubation Laparoscopic 1 <+> Counts Verification Sequence 09/24/18 10:15:48 Public Safety Officer: JESSEB Modifier: FRANNIEECB 1 <*> Procedure Laparoscopy Operative w Laser [facility] Intra[facility] Departure from OR Entry 1 Integumentary Assessment Integumentary WDL Assessment WDL Transfer/Handoff Transfer to PACU Phase I Handoff Method Bedside/Face to face Post-op Transport Stretcher/Gurney Via Patient Transport Kellie Gallardo, Accompanied by RN, TIM SABA CRNA Last Modified By: Kellie Gallardo RN 09/24/18 [...] IntraOp Fire Risk Assessment Audit 09/24/18 10:16:16 Public Safety Officer: MARTHA Modifier: GILLECB 1 <*> Fire Risk Assessment Verified 09/24/18 10:15:00 Date/Time [facility] IntraOp General Case Tank Truck Engine Mechanic 1 Case Information OR OR 03 [facility] [...] personnel Measures Included received laser safety information, [place] of water/Saline immediately available, Fire extinguisher location [...] IntraOp Medication Admin Entry 1 Medication/Irrigant Indigo [place] 0.8% 5ml - [id number] Route of CERVIX - CHECK Administration FALLOPIAN [...] PATIENT POSITIONED ON HUG-U-VAC Positioned By Kellie Gallardo RN, TIM SABA, JARVIS, ZABRINA HORNER MD-OBG Position [...] Intra Op Sign Out Audit 09/24/18 10:51:36 Public Safety Officer: MARTHA Modifier: MARTHA <+> 1 RN Sign [...] [facility] IntraOp Surgical Procedures Audit 09/24/18 10:52:12 Public Safety Officer: GILLECB Modifier: GILLECB 1 <*> Procedure Laparoscopy Operative w Laser 09/24/18 10:43:34 Public Safety Officer: GILLECB Modifier: GILLECB 1 <*> Procedure Laparoscopy Operative w Laser 2 <*> Procedure Lysis Adhesions 2 <*> Primary Procedure No 09/24/18 10:42:25 Public Safety Officer: GILLECB Modifier: GILLECB 1 <*> Procedure Laparoscopy Operative w Laser 1 <+> Stop 2 <*> Procedure Lysis Adhesions 2 <+> Stop 3 <*> Procedure Chromotubation Laparoscopic 3 <+> Stop 09/24/18 10:22:44 Public Safety Officer: GILLECB Modifier: GILLECB <+> 3 Start 09/24/18 10:15:39 Public Safety Officer: GILLECB Modifier: GILLECB 1 <*> Procedure Laparoscopy [...] [facility] IntraOp Time Out Audit 09/24/18 10:33:35 Public Safety Officer: MARTHA Modifier: MARTHA 1 <+> Antibiotic Prophylaxis [...]
--- OUTSIDE RECORDS SUMMARY | 2025-08-10 16:49 | XMS_ITS | Clinical Summary ---
Author Organization [employer] ([place], [place], [place], [place], [place]) Address [address] [place] [address] Care Team Providers Care Chemical Laboratory Chief Name Role Phone Unavailable Primary Care Provider [...]
--- OUTSIDE RECORDS SUMMARY | 2025-08-10 16:49 | XMS_ITS | Encounter Summary ---
Author Organization [employer] ([place], [place], [place], [place], [place]) Address [address] [place] [address] Care Team Providers Care Supervisor Production Department Name Role Phone Unavailable Primary Care Provider Unavailabl e Encounter Details Date Type Department Care Team (Late st Contact Info) Description 01/11/2019 Transcribed Document [facility] Family Medicine [facility] [place] [address] ProviderCliff MD [address] [place] [id number] Social History Tobacco Use Types Packs/Day Years [...] Enrique Cam Rn - 01/11/2019 12:14 EDT Electronically signed by Jonathan [facility] Conversion As400 Consultant Cerner at 01/04/2023 1:35 PM CDT documented in this encounter Plan of Treatment Not on file documented as of this encounter Visit Diagnoses Not on filedocumented in this encounter
--- OUTSIDE RECORDS SUMMARY | 2025-08-10 16:49 | XMS_ITS | Clinical Summary ---
Author Organization [facility] Address [address] [place] [address] Care Team Providers Care Refinery Operator Helper Cracking Unit Name Role Phone Chuyita Chan APRN Primary Care Provider [phone] Alex Yoo MD Unavailable [phone] Allergies Active Allergy Reactions Criticality Noted Date Comments Antihistamines, Chlorpheniramine-Type Hives Medium 05/27/2023 Only in high doses (has tolerated intermittent doses of Benadryl previously) Iodinated Contrast Media Rash Low 05/27/2023 Latex Rash Medium 05/27/2023 Tape/Bandaid Adhesive Rash Medium 06/23/2024 Medications escitalopram (Lexapro) 10 MG tablet Take 1 tablet (10 mg) by mouth 1 (one) time each day. 3 Active Tirzepatide-Parish ght Management (Zepbound) 15 MG/0.5ML [...] if needed for mild pain. 30 tablet 4 Active Additional Information Patient not taking.Reported on 02/09/2025 HYDROcodone-tamera taminophen (Charmco) 5-325 MG tablet Take 1 tablet (5 mg of hydrocodone) by mouth every 6 (six) hours if needed for severe pain. 20 tablet Active Additional Information Patient not taking.Reported on [...] Do not crush or chew. 30 capsule Active Additional Information Patient not taking.Reported on [...] Problem Code: Z68.30; Problem Code Type: ICD-10; Abdominal pain 06/22/2015 Exposure keratoconjunctivitis of right [...] otitis media 03/09/2024 Acute pharyngitis 08/11/2019 06/06/2025 Pneumonia due to organism 03/18/2017 Diarrhea 05/16/2015 06/06/2025 Overview (02/04/2025): From Automated Load;Provider: Jesse Herrera;Status: Active Encounters Date Type Department Care Team Description 05/12/2025 Telephone [facility] [address] [place] [address] [address] [place] [address] Surgeon Briceno MD from Last [...] How often do you attend chur or zoroastrianism services? More than 4 times per year 02/09/2025 Do you belong to any clubs o r organizations such as gnosticist groups, unions, fraternal or athletic groups, or [...] Recorded Patient Health Questionnaire-2 Score 0 02/09/2025 [facility] - Occupational [...] any time in the past 12 m [facility], were you homeless or living in a penitentiary (including now)? No 02/09/2025 Utilities Answer Date Recorded In the past 12 months has e electric, gas, oil, or water company [...] Description 10/20/2025 1:30 PM EST Office Visit [facility] [address] [facility] [address] [place] [address] Merrick Cowan DMD, MD [address] [facility] [address] [place] [address] 02/08/2026 9:00 AM EDT Office Visit [facility] [address] [place] [address] Aramis Santana MD [address] [place] [address] Health Maintenance Due Date Last Done Comments Dental Oral Exam 1980 Dental Prophylaxis 1980 Dental X-Ray: Bitewings 1980 Dental X-Ray: Full Mouth 1980 [facility]-HIV Screening 1980 [facility]-Hepatitis C Screening 1980 [facility]-/Child/Adol SDOH Screenings 1980 [facility]-SDRIQ-69 Vaccine (#1) 1985 [facility]-Varicella Vaccines (1 of 2 - 13+ 2-dose series) 1993 [facility]-DTaP,Tdap,and Td Vaccine s (1 - Tdap) 1999 [facility]-Hepatitis B Vaccines (1 of 3 - 19+ 3-dose series) 1999 HPV Vaccines (1 - 3-dose SCD [...] on patient's age to complete this topic [facility]-Pneumococcal Vaccine: Pediatrics (0 to 5 Years) and At-Risk Patients (6 to 49 Years) Aged Out No longer eligible b ased on patient's age to complete this topic [facility]-Rotavirus Vaccines Aged Out No lo nger eligible based on patient's age to complete this topic Insurance ANTHEM Care Teams Refinery Operator Helper Cracking Unit Relationship Specialty Start Date End Date Chuyita Chan APRN [address] [place] [address] PCP - General 02/09/25 Alex Yoo MD [address] [facility] [address] [place] [address] Referring Physician Gynecology 06/17/25
--- OUTSIDE RECORDS SUMMARY | 2025-08-10 16:49 | XMS_ITS | Encounter Summary ---
Author Organization [employer] ([place], [place], [place], [place], [place]) Address [address] [place] [address] Care Team Providers Care Angle Bender Name Role Phone Unavailable Primary Care Provider Unavailabl e Encounter Details Date Type Department Care Team (Late st Contact Info) Description 05/23/2021 Transcribed Document [facility] [place] [address] ProviderCliff MD [address] [place] [address] [id number] Social History Tobacco Use Types Packs/Day Years [...] Finalized Date/Time: 05/23/21 14:50:05 Pt. Name: SWATI MARQUEZ D.O.B./Sex: 1980 Female Med Rec #: [id number] Physician: JAJA MONTANO DO Financial #: [id number] Pt. Type: O Room/Bed: Admit/Disch: 05/23/21 11:12:00 - [place] [facility] [place] PreOp Case Times Entry 1 In Preop 05/23/21 11:25:00 Ready for Holding n/a Room Patient Ready for 05/23/21 12:15:00 Surgery Patient Out of Preop 05/23/21 14:00:00 Patient Out of n/a Holding Room Last Modified By: Treva Paniagua Rn 05/23/21 14:50:00 [facility] PreOp Case Times Audit 05/23/21 14:50:00 Rock Singer: [email or web address] Modifier: DKORT <+> 1 Patient Out of Preop Finalized By: Treva Paniagua, Rn Document Signatures Signed By: Treva Paniagua Rn 05/23/21 14:50 documented in this encounter Plan of Treatment Not on file documented as of this encounter Visit Diagnoses Not on filedocumented in this encounter
--- OUTSIDE RECORDS SUMMARY | 2025-08-10 16:49 | XMS_ITS | Encounter Summary ---
Author Organization [employer] ([place], [place], [place], [place], [place]) Address [address] [place] [address] Care Team Providers Care Musculoskeletal Physiotherapist Name Role Phone Unavailable Primary Care Provider Unavailabl e Encounter Details Date Type Department Care Team (Late st Contact Info) Description 05/23/2021 Transcribed Document [facility] [place] [facility] [place] [address] ProviderCliff MD [address] [place] [address] [id number] Social History Tobacco Use Types Packs/Day Years [...] Source : Stated Height Entry Format : [place] Height, Feet : 5 ft(Converted to: 152 cm, 60 Inch) Height, Inches : 5 Inch(Converted to: 0 ft 5 Inch, 12.70 cm) Clinical Height : 165.1 cm Weight Source : Sling Scale Weight Entry Format : [place] Clinical Dosing Weight : 92.73 kg Weight, Pounds : 204 lb Body Surface Area (BSA) : 2 m2 Body Mass Index : 34 kg/m2 (HI) [place] Body Weight : 57 kg Treva Paniagua [...] Home Patient Lives With : Spouse DIANE [place] Immediate/Within 3 Months : No Current Home Treatments : None Treva Paniagua Rn - 05/23/2021 13:00 EDT [place] Suicide Severity Rating Scale (C-SSRS) CSSRS Past [...] Date/Time : 05/23/2021 11:25 EDT Support Person/Patient Manager It Training : Yes Support Person/Pt Rep Name : Valdemar Braxton Support Person/Pt Rep Contact Information : [phone] Want Family/Rep/Phys Notified of Admit : Treva Perez Rn - 05/23/2021 13:00 EDT Emergency Contact #1 : Treva Craig Rn - 05/23/2021 13:36 EDT Emergency Contact #1 Emergency Contact #1 Relationship : spouse Emergency Contact #2 : . Emergency Contact #2 Phone Number : . Emergency Contact #2 Relationship : . Information Obtained From : Patient Primary Language : German Preferred Communication Mode : Verbal Communication Barrier : None Sports Nutritionist Needed : Treva Perez Rn - 05/23/2021 [...] Rarely moist Brent Activity : Walks frequently Bretn Mobility : No limitation Brent Nutrition : [...] Scale Risk Level : 25-45 Medium Risk [place] Fall Interventions : Adequate lighting, Assistive devices [...] Verbalizes understanding Wheelchair Safety : Verbalizes understanding Treva Paniagua Rn - 05/23/2021 13:00 EDT Barriers [...] rendition version of the form. Shola Coma Ellis Best Motor Response : Obey commands Shola Best Verbal Response : Oriented Ellis Eye Opening Response : Spontaneous Shola Coma Score : 15 Treva Paniagua Rn - 05/23/2021 13:00 EDT Electronically signed by Jonathan, [facility] Conversion Public Health Officer Cerner at 01/04/2023 1:51 PM CDT documented in this encounter Plan of Treatment Not on file documented as of this encounter Visit Diagnoses Not on filedocumented in this encounter
--- OUTSIDE RECORDS SUMMARY | 2025-08-10 16:49 | XMS_ITS | Encounter Summary ---
Author Organization [facility] Address [address] [place] [address] Care Team Providers Care Historic Interpreter Name Role Phone Chuyita Chan DECK HAND Primary Care Provider + [phone] Encounter Details Date Type Department Care Team (Late Contact Info) Description 05/04/2025 Results Follow-Up [facility] [address] [place] [address] Alex Yoo MD [address] [facility] [address] [place] [address] Social History Tobacco Use Types Packs/Day Years [...] Department Care Team (Late Contact Info) Description 11/12/2025 1:45 PM EST Office Visit [facility] [address] [facility] [address] [place] [phone] Mary Rowley, DECK HAND [address] [place] [address] 01/24/2026 10:20 AM EDT Office Visit [facility] [address] [place] [address] Alex Yoo MD [address] [facility] [address] [place] [address] documented as of this encounter Visit Diagnoses Not on filedocumented in this encounter Care Teams Historic Interpreter Relationship Specialty Start Date End Date Chuyita Chan, TRACY [facility] [address] [address] PCP - General Internal Medicine 10/13/24 documented as of this encounter
--- OUTSIDE RECORDS SUMMARY | 2025-08-10 16:49 | XMS_ITS | Encounter Summary ---
Author Organization [employer] ([place], [place], [place], [place], [place]) Address [address] [place] [address] Care Team Providers Care Armed Guard Name Role Phone Unavailable Primary Care Provider Unavailabl e Encounter Details Date Type Department Care Team (Late st Contact Info) Description 01/11/2019 Transcribed Document [facility] Family Medicine [place] [address] ProviderCliff MD [address] [place] [phone] Social History Tobacco Use Types Packs/Day Years [...] Index: 28.5 kg/m2 High (01/11/19 06:40:00) ISRAEL ARVIZU RN - 01/11/2019 8:09 EDT documented in this encounter Plan of Treatment Not on file documented as of this encounter Visit Diagnoses Not on filedocumented in this encounter
--- OUTSIDE RECORDS SUMMARY | 2025-08-10 16:49 | XMS_ITS | Encounter Summary ---
Author Organization Healthcare Address [address] [place] [address] Care Team Providers Care Respite Provider Name Role Phone Suzette Guthrie APRN Primary Care Provider [phone] Mook Klein MD Primary Care Provider [phone] Chuyita Chan APRN Primary Care Provider [phone] Alex Yoo MD Unavailable [phone] Encounter Details Date Type Department Care Team (Late st Contact Info) Description 09/12/2022 Orders Only [facility] [address] [place] [address] Reese Diego MD [address] [id number] [place] [phone] Social History Tobacco Use Types Packs/Day Years [...] Visit [facility] switch cleaner [facility] [address] [place] [address] [address] [place] [address] Merrick Cowan DMD, MD [address] [facility] [address] [place] [address] 02/08/2026 9:00 AM EDT Office Visit Medical Office Building Surgical Specialties [address] [facility], [address] [place] [address] Aramis Santana MD [address] [facility] [address] [place] [address] documented as of this encounter Procedures Procedure Name Priority Date/Time Associated Diagnosis Comments HEMOGLOBIN A1C Routine 09/12/2022 11:06 AM EST documented in this encounter Results * Hemoglobin A1c (09/12/2022 11:06 AM EST) External Glycosylated Hemoglobin (Hgb A1C) 5.3 0.0 - 5.6 % [facility] External Estimated Average Glucose 105 mg/dl (calc) [facility] Comment: A1c values between 5.7% to 6.4% indicate prediabetes. Results 6.5% or greater is diagnostic of diabetes. [place] [employer] (diabetes.org) 09/12/2022 11:0 6 AM EST 09/12/2022 11:16 AM EST us Reese Diego MD LAB BLOOD ORDERABLES Final R esult [facility] [address] [place] [address], documented in this encounter Visit Diagnoses Not on filedocumented in this encounter Care Teams Respite Provider Relationship Specialty Start Date End Date Suzette Guthrie APRN [address] [place] [address] PCP - General 01/27/21 04/10/23 Mook Klein MD [address] [place] [address] PCP - General 04/11/23 02/08/25 Chuyita Chan APRN [address] [place] [address] PCP - General 02/09/25 Alex Yoo MD [address] [place] [facility] [address] [place] [address] Referring Physician Gynecology 06/17/25 documented as of this encounter
--- OUTSIDE RECORDS SUMMARY | 2025-08-10 16:49 | XMS_ITS | Encounter Summary ---
Author Organization [employer] ([place], [place], [place], [place], [place]) Address [address] [place] [address] Care Team Providers Care Piping Drafter Name Role Phone Unavailable Primary Care Provider Unavailabl e Encounter Details Date Type Department Care Team (Late st Contact Info) Description 01/11/2019 Transcribed Document [facility] [place] [facility] [place] [address] ProviderCliff MD [address] [place] [address] Social History Tobacco Use Types Packs/Day Years Used Date Smoking Tobacco: Never Assessed Comments Unknown Sex and Gender Information Value Date Recorded Sex Assigned at Not on file Legal Sex Female 1:20 PM CDT Gender Identity Not on file Sexual Orientation Not on file documented as of this encounter Miscellaneous Notes * Cerner Conversion Note - Cliff ProviderMD - 01/11/2019 7:16 AM CDT Pain [...] version of the form. Electronically signed by Fariba Castillo Conversion Field Service Technician Poultry Cerner at 01/04/2023 1:46 PM CDT documented in this encounter Plan of Treatment Not on file documented as of this encounter Visit Diagnoses Not on filedocumented in this encounter
--- OUTSIDE RECORDS SUMMARY | 2025-08-10 16:49 | XMS_ITS | Encounter Summary ---
Author Organization [employer] ([place], [place], [place], [place], [place]) Address [address] [place] [address] Care Team Providers Care Medical Oncologist Name Role Phone Unavailable Primary Care Provider Unavailabl e Encounter Details Date Type Department Care Team (Late st Contact Info) Description 09/24/2018 Transcribed Document [facility] Family Medicine [facility] [place] [address] ProviderCliff MD [address] [place] [address] [phone] Social History Tobacco Use Types Packs/Day Years Used Date Smoking Tobacco: Never Assessed Comments Unknown Sex and Gender Information Value Date Recorded Sex Assigned at Not on file Legal Sex Female 1:20 PM CDT Gender Identity Not on file Sexual Orientation Not on file documented as of this encounter Miscellaneous Notes * Cerner Conversion Note - Cliff ProviderMD - 09/24/2018 9:59 AM PRE [facility] PostOp Summary Primary Physician: ZABRINA HORNER MD-OBG Finalized Date/Time: 09/24/18 12:44:40 Pt. Name: SWATI MARQUEZ/Sex: 1980 Female Med Rec #: [id number] Physician: ZABRINA HORNER MD-OBG Financial #: [id number] Pt. Type: O Room/Bed: Admit/Disch: 09/24/18 07:39:00 - Institution: [facility] OR PostOp Case Times Entry 1 In PACU II 09/24/18 11:45:00 Ready for PACU II 09/24/18 12:35:00 Discharge Discharge from PACU 09/24/18 12:35:00 II Last Modified By: TRENT OSBORN RN 09/24/18 12:44:24 Finalized By: TRENT OSBORN RN Document Signatures Signed By: TRENT OSBORN RN 09/24/18 12:44 Electronically signed by Jonathan [facility] Conversion Special Distribution Clerk Cerner at 01/04/2023 1:49 PM CDT documented in this encounter Plan of Treatment Not on file documented as of this encounter Visit Diagnoses Not on filedocumented in this encounter
--- OUTSIDE RECORDS SUMMARY | 2025-08-10 16:49 | XMS_ITS | Encounter Summary ---
Author Organization [employer] ([place], [place], [place], [place], [place]) Address [address] [place] [address] Care Team Providers Care Unit Aide Tech Name Role Phone Unavailable Primary Care Provider Unavailabl e Encounter Details Date Type Department Care Team (Late st Contact Info) Description 05/23/2021 Transcribed Document [facility] [place] Family [place] [facility] [place] [address] ProviderCliff MD [address] [place] [address] [phone] Social History Tobacco Use Types Packs/Day Years [...] 05/23/2021 2:40 PM CDT [facility] IntraOp Summary Primary Physician: JAJA MONTANO DO Finalized Date/Time: 05/23/21 15:39:14 Pt. Name: JIMMY GWENDOLYNNATASHA TobarO.B./Sex: 1980 Female Med Rec #: [id number] Physician: JAJA MONTANO DO Financial #: [id number] Pt. Type: O Room/Bed: Admit/Disch: 05/23/21 11:12:00 - Institution: [facility] IntraOp Case Attendance Entry 1 Entry 2 Entry 3 Case Attendee JAJA MONTANO DO SKEENS, STEPHEN J, CRNA BOOKER, P CRAIG MD-ANS Role Performed Surgeon/Proceduralist, FITTER ARMAMENT/Nurse Jewel Bearing Maker Anesthesiologist First Time In 05/23/21 14:08:00 05/23/21 14:08:00 05/23/21 14:15:00 Time Out 05/23/21 15:30:00 05/23/21 15:30:00 05/23/21 14:37:00 Procedure Laparoscopy Diagnostic, Laparoscopy Diagnostic, Laparoscopy Diagnostic, Uterine Dilatation Uterine Dilatation Uterine Dilatation Curettage w Suction Curettage w Suction Curettage w Suction Other Attendee Superficial Wound Closed By: Last Modified By: Meek Kumar, Meek Kumar, Meek Kumar, Rn-Traveler 05/23/21 Rn-Traveler 05/23/21 Rn-Traveler 05/23/21 15:30:15 15:30:15 15:30:15 Entry 4 Entry 5 Entry 6 Case Attendee Rahul Klein, Tabitha Sanders, - Marimar Parker, Wireless Sales Representative Role Performed ASSOCIATE PROFESSOR OF COUNSELING Staff - Other Scrub, First Time In [...] Case Attendee Meek Kumar Rn-Traveler Role Performed Roof Mechanic, First Time In 05/23/21 14:08:00 Time Out 05/23/21 15:30:00 Procedure Laparoscopy Diagnostic, Uterine Dilatation Curettage w Suction Other Attendee Superficial Wound Closed By: Last Modified By: Meek Kumar Rn-Traveler 05/23/21 15:30:15 [facility] IntraOp Case Attendance Audit 05/23/21 15:30:27 Inside Sales Agent: [id number] Modifier: [id number] <+> 4 Procedure 05/23/21 15:30:15 Inside Sales Agent: [id number] Modifier: [id number] 1 <+> Time In 1 <+> Time [...] Uterine Dilatation Curettage w Suction 05/23/21 14:42:03 Inside Sales Agent: [id number] Modifier: [id number] 1 <*> Procedure Laparoscopy Diagnostic, Uterine Dilatation [...] [facility] IntraOp Case Times Audit 05/23/21 15:30:15 Inside Sales Agent: [id number] Modifier: [id number] <+> 1 Out Room Time <+> 1 Stop Time 05/23/21 15:26:36 Inside Sales Agent: [id number] Modifier: [id number] <+> 1 Stop Time [facility] IntraOp Cautery [...] By Count Performed By Marimar Flowers (Scrub) Wireless Sales Representative Count Performed By Meek Kumar (RN) Rn-Traveler Last Modified By: Meek Kumar Rn-Traveler 05/23/21 14:46:53 [facility] IntraOp Counts Final Entry 1 Procedure Laparoscopy Diagnostic, Uterine Dilatation Curettage w Suction Final Count Info Count Type Sponge, Sharps, Miscellaneous Counts Verification Skin Closure/end of Sequence procedure Count Results Correct, surgeon notified Counts Performed By Count Performed By Marimar Flowers (Scrub) Wireless Sales Representative Count Performed By Tabitha Gannon REP - [...] Via Patient Transport Meek Kumar, Accompanied by Rn-JESSI Crenshaw STEPHEN J, CRNA Transfer/Handoff PATIENT IS EXTREMELY Comments ALLERGIC TO ADHESIVES. SHE INFORMED Annika KUMAR RN THAT SHE COULD USE ABD PADS, COBAN AND AN ABDOMINAL BINDER FOR DRESSINGS. Last Modified By: Meek Kumar Rn-Traveler 05/23/21 14:59:00 [facility] IntraOp Departure from OR Audit 05/23/21 14:59:00 Inside Sales Agent: [id number] Modifier: [id number] <+> 1 Transfer/Handoff Comments [facility] IntraOp Dressing and Packing Entry 1 Type Dressing Location ABDOMEN Wound Dressing Item 4x4's, Abdominal binder, Coban, ABD dressing pad Applied By JAJA MONTANO DO Other Comments PATIENT AND HER APPROVED THE DRESSINGS PRIOR TO BEING TAKEN TO THE OPERATING ROOM. Last Modified By: Meek Kumar Rn-Traveler 05/23/21 15:01:46 [facility] IntraOp Dressing and Packing Audit 05/23/21 15:01:46 Inside Sales Agent: [id number] Modifier: [id number] <+> 1 Other Comments [facility] IntraOp Fire [...] Rn-Traveler 05/23/21 14:48:55 [facility] IntraOp General Case Addiction Counselor 1 Case Information OR OR 04 SJE [...] [facility] IntraOp Intraoperative Assessment Audit 05/23/21 15:04:43 Inside Sales Agent: [id number] Modifier: [id number] 1 <*> Intraoperative Assessment Comment PATIENT AND HER APPROVED THE DRESSINGS PRIOR TO GOING TO OPERATING ROOM. MINIMAL POSITIO 05/23/21 15:01:10 Inside Sales Agent: [id number] Modifier: [id number] <+> 1 Intraoperative Assessment Comment [facility] IntraOp [...] Marcaine 0.5% 30ml vial Methergine Maleate - [id number] 0.2mg 1ml - [id number] Combo Med List Time Administered 05/23/21 14:52:00 05/23/21 15:18:00 Route of INJECTION IV Administration Dose Dose Unit of Measure ml ml Volume 10 1 Administered By JAJA MONTANO DO SKEENS, STEPHEN J, FITTER ARMAMENT Procedure Irrigation Irrigant Volume In Irrigant Volume Out Last Modified By: Meek Kumar, Meek Kumar Rn-Traveler 05/23/21 Rn-Traveler 05/23/21 14:53:02 15:28:13 [facility] IntraOp Medication Admin Audit 05/23/21 15:28:13 Inside Sales Agent: [id number] Modifier: [id number] <+> 2 Medication/Irrigant <+> 2 Route of [...] DUSTY CONLEY AMY, DO, Davis, Stephen J, ASSOCIATE PROFESSOR OF COUNSELING Position Verified Positioning Yes Verified by Anesthesia Positioning Yes Verified by Surgeon Last Modified By: Meek Kumar Rn-Traveler 05/23/21 14:57:05 [facility] IntraOp Patient Positioning Audit 05/23/21 14:57:05 Inside Sales Agent: [id number] Modifier: [id number] 1 <*> Procedure Laparoscopy Diagnostic, Uterine Dilatation [...] Intra Op Sign Out Audit 05/23/21 15:39:13 Inside Sales Agent: [id number] Modifier: [id number] <+> 1 Urinary Catheter Documented in IView 05/23/21 15:30:11 Inside Sales Agent: [id number] Modifier: [id number] <+> 1 RN Sign Out Signature Date/Time 05/23/21 15:30:08 Inside Sales Agent: [id number] Modifier: [id number] <+> 1 Sign Out Comment [facility] IntraOp Skin Prep Entry 1 Procedure Laparoscopy Diagnostic, Uterine Dilatation Curettage w Suction Prescribed Yes Pre-Surgical Prep Completed Prep Area ABDOMEN, VAGINA Intraop Prep Integumentary WDL Assessment WDL Prep Agents Chloraprep, Betadine solution Prep by Meek Kumar Rn-Travel Hair Removal Last Modified By: Meek Kumar Rn-Traveler 05/23/21 14:57:48 [facility] IntraOp Surgical Procedures Entry 1 Entry 2 Procedure Laparoscopy Diagnostic Uterine Dilatation Curettage w Suction Modifiers Additional DIAGNOSTIC LAPAROSCOPY Procedure , SUCTION DILATATION Description AND CURETTAGE Primary Procedure Yes No Primary Surgeon JAJA MONTANO DO CARRILLO, AMY, Start 05/23/21 14:40:00 05/23/21 14:40:00 Stop 05/23/21 15:23:00 05/23/21 15:23:00 Physician States Cecum Reached Anesthesia Type General General Specialty Gynecology Gynecology Wound Class I - Clean II - Clean-Contaminated Last Modified By: Meek Kumar Shaffer, Andrea L, Rn-Traveler 05/23/21 Rn-Traveler 05/23/21 15:26:51 15:27:09 [facility] IntraOp Surgical Procedures Audit 05/23/21 15:27:09 Inside Sales Agent: [id number] Modifier: [id number] 2 <*> Procedure Uterine Dilatation Curettage w Suction 2 <+> Specialty 05/23/21 15:26:51 Inside Sales Agent: [id number] Modifier: [id number] 1 <*> Procedure Laparoscopy Diagnostic 1 <+> Specialty 05/23/21 15:26:41 Inside Sales Agent: [id number] Modifier: [id number] <+> 1 Stop 2 <*> Procedure Uterine Dilatation Curettage w Suction 2 <+> Stop 05/23/21 15:09:18 Inside Sales Agent: [id number] Modifier: [id number] <+> 1 Start <+> 2 Start SJE [...] Signed By: Meek Kumar Rn-Traveler 05/23/21 15:39 documented in this encounter Plan of Treatment Not on file documented as of this encounter Visit Diagnoses Not on filedocumented in this encounter
--- OUTSIDE RECORDS SUMMARY | 2025-08-10 16:49 | XMS_ITS | Encounter Summary ---
Author Organization [employer] ([place], [place], [place], [place], [place]) Address [address] [place] [address] Care Team Providers Care Motor Vehicle Lecturer Name Role Phone Unavailable Primary Care Provider Unavailabl e Encounter Details Date Type Department Care Team (Late st Contact Info) Description 01/11/2019 Transcribed Document [facility] [place] Family Medicine [facility] [place] [address] ProviderCliff MD [address] [place] [phone] Social History Tobacco Use Types Packs/Day Years [...] Velazquez MD - 01/11/2019 11:42 AM CDT [place] [phone] SWATI MARQUEZ :1980 Visit Time:01/11/2019 Your Visit Summary Your Care Team Admitting Physician - NATHALIA LAWS MD-IRAIS Attending Physician - NATHALIA LAWS MD-IRAIS Primary Care Physician - SRINI HERNANDEZ (REF), BOB Referring Physician - SELF, REFERRED (REF), -UNK Your Diagnosis Chest pain Chest pain Esophagitis Patient Portal Reminder: Be sure to sign up for the [employer] patient portal, which gives you 24/7 access to your medical information ??? including these discharge instructions ??? using your computer, smartphone, or tablet. Just go to [address] [facility] [email or web address] to get started. Questions? Call . You [...] Within 2 to 3 days Where: [address] [facility] Emergency Services #[address] [place] [id number] Business (1) Allergies Adhesive Bandage (Blisters) Contrast [...] range between ( 1.0 and 7.0 ) Davis #: 0.58 K/uL -- Normal range between ( 0.24 and 0.82 ) Eos #: 0.10 K/uL -- Normal range between ( 0.04 and 0.54 ) Davis %: 4.4 % -- Normal range between [...] vinegar, hot sauces, and barbecue sauce. ? [place] fruit juices and citrus fruits, such as oranges, yann, and limes. ? Tomato-based foods, such as red sauce, chili, salsa, and pizza with red sauce. ? Fried and fatty foods, such as donuts, lithuanian fries, potato chips, and high-fat dressings. ? [...] any changes in your symptoms. ??? Take ulvk-reh-yttetko and prescription medicines only as told by [...] Assistance with quitting is available by contacting 4-722-FHFF-NOW. This is a free resource providing counseling, [...] including: emergency, radiology, or pathology physicians. Patient Name:GWENDOLYN MARQUEZNATASHA EDWARDS I have received this information and was given the opportunity to ask questions. 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 Date: documented in this encounter Plan of Treatment Not on file documented as of this encounter Visit Diagnoses Not on filedocumented in this encounter
--- OUTSIDE RECORDS SUMMARY | 2025-08-10 16:49 | XMS_ITS | Encounter Summary ---
Author Organization [employer] ([place], [place], [place], [place], [place]) Address [address] [place] [address] Care Team Providers Care Gift Consultant Name Role Phone Unavailable Primary Care Provider Unavailabl e Encounter Details Date Type Department Care Team (Late st Contact Info) Description 01/11/2019 Transcribed Document [facility] Family [facility] [place] [address] ProviderCliff MD [address] [place] [address] [phone] Social History Tobacco Use Types Packs/Day Years [...] : 3 - Urgent Tracking Group : [facility] ED [facility] Nori Myers RN - 01/11/2019 6:40 EDT [...] ; Reactions: anaphylaxis ; Created By: Alla Peoples RN; Reaction Status: Active ; Category: Drug ; Substance: Contrast Dye ; Type: Allergy ; Updated By: Alla Peoples RN; Reviewed Date: 09/24/2018 8:17 EST Diagnosis Control ED (As Of: 01/11/2019 06:43:29 EDT) Problems(Active) Abdominal pain (SNOMED CT :31022064 ) Name of Problem: Abdominal pain ; Recorder: Alla Peoples RN; Confirmation: Confirmed ; Classification: Medical ; Code: 54129717 ; Contributor System: PowerChart ; Last Updated: 09/24/2018 8:31 EST ; Life Cycle Date: 09/24/2018 ; Life Cycle Status: Active ; Vocabulary: SNOMED CT Constipation (SNOMED CT :15901766 ) Name of Problem: Constipation ; Recorder: Snehal Corea RN; Confirmation: Confirmed ; Classification: Medical ; Code: 93446640 ; Contributor System: PowerChart ; Last Updated: 03/01/2014 14:23 EDT ; Life Cycle Date: 05/20/2013 ; Life Cycle Status: Active ; Vocabulary: SNOMED CT diarrhea (SNOMED CT :848989343 ) Name of Problem: diarrhea ; Recorder: Zoe Bianchi RN; Confirmation: Confirmed ; Classification: Medical ; Code: 032063429 ; Contributor System: PowerChart ; Last Updated: 06/06/2017 11:32 EDT ; Life Cycle Date: 05/25/2015 ; Life Cycle Status: Active ; Vocabulary: SNOMED CT Ectopic (SNOMED CT :75455818 ) Name of Problem: Ectopic ; Recorder: Snehal Corea RN; Confirmation: Confirmed ; Classification: Medical ; Code: 33666931 ; Contributor System: PowerChart ; Last Updated: 02/25/2014 19:26 EDT ; Life Cycle Date: 05/20/2013 ; Life Cycle Status: Active ; Vocabulary: SNOMED CT Endometriosis (SNOMED CT :4067874557 ) Name of Problem: Endometriosis ; Recorder: PEPPER ASTUDILLO PA; Confirmation: Confirmed ; Classification: Medical ; Code: 9312455124 ; Contributor System: PowerChart ; Last Updated: 10/20/2014 15:19 EST ; Life Cycle Date: 10/20/2014 ; Life Cycle Status: Active ; Vocabulary: SNOMED CT frequent UTI (SNOMED CT :752990562 ) Name of Problem: frequent UTI ; Recorder: Snehal Corea RN; Confirmation: Confirmed ; Classification: Medical ; Code: 894052298 ; Contributor System: PowerChart ; Last Updated: 03/01/2014 14:38 EDT ; Life Cycle Date: 05/20/2013 ; Life Cycle Status: Active ; Vocabulary: SNOMED CT Frequent UTI (SNOMED CT :770914503 ) Name of Problem: Frequent UTI ; Recorder: PEPPER ASTUDILLO PA; Confirmation: Confirmed ; Classification: Medical ; Code: 413036347 ; Contributor System: PowerChart ; Last Updated: 06/07/2017 11:20 EDT ; Life Cycle Date: 10/20/2014 ; Life Cycle Status: Active ; Vocabulary: SNOMED CT Gallstones (SNOMED CT :045087290 ) Name of Problem: Gallstones ; Recorder: TIM EDWARDS RN; Confirmation: Confirmed ; Classification: Medical ; Code: 991234157 ; Contributor System: PowerChart ; Last Updated: [...] Life Cycle Status: Active Goiter (SNOMED CT :7375364 ) Name of Problem: Goiter ; Recorder: Snehal Corea RN; Confirmation: Confirmed ; Classification: Medical ; Code: 0851613 ; Contributor System: PowerChart ; Last Updated: 03/01/2014 15:32 EDT ; Life Cycle Date: 05/20/2013 ; Life Cycle Status: Active ; Vocabulary: SNOMED CT 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 ; Recorder: BALDEMAR VITAL LPN; Confirmation: Confirmed ; Classification: Patient Stated ; Code: 174369137 ; Contributor System: PowerChart ; Last Updated: 10/20/2014 14:41 EST ; Life Cycle Date: 10/20/2014 ; Life Cycle Status: Active ; Vocabulary: SNOMED CT Ovarian Cyst (SNOMED CT :219665342 ) Name of Problem: Ovarian Cyst ; Recorder: Snehal Corea RN; Confirmation: Confirmed ; Classification: Medical ; Code: 065365108 ; Contributor System: PowerChart ; Last Updated: 03/01/2014 15:18 EDT ; Life Cycle Date: 05/20/2013 ; Life Cycle Status: Active ; Vocabulary: SNOMED CT Palpataions ( : ) Name of Problem: Palpataions ; Recorder: Snehal Corea RN; Confirmation: Confirmed ; Classification: Medical ; Contributor System: [employer] ; Last Updated: 05/20/2013 6:50 EDT ; Life Cycle Date: 05/20/2013 ; Life Cycle Status: Active Pancreatitis (SNOMED CT :765653010 ) Name of Problem: Pancreatitis ; Recorder: TIM EDWRADS RN; Confirmation: Confirmed ; Classification: Medical ; Code: 709904645 ; Contributor System: PowerChart ; Last Updated: 02/23/2015 14:21 EDT ; Life Cycle Date: 02/23/2015 ; Life Cycle Status: Active ; Vocabulary: SNOMED CT TMJ (SNOMED CT :85408984 ) Name of Problem: TMJ ; Recorder: Snehal Corea RN; Confirmation: Confirmed ; Classification: Medical ; Code: 83878320 ; Contributor System: [employer] ; Last Updated: 03/02/2014 13:51 EDT ; Life Cycle Date: 05/20/2013 ; Life Cycle Status: Active ; Vocabulary: SNOMED CT Diagnoses(Active) Chest pain Date: 01/11/2019 ; Diagnosis Type: Reason For Visit ; Confirmation: Complaint of ; Clinical Dx: Chest pain ; Classification: Medical ; Clinical Service: Emergency medicine ; Code: PNED ; Probability: 0 ; Diagnosis Code: [id number] ED Height and Weight Height Source : Stated Height Entry Format : [place] Height, Feet : 5 ft(Converted to: 152 cm, 60 Inch) Height, Inches : 5 Inch(Converted to: 0 ft 5 Inch, 12.70 cm) Clinical Height : 165.1 cm Weight Source, ED : Critical estimated dosing weight Weight Entry Format : [place] Weight, Pounds : 171 lb Clinical Dosing Weight : 77.73 kg Body Surface Area (BSA) : 1.85 m2 Body Mass Index : 28.5 kg/m2 (HI) [place] Body Weight (IBW) : 56.59 kg Nori [...]
--- OUTSIDE RECORDS SUMMARY | 2025-08-10 16:49 | XMS_ITS | Encounter Summary ---
Author Organization [employer] ([place], [place], [place], [place], [place]) Address [address] [place] [address] Care Team Providers Care Combination Worker Name Role Phone Unavailable Primary Care Provider Unavailabl e Encounter Details Date Type Department Care Team (Late st Contact Info) Description 09/24/2018 Transcribed Document [facility] [place] [address] ProviderCliff MD [address] [place] [address] [id number] Social History Tobacco Use Types Packs/Day Years Used Date Smoking Tobacco: Never Assessed Comments Unknown Sex and Gender Information Value Date Recorded Sex Assigned at Not on file Legal Sex Female 1:20 PM CDT Gender Identity Not on file Sexual Orientation Not on file documented as of this encounter Miscellaneous Notes * Cerner Conversion Note - Historical ProviderMD - 09/24/2018 9:22 AM API PRODUCT MANAGER Event Note Entered On: 09/24/2018 9:26 EST [...] 09/24/2018 9:22 EST Electronically signed by Jonathan [facility] Conversion Market Manager Cerner at 01/04/2023 1:48 PM CDT documented in this encounter Plan of Treatment Not on file documented as of this encounter Visit Diagnoses Not on filedocumented in this encounter
--- OUTSIDE RECORDS SUMMARY | 2025-08-10 16:49 | XMS_ITS | Encounter Summary ---
Author Organization [employer] ([place], [place], [place], [place], [place]) Address [address] [place] [address] Care Team Providers Care Dredge Runner Name Role Phone Unavailable Primary Care Provider Unavailabl e Encounter Details Date Type Department Care Team (Late st Contact Info) Description 01/11/2019 Transcribed Document [facility] [place] [facility] [place] [address] ProviderCliff MD [address] [place] [address] [phone] Social History Tobacco Use Types Packs/Day Years [...] dysphagia 01/11/2019 08:34 01/11/2019 09:09 (Madelaine Cottrell, Supervisor Kennel) No further action required documented in this encounter Plan of Treatment Not on file documented as of this encounter Visit Diagnoses Not on filedocumented in this encounter
--- OUTSIDE RECORDS SUMMARY | 2025-08-10 16:49 | XMS_ITS | Encounter Summary ---
Author Organization [employer] ([place], [place], [place], [place], [place]) Address [address] [place] [address] Care Team Providers Care Product Development Name Role Phone Unavailable Primary Care Provider Unavailabl e Encounter Details Date Type Department Care Team (Late st Contact Info) Description 05/23/2021 Transcribed Document [facility] [place] [address] ProviderCliff MD [address] [place] [address] [id number] Social History Tobacco Use Types Packs/Day Years [...] Finalized Date/Time: 05/23/21 16:43:26 Pt. Name: SWATI MARQUEZ D.O.B./Sex: 1980 Female Med Rec #: [id number] Physician: JAJA MONTANO DO Financial #: [id number] Pt. Type: O Room/Bed: Admit/Disch: 05/23/21 11:12:00 - Institution: [facility] [place] Main OR PACU Case Times Entry 1 In PACU I 05/23/21 15:32:00 Ready for PACU 05/23/21 16:43:00 Discharge Discharge from PACU 05/23/21 16:43:00 I Last Modified By: GILMA GUADALUPE 05/23/21 16:43:13 SJMisael Main OR PACU Case Times Audit 05/23/21 16:43:13 Reforestation Worker: [id number] Modifier: COLEMAM <+> 1 Ready for PACU Discharge <+> 1 Discharge from PACU I Finalized By: GILMA GUADALUPE Document Signatures Signed By: GILMA GUADALUPE 05/23/21 16:43 documented in this encounter Plan of Treatment Not on file documented as of this encounter Visit Diagnoses Not on filedocumented in this encounter
--- OUTSIDE RECORDS SUMMARY | 2025-08-10 16:49 | XMS_ITS | Encounter Summary ---
Author Organization [employer] ([place], [place], [place], [place], [place]) Address [address] [place] [address] Care Team Providers Care Motorsports Technician Name Role Phone Unavailable Primary Care Provider Unavailabl e Encounter Details Date Type Department Care Team (Late st Contact Info) Description 05/23/2021 Transcribed Document [facility] [place] [address] [place] [address] ProviderCliff MD [address] [place] [address] [phone] Social History Tobacco Use Types Packs/Day Years Used Date Smoking Tobacco: Never Assessed Comments Unknown Sex and Gender Information Value Date Recorded Sex Assigned at Not on file Legal Sex Female 1:20 PM CDT Gender Identity Not on file Sexual Orientation Not on file documented as of this encounter Miscellaneous Notes * Cerner Conversion Note - Cliff ProviderMD - 05/23/2021 4:54 PM CDT [place] [id number] SWATI MARQUEZ :1980 Visit Time:05/23/2021 What to [...] follow up as previously instructed. Where: [address] [facility] [address] [place] [address]- Medications What How Much When Instructions Next Dose HYDROmorphone (Dilaudid 2 mg oral tablet) 1 Tablet(s) Oral Every 4 Hours as needed for as needed for pain Pickup at [place] [address] promethazine (promethazine 25 mg oral tablet) 1 Tablet(s) Oral Every 6 Hours Pickup at [place] [address] aspirin 81 Milligram(s) Oral Every Day cholecalciferol (Vitamin D3) 50,000 International Units Oral Every 4 Weeks metFORMIN (metFORMIN 500 mg oral tablet) 1 Tablet(s) Oral Two Times A Day nortriptyline (nortriptyline 10 mg oral capsule) 1 Capsule(s) Oral At Bedtime propranolol (propranolol 120 mg oral capsule, extended release) Oral Every Day Pharmacy Information [facility] [address]: [phone] [place] [phone] Take your medications faithfully. Do NOT skip [...] activities are safe for you. ??? Take ovis-zey-zwcqwrv and prescription medicines only as told by [...] provider. Document Revised: 09/05/2018 Document Reviewed: 04/18/2018 [employer] Patient Education ?? 2020 [employer] Dilation and Curettage or Vacuum Curettage, [...] not have sex. General instructions ??? Take pzcx-beq-zoktery and prescription medicines only as told by [...] provider. Document Revised: 08/15/2018 Document Reviewed: 05/20/2017 [employer] Patient Education ?? 2020 [employer]. Diagnostic Laparoscopy, Care After This sheet gives [...] these instructions at home: Medicines ??? Take wyuc-fyx-viewiqr and prescription medicines only as told by [...] and water are not available, use hand medical observer. ? Change your dressing as told by [...] keep your urine pale yellow. ? Take rnfx-ooa-mxgliac or prescription medicines. ? Eat foods that [...] provider. Document Revised: 08/15/2018 Document Reviewed: 02/26/2018 [employer] Patient Education ?? 2020 [employer]. hydromorphone (oral) (THOR drogagandeep estevez) Dilaudid, Exalgo What is the most important [...] extended-release form of this medicine is for wqbuzl-zag-qzawg treatment of moderate to severe pain, not [...] against the law. Stop taking all other uivznu-sxe-invei narcotic pain medications when you start taking [...] may report side effects to FDA at 5-501-DBR-9409. What other drugs will affect hydromorphone? Opioid [...] drugs may affect hydromorphone, including prescription and fjbe-avp-vptjzyl medicines, vitamins, and herbal products. Not all [...] to ensure that the information provided by [employer] ('[employer]') is accurate, up-to-date, and complete, but no guarantee is made to that effect. Drug information contained herein may be time sensitive. [employer] information has been compiled for use by healthcare practitioners and consumers in the [place] and therefore [employer] does not warrant that uses outside of the [place] are appropriate, unless specifically indicated otherwise. [employer] drug information does not endorse drugs, diagnose patients or recommend therapy. [employer] drug information is an informational resource designed [...] effective or appropriate for any given patient. [employer] does not assume any responsibility for any aspect of healthcare administered with the aid of information [employer] provides. The information contained herein is not intended to cover all possible uses, directions, precautions, warnings, drug interactions, allergic reactions, or adverse effects. If you have questions about the drugs you are taking, check with your doctor, nurse or pharmacist. Copyright 2286-7929 [employer] Version: 9.03. Revision Date: 07/02/2019. promethazine (oral) (pro METH a zeen) Phenergan What is the most important information I should know about promethazine? Promethazine should not be given to a child younger than 2 years old. Promethazine can cause severe breathing problems or in very young children. What is promethazine? Promethazine is in a group of drugs called phenothiazines (TOBD-pb-WSAI-a-zeens). It works by changing the actions of [...] may report side effects to FDA at 2-010-GIT-7959. What other drugs will affect promethazine? Using this medicine with other drugs that make you sleepy or slow your breathing can cause dangerous or life-threatening side effects. Ask your doctor before taking promethazine with a sleeping pill, narcotic pain medicine, muscle relaxer, or medicine for anxiety, depression, or seizures. Other drugs may interact with promethazine, including prescription and axmi-yjr-pwvwjuy medicines, vitamins, and herbal products. Tell each [...] to ensure that the information provided by [employer] ('[employer]') is accurate, up-to-date, and complete, but no guarantee is made to that effect. Drug information contained herein may be time sensitive. [employer] information has been compiled for use by healthcare practitioners and consumers in the [place] and therefore [employer] does not warrant that uses outside of the [place] are appropriate, unless specifically indicated otherwise. [employer] drug information does not endorse drugs, diagnose patients or recommend therapy. [employer] drug information is an informational resource designed [...] effective or appropriate for any given patient. [employer] does not assume any responsibility for any aspect of healthcare administered with the aid of information [employer] provides. The information contained herein is not intended to cover all possible uses, directions, precautions, warnings, drug interactions, allergic reactions, or adverse effects. If you have questions about the drugs you are taking, check with your doctor, nurse or pharmacist. Copyright 1607-1816 [employer] Version: 6.02. Revision Date: 06/30/2015. Emergency Awareness and Preventative Care STROKE is an EMERGENCY Every Minute Counts Act FAST and Check for these signs: FACE Does the face look uneven? ARM Does one arm drift down? SPEECH Does their speech sound strange? TIME Call 9-1-1 at any sign of stroke Stroke Risk [...] Assistance with quitting is available by contacting 5-558-MYZSNOW. This is a free resource providing counseling, support, and referral. Or you may contact your personal physician. [employer] Suicide Prevention Lifeline: The National Suicide Prevention [...] range between ( 1.0 and 7.0 ) [place] #: 0.51 K/uL -- Normal range between ( 0.24 and 0.82 ) [place]os #: 0.22 K/uL -- Normal range between ( 0.04 and 0.54 ) [place] %: 5.5 % -- Normal range between [...] was given the opportunity to ask questions. Patient/Admeasurer Name: Patient/Admeasurer Signature: Relationship to Patient: Clinician/Hospital Admeasurer Signature: Date: Electronically signed by Interface, [facility] Conversion Medical Policy Specialist Guy at 01/04/2023 1:55 PM CDT documented in this encounter Plan of Treatment Not on file documented as of this encounter Visit Diagnoses Not on filedocumented in this encounter
--- OUTSIDE RECORDS SUMMARY | 2025-08-10 16:49 | XMS_ITS | Encounter Summary ---
Author Organization [employer] ([place], [place], [place], [place], [place]) Address [address] [place] [address] Care Team Providers Care Director Of Distance Learning Name Role Phone Unavailable Primary Care Provider Unavailabl e Encounter Details Date Type Department Care Team (Late st Contact Info) Description 09/24/2018 Transcribed Document [facility] [place] [facility] [place] [address] ProviderCliff MD [address] [place] [address] Social History Tobacco Use Types Packs/Day Years Used Date Smoking Tobacco: Never Assessed Comments Unknown Sex and Gender Information Value Date Recorded Sex Assigned at Not on file Legal Sex Female 1:20 PM CDT Gender Identity Not on file Sexual Orientation Not on file documented as of this encounter Miscellaneous Notes * Cerner Conversion Note - Cliff Velazquez MD - 09/24/2018 10:37 AM SUGAR CANE PLANTER Patient: SWATI MARQUEZ Age: 38 years Sex: [...] and endometriosis. Performed by: ZABRINA HORNER MD-OBG. Cryptologic Technician Technical: ABI RAYA PA-C. Findings: pelvic adhesions LLQ; [...]
--- OUTSIDE RECORDS SUMMARY | 2025-08-10 16:49 | XMS_ITS | Encounter Summary ---
Author Organization [employer] ([place], [place], [place], [place], [place]) Address [address] [place] [address] Care Team Providers Care Product Safety Coordinator Name Role Phone Unavailable Primary Care Provider Unavailabl e Encounter Details Date Type Department Care Team (Late st Contact Info) Description 09/24/2018 Transcribed Document [facility] [place] [facility] [place] [address] ProviderCliff MD [address] [place] [address] [phone] Social History Tobacco Use Types Packs/Day Years Used Date Smoking Tobacco: Never Assessed Comments Unknown Sex and Gender Information Value Date Recorded Sex Assigned at Not on file Legal Sex Female 1:20 PM CDT Gender Identity Not on file Sexual Orientation Not on file documented as of this encounter Miscellaneous Notes * Cerner Conversion Note - Cliff ProviderMD - 09/24/2018 9:30 AM SETTLEMENT PROCESSOR BERNARDO Main OR PreOp Summary Primary Physician: ZABRINA HORNER MD-OBG Finalized Date/Time: 09/24/18 09:44:26 Pt. Name: SWATI MARQUEZ/Sex: 1980 Female Med Rec #: [id number] Physician: ZABRINA HORNER MD-OBG Financial #: [id number] Pt. Type: O Room/Bed: Admit/Disch: 09/24/18 07:39:00 - Institution: [facility] [place] PreOp Case Times Entry 1 In Preop 09/24/18 07:45:00 Ready for Holding 09/24/18 09:06:00 Room Patient Ready for 09/24/18 09:06:00 Surgery Patient Out of Preop 09/24/18 09:22:00 Patient Out of n/a Holding Room Last Modified By: CASTRO CHAVEZ 09/24/18 09:44:[address] [facility] PreOp Case Times Audit 09/24/18 09:44:25 Bicycle Courier: ROSEMARIE Modifier: [email or web address] <+> 1 Patient Out of Preop Finalized By: CASTRO CHAVEZ Document Signatures Signed By: CASTRO CHAVEZ 09/24/18 09:44 Electronically signed by Jonathan [facility] Conversion It Recruiter Cerner at 01/04/2023 1:46 PM CDT documented in this encounter Plan of Treatment Not on file documented as of this encounter Visit Diagnoses Not on filedocumented in this encounter
--- OUTSIDE RECORDS SUMMARY | 2025-08-10 16:49 | XMS_ITS | Encounter Summary ---
Author Organization [employer] ([place], [place], [place], [place], [place]) Address [address] [place] [address] Care Team Providers Care De Alcholizer Name Role Phone Unavailable Primary Care Provider Unavailabl e Encounter Details Date Type Department Care Team (Late st Contact Info) Description 09/24/2018 Transcribed Document [facility] [place] [facility] [place] [address] ProviderCliff MD [address] [place] [address] [phone] Social History Tobacco Use Types Packs/Day Years Used Date Smoking Tobacco: Never Assessed Comments Unknown Sex and Gender Information Value Date Recorded Sex Assigned at Not on file Legal Sex Female 1:20 PM CDT Gender Identity Not on file Sexual Orientation Not on file documented as of this encounter Miscellaneous Notes * Cerner Conversion Note - Cliff ProviderMD - 09/24/2018 9:59 AM POWER REACTOR SUPERVISOR SJE Main OR PACU Summary Primary Physician: ZABRINA HORNER MD-OBG Finalized Date/Time: 09/24/18 11:43:28 Pt. Name: SWATI MARQUEZ/Sex: 1980 Female Med Rec #: [id number] Physician: ZABRINA HORNER MD-OBG Financial #: [id number] Pt. Type: O Room/Bed: Admit/Disch: 09/24/18 07:39:00 - Institution[facility] [place] Main [place] PACU Case Times Entry 1 In PACU I 09/24/18 10:48:00 Ready for PACU 09/24/18 11:42:00 Discharge Discharge from PACU 09/24/18 11:42:00 I Last Modified By: Jennifer Guerin Rn 09/24/18 11:42:53 Finalized By: Jennifer Guerin, Rn Document Signatures Signed By: Jennifer Guerin Rn 09/24/18 11:43 Electronically signed by Jonathan [facility] Conversion Diamond Sizer And Grader Cerner at 01/04/2023 1:46 PM CDT documented in this encounter Plan of Treatment Not on file documented as of this encounter Visit Diagnoses Not on filedocumented in this encounter
--- OUTSIDE RECORDS SUMMARY | 2025-08-10 16:49 | XMS_ITS | Encounter Summary ---
Author Organization Healthcare Address [address] [place] [address] Care Team Providers Care Farm Contractor Buyer Name Role Phone Suzette Guthrie APRN Primary Care Provider [phone] Mook Klein MD Primary Care Provider [phone] Chuyita Chan APRN Primary Care Provider [phone]- [phone] Alex Yoo MD Unavailable [phone] Encounter Details Date Type Department Care Team (Late st Contact Info) Description 09/12/2022 Orders Only [facility] [address] [place] [address] Reese Diego MD [address] [place] [phone] [place] [id number] Social History Tobacco Use Types Packs/Day Years [...] Description 10/20/2025 1:30 PM EST Office Visit [facility] heat seal operator [facility] [address] [place] [address] [address] [place] [address] Merrick Cowan DMD, MD [address] [facility] [address] [place] [address] 02/08/2026 9:00 AM EDT Office Visit Medical Office Building [facility] [address] [facility] [place] [address] Aramis Santana MD [address] [facility] [address] [place] [address] documented as of this encounter Procedures Procedure Name Priority Date/Time Associated Diagnosis Comments COMPREHENSIVE METABOLIC PANEL, PLASMA Routine 09/12/2022 11:06 AM EST documented in this encounter Results * (ABNORMAL) Comprehensive Metabolic Panel, Plasma (09/12/2022 11:06 AM EST) External Glucose 99 74 - 100 mg/dL [facility] External BUN 15 6 - 20 mg/dL [facility] External Creatinine Blood 0.68 0.50 - 0.95 mg/dL [facility] External BUN/Creat Ratio 22(H) 10 - 20 (calc) [facility] External Sodium 139 136 - 145 mmol/L [facility] External Potassium 3.5 3.4 - 5.0 mmol/L [facility] External Chloride 100 98 - 107 mmol/L [facility] External Carbon Dioxide 26 22 - 31 mmol/L [facility] External Anion Gap (AG) 13 7 - 25 (calc) [facility] External Calcium 10.1 8.6 - 10.2 mg/dL [facility] External Total Protein 7.9 6.4 - 8.3 g/dL [facility] External Albumin 4.9 3.5 - 5.2 g/dL [facility] External Globulin 3.0 1.5 - 4.5 g/dL (calc) [facility] External Albumin/Globulin Ratio 1.6 1.1 - 2.5 (calc) [facility] External Bilirubin Total 0.3 0.1 - 1.2 mg/dL [facility] External Alkaline Phosphatase 90 30 - 121 U/L [facility] External AST (SGOT) 25 0 - 32 U/L [facility] External ALT (SGPT) 28 0 - 33 U/L [facility] External Estimated GFR 111 >=60 [facility] Comment: NOTE New calculation for GFR (CKD-EPI 2020) is formulated without race adjustment factors at the recommendation of the National Kidney Foundation and [employer]. This calculation has not been validated in women. For pediatric patients refer to https://www.kidney.org/professionals/KDOQI/gfr_calculatorPed 09/12/2022 11:0 6 AM EST 09/12/2022 11:30 AM EST us Reese Diego MD LAB BLOOD ORDERABLES Final R esult [facility] [address] [place] [address], documented in this encounter Visit Diagnoses Not on filedocumented in this encounter Care Teams Farm Contractor Buyer Relationship Specialty Start Date End Date Suzette Guthrie APRN [address] [place] [address] PCP - General 01/27/21 04/10/23 Mook Klein MD [address] [place] [address] PCP - General 04/11/23 02/08/25 Chuyita Chan APRN [address] [place] [address] PCP - General 02/09/25 Alex Yoo MD [address] [place] [address] Referring Physician Gynecology 06/17/25 documented as of this encounter
--- OUTSIDE RECORDS SUMMARY | 2025-08-10 16:49 | XMS_ITS | Encounter Summary ---
Author Organization [employer] ([place], [place], [place], [place], [place]) Address [address] [place] [address] Care Team Providers Care Loader Demolder Name Role Phone Unavailable Primary Care Provider Unavailabl e Encounter Details Date Type Department Care Team (Late st Contact Info) Description 05/23/2021 Transcribed Document [facility] [place] [address] ProviderCliff MD [address] [place] [phone] Social History Tobacco Use Types Packs/Day Years Used Date Smoking Tobacco: Never Assessed Comments Unknown Sex and Gender Information Value Date Recorded Sex Assigned at Not on file Legal Sex Female 1:20 PM CDT Gender Identity Not on file Sexual Orientation Not on file documented as of this encounter Miscellaneous Notes * Cerner Conversion Note - Cliff ProviderMD - 05/23/2021 1:05 PM CDT Spiritual Care Assessment Entered On: 05/23/2021 13:23 EDT Performed On: 05/23/2021 12:45 EDT by OG FORRESTER Chaplain General Information Initial Visit : Yes Referred by : Nurse Referral Reason Comment : pre-surgery support Ministry Provided to : Patient, Family/Significant other Spiritual/Emotional Acuity : Low Active in a Episcopal/Violet Group : Yes Mu-Ism Preference : Denominational ([employer]) OG FORRESTER Chaplain - [...] and . They are leaning toward family cotton picker but are not yet sure. A follow up call will be made when remains come back from lab. Spirital Assessment Comment/Summary Report : SPIRITUAL ASSESSMENT COMMENT/SUMMARY No qualifying data available. OG FORRESTER Chaplain - 05/23/2021 13:19 EDT Interventions Emotional Support : Empathic/Engaged listening, Established trust, Family/Significant other supported, Feelings expressed, Information provided, Meaning strengths identified, Relationship strengths identified Spiritual and Mu-Ism : Prayer shared Change, Adjustment and Loss : Provided support for current loss/grief OG FORRESTER Chaplain - 05/23/2021 13:19 EDT documented in this encounter Plan of Treatment Not on file documented as of this encounter Visit Diagnoses Not on filedocumented in this encounter
--- OUTSIDE RECORDS SUMMARY | 2025-08-10 16:49 | XMS_ITS | Encounter Summary ---
Author Organization [employer] ([place], [place], [place], [place], [place]) Address [address] [place] [address] Care Team Providers Care Labeling Machine Operator Name Role Phone Unavailable Primary Care Provider Unavailabl e Encounter Details Date Type Department Care Team (Late st Contact Info) Description 09/24/2018 Transcribed Document [facility] [place] [facility] [place] [address] ProviderCliff MD [address] [place] [address] [id number] Social History Tobacco Use Types Packs/Day Years Used Date Smoking Tobacco: Never Assessed Comments Unknown Sex and Gender Information Value Date Recorded Sex Assigned at Not on file Legal Sex Female 1:20 PM CDT Gender Identity Not on file Sexual Orientation Not on file documented as of this encounter Miscellaneous Notes * Cerner Conversion Note - Historical ProviderMD - 09/24/2018 8:18 AM METER CHANGES RECORDS CLERK Pre Procedure Adult Entered On: 09/24/2018 8:19 EST Performed On: 09/24/2018 8:18 EST by Alla Peoples, RN Height and Weight, Clinical Dosing Height Source : Stated Height Entry Format : [place] Height, Feet : 5 ft(Converted to: 152 cm, 60 Inch) Height, Inches : 5 Inch(Converted to: 0 ft 5 Inch, 12.70 cm) Clinical Height : 165.1 cm Weight Source : Standing scale Weight Entry Format : [place] Clinical Dosing Weight : 82.05 kg Weight, Pounds : 180 lb Weight, Ounces : 8 oz Body Surface Area (BSA) : 1.9 m2 Body Mass Index : 30.1 kg/m2 (HI) [place] Body Weight : 57 kg Alla Peoples [...] by TIM EDWARDS RN) Infectious Disease History Infectious Disease History [...] Date/Time : 09/24/2018 7:45 EST Support Person/Patient Snow Removal/Plowing : Yes Support Person/Pt Rep Name : Valdemar Limon Support Person/Pt Rep Contact Information : [phone] Want Family/Rep/Phys Notified of Admit : No Emergency Contact #1 : . Emergency Contact #1 Phone Number : . Emergency Contact #1 Relationship : . Emergency Contact #2 : . Emergency Contact #2 Phone Number : . Emergency Contact #2 Relationship : . Information Obtained From : Patient Primary Language : Bulgarian Preferred Communication Mode : Verbal Communication Barrier [...] Scale Risk Level : 25-45 Medium Risk Drury Fall Interventions : Adequate lighting, Bed in [...] the text rendition version of the form. Tignall Coma Tignall Best Motor Response : Obey commands Tignall Best Verbal Response : Oriented Tignall Eye Opening Response : Spontaneous Tignall Coma Score : 15 Alla Peoples RN - 09/24/2018 8:18 EST Electronically signed by [facility] Conversion Product Safety Associate Cerner at 01/04/2023 1:37 PM CDT documented in this encounter Plan of Treatment Not on file documented as of this encounter Visit Diagnoses Not on filedocumented in this encounter
--- OUTSIDE RECORDS SUMMARY | 2025-08-10 16:49 | XMS_ITS | Referral Summary ---
Author Organization [employer] ([place], [place], [place], [place], [place]) Address [address] [place] [address] Care Team Providers Care Founder And Ceo Name Role Phone Unavailable Primary Care Provider [...]
--- OUTSIDE RECORDS SUMMARY | 2025-08-10 16:50 | XMS_ITS | Clinical Summary ---
[facility] Address [address] [place] [address] Care Team Providers Care Field Sales Manager Name Role Phone DustinClariChuyita TRACY Primary Care Provider [phone] Allergies Active Allergy Reactions Criticality Noted Date Comments Adhesive Tape 11/20/2016 Contrast Dye (Echo Or Unknown Ct/Mr) 03/12/2017 Medications pantoprazole (PROTONIX) 40 MG EC tablet Take 1 tablet by mouth once daily 90 tablet 3 Active Tirzepatide-Weig ht Management (Zepbound) 5 MG/0.5ML solution auto-injector Inject [...] mouth Daily. 30 tablet 10 5 Active traMADol (Ultram) 50 MG tabletIndication s:Status post laparoscopy Take 1 tablet by mouth Every 8 (Eight) Hours As Needed for Moderate Pain. 12 tablet 5 07/08/20 26 Active ibuprofen (ADVIL,MOTRIN) 600 MG tablet Take 1 tablet by mouth Every 6 (Six) Hours As Needed for Mild Pain. 30 tablet 3 5 Active promethazine (PHENERGAN) 12.5 MG tablet Take 1 tablet by mouth Every 6 (Six) Hours As Needed for Nausea. 12 tablet 1 5 Active Active Problems Problem Noted Date [...] Encounters Date Type Department Care Team Description 07/26/2025 11:20 AM EST Office Visit [facility] [address] [place] [address] Alex Yoo MD Postoperative examination (Primary Dx); Endometriosis determined by laparoscopy; History of abnormal mammogram 07/26/2025 Travel 07/08/2025 9:45 AM EDT Outside Facility Service [facility] OBG[facility] [address] [address] Alex Yoo MD Status post laparoscopy (Primary Dx) 06/21/2025 9:20 AM EDT Office Visit [facility] [address] [place] [address] Alex Yoo MD Pre-op exam (Primary Dx); Endometriosis 06/21/2025 Travel from Last 3 Months Family History Medical [...] Job End Date SELF EMPLOYED-[employer] Not on f ile Not on file Not on file Last Filed Vital Signs Vital Sign Reading Time Taken Comments Blood Pressure 116/74 07/26/2025 11:38 AM EST Pulse 97 03/28/2017 1:50 PM EDT Temperature 36.8 C (98.3 F) 03/28/2017 1:50 PM EDT Respiratory Rate 20 03/28/2017 1:50 PM EDT Oxygen Saturation 94% 03/28/2017 1:50 PM EDT Inhaled Oxygen Concentration - - Weight 79.3 kg (174 lb 12.8 oz) 025 11:38 AM EST Height 165.1 cm (5' 5 ) 07/26/2025 11:3 8 AM EST Body Mass Index 29.09 07/26/2025 11:38 AM EST Plan of Treatment Upcoming Encounters Date Type Department Care Team (Late st Contact Info) Description 11/12/2025 1:45 PM EST Office Visit [facility] O[facility] [address] [address] Elisha Bradford APRN [address] [address] 01/24/2026 10:20 AM EDT Office Visit [facility] [address] [place] [address] Alex Yoo MD [address] [address] Health Maintenance Due Date Last Done Comments [...] Procedure Name Priority Date/Time Associated Diagnosis Comments CBC AND DIFFERENTIAL Routine 06/21/2025 9:47 AM EDT Pre-op exam HCG, B-SUBUNIT, QUANTITATIVE Routine 06/21/2025 9:47 AM EDT Pre-op exam COMPREHENSIVE METABOLIC PANEL Routine 06/21/2025 9:47 AM EDT Pre-op exam LIQUID-BASED PAP SMEAR WITH HPV GENOTYPING REGARDLESS OF INTERPRETATION, [facility] ([facility]) Routine 11/06/2024 4:50 PM EST Women's annual routine gynecological examination from Last 3 Months or Most Recently Relevant to Health Maintenance Results * HCG, B-subunit, Quantitative (06/21/2025 9:47 [...] - 06/22/2025 6:09 AM EDT Performed at: [address] [place] [address] [id number] Software Engineering Manager: Robert Farrell MD, Phone: [phone] Patient Fasting: N us Alex Yoo MD LAB BLOOD ORDERABLES Fin al Result [facility] (AMBULATORY) [address] [place] [address], [facility] [address] [place] [address], * (ABNORMAL) CBC & Differential (06/21/2025 9:47 AM EDT) WBC 5.15 3.40 - 10.80 10*3/mm3 [facility] [...] - 06/22/2025 6:09 AM EDT Performed at: [address] [place] [address] [id number] Software Engineering Manager: Robert Farrell MD, Phone: [phone] Patient Fasting: N us Alex Yoo MD LAB BLOOD ORDERABLES Fin al Result [facility] (AMBULATORY) [address] [place] [address], [facility] [address] [place] [address], * (ABNORMAL) Comprehensive Metabolic Panel (06/21/2025 9:47 AM EDT) [facility] Glucose 97 65 - 99 mg/dL [...] 06/22/2025 6:09 AM EDT Performed at: [address] [id number] Software Engineering Manager: Robert Farrell MD, Phone: [phone] Patient Fasting: N us Alex Yoo MD LAB BLOOD ORDERABLES Fin al Result [facility] (AMBULATORY) [address] [place] [address], [facility] [address] [place] [address], * LIQUID-BASED PAP SMEAR WITH HPV GENOTYPING REGARDLESS OF INTERPRETATION ([facility]) (11/06/2024 4:50 PM EST) Reference Lab Report [facility] [address] [place] [address] or [phone] Benito Huffman M.D., Replanting Machine Operator PATIENT NAME LABORATORY NO[facility] [id number] SIMA MARQUEZ [id number] AGE SEX SSN CLIENT REF # [facility] 44 1980 F [id number] [id number] REQUESTING M.D. [place] [address] ELISHA BRADFORD DATE COLLECTED DATE RECEIVED DATE [...] 51, 52, 56, 58, 59, 66, 68 GUEST EXPERIENCE REPRESENTATIVE: IVÁN DE LA ROSA (ASCP) CPT CODES: 07671, [id number] 11/09/2024 11:23 AM EST [facility] ThinPrep Vial Collection / Unknown 11/06/2024 4:50 PM EST 11/06/2024 4:50 PM EST us Elisha Bradford LEAK OPERATOR [employer] PATHOLOGY/CYTOLOGY ORDERAB LES Final Result [facility]
[address] [place] [address], from Last 3 Months or Most Recently Relevant to Health Maintenance Insurance [facility] PPO Member Subscriber Plan / Payer (Ef fective 2015-Present) Name:Sima Marquez Relation to Subscriber:Spouse Name:JIMMYVALDEMAR Date of :1981 Address: [address] [place] [address] Payer ID:[id number] (NAIC) Type:Not on file Address: [address] [place] [phone] Care Teams Field Sales Manager Relationship Specialty Start Date End Date Chuyita Cahn APRN [facility] [place] [address] PCP - General Internal Medicine 10/13/24
== END 2025-08-10 23:59 | disposition home or self-care (01) ==
LOC: LAB.DROPOF 16:47
PROVIDERS: PCP Nurse Practitioner Family; Visit Provider Nurse Practitioner Family
DX: J02.9 Acute pharyngitis, unspecified (principal); R51.9 Headache, unspecified; R05.9 Cough, unspecified; K08.89 Other specified disorders of teeth and supporting structures; H92.09 Otalgia, unspecified ear
CPT/HCPCS: 87070; 87631